=== PATIENT | female | born 1955 | race Caucasian/White ===

== ENCOUNTER 2017-12-22 01:06 | Emergency (ER) | payer MEDICARE, SELFPAY ==
[2017-12-22 01:07] VITALS: BP 158/96; PULSE 84; RESP 21; TEMP 36.8; O2SAT 92; BMI 25.7
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
[2017-12-22] MEDS: Meclizine 12.5 MG Tablet 25 MG PO (01:27)
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
--- NOTE | 2017-12-22 02:57 | ED.DEP ---
ED Disposition - Plan for ED Patient: Disposition: Home or Assisted Living Chief Complaint: Headache Instructions: ED Vertigo Unspecified Prescriptions: Ondansetron [Zofran Odt] 4 mg PO Q8H PRN PRN #10 tab PRN Reason: Nausea Meclizine HCl [Antivert] 25 mg PO 4X/DAY PRN PRN #15 tab PRN Reason: Vertigo Referrals: Casey Francois MD [Primary Care Provider] -
[2017-12-22] MEDS: Ondansetron ODT 4 MG Tablet PO (03:07)
[2017-12-22 03:08] VITALS: BP 118/86; PULSE 75; RESP 16; O2SAT 95
== END 2017-12-22 03:10 | disposition home or self-care (01) ==
PROVIDERS: Emergency Provider Emergency Medicine; Family Provider Family Medicine; PCP Family Medicine
DX: R42 Dizziness and giddiness (principal); J44.9 Chronic obstructive pulmonary disease, unspecified
CPT/HCPCS: 70450; 99284

== ENCOUNTER 2018-10-09 20:06 | Inpatient (IN) | payer MEDICARE, SELFPAY ==
[2018-10-04 09:37] VITALS: BMI 26.6
[2018-10-09] VITALS (13 sets, daily range): BP systolic 93–137; BP diastolic 59–114; PULSE 79–110; RESP 12–26; TEMP 36.3; O2SAT 94–96; BMI 27.6
--- NOTE | 2018-10-09 20:33 | PCM.HP.STD ---
History of Present Illness Date of Admission: 10/09/18 Chief Complaint: Dsypnea, wheezing, fatigue The patient is a 63 y/o F w/ PMHx: Chronic COPD w/ Chronic Hypoxic Respiratory Failure (2L NC q HS), Bronchiectasis, prior Tobacco use who presents to the [facility] ICU on 10/09/18 as direct admission from [place] ED w/ history of onset dyspnea, wheezing, extreme fatigue and malaise with decreased oral intake with nonproductive cough starting this past Wednesday and progressively worsening with subjective fevers, no chills, no nausea, emesis, diarrhea associated. In the outside hospital workup had included notable elevated heart rate, tachypnea with ABG initially obtained on 4 L nasal cannula with PCO2 62 and PO2 44 with evidence of respiratory distress with placement per their facility on CPAP with PCO2 decreased to 44, CBC with WBC 7.2, hemoglobin 15.4, platelet 267 without market shift, lactic acid 1.1, BMP with sodium 138, potassium 4.4, chloride 101, bicarb 30, BUN/Cr 9/0.46, glucose 112, rapid influenza obtained per outside hospital but pending upon transition, chest x-ray with no acute process, EKG with sinus tachycardia. In the outside hospital ED patient was administered IV Solu-Medrol, aerosols and transition to [facility] requested as patient follows with pulmonary medicine Dr. Denys Saavedra and primary care physician Dr. Casey Montana. 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 Allergies sulfamethoxazole [From Bactrim] Allergy (Mild, Verified 10/04/18 08:24) Rash trimethoprim [From Bactrim] Allergy (Mild, Verified 10/04/18 08:24) Rash acetaminophen [From Vicodin] Adverse Reaction (Verified 10/04/18 08:24) Nausea hydrocodone [From Vicodin] Adverse Reaction (Verified 10/04/18 08:24) Nausea Sulfa (Sulfonamide Antibiotics) Adverse Reaction (Verified 10/04/18 08:24) Anaphylaxis Home Medications: Ambulatory Orders Medication Instructions Recorded albuterol sulfate HFA 90 2 puff INHALATION Q4H PRN g 09/24/17 mcg/actuation aerosol inhaler budesonide-formoterol HFA 160 2 inh INHALATION Q12H 09/24/17 mcg-4.5 mcg/actuation aerosol inhaler PEP #1 [id number] 10/04/18 ipratropium-albuterol 0.5 mg-3 3 ml INHALATION Q8H 10/04/18 mg(2.5 mg base)/3 mL nebulization soln Surgical History: Surgical History (Last Reviewed 10/04/18 @ 08:24 by Lin Gallo) epidural block Surgical History: - - Ventral hernia repair. 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 Tobacco Use: Non-smoker Alcohol: None Drugs: None - *Family History Maternal Family History: Family History (Last Updated 10/04/18 @ 09:33 by Lin Gallo) Father Lung cancer Mother Myocardial infarction Hypertension Brother Myocardial infarction Sister Diabetes Hypertension Lung cancer History Items: - - Patient notes maternal family history of heart disease, coronary artery disease, hypertension. Paternal Family History: Family History (Last Updated 10/04/18 @ 09:33 by Lin Gallo) Father Lung cancer Mother Myocardial infarction Hypertension Brother Myocardial infarction Sister Diabetes Hypertension Lung cancer History Items: - - She notes a paternal family history of lung cancer with history of tobacco concurrent usage. Review of Systems Constitutional: Reports: Anorexia, Fever, Malaise, Weakness, Fatigue. Denies: Chills, Weight Change HEENT: Denies: Head Aches, Sinus Congestion, Sinus Drainage Cardiovascular: Denies: Chest Pain, Palpitations Respiratory: Reports: Cough, Shortness of Breath, Shortness of breath at rest, Shortness of breath upon exertion, Wheezing. Denies: Sputum production Gastrointestinal: Denies: Abdominal Pain, Nausea, Vomiting Genitourinary: Denies: Dysuria Musculoskeletal: Reports: Joint Pain. Denies: Joint Tenderness Skin: Denies: Rash, Wounds Neurological: Denies: Numbness, Tingling, Focal weakness Psychiatric: Denies: Anxiety, Depression, Homicidal Ideations, Suicidal Ideations Hematologic/ Lymphatic: Denies: Easy Bruising, Easy Bleeding VTE Information - Inpt Only VTE Present on Admission: No VTE Mechan Device Prophylaxis: SCD's VTE Pharm Prophylaxis ordered?: Yes Subjective: Seated upright in the ICU bed, transitioning from CPAP to BiPAP, still ongoing crease respiratory rate, some conversational dyspnea, accessory muscle usage. Objective: Physical Examination: General: awake, alert, oriented x 3 and cooperative, seated upright in the ICU, transitioning from CPAP to BiPAP, still ongoing crease respiratory rate, some conversational dyspnea, accessory muscle usage, appears more comfortable once transition to BiPAP therapy. Skin: normal color, turgor, no icterus, cyanosis. HEENT: AT/NC, EOMI, PERRLA, dry MM, no carotid bruits or JVD noted. Lungs: Diminished breath sounds throughout, greater bilateral bases, increased respiratory rate, some accessory muscle usage, transitioning from CPAP to BiPAP, audible end expiratory wheezing throughout. Heart: Tachycardic with regular rhythm; no gallop, rub audible. Abdomen: soft, thin habitus, NTTP, ND, normal BS, no HSM. Extremities: no cyanosis, clubbing, or edema. Neurological: patient awake, alert, oriented x 3; cognitive function intact; pupils equally reactive to light and accomodation; cranial nerves II-XII grossly normal, moving all 4 extremities, no focal deficits, strength fairly globally decreased secondary to acute presentation. Psychiatric: affect appears fatigued, ill-appearing, no acute evidence of depressive or anxiety feelings. - Physical Exam Vital Signs Temp Pulse Resp BP Pulse Ox 97.4 F L 110 H 23 H 137/92 H 95 10/09/18 20:11 10/09/18 20:11 10/09/18 20:11 10/09/18 20:11 10/09/18 20:11 Oxygen Delivery Method CPAP Weight: 145 lb 15.136 oz Body Mass Index (BMI) 27.6 Assessment/Plan The patient is a 63 y/o F w/ PMHx: Chronic COPD w/ Chronic Hypoxic Respiratory Failure (2L NC q HS), Bronchiectasis, prior Tobacco use who presents to the [facility] ICU on 10/09/18 as direct admission from [facility] ED w/ history of onset dyspnea, wheezing, extreme fatigue and malaise with decreased oral intake with nonproductive cough starting this past Wednesday and progressively worsening with subjective fevers, no chills, no nausea, emesis, diarrhea associated. (1) Acute Sepsis secondary to Acute Hypoxic and Hypercarbic Respiratory Failure on Chronic secondary to Acute on chronic COPD exacerbation w/ Bronchiectasis suspected secondary to Acute Viral Syndrome: OSH ED evaluation w/ CXR w/ chronic changes, CBC without marked WBC elevation or L shift, evidence respiratory distress w/ hypoxia and hypercapnia, placed on CPAP at OSH. Will admit to the ICU, transition to BIPAP, repeat ABG as needed, obtain respiratory viral panel, continue ATC duonebs, PRN albuterol, IV methylprednisolone, HOB, IS parameters, defer abx, request sputum cx and as noted pending respiratory viral panel, repeat CXR in AM, ICU physician consulted and aware. (2) Bronchiectasis, Chronic: Recent Pulmonary visit prior to onset recent acute illness w/ noted work-up with CT w/ emphysematous changes and noted right middle lobe collapse possibly secondary to mucous plugging with plan repeat CT scan in 3 months with possible bronchoscopy for evaluation of endobronchial mass at this region and evidence of bronchiectasis with initiation of PEP therapy, spirometry FEV1 of 42% of predicted ~1 year prior, requested PFTs, walking oximetry. We will continue acute evaluation and workup as noted #1 in addition to continuation of PEP. (3) Chronic Moderate Protein-Calorie Malnutrition: Evidenced per habitus, evidence muscle and fat loss, nutrition consulted. (4) History of Tobacco use: Encourage continued tobacco cessation. (5) DVT Prophylaxis: SCDs, lovenox. (6) CODE status: Discussed CODE status at length including difference between FULL code, DNR-CCA and DNR-CC status. Following discussions about the differences in these status, requested Full Code status. Brother HCPOA. Living will in place. Advanced Care Planning Face to Face Time: 16 minutes. Code Visit Inpatient E&M: 31198 Init Hosp L3 Procedures: 31013 Advncd Care Plan 30 Min
[2018-10-09] MEDS: Albuterol 2.5 MG/3 ML VIAL.NEB. INHALATION (20:40)
[2018-10-09 20:53] LABS: Magnesium 2.1 mg/dL (1.6-2.6)
[2018-10-09] MEDS: MELATONIN 10 MG TABLET PO (22:00)
[2018-10-09] MEDS: 0.9% Normal Saline 1,000 ML 125 ML IV (22:01)
[2018-10-09] MEDS: Acetaminophen 325 MG Tablet 650 MG PO (22:01)
[2018-10-09] MEDS: guaiFENesin 1,200 MG Tablet 1200 MG PO (22:02)
[2018-10-09] MEDS: 0.9% NaCl Peripheral Flush Adult/Peds IV (22:05)
[2018-10-09] MEDS: Ipratropium/Albuterol Sulfate 3 ML AMPUL.NEB INHALATION (22:45)
[2018-10-10] VITALS (34 sets, daily range): BP systolic 94–141; BP diastolic 63–90; PULSE 73–120; RESP 12–23; TEMP 36.1–36.9; O2SAT 92–98
[2018-10-10] MEDS: Ipratropium/Albuterol Sulfate 3 ML AMPUL.NEB INHALATION ×6 (02:33→22:08)
--- NOTE | 2018-10-10 02:44 | RAD_ITS ---
HISTORY: SOB EXAM: XR Chest 1 View: COMPARISON: None FINDINGS: # of images incl. paperwork: 2 LINES/DEVICES: None. LUNGS: Radiographically clear. No consolidation, edema or effusion. No pneumothorax. Lucent appearance of the mid and upper lung suggestive of COPD. MEDIASTINUM AND CARDIOVASCULAR STRUCTURES: Cardiac silhouette not enlarged. Central airways and mediastinal contour are unremarkable. BONES AND SOFT TISSUES: Unremarkable. RAD/Chest 1 View (Portable) IMPRESSION: No radiographic evidence of acute cardiopulmonary disease. Suspect COPD. at 0301 Reported and signed by: Jeff Newton MD Electronically Signed: Jeff Newton, at 3:00 EST Tel , Service support ,
[2018-10-10 04:41] LABS: Absolute Lymphocyte Count 0.36 X10^3/ul (0.83-4.51); Absolute Neutrophil Count 6.4 X10^3/uL (2.0-7.7); Hematocrit 43.5 % (37-47); Hemoglobin 13.9 g/dl (12.0-15.0); Lymphocyte # 0.36 X10^3/ul (4.0); Lymphocyte % 5.3 % (19-41); Mean Corpuscular Hgb 29.8 pg (27.0-32.0); Mean Corpuscular Volume 93.3 fL (81-99); Mean Platelet Vol. 8.8 fl (6.2-12.0); Monocyte% 1.5 % (0-10); Neutrophil # 6.35 X10^3/uL (2.7-7.7); Neutrophil % 92.9 % (47-70); Platelet Count 193 K/mm3 (150-450); RBC Distribution Width CV 13.3 % (11.6-14.6); RBC Distribution Width SD 45.4 fl (35.1-43.9); Red Blood Count 4.66 M/mm3 (4.2-5.4); White Blood Count 6.8 K/mm3 (4.4-11.0)
[2018-10-10 04:42] LABS: Differential Indicated SCAN CRITERIA MET; POSITIVE COUNT NO; POSITIVE DIFFERENTIAL YES; POSITIVE MORPHOLOGY NO
[2018-10-10 04:44] LABS: Anion Gap 7 (5-15); BUN 10 mg/dL (7-18); BUN/Creat Ratio 23.1 RATIO (10-20); Calcium,Total 8.3 mg/dL (8.5-10.1); Chloride 106 mmol/L (98-107); Creatinine, Serum 0.43 mg/dL (0.55-1.02); EST Glomerular Filtration Rate 156 mL/min (>60); Est Glom Filt Rate - Afr Amer 189 mL/min (>60); Estimated Creatinine Clearance 99.74 ml/min; Glucose 139 mg/dL (74-106); Potassium 4.3 mmol/L (3.5-5.1); Sodium Level 141 mmol/L (136-145)
[2018-10-10] MEDS: 0.9% Normal Saline 1,000 ML 125 ML IV (05:35)
--- NOTE | 2018-10-10 08:43 | PCM.CON.CC ---
Problem List (1) Abnormal CT of the chest Status: Chronic (2) Stage 3 severe COPD by GOLD classification Status: Chronic Comment: FEV1 42% (3) Bronchiectasis Status: Chronic Qualifiers: Bronchiectasis type: with acute exacerbation Qualified Code(s): J47.1 - Bronchiectasis with (acute) exacerbation Comment: Noted on CT chest LLL 07/05/17 Reason for Consult Date of Consultation: 10/10/18 Reason for Consultation: Respiratory failure History of Present Illness: The patient is a 63 year old F, with past medical history listed below, who presented to [facility] on 10/09/2018 from [place] [facility] secondary to dyspnea, wheezing, extreme fatigue and malaise. Patient reportedly had had subjective fevers and was noted to be tachycardic at the outside facility. Patient was noted to have a PO2 of 44 on 4 L nasal cannula. Chest x-ray had showed no acute process, but EKG had sinus tachycardia. Patient was given IV Solu-Medrol, aerosols and then transitioned to our intensive care unit on BiPAP therapy. Overnight, patient has been on BiPAP therapy continuously. Patient was initially seen and taken off of BiPAP therapy. Patient reportedly is tolerating this well. Patient was saturating well on nasal cannula oxygen on my evaluation. Patient reports it hit me like a brick on Wednesday. Patient reported significant wheezing, subjective fevers and nonproductive cough. She was recently seen in my office as a transfer from Dr. Tierney's office. Patient had dated PFT showing an FEV1 of 42% of predicted. CT scan at the outside facility showed left lower lobe bronchiectasis and a possible right middle lobe obstruction. Patient reportedly did have a productive cough on a daily basis and there was some concern for possible mucous plugging at that time. Patient was to have a repeat CT scan in 3 months with possible bronchoscopy to follow. Did discuss with patient about her CODE STATUS. Patient states she would like to be a full code. She understands the risk of not being able to come off the ventilator, but thinks I am not that bad. Review of systems was otherwise negative x10 systems. 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 Allergies sulfamethoxazole [From Bactrim] Allergy (Mild, Verified 10/04/18 08:24) Rash trimethoprim [From Bactrim] Allergy (Mild, Verified 10/04/18 08:24) Rash hydrocodone [From Vicodin] Adverse Reaction (Verified 10/04/18 08:24) Nausea Sulfa (Sulfonamide Antibiotics) Adverse Reaction (Verified 10/04/18 08:24) Anaphylaxis Home Medications: Ambulatory Orders Medication Instructions Recorded albuterol sulfate HFA 90 2 puff INHALATION Q4H PRN g 09/24/17 mcg/actuation aerosol inhaler budesonide-formoterol HFA 160 2 inh INHALATION Q12H 09/24/17 mcg-4.5 mcg/actuation aerosol inhaler PEP #1 [id number] 10/04/18 ipratropium-albuterol 0.5 mg-3 3 ml INHALATION Q8H 10/04/18 mg(2.5 mg base)/3 mL nebulization soln Surgical History: Surgical History (Last Reviewed 10/04/18 @ 08:24 by Lin Gallo) epidural block Surgical History: - - Ventral hernia repair. 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 Tobacco Use: Non-smoker Alcohol: None Drugs: None - *Family History Maternal Family History: Family History (Last Updated 10/04/18 @ 09:33 by Lin Gallo) Father Lung cancer Mother Myocardial infarction Hypertension Brother Myocardial infarction Sister Diabetes Hypertension Lung cancer History Items: - - Patient notes maternal family history of heart disease, coronary artery disease, hypertension. Paternal Family History: Family History (Last Updated 10/04/18 @ 09:33 by Lin Gallo) Father Lung cancer Mother Myocardial infarction Hypertension Brother Myocardial infarction Sister Diabetes Hypertension Lung cancer History Items: - - She notes a paternal family history of lung cancer with history of tobacco concurrent usage. Review of Systems Comment: See HPI, otherwise negative x10 systems. Objective: Chest x-ray was personally reviewed and shows no acute infiltrate. - Physical Exam General: Alert, Oriented x3, Cooperative, - - Mild conversational dyspnea while on BiPAP initially. Appears older than stated age. HEENT: Atraumatic, PERRLA, EOMI, Normocephalic, - - No scleral icterus or injection noted. Oral: Moist Mucosa, No Gingival or Mucosal Lesions/ Ulcerations Neck: Supple, No JVD, No Nodes, Trachea Midline Lungs: No rhonchi, No rales, Diminished, Wheezes - At end exhalation Cardiovascular: Regular rate, Regular Rhythm, Normal S1, Normal S2, No murmurs, No rub noted, No Gallop Abdomen: Bowel Sounds Present, Soft, Non Tender, Non-Distended Extremities: No clubbing, No cyanosis, No edema, Capillary Refill Less than 3 Seconds Skin: No rashes, No breakdown Musculoskeletal: No Tenderness to Palpation of Joints or Extremities, No Muscle Wasting Lymphatic: No Cervical, Supraclavicular, or Inguinal Adenopathy Neurological: Cranial nerves II-XII grossly intact, Neuro grossly intact, Motor Exam 5/5 strength throughout Psych/Mental Status: Alert and oriented to time, place, person, mood and affect Vital Signs Temp Pulse Resp BP Pulse Ox 36.4 C L 84 20 H 103/82 H 95 10/10/18 08:00 10/10/18 08:00 10/10/18 08:00 10/10/18 08:00 10/10/18 08:00 Oxygen Flow Rate (L/min) 4 Oxygen Delivery Method Nasal Cannula Weight: 67.3 kg Body Mass Index (BMI) 27.6 Intake and Output for Last 24 Hours 10/08/18 10/09/18 10/10/18 23:59 23:59 23:59 Intake Total 411 / 411 807 / 807 Output Total 200 / 200 Balance 211 / 211 807 / 807 Laboratory Tests Past 24 Hrs 10/09/18 10/10/18 10/10/18 20:40 04:20 04:20 WBC 6.8 RBC 4.66 Hgb 13.9 Hct 43.5 MCV 93.3 MCH 29.8 MCHC 32.0 RDW 13.3 RDW Differential 45.4 H Plt Count 193 MPV 8.8 Immature Gran % (Auto) 0.300 Neut % (Auto) 92.9 H Lymph % (Auto) 5.3 L [place] % (Auto) 1.5 Eos % (Auto) 0.0 Baso % (Auto) 0.0 Absolute Neuts (auto) 6.4 Absolute Lymphs (auto) 0.36 L Total Counted Not Reportable Sodium 141 Potassium 4.3 Chloride 106 Carbon Dioxide 28.0 Anion Gap 7 BUN 10 Creatinine 0.43 L Estim Creat Clear Calc 99.74 Est GFR (MDRD) Af Amer 189 Est GFR (MDRD) Non-Af 156 BUN/Creatinine Ratio 23.1 H Glucose 139 H Calcium 8.3 L Magnesium 2.1 Clinical Impression(s) from Imaging Studies Chest X-Ray 10/10/18 02:44 IMPRESSION: No radiographic evidence of acute cardiopulmonary disease. Suspect COPD. at 0301 Reported and signed by: Jeff Newton MD Electronically Signed: Jeff Newton, at 3:00 EST Tel , Service support , Assessment/Plan RECOMMENDATIONS: 1. Continue mucolytic, steroids and bronchodilators as ordered 2. Wean oxygen as tolerated 3. Continue BiPAP as needed/nightly 4. Likely okay to leave the intensive care unit IMPRESSIONS: 1. Acute on chronic hypoxic respiratory failure secondary to COPD versus bronchiectasis exacerbation Unclear etiology at this time. Patient does have a viral panel currently pending. Patient has had a CT scan in the past showing possible obstruction of the right middle lobe. No infiltrate is appreciated on chest x-ray. Unclear if patient had an element of mucus plugging leading to current situation. Patient would benefit from initiation of Acapella therapy. We will continue with BiPAP breaks as tolerated. Would continue with BiPAP overnight during the acute phase. Patient will need a walking oximetry prior to discharge. 2. Chronic moderate protein calorie malnutrition/history of tobacco use Complicates care, management, recovery and prognosis. Dietitian has been consulted. Patient is on DVT Lovenox. Code Visit Inpatient E&M: 28357 Init Hosp L3
--- NOTE | 2018-10-10 08:50 | CON.PCM_ITS ---
Problem List (1) Abnormal CT of the chest Status: Chronic (2) Stage 3 severe COPD by GOLD classification Status: Chronic Comment: FEV1 42% (3) Bronchiectasis Status: Chronic Qualifiers: Bronchiectasis type: with acute exacerbation Qualified Code(s): J47.1 - Bronchiectasis with (acute) exacerbation Comment: Noted on CT chest LLL 07/05/17 Reason for Consult Date of Consultation: 10/10/18 Reason for Consultation: Respiratory failure History of Present Illness: The patient is a 63 year old F, with past medical history listed below, who presented to [facility] on 10/09/2018 from [facility] secondary to dyspnea, wheezing, extreme fatigue and malaise. Patient reportedly had had subjective fevers and was noted to be tachycardic at the outside facility. Patient was noted to have a PO2 of 44 on 4 L nasal cannula. Chest x-ray had showed no acute process, but EKG had sinus tachycardia. Patient was given IV Solu-Medrol, aerosols and then transitioned to our intensive care unit on BiPAP therapy. Overnight, patient has been on BiPAP therapy continuously. Patient was initially seen and taken off of BiPAP therapy. Patient reportedly is tolerating this well. Patient was saturating well on nasal cannula oxygen on my evaluation. Patient reports it hit me like a brick on Wednesday. Patient reported significant wheezing, subjective fevers and nonproductive cough. She was recently seen in my office as a transfer from Dr. Tierney's office. Patient had dated PFT showing an FEV1 of 42% of predicted. CT scan at the outside facility showed left lower lobe bronchiectasis and a possible right middle lobe o bstruction. Patient reportedly did have a productive cough on a daily basis and there was some concern for possible mucous plugging at that time. Patient was to have a repeat CT scan in 3 months with possible bronchoscopy to follow. Did discuss with patient about her CODE STATUS. Patient states she would like to be a full code. She understands the risk of not being able to come off the ventilator, but thinks I am not that bad. Review of systems was otherwise negative x10 systems. 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 Allergies sulfamethoxazole [From Bactrim] Allergy (Mild, Verified 10/04/18 08:24) Rash trimethoprim [From Bactrim] Allergy (Mild, Verified 10/04/18 08:24) Rash hydrocodone [From Vicodin] Adverse Reaction (Verified 10/04/18 08:24) Nausea Sulfa (Sulfonamide Antibiotics) Adverse Reaction (Verified 10/04/18 08:24) Anaphylaxis Home Medications: Ambulatory Orders Medication Instructions Recorded albuterol sulfate HFA 90 2 puff INHALATION Q4H PRN g 09/24/17 mcg/actuation aerosol inhaler budesonide-formoterol HFA 160 2 inh INHALATION Q12H 09/24/17 mcg-4.5 mcg/actuation aerosol inhaler PEP #1 [id number] 10/04/18 ipratropium-albuterol 0.5 mg-3 3 ml INHALATION Q8H 10/04/18 mg(2.5 mg base)/3 mL nebulization soln Surgical History: Surgical History (Last Reviewed 10/04/18 @ 08:24 by Lin Gallo) epidural block Surgical History: - - Ventral hernia repair. 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 Tobacco Use: Non-smoker Alcohol: None Drugs: None - *Family History Maternal Family History: Family History (Last Updated 10/04/18 @ 09:33 by Lin Gallo) Father Lung cancer Mother Myocardial infarction Hypertension Brother Myocardial infarction Sister Diabetes Hypertension Lung cancer History Items: - - Patient notes maternal family history of heart disease, coronary artery disease, hypertension. Paternal Family History: Family History (Last Updated 10/04/18 @ 09:33 by Lin Gallo) Father Lung cancer Mother Myocardial infarction Hypertension Brother Myocardial infarction Sister Diabetes Hypertension Lung cancer History Items: - - She notes a paternal family history of lung cancer with history of tobacco concurrent usage. Review of Systems Comment: See HPI, otherwise negative x10 systems. Objective: Chest x-ray was personally reviewed and shows no acute infiltrate. - Physical Exam General: Alert, Oriented x3, Cooperative, - - Mild conversational dyspnea while on BiPAP initially. Appears older than stated age. HEENT: Atraumatic, PERRLA, EOMI, Normocephalic, - - No scleral icterus or injection noted. Oral: Moist Mucosa, No Gingival or Mucosal Lesions/ Ulcerations Neck: Supple, No JVD, No Nodes, Trachea Midline Lungs: No rhonchi, No rales, Diminished, Wheezes - At end exhalation Cardiovascular: Regular rate, Regular Rhythm, Normal S1, Normal S2, No murmurs, No rub noted, No Gallop Abdomen: Bowel Sounds Present, Soft, Non Tender, Non-Distended Extremities: No clubbing, No cyanosis, No edema, Capillary Refill Less than 3 Seconds Skin: No rashes, No breakdown Musculoskeletal: No Tenderness to Palpation of Joints or Extremities, No Muscle Wasting Lymphatic: No Cervical, Supraclavicular, or Inguinal Adenopathy Neurological: Cranial nerves II-XII grossly intact, Neuro grossly intact, Motor Exam 5/5 strength throughout Psych/Mental Status: Alert and oriented to time, place, person, mood and affect Vital Signs Temp Pulse Resp BP Pulse Ox 36.4 C L 84 20 H 103/82 H 95 10/10/18 08:00 10/10/18 08:00 10/10/18 08:00 10/10/18 08:00 10/10/18 08:00 Oxygen Flow Rate (L/min) 4 Oxygen Delivery Method Nasal Cannula Weight: 67.3 kg Body Mass Index (BMI) 27.6 Intake and Output for Last 24 Hours 10/08/18 10/09/18 10/10/18 23:59 23:59 23:59 Intake Total 411 / 411 807 / 807 Output Total 200 / 200 Balance 211 / 211 807 / 807 Laboratory Tests Past 24 Hrs 10/09/18 10/10/18 10/10/18 20:40 04:20 04:20 WBC 6.8 RBC 4.66 Hgb 13.9 Hct 43.5 MCV 93.3 MCH 29.8 MCHC 32.0 RDW 13.3 RDW Differential 45.4 H Plt Count 193 MPV 8.8 Immature Gran % (Auto) 0.300 Neut % (Auto) 92.9 H Lymph % (Auto) 5.3 L [place] % (Auto) 1.5 Eos % (Auto) 0.0 Baso % (Auto) 0.0 Absolute Neuts (auto) 6.4 Absolute Lymphs (auto) 0.36 L Total Counted Not Reportable Sodium 141 Potassium 4.3 Chloride 106 Carbon Dioxide 28.0 Anion Gap 7 BUN 10 Creatinine 0.43 L Estim Creat Clear Calc 99.74 Est GFR (MDRD) Af Amer 189 Est GFR (MDRD) Non-Af 156 BUN/Creatinine Ratio 23.1 H Glucose 139 H Calcium 8.3 L Magnesium 2.1 Clinical Impression(s) from Imaging Studies Chest X-Ray 10/10/18 02:44 IMPRESSION: No radiographic evidence of acute cardiopulmonary disease. Suspect COPD. at 0301 Reported and signed by: Jeff Newton MD Electronically Signed: Jeff Newton, at 3:00 EST Tel , Service support , Assessment/Plan RECOMMENDATIONS: 1. Continue mucolytic, steroids and bronchodilators as ordered 2. Wean oxygen as tolerated 3. Continue BiPAP as needed/nightly 4. Likely okay to leave the intensive care unit IMPRESSIONS: 1. Acute on chronic hypoxic respiratory failure secondary to COPD versus bronchiectasis exacerbation Unclear etiology at this time. Patient does have a viral panel currently pending. Patient has had a CT scan in the past showing possible obstruction of the right middle lobe. No infiltrate is appreciated on chest x-ray. Unclear if patient had an element of mucus plugging leading to current situation. Patient would benefit from initiation of Acapella therapy. We will continue with BiPAP breaks as tolerated. Would continue with BiPAP overnight during the acute phase. Patient will need a walking oximetry prior to discharge. 2. Chronic moderate protein calorie malnutrition/history of tobacco use Complicates care, management, recovery and prognosis. Dietitian has been consulted. Patient is on DVT Lovenox. Code Visit Inpatient E&M: 62724 Init Hosp L3
--- NOTE | 2018-10-10 09:10 | PCM.PN.HOSP ---
Patient Problems: Active and Suspected Problems (Last Updated 10/04/18 @ 09:32 by Lin Gallo) COPD with acute exacerbation (Acute) Acute and chronic respiratory failure with hypoxia (Acute) Subjective: Follow up COPD Breathing better. Taken of BiPAP this AM and is breathing well. Vitals/I&O's: Vital Signs Temp Pulse Resp BP Pulse Ox 36.4 C L 89 23 H 132/90 H 98 10/10/18 08:00 10/10/18 09:00 10/10/18 09:00 10/10/18 09:00 10/10/18 09:00 Oxygen Flow Rate (L/min) 4 Oxygen Delivery Method Nasal Cannula Weight: 67.3 kg Body Mass Index (BMI) 27.6 Intake and Output for Last 24 Hours 10/08/18 10/09/18 10/10/18 23:59 23:59 23:59 Intake Total 411 / 411 807 / 807 Output Total 200 / 200 Balance 211 / 211 807 / 807 General: Alert, No apparent distress HEENT: Atraumatic, Normocephalic Oral: Moist Mucosa, No Gingival or Mucosal Lesions/ Ulcerations Neck: No Nodes, Thyroid Normal Size and Texture Lungs: Diminished, Wheezes Cardiovascular: Regular rate, Regular Rhythm, Normal S1, Normal S2, No murmurs Abdomen: Bowel Sounds Present, Soft, Non Tender, Non-Distended, No Hepato-splenomegaly Extremities: No edema, No Calf Tenderness Skin: No rashes, No breakdown Psych/Mental Status: Normal Affect, Appropriate Laboratory Results 10/09/18 20:40: Magnesium 2.1 10/10/18 04:20: WBC 6.8, RBC 4.66, Hgb 13.9, Hct 43.5, MCV 93.3, MCH 29.8, MCHC 32.0, RDW 13.3, RDW Differential 45.4 H, Plt Count 193, MPV 8.8, Immature Gran % (Auto) 0.300, Neut % (Auto) 92.9 H, Lymph % (Auto) 5.3 L, [place] % (Auto) 1.5, Eos % (Auto) 0.0, Baso % (Auto) 0.0, Absolute Neuts (auto) 6.4, Absolute Lymphs (auto) 0.36 L, Total Counted Not Reportable 10/10/18 04:20: Sodium 141, Potassium 4.3, Chloride 106, Carbon Dioxide 28.0, Anion Gap 7, BUN 10, Creatinine 0.43 L, Estim Creat Clear Calc 99.74, Est GFR (MDRD) Af Amer 189, Est GFR (MDRD) Non-Af 156, BUN/Creatinine Ratio 23.1 H, Glucose 139 H, Calcium 8.3 L Current Medications Acetaminophen (Tylenol) 650 mg PO Q6H PRN PRN PRN Reason: Mild Pain (scale 0-3)/T>100.7 Last Admin: 10/09/18 22:01 Dose: 650 mg Al Hydroxide/Mg Hydroxide (Mylanta Ii) 30 ml PO Q6H PRN PRN PRN Reason: Gastric burning Albuterol Sulfate (Ventolin Aerosols) 2.5 mg INHALATION Q2H PRN PRN PRN Reason: SHORTNESS OF BREATH Last Admin: 10/09/18 20:40 Dose: 2.5 mg Albuterol/Ipratropium (Duoneb) 3 ml INHALATION Q4H.RT [facility] Last Admin: 10/10/18 06:50 Dose: 3 ml Enoxaparin Sodium (Lovenox) 40 mg SC DAILY@1000 MAIRA Guaifenesin (Mucinex) 1,200 mg PO BID [facility] Last Admin: 10/09/18 22:02 Dose: 1,200 mg Sodium Chloride () 250 mls @ 15 mls/hr IV .[id number] PRN PRN Reason: SALINE FLUSH Magnesium Hydroxide (Milk Of Magnesia) 30 ml PO DAILY PRN PRN PRN Reason: Constipation Melatonin (Melatonin) 10 mg PO QHS [facility] Last Admin: 10/09/18 22:00 Dose: 10 mg Methylprednisolone (Solu-Medrol) 40 mg IV Q8 [facility] Last Admin: 10/10/18 06:10 Dose: 40 mg Ondansetron HCl (Zofran) 4 mg IV Q8H PRN PRN PRN Reason: NAUSEA Sodium Chloride () 5 - 15 ml IV UD PRN PRN Reason: SALINE FLUSH Last Admin: 10/09/18 22:05 Dose: 10 ml Medical Necessity - Tobacco Use Smoking Status: Former smoker - Patient quit cigarette tobacco usage October 09 with a [id number] history prior to this. Tobacco Use: Non-smoker Assessment/Plan All Active Problems (Last Updated 10/04/18 @ 09:32 by Lin Gallo) COPD with acute exacerbation (Acute) Acute and chronic respiratory failure with hypoxia (Acute) 1. Acute hypoxic respiratory failure noted pulse Ox of 44% on 4L 2/2 AECOPD or AE bronchiectasis taken off BiPAP and tolerating nasal canula well 2. AECOPD v acute exacerbation of bronchiectasis continue steroids, BDs 3. DVT proph: LMWH Deescalate level of care to PCU. NATTY Saavedra. Code Visit Inpatient E&M: 53291 Subs Hosp L2
--- NOTE | 2018-10-10 09:16 | PN_ITS ---
Patient Problems: Active and Suspected Problems (Last Updated 10/04/18 @ 09:32 by Lin Gallo) COPD with acute exacerbation (Acute) Acute and chronic respiratory failure with hypoxia (Acute) Subjective: Follow up COPD Breathing better. Taken of BiPAP this AM and is breathing well. Vitals/I&O's: Vital Signs Temp Pulse Resp BP Pulse Ox 36.4 C L 89 23 H 132/90 H 98 10/10/18 08:00 10/10/18 09:00 10/10/18 09:00 10/10/18 09:00 10/10/18 09:00 Oxygen Flow Rate (L/min) 4 Oxygen Delivery Method Nasal Cannula Weight: 67.3 kg Body Mass Index (BMI) 27.6 Intake and Output for Last 24 Hours 10/08/18 10/09/18 10/10/18 23:59 23:59 23:59 Intake Total 411 / 411 807 / 807 Output Total 200 / 200 Balance 211 / 211 807 / 807 General: Alert, No apparent distress HEENT: Atraumatic, Normocephalic Oral: Moist Mucosa, No Gingival or Mucosal Lesions/ Ulcerations Neck: No Nodes, Thyroid Normal Size and Texture Lungs: Diminished, Wheezes Cardiovascular: Regular rate, Regular Rhythm, Normal S1, Normal S2, No murmurs Abdomen: Bowel Sounds Present, Soft, Non Tender, Non-Distended, No Hepato- splenomegaly Extremities: No edema, No Calf Tenderness Skin: No rashes, No breakdown Psych/Mental Status: Normal Affect, Appropriate Laboratory Results 10/09/18 20:40: Magnesium 2.1 10/10/18 04:20: WBC 6.8, RBC 4.66, Hgb 13.9, Hct 43.5, MCV 93.3, MCH 29.8, MCHC 32.0, RDW 13.3, RDW Differential 45.4 H, Plt Count 193, MPV 8.8, Immature Gran % (Auto) 0.300, Neut % (Auto) 92.9 H, Lymph % (Auto) 5.3 L, [place] % (Auto) 1.5, Eos % (Auto) 0.0, Baso % (Auto) 0.0, Absolute Neuts (auto) 6.4, Absolute Lymphs (auto) 0.36 L, Total Counted Not Reportable 10/10/18 04:20: Sodium 141, Potassium 4.3, Chloride 106, Carbon Dioxide 28.0, Anion Gap 7, BUN 10, Creatinine 0.43 L, Estim Creat Clear Calc 99.74, Est GFR (MDRD) Af Amer 189, Est GFR (MDRD) Non-Af 156, BUN/Creatinine Ratio 23.1 H, Glucose 139 H, Calcium 8.3 L Current Medications Acetaminophen (Tylenol) 650 mg PO Q6H PRN PRN PRN Reason: Mild Pain (scale 0-3)/T>100.7 Last Admin: 10/09/18 22:01 Dose: 650 mg Al Hydroxide/Mg Hydroxide (Mylanta Ii) 30 ml PO Q6H PRN PRN PRN Reason: Gastric burning Albuterol Sulfate (Ventolin Aerosols) 2.5 mg INHALATION Q2H PRN PRN PRN Reason: SHORTNESS OF BREATH Last Admin: 10/09/18 20:40 Dose: 2.5 mg Albuterol/Ipratropium (Duoneb) 3 ml INHALATION Q4H.RT [facility] Last Admin: 10/10/18 06:50 Dose: 3 ml Enoxaparin Sodium (Lovenox) 40 mg SC DAILY@1000 MAIRA Guaifenesin (Mucinex) 1,200 mg PO BID [facility] Last Admin: 10/09/18 22:02 Dose: 1,200 mg Sodium Chloride () 250 mls @ 15 mls/hr IV .[id number] PRN PRN Reason: SALINE FLUSH Magnesium Hydroxide (Milk Of Magnesia) 30 ml PO DAILY PRN PRN PRN Reason: Constipation Melatonin (Melatonin) 10 mg PO QHS [facility] Last Admin: 10/09/18 22:00 Dose: 10 mg Methylprednisolone (Solu-Medrol) 40 mg IV Q8 [facility] Last Admin: 10/10/18 06:10 Dose: 40 mg Ondansetron HCl (Zofran) 4 mg IV Q8H PRN PRN PRN Reason: NAUSEA Sodium Chloride () 5 - 15 ml IV UD PRN PRN Reason: SALINE FLUSH Last Admin: 10/09/18 22:05 Dose: 10 ml Medical Necessity - Tobacco Use Smoking Status: Former smoker - Patient quit cigarette tobacco usage October 09 with a [id number] history prior to this. Tobacco Use: Non-smoker Assessment/Plan All Active Problems (Last Updated 10/04/18 @ 09:32 by Lin Gallo) COPD with acute exacerbation (Acute) Acute and chronic respiratory failure with hypoxia (Acute) 1. Acute hypoxic respiratory failure noted pulse Ox of 44% on 4L 2/2 AECOPD or AE bronchiectasis taken off BiPAP and tolerating nasal canula well 2. AECOPD v acute exacerbation of bronchiectasis continue steroids, BDs 3. DVT proph: LMWH Deescalate level of care to PCU. NATTY Saavedra. Code Visit Inpatient E&M: 65716 Subs Hosp L2
[2018-10-10] MEDS: guaiFENesin 1,200 MG Tablet 1200 MG PO ×2 (09:30→21:54)
[2018-10-10] MEDS: Enoxaparin 40 MG/0.4 ML Syringe SC (09:30)
--- NOTE | 2018-10-10 11:05 | CASEMGMT ---
RN CM Assessment Presentation: sepsis, acute hypoxic and hypercarbic resp failure, COPD exacerbation. Pt on Bipap intermittently now, plan is to wean to [place]. PCP Dr. Francois Insurance: [facility] Prescription coverage: yes Living arrangements: lives independently in apartment. No DME us. Pt states she is independent. PT/OT evals: do not anticipate pt will need therapy after dc. Transportation: drives DME needs: may need oxygen testing prior to dc. DC PLAN: home on dc.
[2018-10-10] MEDS: MELATONIN 10 MG TABLET PO (21:54)
[2018-10-10] MEDS: 0.9% NaCl Peripheral Flush Adult/Peds IV ×3 (21:55→21:59)
[2018-10-11] VITALS (14 sets, daily range): BP systolic 115–124; BP diastolic 56–86; PULSE 56–86; RESP 14–20; TEMP 36.6–36.8; O2SAT 91–98
[2018-10-11] MEDS: 0.9% NaCl Peripheral Flush Adult/Peds IV ×4 (05:22→22:49)
--- NOTE | 2018-10-11 05:27 | CPS ---
pt didn't want to wear bipap unless absolutely necessary
--- NOTE | 2018-10-11 05:30 | NURSING ---
Pt states that both times she received Solu-Medrol this shift, she got a headache. States REYNOLDS doesn't last long.
[2018-10-11] MEDS: Ipratropium/Albuterol Sulfate 3 ML AMPUL.NEB INHALATION ×4 (06:55→23:05)
[2018-10-11] MEDS: Enoxaparin 40 MG/0.4 ML Syringe SC (08:26)
[2018-10-11] MEDS: guaiFENesin 1,200 MG Tablet 1200 MG PO ×2 (08:26→22:49)
--- NOTE | 2018-10-11 09:42 | PCM.PN.INT ---
Subjective: Patient transferred out of the intensive care unit yesterday. Patient reports subjective improvement in overall condition. Oxygen status has improved. Patient did not require BiPAP rescue overnight. Patient continues to have a cough that is intermittently productive. General: Alert, Oriented x3, Cooperative, No apparent distress, - - Mild conversational dyspnea. Appears older than stated age. HEENT: Atraumatic, PERRLA, EOMI, Normocephalic, - - No scleral icterus or injection noted. Oral: Moist Mucosa, No Gingival or Mucosal Lesions/ Ulcerations Neck: Supple, No JVD, No Nodes, Trachea Midline Lungs: No rhonchi, No rales, Diminished, Wheezes, - - Symmetric expansion. No dullness to percussion. Cardiovascular: Regular rate, Regular Rhythm, Normal S1, Normal S2, No murmurs, No rub noted, No Gallop Abdomen: Bowel Sounds Present, Soft, Non Tender, Non-Distended Extremities: No cyanosis, No edema, Capillary Refill Less than 3 Seconds, Clubbing Skin: No rashes, No breakdown Musculoskeletal: No Tenderness to Palpation of Joints or Extremities Lymphatic: No Cervical, Supraclavicular, or Inguinal Adenopathy Neurological: Cranial nerves II-XII grossly intact, Neuro grossly intact, Motor Exam 5/5 strength throughout Psych/Mental Status: Alert and oriented to time, place, person, mood and affect Vital Signs Temp Pulse Resp BP Pulse Ox 36.7 C 82 19 H 115/56 L 91 10/11/18 04:08 10/11/18 07:00 10/11/18 07:00 10/11/18 04:08 10/11/18 07:43 Oxygen Flow Rate (L/min) 2 Oxygen Delivery Method Nasal Cannula Weight: 65.9 kg Body Mass Index (BMI) 27.6 Intake and Output for Last 24 Hours 10/09/18 10/10/18 10/11/18 23:59 23:59 23:59 Intake Total 411 / 411 2204 / 2204 60 / 60 Output Total 200 / 200 1800 / 1800 Balance 211 / 211 404 / 404 60 / 60 Labs (Last 48 Hours) 10/09/18 10/10/18 10/10/18 20:40 04:20 04:20 WBC 6.8 RBC 4.66 Hgb 13.9 Hct 43.5 MCV 93.3 MCH 29.8 MCHC 32.0 RDW 13.3 RDW Differential 45.4 H Plt Count 193 MPV 8.8 Immature Gran % (Auto) 0.300 Neut % (Auto) 92.9 H Lymph % (Auto) 5.3 L [place] % (Auto) 1.5 Eos % (Auto) 0.0 Baso % (Auto) 0.0 Absolute Neuts (auto) 6.4 Absolute Lymphs (auto) 0.36 L Total Counted Not Reportable Sodium 141 Potassium 4.3 Chloride 106 Carbon Dioxide 28.0 Anion Gap 7 BUN 10 Creatinine 0.43 L Estim Creat Clear Calc 99.74 Est GFR (MDRD) Af Amer 189 Est GFR (MDRD) Non-Af 156 BUN/Creatinine Ratio 23.1 H Glucose 139 H Calcium 8.3 L Magnesium 2.1 Microbiology 10/10/18 09:30 Sputum, Expectorated/Coughed Gram Stain - Final 10/09/18 20:30 Mucosa - Nasopharyngeal Respiratory Panel (PCR) - Final RSV B Medical Necessity - Tobacco Use Smoking Status: Former smoker - Patient quit cigarette tobacco usage October 09 with a [id number] history prior to this. Tobacco Use: Non-smoker Assessment/Plan All Active Problems (Last Updated 10/04/18 @ 09:32 by Lin Gallo) COPD with acute exacerbation (Acute) Acute and chronic respiratory failure with hypoxia (Acute) RECOMMENDATIONS: 1. Continue mucolytic and bronchodilators as ordered 2. Wean oxygen as tolerated 3. Likely okay to discontinue BiPAP rescue 4. Wean steroid therapy IMPRESSIONS: 1. Acute on chronic hypoxic respiratory failure secondary to COPD versus bronchiectasis exacerbation secondary to RSV Patient has come back positive for RSV. Patient appears to be responding to therapy well. We will decrease steroid therapy today. Anticipate transition to prednisone therapy tomorrow. Possible discharge tomorrow. Patient encouraged to ambulate as tolerated. Continue to wean oxygen as tolerated. Patient will need a walking oximetry prior to discharge. 2. Chronic moderate protein calorie malnutrition/history of tobacco use Complicates care, management, recovery and prognosis. Dietitian has been consulted. Patient is on DVT Lovenox. Code Visit Inpatient E&M: 69759 Subs Hosp L2
--- NOTE | 2018-10-11 13:15 | PCM.PN.HOSP ---
Patient Problems: Active and Suspected Problems (Last Updated 10/04/18 @ 09:32 by Lin Gallo) COPD with acute exacerbation (Acute) Acute and chronic respiratory failure with hypoxia (Acute) Subjective: Feels good. Breathing better. Vitals/I&O's: Vital Signs Temp Pulse Resp BP Pulse Ox 36.8 C 86 20 H 116/68 92 10/11/18 09:00 10/11/18 10:57 10/11/18 10:20 10/11/18 09:00 10/11/18 09:00 Oxygen Flow Rate (L/min) 2 Oxygen Delivery Method Nasal Cannula Weight: 65.9 kg Body Mass Index (BMI) 27.6 Intake and Output for Last 24 Hours 10/09/18 10/10/18 10/11/18 23:59 23:59 23:59 Intake Total 411 / 411 2204 / 2204 540 / 540 Output Total 200 / 200 1800 / 1800 Balance 211 / 211 404 / 404 540 / 540 General: Alert, No apparent distress HEENT: Atraumatic, Normocephalic Oral: Moist Mucosa, No Gingival or Mucosal Lesions/ Ulcerations Neck: No Nodes, Thyroid Normal Size and Texture Lungs: No rhonchi, No wheeze, Diminished, Wheezes - upper respiratory. Cardiovascular: Regular rate, Regular Rhythm, Normal S1, Normal S2, No murmurs Abdomen: Bowel Sounds Present, Soft, Non Tender, Non-Distended Extremities: No edema, No Calf Tenderness Skin: No rashes, No breakdown Psych/Mental Status: Normal Affect, Appropriate Microbiology Past 72 Hours 10/10/18 09:30 Sputum, Expectorated/Coughed Gram Stain - Final 10/10/18 09:30 Sputum, Expectorated/Coughed Respiratory Culture - Preliminary Appears to be normal respiratory yesenia. Further studies to follow. 10/09/18 20:30 Mucosa - Nasopharyngeal Respiratory Panel (PCR) - Final RSV B Current Medications Acetaminophen (Tylenol) 650 mg PO Q6H PRN PRN PRN Reason: Mild Pain (scale 0-3)/T>100.7 Last Admin: 10/09/18 22:01 Dose: 650 mg Al Hydroxide/Mg Hydroxide (Mylanta Ii) 30 ml PO Q6H PRN PRN PRN Reason: Gastric burning Albuterol Sulfate (Ventolin Aerosols) 2.5 mg INHALATION Q2H PRN PRN PRN Reason: SHORTNESS OF BREATH Last Admin: 10/09/18 20:40 Dose: 2.5 mg Albuterol/Ipratropium (Duoneb) 3 ml INHALATION Q4H.RT [facility] Last Admin: 10/11/18 10:19 Dose: 3 ml Enoxaparin Sodium (Lovenox) 40 mg SC DAILY@1000 [facility] Last Admin: 10/11/18 08:26 Dose: 40 mg Guaifenesin (Mucinex) 1,200 mg PO BID [facility] Last Admin: 10/11/18 08:26 Dose: 1,200 mg Magnesium Hydroxide (Milk Of Magnesia) 30 ml PO DAILY PRN PRN PRN Reason: Constipation Melatonin (Melatonin) 10 mg PO QHS [facility] Last Admin: 10/10/18 21:54 Dose: 10 mg Methylprednisolone (Solu-Medrol) 40 mg IV Q12 [facility] Ondansetron HCl (Zofran) 4 mg IV Q8H PRN PRN PRN Reason: NAUSEA Sodium Chloride () 5 - 15 ml IV UD PRN PRN Reason: SALINE FLUSH Last Admin: 10/11/18 05:30 Dose: 10 ml Medical Necessity - Tobacco Use Smoking Status: Former smoker - Patient quit cigarette tobacco usage October 09 with a 11-[id number]-rbnn history prior to this. Tobacco Use: Non-smoker Assessment/Plan All Active Problems (Last Updated 10/04/18 @ 09:32 by Lin Gallo) COPD with acute exacerbation (Acute) Acute and chronic respiratory failure with hypoxia (Acute) 1. Acute hypoxic respiratory failure Improved noted pulse Ox of 44% on 4L up admission 2/2 AECOPD or AE bronchiectasis taken off BiPAP and tolerating nasal canula well has oxygen PRN at home. Will check an ambulatory pulse ox prior to discharge to see if she will require it continuously or not. 2. AECOPD v acute exacerbation of bronchiectasis continue steroids, BDs 3. DVT proph: LMWH 4. Disposition: plan for home in next 24-48h if continues to improve. Deescalate level of care to Med Surg DW Dr. Saavedra. Code Visit Inpatient E&M: 25683 Subs Hosp L2
--- NOTE | 2018-10-11 13:18 | PN_ITS ---
Patient Problems: Active and Suspected Problems (Last Updated 10/04/18 @ 09:32 by Lin Gallo) COPD with acute exacerbation (Acute) Acute and chronic respiratory failure with hypoxia (Acute) Subjective: Feels good. Breathing better. Vitals/I&O's: Vital Signs Temp Pulse Resp BP Pulse Ox 36.8 C 86 20 H 116/68 92 10/11/18 09:00 10/11/18 10:57 10/11/18 10:20 10/11/18 09:00 10/11/18 09:00 Oxygen Flow Rate (L/min) 2 Oxygen Delivery Method Nasal Cannula Weight: 65.9 kg Body Mass Index (BMI) 27.6 Intake and Output for Last 24 Hours 10/09/18 10/10/18 10/11/18 23:59 23:59 23:59 Intake Total 411 / 411 2204 / 2204 540 / 540 Output Total 200 / 200 1800 / 1800 Balance 211 / 211 404 / 404 540 / 540 General: Alert, No apparent distress HEENT: Atraumatic, Normocephalic Oral: Moist Mucosa, No Gingival or Mucosal Lesions/ Ulcerations Neck: No Nodes, Thyroid Normal Size and Texture Lungs: No rhonchi, No wheeze, Diminished, Wheezes - upper respiratory. Cardiovascular: Regular rate, Regular Rhythm, Normal S1, Normal S2, No murmurs Abdomen: Bowel Sounds Present, Soft, Non Tender, Non-Distended Extremities: No edema, No Calf Tenderness Skin: No rashes, No breakdown Psych/Mental Status: Normal Affect, Appropriate Microbiology Past 72 Hours 10/10/18 09:30 Sputum, Expectorated/Coughed Gram Stain - Final 10/10/18 09:30 Sputum, Expectorated/Coughed Respiratory Culture - Preliminary Appears to be normal respiratory yesenia. Further studies to follow. 10/09/18 20:30 Mucosa - Nasopharyngeal Respiratory Panel (PCR) - Final RSV B Current Medications Acetaminophen (Tylenol) 650 mg PO Q6H PRN PRN PRN Reason: Mild Pain (scale 0-3)/T>100.7 Last Admin: 10/09/18 22:01 Dose: 650 mg Al Hydroxide/Mg Hydroxide (Mylanta Ii) 30 ml PO Q6H PRN PRN PRN Reason: Gastric burning Albuterol Sulfate (Ventolin Aerosols) 2.5 mg INHALATION Q2H PRN PRN PRN Reason: SHORTNESS OF BREATH Last Admin: 10/09/18 20:40 Dose: 2.5 mg Albuterol/Ipratropium (Duoneb) 3 ml INHALATION Q4H.RT [facility] Last Admin: 10/11/18 10:19 Dose: 3 ml Enoxaparin Sodium (Lovenox) 40 mg SC DAILY@1000 [facility] Last Admin: 10/11/18 08:26 Dose: 40 mg Guaifenesin (Mucinex) 1,200 mg PO BID [facility] Last Admin: 10/11/18 08:26 Dose: 1,200 mg Magnesium Hydroxide (Milk Of Magnesia) 30 ml PO DAILY PRN PRN PRN Reason: Constipation Melatonin (Melatonin) 10 mg PO QHS [facility] Last Admin: 10/10/18 21:54 Dose: 10 mg Methylprednisolone (Solu-Medrol) 40 mg IV Q12 [facility] Ondansetron HCl (Zofran) 4 mg IV Q8H PRN PRN PRN Reason: NAUSEA Sodium Chloride () 5 - 15 ml IV UD PRN PRN Reason: SALINE FLUSH Last Admin: 10/11/18 05:30 Dose: 10 ml Medical Necessity - Tobacco Use Smoking Status: Former smoker - Patient quit cigarette tobacco usage October 09 with a [id number] history prior to this. Tobacco Use: Non-smoker Assessment/Plan All Active Problems (Last Updated 10/04/18 @ 09:32 by Lin Gallo) COPD with acute exacerbation (Acute) Acute and chronic respiratory failure with hypoxia (Acute) 1. Acute hypoxic respiratory failure Improved noted pulse Ox of 44% on 4L up admission 2/2 AECOPD or AE bronchiectasis taken off BiPAP and tolerating nasal canula well has oxygen PRN at home. Will check an ambulatory pulse ox prior to discharge to see if she will require it continuously or not. 2. AECOPD v acute exacerbation of bronchiectasis continue steroids, BDs 3. DVT proph: LMWH 4. Disposition: plan for home in next 24-48h if continues to improve. Deescalate level of care to Med Surg DW Dr. Saavedra. Code Visit Inpatient E&M: 10528 Subs Hosp L2
[2018-10-11] MEDS: MELATONIN 10 MG TABLET PO (22:50)
[2018-10-12 03:20] VITALS: BP 104/76; PULSE 67; RESP 20; TEMP 36.4; O2SAT 94
[2018-10-12 07:09] VITALS: O2SAT 94
[2018-10-12 08:07] VITALS: O2SAT 87; O2SAT 90; O2SAT 94
[2018-10-12 09:25] VITALS: BP 125/75; PULSE 67; RESP 18; TEMP 36.7; O2SAT 97
[2018-10-12] MEDS: 0.9% NaCl Peripheral Flush Adult/Peds IV (09:26)
[2018-10-12] MEDS: guaiFENesin 1,200 MG Tablet 1200 MG PO (09:26)
[2018-10-12] MEDS: Enoxaparin 40 MG/0.4 ML Syringe SC (09:26)
--- NOTE | 2018-10-12 10:12 | PCM.PROGNOTE ---
Patient Problems: Active and Suspected Problems (Last Updated 10/04/18 @ 09:32 by Lin Gallo) COPD with acute exacerbation (Acute) Acute and chronic respiratory failure with hypoxia (Acute) Subjective: Patient did well overnight. Patient has been weaned to room air at rest, but is still requiring supplemental oxygen with ambulation. Patient continues to have coughing, but feels this is subjectively improved. - Physical Exam General: Alert, Oriented x3, Cooperative, No apparent distress, - - Appears older than stated age. Speaking in full sentences. HEENT: Atraumatic, PERRLA, EOMI, Normocephalic, - - No scleral icterus or injection noted. Oral: Moist Mucosa, No Gingival or Mucosal Lesions/ Ulcerations Neck: Supple, No JVD, No Nodes, Trachea Midline Lungs: No rhonchi, No rales, Diminished, Wheezes - Improved from previous, - - Symmetric expansion. Some kyphosis of Cardiovascular: Regular rate, Regular Rhythm, Normal S1, Normal S2, No murmurs, No rub noted, No Gallop Abdomen: Bowel Sounds Present, Soft, Non Tender, Non-Distended Extremities: No cyanosis, No edema, Capillary Refill Less than 3 Seconds, Clubbing Skin: No rashes, No breakdown Musculoskeletal: No Tenderness to Palpation of Joints or Extremities Lymphatic: No Cervical, Supraclavicular, or Inguinal Adenopathy Neurological: Cranial nerves II-XII grossly intact, Neuro grossly intact, Motor Exam 5/5 strength throughout Psych/Mental Status: Alert and oriented to time, place, person, mood and affect Vital Signs Temp Pulse Resp BP Pulse Ox 36.7 C 67 18 125/75 H 97 10/12/18 09:25 10/12/18 09:25 10/12/18 09:25 10/12/18 09:25 10/12/18 09:25 Oxygen Flow Rate (L/min) [ 2 AMBULATION with Oxygen] Oxygen Flow Rate (L/min) 2 Oxygen Delivery Method Room Air Weight: 65.2 kg Body Mass Index (BMI) 27.6 Intake and Output for Last 24 Hours 10/10/18 10/11/18 10/12/18 23:59 23:59 23:59 Intake Total 2204 / 2204 1190 / 1190 100 / 100 Output Total 1800 / 1800 Balance 404 / 404 1190 / 1190 100 / 100 Microbiology Past 72 Hours 10/10/18 09:30 Gram Stain - Final Sputum, Expectorated/Coughed Respiratory Culture - Final Presumptive C albicans 10/09/18 20:30 Respiratory Panel (PCR) - Final Mucosa - Nasopharyngeal RSV B Medical Necessity - Tobacco Use Smoking Status: Former smoker - Patient quit cigarette tobacco usage October 09 with a 21-ixll-vurn history prior to this. Tobacco Use: Non-smoker Assessment/Plan All Active Problems (Last Updated 10/04/18 @ 09:32 by Lin Gallo) COPD with acute exacerbation (Acute) Acute and chronic respiratory failure with hypoxia (Acute) RECOMMENDATIONS: 1. Continue mucolytic and bronchodilators as ordered 2. Patient will need 2 L nasal cannula oxygen with ambulation on discharge 3. Patient should follow-up with nurse practitioner 2 weeks 4. Wean steroid therapy over the next 12-14 days 5. Okay to discharge from a pulmonary perspective IMPRESSIONS: 1. Acute on chronic hypoxic respiratory failure secondary to COPD versus bronchiectasis exacerbation secondary to RSV Patient has come back positive for RSV. Patient appears to be responding to therapy well. Patient will be transition to prednisone therapy. This can be weaned over the next 12-14 days. Patient will require 2 L nasal cannula with ambulation at least in the short-term. Patient can follow-up in our office in 2 weeks to ensure resolution of current symptoms. Patient already has a follow-up with me in November with repeat testing already ordered. Okay to discharge from my perspective 2. Chronic moderate protein calorie malnutrition/history of tobacco use Complicates care, management, recovery and prognosis. Dietitian has been consulted. Patient is on DVT Lovenox. Code Visit Inpatient E&M: 19691 Subs Hosp L2
[2018-10-12] MEDS: Ipratropium/Albuterol Sulfate 3 ML AMPUL.NEB INHALATION (10:29)
[2018-10-12 10:30] VITALS: PULSE 94; RESP 16
--- NOTE | 2018-10-12 11:03 | PCM.DC ---
- Discharge Diagnoses Current Active Problems: Current Active and Chronic Problems (Last Updated 10/04/18 @ 09:32 by Lin Gallo) COPD with acute exacerbation (Acute) Acute and chronic respiratory failure with hypoxia (Acute) You will use the following diet at home:: No restrictions Your food should be the consistency of: Regular Call your doctor if you observe: Fever of 101 or Higher, Shortness of breath Instructions: What is COPD?, Treatment for COPD, Discharge Instructions: COPD Allergies/Adverse Reactions: Allergies sulfamethoxazole [From Bactrim] Allergy (Mild, Verified 10/04/18 08:24) Rash trimethoprim [From Bactrim] Allergy (Mild, Verified 10/04/18 08:24) Rash hydrocodone [From Vicodin] Adverse Reaction (Verified 10/04/18 08:24) Nausea Sulfa (Sulfonamide Antibiotics) Adverse Reaction (Verified 10/04/18 08:24) Anaphylaxis Medications to take at Discharge albuterol sulfate HFA 90 mcg/actuation aerosol inhaler 2 puff INHALATION Q4H PRN g 09/24/17 budesonide-formoterol HFA 160 mcg-4.5 mcg/actuation aerosol inhaler 2 inh INHALATION Q12H 09/24/17 PEP #1 [id number] 10/04/18 ipratropium-albuterol 0.5 mg-3 mg(2.5 mg base)/3 mL nebulization soln 3 ml INHALATION Q8H 10/04/18 Guaifenesin [Mucinex] 1,200 mg PO BID #10 tablet 10/12/18 Prednisone 10 mg PO DAILY #30 tablet 10/12/18 The following prescriptions were given: Prednisone 10 mg PO DAILY #30 tablet Guaifenesin [Mucinex] 1,200 mg PO BID #10 tablet Primary Care Physician: Casey Francois MD [Primary Care Provider] - Within 2 Weeks Test Results: Test results from this visit will be discussed in further detail at your follow-up appointment, if applicable. Please Follow Up With: Denys Saavedra MD When: 2-4 weeks Proposed Discharge Date: 10/12/18
--- NOTE | 2018-10-12 11:08 | DCINST_ITS ---
- Discharge Diagnoses Current Active Problems: Current Active and Chronic Problems (Last Updated 10/04/18 @ 09:32 by Lin Gallo) COPD with acute exacerbation (Acute) Acute and chronic respiratory failure with hypoxia (Acute) You will use the following diet at home:: No restrictions Your food should be the consistency of: Regular Call your doctor if you observe: Fever of 101 or Higher, Shortness of breath Instructions: What is COPD?, Treatment for COPD, Discharge Instructions: COPD Allergies/Adverse Reactions: Allergies sulfamethoxazole [From Bactrim] Allergy (Mild, Verified 10/04/18 08:24) Rash trimethoprim [From Bactrim] Allergy (Mild, Verified 10/04/18 08:24) Rash hydrocodone [From Vicodin] Adverse Reaction (Verified 10/04/18 08:24) Nausea Sulfa (Sulfonamide Antibiotics) Adverse Reaction (Verified 10/04/18 08:24) Anaphylaxis Medications to take at Discharge albuterol sulfate HFA 90 mcg/actuation aerosol inhaler 2 puff INHALATION Q4H PRN g 09/24/17 budesonide-formoterol HFA 160 mcg-4.5 mcg/actuation aerosol inhaler 2 inh INHALATION Q12H 09/24/17 PEP #1 [id number] 10/04/18 ipratropium-albuterol 0.5 mg-3 mg(2.5 mg base)/3 mL nebulization soln 3 ml IN HALATION Q8H 10/04/18 Guaifenesin [Mucinex] 1,200 mg PO BID #10 tablet 10/12/18 Prednisone 10 mg PO DAILY #30 tablet 10/12/18 The following prescriptions were given: Prednisone 10 mg PO DAILY #30 tablet Guaifenesin [Mucinex] 1,200 mg PO BID #10 tablet Primary Care Physician: Casey Francois MD [Primary Care Provider] - Within 2 Weeks Test Results: Test results from this visit will be discussed in further detail at your follow- up appointment, if applicable. Please Follow Up With: Denys Saavedra MD When: 2-4 weeks Proposed Discharge Date: 10/12/18
--- NOTE | 2018-10-12 11:10 | PCM.DC.SUM ---
Discharge Date and Diagnosis - Problem List Patient Problems: Active and Suspected Problems (Last Updated 10/04/18 @ 09:32 by Lin Gallo) COPD with acute exacerbation (Acute) Acute and chronic respiratory failure with hypoxia (Acute) Date of Admission: 10/09/18 Date of Discharge: 10/12/18 - Primary Discharge Diagnosis Active and Suspected Problems (Last Updated 10/04/18 @ 09:32 by Lin Gallo) COPD with acute exacerbation (Acute) Acute and chronic respiratory failure with hypoxia (Acute) - Secondary Discharge Diagnosis Chronic Problems (Last Updated 10/04/18 @ 09:32 by Lin Gallo) Abnormal CT of the chest (Chronic) Stage 3 severe COPD by GOLD classification (Chronic) FEV1 42% Bronchiectasis (Chronic) Noted on CT chest LLL 07/05/17 Hospital Course and Treatment Imaging Results: Clinical Impression(s) from Imaging Studies Chest X-Ray 10/10/18 02:44 IMPRESSION: No radiographic evidence of acute cardiopulmonary disease. Suspect COPD. at 0301 Reported and signed by: Jeff Newton MD Electronically Signed: Jeff Newton, at 3:00 EST Tel , Service support , Denys Saavedra MD: pulmonology/[facility]. Operations: None Procedures: None Summary of Care Provided: The patient is a 63 year old F presents with shortness of breath. Patient was in acute hypoxic respiratory failure as patient had a pulse ox of 44% on 4 L on admission. Patient was tachypneic as well as tachycardic. [place] that those derangements in her vital signs are associated with her respiratory failure. Patient did require BiPAP temporarily and was admitted to the ICU. Patient was started on bronchodilators and IV steroids. Patient is felt to have an acute exacerbation of COPD versus bronchiectasis. Whatever the underlying lung disease, patient also did have a positive titer for RSV which the RSV likely incited the exacerbation of her respiratory failure. Patient will complete a taper of steroids and continue with bronchodilators. Patient does require oxygen at home. Patient does have oxygen at home but was only using it as needed but will require a more continuous for the time being. Patient will follow up with pulmonology as outpatient. Patient will be following up with Dr. Saavedra in the future. Clarification: Patient was diagnosed by the admitting physician with sepsis. I could not delineate the sepsis from the respiratory failure and I feel that her vital signs were abnormal due to her respiratory failure and distress. [] Patient Problems: Active and Suspected Problems (Last Updated 10/04/18 @ 09:32 by Lin Gallo) COPD with acute exacerbation (Acute) Acute and chronic respiratory failure with hypoxia (Acute) - Physical Exam General: Alert, No apparent distress HEENT: Atraumatic, Normocephalic Oral: Moist Mucosa, No Gingival or Mucosal Lesions/ Ulcerations Neck: No Nodes, Thyroid Normal Size and Texture Lungs: Diminished, Wheezes - upper respiratory Cardiovascular: Regular rate, Regular Rhythm, Normal S1, Normal S2, No murmurs Abdomen: Bowel Sounds Present, Soft, Non Tender, Non-Distended, No Hepato-splenomegaly Vital Signs Temp Pulse Resp BP Pulse Ox 36.7 C 94 16 125/75 H 97 10/12/18 09:25 10/12/18 10:30 10/12/18 10:30 10/12/18 09:25 10/12/18 09:25 Oxygen Flow Rate (L/min) [ 2 AMBULATION with Oxygen] Oxygen Flow Rate (L/min) 2 Oxygen Delivery Method Room Air Weight: 65.2 kg Body Mass Index (BMI) 27.6 Intake and Output for Last 24 Hours 10/10/18 10/11/18 10/12/18 23:59 23:59 23:59 Intake Total 2204 / 2204 1190 / 1190 100 / 100 Output Total 1800 / 1800 Balance 404 / 404 1190 / 1190 100 / 100 Microbiology Past 72 Hours 10/10/18 09:30 Gram Stain - Final Sputum, Expectorated/Coughed Respiratory Culture - Final Presumptive C albicans 10/09/18 20:30 Respiratory Panel (PCR) - Final Mucosa - Nasopharyngeal RSV B Discharge Diet: No Restrictions Call your doctor if you observe: Fever of 101 or Higher, Shortness of breath Home Medications: Medications to take at Discharge albuterol sulfate HFA 90 mcg/actuation aerosol inhaler 2 puff INHALATION Q4H PRN g 09/24/17 budesonide-formoterol HFA 160 mcg-4.5 mcg/actuation aerosol inhaler 2 inh INHALATION Q12H 09/24/17 PEP #1 [id number] 10/04/18 ipratropium-albuterol 0.5 mg-3 mg(2.5 mg base)/3 mL nebulization soln 3 ml INHALATION Q8H 10/04/18 Guaifenesin [Mucinex] 1,200 mg PO BID #10 tablet 10/12/18 Prednisone 10 mg PO DAILY #30 tablet 10/12/18 Following Prescrptions Were Given to Patient: Prednisone 10 mg PO DAILY #30 tablet Guaifenesin [Mucinex] 1,200 mg PO BID #10 tablet Primary Care Physician: Casey Francois MD [Primary Care Provider] - Within 2 Weeks Please Follow Up With: Denys Saavedra MD When: 2-4 weeks Patient Instructions: What is COPD?, Discharge Instructions: COPD, Treatment for COPD Disposition: Home Minutes spent on discharge:: 32 Patient Condition:: Good Medical Necessity - Tobacco Use Smoking Status: Former smoker - Patient quit cigarette tobacco usage October 09 with a 37-picb-dvdt history prior to this. Tobacco Use: Non-smoker Meaningful Use Info Meaningful Use Diagnoses (Choose all that apply): None applicable Code Visit Inpatient E&M: 04131 Disch Hosp
--- NOTE | 2018-10-12 11:14 | DS.PCM_ITS ---
Discharge Date and Diagnosis - Problem List Patient Problems: Active and Suspected Problems (Last Updated 10/04/18 @ 09:32 by Lin Gallo) COPD with acute exacerbation (Acute) Acute and chronic respiratory failure with hypoxia (Acute) Date of Admission: 10/09/18 Date of Discharge: 10/12/18 - Primary Discharge Diagnosis Active and Suspected Problems (Last Updated 10/04/18 @ 09:32 by Lin Gallo) COPD with acute exacerbation (Acute) Acute and chronic respiratory failure with hypoxia (Acute) - Secondary Discharge Diagnosis Chronic Problems (Last Updated 10/04/18 @ 09:32 by Lin Gallo) Abnormal CT of the chest (Chronic) Stage 3 severe COPD by GOLD classification (Chronic) FEV1 42% Bronchiectasis (Chronic) Noted on CT chest LLL 07/05/17 Hospital Course and Treatment Imaging Results: Clinical Impression(s) from Imaging Studies Chest X-Ray 10/10/18 02:44 IMPRESSION: No radiographic evidence of acute cardiopulmonary disease. Suspect COPD. at 0301 Reported and signed by: Jeff Newton MD Electronically Signed: Jeff Newton, at 3:00 EST Tel , Service support , Denys Saavedra MD: pulmonology/[facility]. Operations: None Procedures: None Summary of Care Provided: The patient is a 63 year old F presents with shortness of breath. Patient was in acute hypoxic respiratory failure as patient had a pulse ox of 44% on 4 L on admission. Patient was tachypneic as well as tachycardic. Benton that those derangements in her vital signs are associated with her respiratory failure. Patient did require BiPAP temporarily and was admitted to the ICU. Patient was started on bronchodilators and IV steroids. Patient is felt to have an acute exacerbation of COPD versus bronchiectasis. Whatever the underlying lung disease, patient also did have a positive titer for RSV which the RSV likely incited the exacerbation of her respiratory failure. Patient will complete a taper of steroids and continue with bronchodilators. Patient does require oxygen at home. Patient does have oxygen at home but was only using it as needed but will require a more continuous for the time being. Patient will follow up with pulmonology as outpatient. Patient will be following up with Dr. Saavedra in the future. Clarification: Patient was diagnosed by the admitting physician with sepsis. I could not delineate the sepsis from the respiratory failure and I feel that her vital signs were abnormal due to her respiratory failure and distress. [] Patient Problems: Active and Suspected Problems (Last Updated 10/04/18 @ 09:32 by Lin Gallo) COPD with acute exacerbation (Acute) Acute and chronic respiratory failure with hypoxia (Acute) - Physical Exam General: Alert, No apparent distress HEENT: Atraumatic, Normocephalic Oral: Moist Mucosa, No Gingival or Mucosal Lesions/ Ulcerations Neck: No Nodes, Thyroid Normal Size and Texture Lungs: Diminished, Wheezes - upper respiratory Cardiovascular: Regular rate, Regular Rhythm, Normal S1, Normal S2, No murmurs Abdomen: Bowel Sounds Present, Soft, Non Tender, Non-Distended, No Hepato- splenomegaly Vital Signs Temp Pulse Resp BP Pulse Ox 36.7 C 94 16 125/75 H 97 10/12/18 09:25 10/12/18 10:30 10/12/18 10:30 10/12/18 09:25 10/12/18 09:25 Oxygen Flow Rate (L/min) [ 2 AMBULATION with Oxygen] Oxygen Flow Rate (L/min) 2 Oxygen Delivery Method Room Air Weight: 65.2 kg Body Mass Index (BMI) 27.6 Intake and Output for Last 24 Hours 10/10/18 10/11/18 10/12/18 23:59 23:59 23:59 Intake Total 2204 / 2204 1190 / 1190 100 / 100 Output Total 1800 / 1800 Balance 404 / 404 1190 / 1190 100 / 100 Microbiology Past 72 Hours 10/10/18 09:30 Gram Stain - Final Sputum, Expectorated/Coughed Respiratory Culture - Final Presumptive C albicans 10/09/18 20:30 Respiratory Panel (PCR) - Final Mucosa - Nasopharyngeal RSV B Discharge Diet: No Restrictions Call your doctor if you observe: Fever of 101 or Higher, Shortness of breath Home Medications: Medications to take at Discharge albuterol sulfate HFA 90 mcg/actuation aerosol inhaler 2 puff INHALATION Q4H PRN g 09/24/17 budesonide-formoterol HFA 160 mcg-4.5 mcg/actuation aerosol inhaler 2 inh INHALATION Q12H 09/24/17 PEP #1 [id number] 10/04/18 ipratropium-albuterol 0.5 mg-3 mg(2.5 mg base)/3 mL nebulization soln 3 ml INHALATION Q8H 10/04/18 Guaifenesin [Mucinex] 1,200 mg PO BID #10 tablet 10/12/18 Prednisone 10 mg PO DAILY #30 tablet 10/12/18 Following Prescrptions Were Given to Patient: Prednisone 10 mg PO DAILY #30 tablet Guaifenesin [Mucinex] 1,200 mg PO BID #10 tablet Primary Care Physician: Casey Francois MD [Primary Care Provider] - Within 2 Weeks Please Follow Up With: Denys Saavedra MD When: 2-4 weeks Patient Instructions: What is COPD?, Discharge Instructions: COPD, Treatment for COPD Disposition: Home Minutes spent on discharge:: 32 Patient Condition:: Good Medical Necessity - Tobacco Use Smoking Status: Former smoker - Patient quit cigarette tobacco usage October 09 with a 02-olmm-xcus history prior to this. Tobacco Use: Non-smoker Meaningful Use Info Meaningful Use Diagnoses (Choose all that apply): None applicable Code Visit Inpatient E&M: 77405 Disch Hosp
--- NOTE | 2018-10-12 11:33 | CASEMGMT ---
Addendum entered by Libra Appiah 10/12/18 11:41: This RN CM received call from [facility] and they state that pt's order is for 2 liters home oxygen continuous so the new order is not needed at this time. [facility] aware that pt has own tank to get home and states that pt has system set up at home to refill her own tanks. Carmen SANCHEZ CM Original Note: This RN CM to room to speak with pt regarding qualification for home oxygen. Pt states that she already has home oxygen 2 liters prn thru [facility] at this time and son-in-law did bring in a tank to get pt home but pt states only has one other tank at home at this time. This RN CM advised pt that a new order for 2 liters continuous home oxygen would be sent to [facility] at this time and that she will need to wear oxygen continuous until told differently, pt voices understanding. Pt states that she also has a pulse ox at home as well. Pt/son-in-law voice no further questions/concerns/needs at this time. Order, face sheet, and oxygen qualification faxed to [facility]. Pt awaiting discharge. Carmen SANCHEZ CM
--- NOTE | 2018-10-12 11:45 | NURSING ---
pt told this RN that she does not want Mucinex prescription filled because she has a bunch at home. [facility] notified of this.
--- OUTSIDE RECORDS SUMMARY | 2018-12-12 12:20 | XMS RPT_ITS | Clinical Summary ---
:1955 Author Organization [facility] Address [address] [place] [address] Phone Care Team Providers Name Role Phone Lin Cardenas Unavailable Unavailable Conditions or Problems No information available. Medications No information available. Medications Administered No information available. Allergies, Adverse Reactions, Alerts No information available. Results No information available. Plan of Care Type Date Detail Appointment 09:00 AM Denys Saavedra, [address], [address], [place], [address] Procedures No information available. Vital Signs No information available.
--- OUTSIDE RECORDS SUMMARY | 2018-12-12 12:20 | XMS RPT_ITS ---
:1955 Author Organization OHIP Support Name Relationship Address Phone LUCILA, EMORY Unavailable [address] [facility] + [place] [address] D Unavailable Unavailable Unavailable CARPENTAR, EMORY Unavailable [address] [facility] + [place] [address] D Unavailable Unavailable Unavailable CARPENTAR, EMORY Unavailable [address] [facility] + [place] [address] D Unavailable Unavailable Unavailable CARPENTAR, EMORY Unavailable [address] [facility] + [place] [address] D Unavailable Unavailable Unavailable CARPENTAR, EMORY Unavailable [address] [facility] + [place] [address] D Unavailable Unavailable Unavailable CARPENTAR, EMORY Unavailable [address] [facility] + [place] [address] D Unavailable Unavailable Unavailable CARPENTAR, EMORY Unavailable [address] [facility] + [place] [address] D Unavailable Unavailable Unavailable CARPENTAR, EMORY Unavailable [address] [facility] + [place] [address] D Unavailable Unavailable Unavailable Guevara Waggoner Unavailable Unavailable + Carmela Velazquez Unavailable Unavailable + CARPENTAR, EMORY Unavailable [address] + [place] [address] D Unavailable Unavailable Unavailable Guevara Waggoner Unavailable Unavailable + Carmela Velazquez Unavailable Unavailable + Guevara Waggoner Unavailable Unavailable + Carmela Velazquez Unavailable Unavailable + Guevara Waggoner Unavailable Unavailable + Carmela Velazquez Unavailable Unavailable + CARPENTAR, EMORY Unavailable [address] [facility] + [place] [address] D Unavailable Unavailable Unavailable Care Team Providers Name Role Phone Steven Tierney Attending Unavailable PROVIDER, UNKNOWN Referring Unavailable Francois, Casey Primary Care Unavailable Steven Tierney Attending Unavailable Kelby, Ara Referring Unavailable Kelby, Ara Primary Care Unavailable Albaro Bass Attending Unavailable PROVIDER, UNKNOWN Referring Unavailable Francois, Casey Primary Care Unavailable PROVIDER, UNKNOWN Attending Unavailable Kelby, Ara Referring Unavailable Kelby, Ara Primary Care Unavailable Denys Saavedra Attending Unavailable Francois, Casey Referring Unavailable Sementi, Ara Admitting Unavailable Sementi, Ara Referring Unavailable Francois, Casey Primary Care Unavailable Boy Navarro D.O. Consulting Unavailable Joharryeri, Newton Attending Unavailable Sementi, Ara Admitting Unavailable Nilsa Davis Attending Unavailable Sementi, Ara Referring Unavailable Francois, Casey Primary Care Unavailable Boy Navarro D.O. Consulting Unavailable Sementi, Ara Consulting Unavailable Sementi, Ara Admitting Unavailable Princesseri, Newton Attending Unavailable Sementi, Ara Referring Unavailable Francois, Casey Primary Care Unavailable Cecilio Lange.Gilda. Consulting Unavailable Jopperi, Newton Consulting Unavailable Sementi, Ara Admitting Unavailable Denys Saavedra Attending Unavailable Sementi, Ara Referring Unavailable Francois, Casey Primary Care Unavailable Sarah LangeO. Consulting Unavailable Jopperi, Newton Consulting Unavailable Sementi, Ara Admitting Unavailable Jopperi, Newton Attending Unavailable Sementi, Ara Referring Unavailable Francois, Casey Primary Care Unavailable Cecilio Lange.O. Consulting Unavailable Jopperi, Newton Consulting Unavailable Francois, Casey Primary Care Unavailable Boston Wolfe Attending Unavailable Sementi, Ara Admitting Unavailable Denys Saavedra Attending Unavailable Sementi, Ara Referring Unavailable Francois, Casey Primary Care Unavailable Boy Navarro D.O. Consulting Unavailable Jopperi, Newton Consulting Unavailable Sementi, Ara Admitting Unavailable Jopperi, Newton Attending Unavailable Sementi, Ara Referring Unavailable Francois, Casey Primary Care Unavailable Boy Navarro D.O. Consulting Unavailable Jopperi, Newton Consulting Unavailable Sementi, Ara Admitting Unavailable Denys Saavedra Attending Unavailable Sementi, Ara Referring Unavailable Francois, Casey Primary Care Unavailable Boy Navarro D.O. Consulting Unavailable Newton Doherty Consulting Unavailable PROBLEMS PROBLEMS DATE TYPE CONDITION / CODE ATTENDING STATUS SOURCE 10/04/2018 Unknown J47.9 - Denys Saavedra Active [facility] Bronchiectasis, Community uncomplicated / Hospital J47.9(ICD-10) Repository 10/04/2018 Unknown J44.9 - Chronic QuentinDenys white Active [place] obstructive Community pulmonary disease, Hospital unspecified / Repository J44.9(ICD-10) 10/04/2018 Unknown R93.89 - Abnormal Denys Saavedra Active [facility] findings on [facility] diagnostic imaging Hospital of other specified Repository body structures / R93.89(ICD-10) 07/05/2018 Admitting Other nonspecific [place] Diagnosis abnormal finding of System lung field / Repository R91.8(ICD-10) 02/15/2018 Admitting Bronchitis, not Albaro Bass [facility] Diagnosis specified as acute System or chronic / Repository J40(ICD-10) 12/28/2017 Admitting Centrilobular [facility] Diagnosis emphysema / System J43.2(ICD-10) Repository PROCEDURES PROCEDURES No Procedure Records FoundRESULTS RESULTS DISCHARGE SUMMARY Observed: 10/12/2018 Status: F Source: [place] 11:15 AM [facility] REPOSITORY [facility] Medical Records Department [address] [facility] [place] [address] Discharge Summary 10/12/18 1110 MR#: [id number] Acct: [id number] Name: OXANA CHIANG Rep #: [id number] : 1955 63 From: Newton Doherty DO PCP: Casey Francois MD Status: ADM IN Y Location: [place] [address] Discharge Date and Diagnosis - Problem List Patient Problems: Active and Suspected Problems (Last Updated 10/04/18 @ 09:32 by Lin Gallo) COPD with acute exacerbation (Acute) Acute and chronic respiratory failure with hypoxia (Acute) Date of Admission: 10/09/18 Date of Discharge: 10/12/18 - Primary Discharge Diagnosis Active and Suspected Problems (Last Updated 10/04/18 @ 09:32 by Lin Gallo) COPD with acute exacerbation (Acute) Acute and chronic respiratory failure with hypoxia (Acute) - Secondary Discharge Diagnosis Chronic Problems (Last Updated 10/04/18 @ 09:32 by Lin Gallo) Abnormal CT of the chest (Chronic) Stage 3 severe COPD by GOLD classification (Chronic) FEV1 42% Bronchiectasis (Chronic) Noted on CT chest LLL 07/05/17 Hospital Course and Treatment Imaging Results: Clinical Impression(s) from Imaging Studies Chest X-Ray 10/10/18 02:44 IMPRESSION: No radiographic evidence of acute cardiopulmonary disease. Suspect COPD. at 0301 Reported and signed by: Jeff Newton MD Electronically Signed: Jeff Newton, at 3:00 EST Tel , Service support , Denys Saavedra MD: pulmonology/[facility]. Operations: None Procedures: None Summary of Care Provided: The patient is a 63 year old F presents with shortness of breath. Patient was in acute hypoxic respiratory failure as patient had a pulse ox of 44% on 4 L on admission. Patient was tachypneic as well as tachycardic. [place] that those derangements in her vital signs are associated with her respiratory failure. Patient did require BiPAP temporarily and was admitted to the ICU. Patient was started on bronchodilators and IV steroids. Patient is felt to have an acute exacerbation of COPD versus bronchiectasis. Whatever the underlying lung disease, patient also did have a positive titer for RSV which the RSV likely incited the exacerbation of her respiratory failure. Patient will complete a taper of steroids and continue with bronchodilators. Patient does require oxygen at home. Patient does have oxygen at home but was only using it as needed but will require a more continuous for the time being. Patient will follow up with pulmonology as outpatient. Patient will be following up with Dr. Saavedra in the future. Clarification: Patient was diagnosed by the admitting physician with sepsis. I could not delineate the sepsis from the respiratory failure and I feel that her vital signs were abnormal due to her respiratory failure and distress. [] Patient Problems: Active and Suspected Problems (Last Updated 10/04/18 @ 09:32 by Lin Gallo) COPD with acute exacerbation (Acute) Acute and chronic respiratory failure with hypoxia (Acute) - Physical Exam General: Alert, No apparent distress HEENT: Atraumatic, Normocephalic Oral: Moist Mucosa, No Gingival or Mucosal Lesions/ Ulcerations Neck: No Nodes, Thyroid Normal Size and Texture Lungs: Diminished, Wheezes - upper respiratory Cardiovascular: Regular rate, Regular Rhythm, Normal S1, Normal S2, No murmurs Abdomen: Bowel Sounds Present, Soft, Non Tender, Non-Distended, No Hepato-splenomegaly Vital Signs Temp Pulse Resp BP Pulse Ox 36.7 C 94 16 125/75 H 97 10/12/18 09:25 10/12/18 10:30 10/12/18 10:30 10/12/18 09:25 10/12/18 09:25 Oxygen Flow Rate (L/min) [ 2 AMBULATION with Oxygen] Oxygen Flow Rate (L/min) 2 Oxygen Delivery Method Room Air Weight: 65.2 kg Body Mass Index (BMI) 27.6 Intake and Output for Last 24 Hours Intake Total 2204 / 2204 1190 / 1190 100 / 100 Output Total 1800 / 1800 Balance 404 / 404 1190 / 1190 100 / 100 Microbiology Past 72 Hours 10/10/18 09:30 Gram Stain - Final Discharge Diet: No Restrictions Call your doctor if you observe: Fever of 101 or Higher, Shortness of breath Home Medications: Medications to take at Discharge albuterol sulfate HFA 90 mcg/actuation aerosol inhaler 2 puff INHALATION Q4H PRN g 09/24/17 budesonide-formoterol HFA 160 mcg-4.5 mcg/actuation aerosol inhaler 2 inh INHALATION Q12H 09/24/17 PEP #1 [id number] 10/04/18 ipratropium-albuterol 0.5 mg-3 mg(2.5 mg base)/3 mL nebulization soln 3 ml INHALATION Q8H 10/04/18 Guaifenesin [Mucinex] 1,200 mg PO BID #10 tablet 10/12/18 Prednisone 10 mg PO DAILY #30 tablet 10/12/18 Following Prescrptions Were Given to Patient: Prednisone 10 mg PO DAILY #30 tablet Guaifenesin [Mucinex] 1,200 mg PO BID #10 tablet Primary Care Physician: Casey Francois MD [Primary Care Provider] - Within 2 Weeks Please Follow Up With: Denys Saavedra MD When: 2-4 weeks Patient Instructions: What is COPD?, Discharge Instructions: COPD, Treatment for COPD Disposition: Home Minutes spent on discharge:: 32 Patient Condition:: Good Medical Necessity - Tobacco Use Smoking Status: Former smoker - Patient quit cigarette tobacco usage October 09 with a 93-klnb-zeme history prior to this. Tobacco Use: Non-smoker Meaningful Use Info Meaningful Use Diagnoses (Choose all that apply): None applicable Code Visit Inpatient E AND M: [id number] Disch Hosp 10/12/18 1115 <Electronically signed by Newton Doherty DO> Date Newton Doherty DO Cosigner Signature (if applicable): Date CC: Newton Doherty DO; Casey Francois MD Signed DISCHARGE INSTRUCTION Observed: 10/12/2018 Status: F Source: [place] 11:08 AM [facility] REPOSITORY [facility] Medical Records Department [address] [place] [address] Instructions for Home/Discharge Instructions 10/12/18 1103 MR#: [id number] Acct: [id number] Name: OXANA CHIANG Rep #: [id number] : 1955 63 From: Newton Doherty DO PCP: Casey Francois MD Status: ADM IN - Discharge Diagnoses Current Active Problems: Current Active and Chronic Problems (Last Updated 10/04/18 @ 09:32 by Lin Gallo) COPD with acute exacerbation (Acute) Acute and chronic respiratory failure with hypoxia (Acute) You will use the following diet at home:: No restrictions Your food should be the consistency of: Regular Call your doctor if you observe: Fever of 101 or Higher, Shortness of breath Instructions: What is COPD?, Treatment for COPD, Discharge Instructions: COPD Allergies/Adverse Reactions: Allergies sulfamethoxazole [From Bactrim] Allergy (Mild, Verified 10/04/18 08:24) Rash trimethoprim [From Bactrim] Allergy (Mild, Verified 10/04/18 08:24) Rash hydrocodone [From Vicodin] Adverse Reaction (Verified 10/04/18 08:24) Nausea Sulfa (Sulfonamide Antibiotics) Adverse Reaction (Verified 10/04/18 08:24) Anaphylaxis Medications to take at Discharge albuterol sulfate HFA 90 mcg/actuation aerosol inhaler 2 puff INHALATION Q4H PRN g 09/24/17 budesonide-formoterol HFA 160 mcg-4.5 mcg/actuation aerosol inhaler 2 inh INHALATION Q12H 09/24/17 PEP #1 [id number] 10/04/18 ipratropium-albuterol 0.5 mg-3 mg(2.5 mg base)/3 mL nebulization soln 3 ml INHALATION Q8H 10/04/18 Guaifenesin [Mucinex] 1,200 mg PO BID #10 tablet 10/12/18 Prednisone 10 mg PO DAILY #30 tablet 10/12/18 The following prescriptions were given: Prednisone 10 mg PO DAILY #30 tablet Guaifenesin [Mucinex] 1,200 mg PO BID #10 tablet Primary Care Physician: Casey Francois MD [Primary Care Provider] - Within 2 Weeks Test Results: Test results from this visit will be discussed in further detail at your follow-up appointment, if applicable. Please Follow Up With: Denys Saavedra MD When: 2-4 weeks Proposed Discharge Date: 10/12/18 10/12/18 1108 <Electronically signed by Newton Doherty DO> Date Newton Doherty DO CC: Boy Navarro D.O.; Casey Francois MD Signed CONSULTATION Observed: 10/11/2018 Status: F Source: [place] 5:57 AM [facility] REPOSITORY [facility] Medical Records Department [address] [place] [address] Consultation 10/10/18 0843 MR#: [id number] Acct: [id number] Name: OXANA CHIANG Rep #: [id number] : 1955 63 From: Denys Saavedra MD PCP: Casey Francois MD Status: ADM IN Y Location: [place] [address]-1 Problem List (1) Abnormal CT of the chest Status: Chronic (2) Stage 3 severe COPD by GOLD classification Status: Chronic Comment: FEV1 42% (3) Bronchiectasis Status: Chronic Qualifiers: Bronchiectasis type: with acute exacerbation Qualified Code(s): J47.1 - Bronchiectasis with (acute) exacerbation Comment: Noted on CT chest LLL 07/05/17 Reason for Consult Date of Consultation: 10/10/18 Reason for Consultation: Respiratory failure History of Present Illness: The patient is a 63 year old F, with past medical history listed below, who presented to [facility] on 10/09/2018 from [place] ED secondary to dyspnea, wheezing, extreme fatigue and malaise. Patient reportedly had had subjective fevers and was noted to be tachycardic at the outside facility. Patient was noted to have a PO2 of 44 on 4 L nasal cannula. Chest x-ray had showed no acute process, but EKG had sinus tachycardia. Patient was given IV Solu-Medrol, aerosols and then transitioned to our intensive care unit on BiPAP therapy. Overnight, patient has been on BiPAP therapy continuously. Patient was initially seen and taken off of BiPAP therapy. Patient reportedly is tolerating this well. Patient was saturating well on nasal cannula oxygen on my evaluation. Patient reports it hit me like a brick on Wednesday. Patient reported significant wheezing, subjective fevers and nonproductive cough. She was recently seen in my office as a transfer from Dr. Tierney's office. Patient had dated PFT showing an FEV1 of 42% of predicted. CT scan at the outside facility showed left lower lobe bronchiectasis and a possible right middle lobe obstruction. Patient reportedly did have a productive cough on a daily basis and there was some concern for possible mucous plugging at that time. Patient was to have a repeat CT scan in 3 months with possible bronchoscopy to follow. Did discuss with patient about her CODE STATUS. Patient states she would like to be a full code. She understands the risk of not being able to come off the ventilator, but thinks I am not that bad. Review of systems was otherwise negative x10 systems. 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 Allergies sulfamethoxazole [From Bactrim] Allergy (Mild, Verified 10/04/18 08:24) Rash trimethoprim [From Bactrim] Allergy (Mild, Verified 10/04/18 08:24) Rash hydrocodone [From Vicodin] Adverse Reaction (Verified 10/04/18 08:24) Nausea Sulfa (Sulfonamide Antibiotics) Adverse Reaction (Verified 10/04/18 08:24) Anaphylaxis Home Medications: Ambulatory Orders Medication Instructions Recorded albuterol sulfate HFA 90 2 puff INHALATION Q4H PRN g 09/24/17 mcg/actuation aerosol inhaler budesonide-formoterol HFA 160 2 inh INHALATION Q12H 09/24/17 Surgical History: Surgical History (Last Reviewed 10/04/18 @ 08:24 by Lin Gallo) epidural block Surgical History: - - Ventral hernia repair. 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 Tobacco Use: Non-smoker Alcohol: None Drugs: None - *Family History Maternal Family History: Family History (Last Updated 10/04/18 @ 09:33 by Lin Gallo) Father Lung cancer Mother Myocardial infarction Hypertension Brother Myocardial infarction Sister Diabetes Hypertension Lung cancer History Items: - - Patient notes maternal family history of heart disease, coronary artery disease, hypertension. Paternal Family History: Family History (Last Updated 10/04/18 @ 09:33 by Lin Gallo) Father Lung cancer Mother Myocardial infarction Hypertension Brother Myocardial infarction Sister Diabetes Hypertension Lung cancer History Items: - - She notes a paternal family history of lung cancer with history of tobacco concurrent usage. Review of Systems Comment: See HPI, otherwise negative x10 systems. Objective: Chest x-ray was personally reviewed and shows no acute infiltrate. - Physical Exam General: Alert, Oriented x3, Cooperative, - - Mild conversational dyspnea while on BiPAP initially. Appears older than stated age. HEENT: Atraumatic, PERRLA, EOMI, Normocephalic, - - No scleral icterus or injection noted. Oral: Moist Mucosa, No Gingival or Mucosal Lesions/ Ulcerations Neck: Supple, No JVD, No Nodes, Trachea Midline Lungs: No rhonchi, No rales, Diminished, Wheezes - At end exhalation Cardiovascular: Regular rate, Regular Rhythm, Normal S1, Normal S2, No murmurs, No rub noted, No Gallop Abdomen: Bowel Sounds Present, Soft, Non Tender, Non-Distended Extremities: No clubbing, No cyanosis, No edema, Capillary Refill Less than 3 Seconds Skin: No rashes, No breakdown Musculoskeletal: No Tenderness to Palpation of Joints or Extremities, No Muscle Wasting Lymphatic: No Cervical, Supraclavicular, or Inguinal Adenopathy Neurological: Cranial nerves II-XII grossly intact, Neuro grossly intact, Motor Exam 5/5 strength throughout Psych/Mental Status: Alert and oriented to time, place, person, mood and affect Vital Signs Temp Pulse Resp BP Pulse Ox 36.4 C L 84 20 H 103/82 H 95 10/10/18 08:00 10/10/18 08:00 10/10/18 08:00 10/10/18 08:00 10/10/18 08:00 Oxygen Flow Rate (L/min) 4 Oxygen Delivery Method Nasal Cannula Weight: 67.3 kg Body Mass Index (BMI) 27.6 Intake and Output for Last 24 Hours Intake Total 411 / 411 807 / 807 Output Total 200 / 200 Balance 211 / 211 807 / 807 Laboratory Tests Past 24 Hrs WBC 6.8 RBC 4.66 Hgb 13.9 Hct 43.5 MCV 93.3 MCH 29.8 MCHC 32.0 RDW 13.3 RDW Differential 45.4 H Plt Count 193 Clinical Impression(s) from Imaging Studies Chest X-Ray 10/10/18 02:44 IMPRESSION: No radiographic evidence of acute cardiopulmonary disease. Suspect COPD. at 0301 Reported and signed by: Jeff Newton MD Electronically Signed: Jeff Newton, at 3:00 EST Tel , Service support , Assessment/Plan RECOMMENDATIONS: 1. Continue mucolytic, steroids and bronchodilators as ordered 2. Wean oxygen as tolerated 3. Continue BiPAP as needed/nightly 4. Likely okay to leave the intensive care unit IMPRESSIONS: 1. Acute on chronic hypoxic respiratory failure secondary to COPD versus bronchiectasis exacerbation Unclear etiology at this time. Patient does have a viral panel currently pending. Patient has had a CT scan in the past showing possible obstruction of the right middle lobe. No infiltrate is appreciated on chest x-ray. Unclear if patient had an element of mucus plugging leading to current situation. Patient would benefit from initiation of Acapella therapy. We will continue with BiPAP breaks as tolerated. Would continue with BiPAP overnight during the acute phase. Patient will need a walking oximetry prior to discharge. 2. Chronic moderate protein calorie malnutrition/history of tobacco use Complicates care, management, recovery and prognosis. Dietitian has been consulted. Patient is on DVT Lovenox. Code Visit Inpatient E AND M: [id number] Init Hosp L3 10/11/18 0557 <Electronically signed by Denys Saavedra MD> Date Denys Saavedra MD Cosigner Signature (if applicable): Date CC: Ara Landaverde; Boy Navarro D.O.; Casey Francois MD Signed Observed: 10/10/2018 Status: F Source: [place] CULTURE, [place] 9:30 AM [facility] REPOSITORY Gram Stain Acceptable Specimen? Yes (<25 Epithelial cells per/lpf) Gram Stain 1+ White Blood Cells Rare Epithelial cells 1+ Gram positive cocci in chains Resp. Culture Mixed normal respiratory yesenia. No Haemophilus, Streptococcus pneumoniae, beta-hemolytic Streptococcus or Staphylococcus aureus isolated. ORGANISM 1: Presumptive C albicans Amount Growth 1+ Performed By: #### M100.0800 #### [facility] [place], [address] CBC W/DIFF, AUTOMATED Collected: 10/10/2018 Status: F Source: [place] 4:20 AM [facility] REPOSITORY TYPE CODE TESTS RESULT OUT OF RANGE REFERENCE UNITS LAB L100.1000 4.4-11.0 K/mm3 Normal WBC 6.8 LAB L100.1200 4.2-5.4 M/mm3 Normal RBC 4.66 LAB L100.1300 12.0-15.0 g/dl Normal HGB 13.9 LAB L100.1400 37-47 % Normal HCT 43.5 LAB L100.1500 81-99 fL Normal MCV 93.3 LAB L100.1600 27.0-32.0 pg Normal MCH 29.8 LAB L100.1700 32-36 g/gl Normal MCHC 32.0 LAB L100.1810 11.6-14.6 % Normal RDW CV 13.3 LAB L100.1820 35.1-43.9 fl High RDW SD 45.4 LAB L100.1900 150-450 K/mm3 Normal PLT 193 LAB L100.2000 6.2-12.0 fl Normal MPV 8.8 LAB L100.2100 47-70 % High NEUT% 92.9 LAB L100.2200 19-41 % Low LY% 5.3 LAB L100.2300 0-10 % Normal MONO% 1.5 LAB L100.2400 0-5 % Normal EO% 0.0 LAB L100.2500 0-1 % Normal BASO% 0.0 LAB L100.2550 0.0-0.9 % Normal IM GRAN % 0.300 Result Comment: IG% - Immature Granulocytes (promyelocytes, myelocytes and metamyelocytes) > 1% indicates that a LEFT SHIFT is Present. LAB L100.2620 2.0-7.7 X10 3/uL Normal Absolute Neut 6.4 LAB L100.2720 0.83-4.51 X10 3/ul Low Absolute Lymph 0.36 Performed By: #### L100.0100 #### [facility] [address] [place], [address] BASIC METABOLIC Collected: 10/10/2018 Status: F Source: [place] PROFILE (BMP) 4:20 AM [facility] REPOSITORY TYPE CODE TESTS RESULT OUT OF RANGE REFERENCE UNITS LAB L501.0100 74-106 mg/dL High GLU 139 Result Comment: Fasting Glucose result greater than or equal to 126 mg/dL suggests DIABETES MELLITUS per A.D.A. criteria. Please note revised GLUCOSE reference range effective 2017. LAB L501.1000 7-18 mg/dL Normal BUN 10 LAB L501.1100 0.55-1.02 mg/dL Low CREAT,SERUM 0.43 Result Comment: The validity of the calculated GFR AND GFRAA in patients over 70 years has not been determined. Clinical correlation is essential. LAB L501.1110 >60 mL/min Normal EST GFR 156 Result Comment: Non- GFR Calc LAB L501.1115 >60 mL/min Normal EST GFR - AA 189 Result Comment: GFR Calc LAB L501.1255 ml/min Normal Estimated CRCL 99.74 LAB L501.1300 10-20 RATIO High BUN/CRE 23.1 LAB L501.2200 8.5-10 mg/dL Low .1 CA 8.3 LAB L501.5300 136-14 mmol/L Normal 5 NA 141 LAB L501.5600 3.5-5. mmol/L Normal 1 K 4.3 LAB L501.5900 98-107 mmol/L Normal CL 106 LAB L501.6100 21.0-3 mmol/L Normal 2.0 CO2 28.0 LAB L501.6200 5-15 Normal GAP 7 Performed By: #### L500.2500 #### [facility] [address] [place], [address] CHEST 1 VIEW Observed: 10/10/2018 Status: F Source: [place] (PORTABLE) 2:45 AM [facility] REPOSITORY [facility] [facility] [address] [place] [address] Chest 1 View (Portable) MR#: [id number] Acct: [id number] Name: OXANA CHIANG Rep #: [id number] : 1955 F 63 From: Jeff Newton MD PCP: Casey Francois MD Status: ADM IN Study: Chest 1 View (Portable) Date of Exam: 10/10/18 Exam# [id number] Ordering Dr: Nilsa Davis HISTORY: SOB EXAM: XR Chest 1 View: COMPARISON: None FINDINGS: # of images incl. paperwork: 2 LINES/DEVICES: None. LUNGS: Radiographically clear. No consolidation, edema or effusion. No pneumothorax. Lucent appearance of the mid and upper lung suggestive of COPD. MEDIASTINUM AND CARDIOVASCULAR STRUCTURES: Cardiac silhouette not enlarged. Central airways and mediastinal contour are unremarkable. BONES AND SOFT TISSUES: Unremarkable. RAD/Chest 1 View (Portable) IMPRESSION: No radiographic evidence of acute cardiopulmonary disease. Suspect COPD. at 0301 Reported and signed by: Jeff Newton MD Electronically Signed: Jeff Newton, at 3:00 EST Tel , Service support , CC: Nilsa Davis; Casey Francois MD Acid Correction Hand: Signed HISTORY AND PHYSICAL Observed: 10/09/2018 Status: F Source: [facility] [place] EXAM 9:33 PM [facility] REPOSITORY [facility] Medical Records Department [address] [place] [address] History and Physical 10/09/182032 MR#: [id number] Acct: [id number] Name: АНДРЕЙOXANA B Rep #: [id number] : 1955 63 From: Nilsa Davis PCP: Casey Francois MD Status: ADM IN Y Location: ICU ICU04-1 History of Present Illness Date of Admission: 10/09/18 Chief Complaint: Dsypnea, wheezing, fatigue The patient is a 63 y/o F w/ PMHx: Chronic COPD w/ Chronic Hypoxic Respiratory Failure (2L NC q HS), Bronchiectasis, prior Tobacco use who presents to the [facility] ICU on 10/09/18 as direct admission from [facility] w/ history of onset dyspnea, wheezing, extreme fatigue and malaise with decreased oral intake with nonproductive cough starting this past Wednesday and progressively worsening with subjective fevers, no chills, no nausea, emesis, diarrhea associated. In the outside hospital workup had included notable elevated heart rate, tachypnea with ABG initially obtained on 4 L nasal cannula with PCO2 62 and PO2 44 with evidence of respiratory distress with placement per their facility on CPAP with PCO2 decreased to 44, CBC with WBC 7.2, hemoglobin 15.4, platelet 267 without market shift, lactic acid 1.1, BMP with sodium 138, potassium 4.4, chloride 101, bicarb 30, BUN/Cr 9/0.46, glucose 112, rapid influenza obtained per outside hospital but pending upon transition, chest x- ray with no acute process, EKG with sinus tachycardia. In the outside hospital ED patient was administered IV Solu-Medrol, aerosols and transition to [facility] requested as patient follows with pulmonary medicine Dr. Denys Saavedra and primary care physician Dr. Casey Montana. 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 Allergies sulfamethoxazole [From Bactrim] Allergy (Mild, Verified 10/04/18 08:24) Rash trimethoprim [From Bactrim] Allergy (Mild, Verified 10/04/18 08:24) Rash acetaminophen [From Vicodin] Adverse Reaction (Verified 10/04/18 08:24) Nausea hydrocodone [From Vicodin] Adverse Reaction (Verified 10/04/18 08:24) Nausea Sulfa (Sulfonamide Antibiotics) Adverse Reaction (Verified 10/04/18 08:24) Anaphylaxis Home Medications: Ambulatory Orders Medication Instructions Recorded albuterol sulfate HFA 90 2 puff INHALATION Q4H PRN g 09/24/17 mcg/actuation aerosol inhaler budesonide-formoterol HFA 160 2 inh INHALATION Q12H 09/24/17 Surgical History: Surgical History (Last Reviewed 10/04/18 @ 08:24 by Lin Gallo) epidural block Surgical History: - - Ventral hernia repair. 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 Tobacco Use: Non-smoker Alcohol: None Drugs: None - *Family History Maternal Family History: Family History (Last Updated 10/04/18 @ 09:33 by Lin Gallo) Father Lung cancer Mother Myocardial infarction Hypertension Brother Myocardial infarction Sister Diabetes Hypertension Lung cancer History Items: - - Patient notes maternal family history of heart disease, coronary artery disease, hypertension. Paternal Family History: Family History (Last Updated 10/04/18 @ 09:33 by Lin Gallo) Father Lung cancer Mother Myocardial infarction Hypertension Brother Myocardial infarction Sister Diabetes Hypertension Lung cancer History Items: - - She notes a paternal family history of lung cancer with history of tobacco concurrent usage. Review of Systems Constitutional: Reports: Anorexia, Fever, Malaise, Weakness, Fatigue. Denies: Chills, Weight Change HEENT: Denies: Head Aches, Sinus Congestion, Sinus Drainage Cardiovascular: Denies: Chest Pain, Palpitations Respiratory: Reports: Cough, Shortness of Breath, Shortness of breath at rest, Shortness of breath upon exertion, Wheezing. Denies: Sputum production Gastrointestinal: Denies: Abdominal Pain, Nausea, Vomiting Genitourinary: Denies: Dysuria Musculoskeletal: Reports: Joint Pain. Denies: Joint Tenderness Skin: Denies: Rash, Wounds Neurological: Denies: Numbness, Tingling, Focal weakness Psychiatric: Denies: Anxiety, Depression, Homicidal Ideations, Suicidal Ideations Hematologic/ Lymphatic: Denies: Easy Bruising, Easy Bleeding VTE Information - Inpt Only VTE Present on Admission: No VTE Mechan Device Prophylaxis: SCD's VTE Pharm Prophylaxis ordered?: Yes Subjective: Seated upright in the ICU bed, transitioning from CPAP to BiPAP, still ongoing crease respiratory rate, some conversational dyspnea, accessory muscle usage. Objective: Physical Examination: General: awake, alert, oriented x 3 and cooperative, seated upright in the ICU, transitioning from CPAP to BiPAP, still ongoing crease respiratory rate, some conversational dyspnea, accessory muscle usage, appears more comfortable once transition to BiPAP therapy. Skin: normal color, turgor, no icterus, cyanosis. HEENT: AT/NC, EOMI, PERRLA, dry MM, no carotid bruits or JVD noted. Lungs: Diminished breath sounds throughout, greater bilateral bases, increased respiratory rate, some accessory muscle usage, transitioning from CPAP to BiPAP, audible end expiratory wheezing throughout. Heart: Tachycardic with regular rhythm; no gallop, rub audible. Abdomen: soft, thin habitus, NTTP, ND, normal BS, no HSM. Extremities: no cyanosis, clubbing, or edema. Neurological: patient awake, alert, oriented x 3; cognitive function intact; pupils equally reactive to light and accomodation; cranial nerves II-XII grossly normal, moving all 4 extremities, no focal deficits, strength fairly globally decreased secondary to acute presentation. Psychiatric: affect appears fatigued, ill-appearing, no acute evidence of depressive or anxiety feelings. - Physical Exam Vital Signs Temp Pulse Resp BP Pulse Ox 97.4 F L 110 H 23 H 137/92 H 95 10/09/18 20:11 10/09/18 20:11 10/09/18 20:11 10/09/18 20:11 10/09/18 20:11 Oxygen Delivery Method CPAP Weight: 145 lb 15.136 oz Body Mass Index (BMI) 27.6 Assessment/Plan The patient is a 63 y/o F w/ PMHx: Chronic COPD w/ Chronic Hypoxic Respiratory Failure (2L NC q HS), Bronchiectasis, prior Tobacco use who presents to the [facility] ICU on 10/09/18 as direct admission from [facility] ED w/ history of onset dyspnea, wheezing, extreme fatigue and malaise with decreased oral intake with nonproductive cough starting this past Wednesday and progressively worsening with subjective fevers, no chills, no nausea, emesis, diarrhea associated. (1) Acute Sepsis secondary to Acute Hypoxic and Hypercarbic Respiratory Failure on Chronic secondary to Acute on chronic COPD exacerbation w/ Bronchiectasis suspected secondary to Acute Viral Syndrome: OSH ED evaluation w/ CXR w/ chronic changes, CBC without marked WBC elevation or L shift, evidence respiratory distress w/ hypoxia and hypercapnia, placed on CPAP at OSH. Will admit to the ICU, transition to BIPAP, repeat ABG as needed, obtain respiratory viral panel, continue ATC duonebs, PRN albuterol, IV methylprednisolone, HOB, IS parameters, defer abx, request sputum cx and as noted pending respiratory viral panel, repeat CXR in AM, ICU physician consulted and aware. (2) Bronchiectasis, Chronic: Recent Pulmonary visit prior to onset recent acute illness w/ noted work-up with CT w/ emphysematous changes and noted right middle lobe collapse possibly secondary to mucous plugging with plan repeat CT scan in 3 months with possible bronchoscopy for evaluation of endobronchial mass at this region and evidence of bronchiectasis with initiation of PEP therapy, spirometry FEV1 of 42% of predicted 1 year prior, requested PFTs, walking oximetry. We will continue acute evaluation and workup as noted #1 in addition to continuation of PEP. (3) Chronic Moderate Protein-Calorie Malnutrition: Evidenced per habitus, evidence muscle and fat loss, nutrition consulted. (4) History of Tobacco use: Encourage continued tobacco cessation. (5) DVT Prophylaxis: SCDs, lovenox. (6) CODE status: Discussed CODE status at length including difference between FULL code, DNR-CCA and DNR-CC status. Following discussions about the differences in these status, requested Full Code status. Brother WILBER. Living will in place. Advanced Care Planning Face to Face Time: 16 minutes. Code Visit Inpatient E AND M: 72888 Init Hosp L3 Procedures: 69978 Advncd Care Plan 30 Min 10/09/18 8206 <Electronically signed by Nilsa Davis > Date Nilsa Davis Cosigner Signature: Date (if applicable) CC: Nilsa Davis; Casey Francois MD Signed MAGNESIUM Collected: 10/09/2018 Status: F Source: [place] 8:40 PM [facility] REPOSITORY TYPE CODE TESTS RESULT OUT OF RANGE REFERENCE UNITS LAB L501.5200 1.6-2.6 mg/dL Normal MG 2.1 Performed By: #### L501.5200 #### [facility] [address] [place], [address] Observed: 10/09/2018 Status: F Source: [facility] RESPIRATORY PANEL 8:30 PM [facility] MOLECULAR REPOSITORY RP PANEL RESULTS CALLED TO Shazia HANCOCK 10/10/18 1243 Ivelisse Bajwa. REPORT READ BACK BY ALEX. Copy of report sent to Infection Control Printer [id number] 10/10/18 1244 MOE. Normal Reference Range = Not Detected ADENOVIRUS Not Detected HUMAN METAPHNEUMO Not Detected INFLUENZA A Not Detected INFLUENZA A (SUBTYPE H1) Not Detected INFLUENZA A (SUBTYPE H3) Not Detected INFLUENZA B Not Detected PARAINFLUENZA 1 Not Detected PARAINFLUENZA 2 Not Detected PARAINFLUENZA 3 Not Detected PARAINFLUENZA 4 Not Detected RHINOVIRUS Not Detected RSV A Not Detected RSV B Positive for RSV B by NAAT technology NAAT METHOD Testing was performed using nucleic acid amplification ORGANISM 1: RSV B Performed By: #### M100.638 #### [facility] [place], [place], [address] ARTERIAL BLOOD GAS Collected: 10/09/2018 Status: F Source: [facility] RESPIRATORY 5:15 PM SYSTEM REPOSITORY Order Comment: Specimen not on ice.Small clot noted in specimen. TYPE CODE TESTS RESULT OUT OF RANGE REFERENCE UNITS LAB PHBS 7.350-7.450 NA pH Normal 7.429 LAB PCO2B 35.0-45.0 mm[Hg] pCO2 Normal 42.2 LAB PO2B 80.0-100.0 mm[Hg] High pO2 220.3 LAB HCO3B 21.0-25.0 mmol/L High HCO3 28.0 LAB BEB -3.0-3.0 mmol/L High Base Excess 3.1 LAB SO2B 95.0-100.0 % O2 Normal Saturation 99.8 LAB TCO2B 23.0-27.0 mmol/L High TCO2 29.3 Result Comment: Performed by CLIA ID: [id number] [place], [place] Performed By: #### ABGE #### [facility] [address] [place] [address] ARTERIAL BLOOD GAS Collected: 10/09/2018 Status: F Source: [facility] [employer] RESPIRATORY 4:10 PM SYSTEM REPOSITORY Order Comment: Specimen not on ice/Qns for repeat.Called/Faxed. TYPE CODE TESTS RESULT OUT OF RANGE REFERENCE UNITS LAB PHBS 7.350-7.450 NA Low pH 7.344 LAB PCO2B 35.0-45.0 mm[Hg] High pCO2 61.7 LAB PO2B 80.0-100.0 mm[Hg] Low Alert pO2 44.2 Result Comment: Called to Samina Navarro 1610 ;vrb HK LAB HCO3B 21.0-25.0 mmol/L HCO3 High 33.6 LAB BEB -3.0-3.0 mmol/L Base High Excess 5.4 LAB SO2B 95.0-100.0 % O2 Low Saturation 75.6 LAB TCO2B 23.0-27.0 mmol/L TCO2 High 35.5 Result Comment: Performed by ANITRA ID: [id number] [place], [place] Performed By: #### ABGE #### [facility] [address] [place] [address] CR CHEST PA/LAT Observed: 10/09/2018 Status: F Source: [facility] [employer] 3:49 PM SYSTEM REPOSITORY Patient Name: OXANA CHIANG Diagnostic Radiology Exam Date/Time 10/09/2018 15:48:28 EST Exam CR Chest PA/LAT Ordering Physician CHARLIE VIGIL Accession Number [id number] CPT4 Codes 87732 () Reason For Exam dyspnea Report CHEST: CLINICAL INDICATION: Dyspnea TECHNIQUE: PA and Lateral COMPARISON: Chest CT dated 07/05/2018 FINDINGS: Subsegmental atelectasis of the right middle lobe. No focal consolidation or pulmonary edema. No pleural effusions or pneumothorax. The cardiac and mediastinal silhouettes are normal. Degenerative change of the thoracic spine is noted. IMPRESSION: Subsegmental atelectasis of the right middle lobe. No focal consolidation or pulmonary edema. Report Dictated on Final Dictating Physician: MD TAMAYO KEVIN Signed Date and Time: 10/09/2018 3:51 pm Signed by: MD TAMAYO KEVIN Transcribed Date and Time: 10/09/2018 3:52 RAPID FLU A AND B, Collected: 10/09/2018 Status: F Source: [facility] [employer] RNA 3:34 PM SYSTEM REPOSITORY TYPE CODE TESTS RESULT OUT OF RANGE REFERENCE UNITS LAB RPA Not Detected NA Rapid Normal Influenza A Not Detected LAB RPB Not Detected NA Rapid Normal Influenza B Not Detected Performed By: #### RPFAB #### [facility] [address] [place] [address] HEMOGRAM W/ AUTODIFF Collected: 10/09/2018 Status: F Source: [facility] [employer] 3:26 PM SYSTEM REPOSITORY TYPE CODE TESTS RESULT OUT OF REFERENCE UNITS RANGE LAB IWBC 3.6-10.7 10*3/uL WBC Normal 7.2 LAB RBC 3.80-5.20 10*6/uL RBC High 5.26 LAB HGB 11.7-16.0 g/dL Hemoglobin Normal 15.4 LAB HCT 35.0-47.0 % Hematocrit High 47.6 LAB MCV 79.0-98.0 fL MCV Normal 90.5 LAB MCH 26.0-34.0 pg MCH Normal 29.3 LAB MCHC 32.0-36.0 % MCHC Normal 32.4 LAB RDW 11.5-14.5 % RDW Normal 14.3 LAB PLT 140-440 10*3/uL Platelet Normal 267 LAB MPV 7.4-10.4 fL Low MPV 7.2 LAB GRAN% 40.0-80.0 % Granulocytes Normal 68.3 LAB LYMP% 20.0-40.0 % Low Lymphocytes 15.6 LAB MONO% 2.0-10.0 % Monocytes Normal 8.3 LAB EOS% 1.0-6.0 % Eosinophils Normal 5.2 LAB BAS% 0.0-2.0 % Basophils High 2.6 LAB ANC 1.8-7.0 10*3/uL Abs Normal Neutrophile Cnt 4.9 LAB ALC 1.0-4.3 10*3/uL Abs Lymph Cnt Normal 1.1 LAB AMC 0.0-0.8 10*3/uL Abs Monocyte Normal Cnt 0.6 LAB AEC 0.0-0.5 10*3/uL Abs Eosin Cnt Normal 0.4 LAB ABC 0.0-0.2 10*3/uL Abs Baso Cnt Normal 0.2 Performed By: #### HEMDF, LACT3, BMP3, TROPN #### [facility] [employer] [facility] [address] [place] [address] LACTIC ACID Collected: 10/09/2018 Status: F Source: [employer] 3:26 PM SYSTEM REPOSITORY TYPE CODE TESTS RESULT OUT OF RANGE REFERENCE UNITS LAB LACT3 0.7-2.0 mmol/L Normal Lactic Acid 1.1 Performed By: #### HEMDF, LACT3, BMP3, TROPN #### [facility] [employer] [facility] [address] [place] [address] BASIC METABOLIC PANEL Collected: 10/09/2018 Status: F Source: [employer] 3:26 PM SYSTEM REPOSITORY TYPE CODE TESTS RESULT OUT OF RANGE REFERENCE UNITS LAB NA3 135-145 mmol/L Sodium Normal 138 LAB K3 3.5-5.1 mmol/L Normal Potassium 4.4 LAB CL3 98-107 mmol/L Chloride Normal 101 LAB CO23 22-30 mmol/L Carbon Normal Dioxide 30 LAB ANIN3 NA Anion Gap 7 LAB GLUC3 70-100 mg/dL High Glucose 112 LAB BUN3 7-20 mg/dL Urea Normal Nitrogen 9 LAB CRET3 0.52-1.25 mg/dL Low Creatinine 0.46 LAB GF3BR >60 mL/min eGFR > 60.0 LAB GF3WR >60 mL/min eGFR OTHER > 60.0 Result Comment: Source- MDRD equation with creatinine calibration to IDMS(NKDEP) eGFR not recommended for drug dose adjustment LAB CA3 8.4-10.4 mg/dL Normal Calcium 9.5 Performed By: #### HEMDF, LACT3, BMP3, TROPN #### [facility] [employer] [facility] [address] [place] [address] TROPONIN I Collected: 10/09/2018 Status: F Source: [employer] 3:26 PM SYSTEM REPOSITORY TYPE CODE TESTS RESULT OUT OF RANGE REFERENCE UNITS LAB TROP4 0.000-0.034 ng/mL Normal Troponin I < 0.012 Result Comment: 0.046 - 0.400 = Indeterminate > 0.400 = Consider Myocardial Injury Performed By: #### HEMDF, LACT3, BMP3, TROPN #### [facility] [address] [place] [address] PULMONARY VISIT REPORT Observed: 10/04/2018 Status: F Source: [facility] 3:41 PM [facility] REPOSITORY [facility] [address] [place] [address] OFFICE VISIT Date of Service: 10/04/18 MR#: [id number] Acct: [id number] Name: OXANA CHIANG Rep #: [id number] : 1955 Provider: Denys Saavedra MD Age/Sex: 63/F Location: [facility] Status: Signed Assessment AND Plan Problems 1. Stage 3 severe COPD by GOLD classification J44.9 2. Bronchiectasis without complication J47.[address] of the chest R93.[address] scan does show emphysematous changes and previous spirometry had shown an FEV1 of 42% of predicted approximately 1 year ago. Patient is no longer smoking, and waking with desaturations it is concerning for possible exertional hypoxemia. Will obtain a complete pulmonary function test for quantification and clarification of lung function. We will also obtain a walking oximetry for evaluation of exertional hypoxemia. Patient does have some collapse of the right middle lobe that may be secondary to mucous plugging. After review of the risks, benefits and alternatives, we will repeat CT scan in 3 months. Patient understands that a bronchoscopy may be necessary for evaluation of the endobronchial mass. Patient does have bronchiectasis on CT scan, so we will initiate Pepcid therapy to see if this will help with mucus plugging. Obtain CT scan of the chest in 3 months. Obtain complete pulmonary function test walking oximetry now. Orders Orders: Medications New: ipratropium-albuterol 0.5 mg-3 mg(2.5 mg bas3 mL Inhalation Q8H e)/3 mL HPI Lung Nodule: Chief Complaint: Shortness of breath on exertion Details: Patient is a 63-year-old female, currently under the care of Dr. Francois, who presents for evaluation secondary to shortness of breath on exertion. Patient was previously taken care of by Dr. Tierney in [place], but states that she is trying to centralize her health care in [place]. Patient states that she has had pulmonary function test previously, but is unaware of the results. Patient is currently using Symbicort twice daily and Combivent as needed. Patient does report occasional jitteriness associated with the use of Combivent, but otherwise tolerates these medications well. Patient has been placed on 2 L nasal cannula with sleep. Patient states that she can wake up in the morning finding her oxygen saturations at approximately 85%. Patient states she can have some chest tightness and congestion and a cough productive of yellow sputum. Patient has noted increasing fatigue. Patient states she has been diagnosed with COPD in the past. Patient did have a CT scan in June in [place] but was able to be personally reviewed with this provided. This did show bronchiectatic changes in the right lower lobe and left lower lobe. Patient also had some collapse in the right middle lobe. Patient denies any recent weight loss, chest pain, hemoptysis or focal neurologic deficit. Patient has noted significant dyspnea on exertion, especially with carrying laundry or walking up steps. Patient believes Combivent does help but occasionally, but she has resulted in having multiple people carry things for her. 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 Documentation reviewed 7 pages of documentation were reviewed prior to this office visit. Patient did have a CT scan completed on 07/05/18 reporting multiple subcentimeter nodules that were unchanged compared to 2014 and atelectasis of the right middle lobe without endobronchial mass. PCP had noted in August a saturation of 84% despite supplemental oxygen in the past. Patient has been using it with sleep and had complained of headache. Patient had been treated with Augmentin and prednisone in the past with good response. Patient does take Symbicort on a daily basis and has seen Dr. Tierney in the past per pulmonary. Report of full PFT completed 12/29/2017 showed severe obstructive ventilatory defect with no response to bronchodilators (FEV1 42% predicted), but testing was complicated by persistent coughing. HPI Comments Details: Intake Vital Signs10/04/18 Height 5 ft 2 in 10/04/18 Weight: 66.224 kg Intake Visit Reasons: Lung Nodule Manager Integration Required: No Accompanied by: Self Is patient in pain?: No Allergies sulfamethoxazole [From Bactrim] Allergy (Mild, Verified 10/04/18 08:24) Rash trimethoprim [From Bactrim] Allergy (Mild, Verified 10/04/18 08:24) Rash acetaminophen [From Vicodin] Adverse Reaction (Verified 10/04/18 08:24) Nausea hydrocodone [From Vicodin] Adverse Reaction (Verified 10/04/18 08:24) Nausea Sulfa (Sulfonamide Antibiotics) Adverse Reaction (Verified 10/04/18 08:24) Anaphylaxis Medications albuterol sulfate HFA 90 mcg/actuation aerosol inhaler 2 puff INHALATION Q4H PRN g 09/24/17 [History Confirmed 10/04/18] budesonide-formoterol HFA 160 mcg-4.5 mcg/actuation aerosol inhaler 2 inh INHALATION Q12H 09/24/17 [History Confirmed 10/04/18] PEP #1 [id number] 10/04/18 [Rx Confirmed 10/04/18] ipratropium-albuterol 0.5 mg-3 mg(2.5 mg base)/3 mL nebulization soln 3 ml INHALATION Q8H 10/04/18 [History Confirmed 10/04/18] PFSH Medical History Hypoxia (Acute) Abnormal chest CT (Chronic) COPD (chronic obstructive pulmonary disease) (Chronic) Centrilobular emphysema (Chronic) Dyspnea (Chronic) Insomnia (Chronic) Periodic limb movement disorder (Chronic) Pulmonary nodule (Chronic) Tobacco abuse, in remission (Chronic) Surgical History epidural block (Resolved) Family History Father Lung cancer Mother Myocardial infarction Hypertension Brother Myocardial infarction Sister Diabetes Hypertension Lung cancer Social History household members: none housing: apartment current occupational status: retired pets and animals: No Smoking Status: Former smoker quit date: 09/20/16 pack-years: 96 second hand exposure: Yes alcohol intake: never substance use type: does not use Review of Systems Const CONSTITUTIONAL: Positive fatigue; negative anorexia, body ache, chills, daytime sleepiness, fever(s), night sweats, oral thrush, stops breathing during sleep, weight loss, sleeping in chair, weight loss, weight gain, frequent colds, seasonal allergies, other, headache(s) or orthopnea EETM Ear Nose Throat Mouth: Positive hearing normal; negative hard of hearing, hoarseness, dry mouth in morning, change in vision, itchy eyes, eye pain, swallowing Difficulty, ear pain, nose bleed, headache(s), mouth pain, nasal congestion, nasal discharge, post nasal drip, sinus pain, sinus pressure, sore throat or other Cardio Cardiovascular: Negative chest pain, chest pain at rest, chest pain with activity, irregular heart rhythm, edema, shortness of breath when lying down, palpitations, murmur or other Resp Respiratory: Positive as per HPI, shortness of breath, chest congestion, cough cough: Positive productive color: Positive yellow and chest tightness; negative pain with cough, wheezing, pain on inspiration, inhalers, increase use of rescue inhalers, snoring, apnea or other Gastro Gastrointestional: Negative bloody stools, change in appetite, difficulty swallowing, reflux, hematemesis, melena stool, loose stool, constipation or other Genitourinary: Negative blood in urine, nocturia, pain with urination or other Musc Musculoskeletal: Negative body pain, back pain, neck pain or other Skin/Breast Skin/Breast: Negative dry skin, itching, rash, unusual bruising, breast lump or other Neuro Neurological: Negative restless legs, confusion, weakness or other Psych Psychocological: Negative abnormal sleep pattern, anxiety, thoughts of hurting self/others, hopelessness or other Lymph Lymphatic: Negative easy bleeding, easy bruising, swollen lymph nodes or other Exam Const Constitutional: Positive conversant, cooperative, in no acute respiratory distress, healthy appearing, well developed, well nourished, good hygiene and appears older than stated age; negative wearing supplemental oxygen or smells of smoke Head Head: Positive normocephalic and atraumatic; negative cyanosis of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
--- OUTSIDE RECORDS SUMMARY | 2018-12-12 12:20 | XMS RPT_ITS | Clinical Summary ---
:1955 Author Organization [facility] Address [address] [place] [address] Phone Care Team Providers Name Role Phone Yensho EXTRUDING MACHINE OPERATOR, Ana Lilia A Unavailable Unavailable Conditions or Problems No information available. Medications Medication Instructions Start Stop Generic Name NDC Provider Date Date ALBUTEROL INH one vial ALBUTEROL [id number] Ana Lilia A SULFATE (2.5 three times 1 SULFATE Yensho EXTRUDING MACHINE OPERATOR MG/3ML) 0.083% daily NEBU DALIRESP 500 One tablet by ROFLUMILAST [id number] Ana Lilia A MCG TABS mouth daily 1 Yensho EXTRUDING MACHINE OPERATOR REQUIP 1 MG Take one tablet ROPINIROLE HCL [id number] Ana Lilia A TABS 1 to 3 hours 1 Yensho EXTRUDING MACHINE OPERATOR before bedtime orally, once daily. SPIRIVA INH one puff TIOTROPIUM [id number] Ana Lilia A RESPIMAT 2.5 twice daily. 1 BROMIDE Yensho EXTRUDING MACHINE OPERATOR MCG/ACT AERS MONOHYDRATE SYMBICORT INH 2 puffs BUDESONIDE-FORM [id number] Ana Lilia A 160-4.5 twice daily. 1 OTEROL FUMARATE Yensho EXTRUDING MACHINE OPERATOR MCG/ACT AERO VENTOLIN HFA INH 1 to 2 puffs ALBUTEROL [id number] Ana Lilia A 108 (90 Base) every 4 hours as 1 SULFATE Yensho EXTRUDING MACHINE OPERATOR MCG/ACT AERS needed Medications Administered No information available. Allergies, Adverse Reactions, Alerts Allergy Name Reaction Description Start Date Severity Status Provider BACTRIM Rash Moderate Active Ana Lilia A Yensho EXTRUDING MACHINE OPERATOR Results Date Name Value Unit Range Flag Description Clinical Lists Update: Preload- new patient SMOK STATUS Former smoker Tobacco use [facility] Plan of Care Type Date Detail Appointment 09:00 AM Denys Saavedra, [address], [address], [place], [address] Procedures No information available. Vital Signs No information available.
== END 2018-10-12 12:43 | disposition home or self-care (01) | DRG 189 ==
LOC: ICU 10-10 12:56 → PCU 10-10 16:55
PROVIDERS: Family Medicine; Admitting Provider Internal Medicine; Family Provider Family Medicine; PCP Family Medicine; Referring Provider Internal Medicine
DX: J96.21 Acute and chronic respiratory failure with hypoxia (principal); J44.1 Chronic obstructive pulmonary disease with (acute) exacerbation; E44.0 Moderate protein-calorie malnutrition; Z68.27 Body mass index [BMI] 27.0-27.9, adult; Z87.891 Personal history of nicotine dependence; Z99.81 Dependence on supplemental oxygen; B97.4 Respiratory syncytial virus as the cause of diseases classified elsewhere
CPT/HCPCS: 71045; 80048; 83735; 85025; 87070; 87205; 87633; 94002; 94003; 94640; 94667; 94668; 97161; 97165; 97530; 97802; J7030; A4216

== ENCOUNTER → 2018-11-15 12:08 | Outpatient (CLI) | payer MEDICARE, SELFPAY ==
[2018-10-04 09:37] VITALS: BMI 26.6
[2018-10-09 20:20] VITALS: BMI 27.6
[2018-11-15 12:59] VITALS: PULSE 104; PULSE 107; PULSE 111; PULSE 115; PULSE 116; O2SAT 93; O2SAT 94; O2SAT 97
--- NOTE | 2018-11-16 13:21 | PCM.PSN.6M ---
PSN 6 Minute Walk Test - 6 Minute Walk Test 6 Minute Walk Test: 6 Minute Walk Test PSN:6-Minute Walk Test Start: 11/15/18 12:56 Freq: Status: Active Protocol: RESP.6MINW Document 11/15/18 12:59 HG (Rec: 11/15/18 13:02 HG [id number]) 6 Minute Walk Test Date Performed 11/15/18 Time Performed 12:30 Height 5 ft 2 in Weight: 140 lb Weight in Pounds 140.[address]: Denys Saavedra Assistive device used: None Pre-test Oxygen Delivery Method Room Air Pulse Ox (%) 94 Pulse Rate (60-100 beats/min) 104 H Dyspnea [place] Scale (0-10) 2 Exertion [place] Scale (6-20) 11 1st minute Oxygen Delivery Method Room Air Pulse Ox (%) 94 Pulse Rate (60-100 beats/min) 111 H 2nd minute Oxygen Delivery Method Room Air Pulse Ox (%) 93 Pulse Rate (60-100 beats/min) 116 H 3rd minute Oxygen Delivery Method Room Air Pulse Ox (%) 94 Pulse Rate (60-100 beats/min) 116 H 4th minute Oxygen Delivery Method Room Air Pulse Ox (%) 93 Pulse Rate (60-100 beats/min) 115 H Reported Symptoms Increased Work of Breathing 5th minute Oxygen Delivery Method Room Air Pulse Ox (%) 93 Pulse Rate (60-100 beats/min) 116 H Reported Symptoms Increased Work of Breathing 6th minute Oxygen Delivery Method Room Air Pulse Ox (%) 94 Pulse Rate (60-100 beats/min) 115 H Reported Symptoms Increased Work of Breathing Post-test Oxygen Delivery Method Room Air Pulse Ox (%) 97 Pulse Rate (60-100 beats/min) 107 H Dyspnea [place] Scale (0-10) 7 Exertion [place] Scale (6-20) 18 Reported Symptoms Increased Work of Breathing Full Laps Walked 16 Partial Lap, Number of Tiles Walked 24 Total Distance Walked (ft) 968 - Interpretation Interpretation: The patient ambulated 968 feet over the course of 6 minutes beginning on room air without assistive devices or breaks. Pretesting oxygen saturation was noted to be 94% on room air. With ambulation, the madisyn oxygen saturation was 93%. There was no significant exertional oxygen desaturation. - Recommendations Recommendations: There is no indication for the use of supplemental oxygen at this time.
== END ==
PROVIDERS: Family Provider Family Medicine; PCP Family Medicine; Referring Provider Internal Medicine Critical Care Medicine; Visit Provider Internal Medicine Critical Care Medicine
DX: J47.9 Bronchiectasis, uncomplicated (principal)
CPT/HCPCS: 94618

== ENCOUNTER → 2018-12-26 | Outpatient (CLI) | payer MEDICARE, SELFPAY ==
[2018-11-18 13:36] VITALS: BMI 26.9
--- NOTE | 2018-12-26 14:39 | CT_ITS ---
STUDY: CT CHEST WITH CONTRAST REASON FOR EXAM: Female, 63 years old. Right middle lobe collapse 1 1/2 years ago. RADIATION DOSAGE (If Supplied By Facility): CTDIvol = ( 13.89 ) mGy, DLP = ( 484.20 ) mGycm TECHNIQUE: Transaxial imaging was performed following intravenous administration of 100CC IV Isovue 300. Individualized dose optimization techniques were used for this CT. COMPARISON: None. FINDINGS: TRACHEA, THYROID, ESOPHAGUS: No tracheomalacia,stricture or wall thickening. Thyroid and esophagus are normal CARDIOVASCULAR SYSTEM: The thoracic aorta is normal with no focal aneurysm or dissection. There are no abnormal calcifications/metallic densities at the aortic root. The pulmonary trunk and the left and right pulmonary arteries and their lobar and segmental branches all fail to show any abnormal and persistent filling defects to indicate the presence of pulmonary embolism. The heart is normal in size with no demonstration of any right ventricular strain. No developmental vascular anomalies are seen. VERO AND LYMPH NODES: No hilar masses and no mediastinal, hilar, axillary or supraclavicular adenopathy LUNGS, LOW-ATTENUATION: Extensive centrilobular emphysematous changes in both lungs especially in the upper lobes. LUNGS, HIGH ATTENUATION: No nodules/masses, ground glass opacities/consolidations or increased interstitial markings. No evidence of any right middle lobe collapse LUNGS, MOSAIC/CRAZY PAVING: Not evident PLEURA AND CHEST WALL: No plural effusions, pneumothoraces,rib fractures or any osteolytic/osteoblastic changes . The soft tissue chest wall including the breasts are normal UPPER ABDOMEN: 1.8 cm left adrenal nodule. The visualized upper abdominal structures are otherwise unremarkable.. CT/Chest WITH Contrast IMPRESSION: Emphysematous changes in both lungs especially the upper lobes. No acute findings in the lungs. Specifically there is no evidence of the right middle lobe collapse. The thoracic aorta is normal. There is no evidence of pulmonary embolism Electronically Signed: Anthony Lema MD at 1:04 EDT Tel , Service support ,
[2018-12-26 15:11] LABS: CREATININE FINGERSTICK 0.9 mg/dL (0.55-1.02); EGFR FINGERSTICK > 60.0000 mL/min (>60)
== END | disposition home or self-care (01) ==
LOC: CT 14:37
PROVIDERS: Family Provider Family Medicine; PCP Family Medicine; Referring Provider Internal Medicine Critical Care Medicine; Visit Provider Internal Medicine Critical Care Medicine
DX: R93.89 Abnormal findings on diagnostic imaging of other specified body structures (principal)
CPT/HCPCS: 71260

== ENCOUNTER → 2019-01-10 12:26 | Outpatient (CLI) | payer MEDICARE, SELFPAY ==
[2018-11-18 13:36] VITALS: BMI 26.9
[2019-01-10 12:35] VITALS: PULSE 102; PULSE 112; PULSE 114; PULSE 117; PULSE 119; PULSE 120; PULSE 90; O2SAT 86; O2SAT 87; O2SAT 90; O2SAT 91; O2SAT 92
--- NOTE | 2019-01-10 13:05 | CPS ---
Pt's six minute walk initiated on room air, no assistive devices were used. After one minute pt SPO2 was 86% and she was placed on 2L oxygen and recovered to 91%. Walk was resumed and at minute three pt SPO2 was 87% in which she was turned up to 3L oxygen. Pt remained on 3L continuous flow of oxygen for remainder of test. Zayra JOSE notified and this RT to fax results to the office.
--- NOTE | 2019-01-12 08:27 | WT_ITS ---
PSN 6 Minute Walk Test - 6 Minute Walk Test 6 Minute Walk Test: 6 Minute Walk Test PSN:6-Minute Walk Test Start: 01/10/19 13:01 Freq: Status: Active Protocol: [id number].6MINW Document 01/10/19 12:35 [facility] (Rec: 01/10/19 13:08 [facility] [id number]) 6 Minute Walk Test Date Performed 01/10/19 Time Performed 12:35 Height 5 ft 1 in Weight: 297 lb 9.985 oz Weight in Pounds 297.[address]: Denys Saavedra Assistive device used: None Pre-test Oxygen Delivery Method Room Air Pulse Ox (%) 92 Pulse Rate (60-100 beats/min) 90 Dyspnea Carolina Scale (0-10) 0 Exertion Carolina Scale (6-20) 6 1st minute Oxygen Delivery Method Room Air Pulse Ox (%) 86 Pulse Rate (60-100 beats/min) 102 H Number of Rests Taken 1 Reported Symptoms Increased Work of Breathing 2nd minute Oxygen Flow Rate (L/min) (L/min) 2 Oxygen Delivery Method Nasal Cannula Pulse Ox (%) 91 Pulse Rate (60-100 beats/min) 114 H Number of Rests Taken 0 3rd minute Oxygen Flow Rate (L/min) (L/min) 2 Oxygen Delivery Method Nasal Cannula Pulse Ox (%) 87 Pulse Rate (60-100 beats/min) 120 H Number of Rests Taken 2 Reported Symptoms Increased Work of Breathing 4th minute Oxygen Flow Rate (L/min) (L/min) 3 Oxygen Delivery Method Nasal Cannula Pulse Ox (%) 92 Pulse Rate (60-100 beats/min) 112 H Number of Rests Taken 1 5th minute Oxygen Flow Rate (L/min) (L/min) 3 Oxygen Delivery Method Nasal Cannula Pulse Ox (%) 91 Pulse Rate (60-100 beats/min) 119 H Reported Symptoms Increased Work of Breathing 6th minute Oxygen Flow Rate (L/min) (L/min) 3 Oxygen Delivery Method Nasal Cannula Pulse Ox (%) 90 Pulse Rate (60-100 beats/min) 117 H Number of Rests Taken 1 Reported Symptoms Increased Work of Breathing Post-test Oxygen Flow Rate (L/min) (L/min) 3 Oxygen Delivery Method Nasal Cannula Pulse Ox (%) 92 Pulse Rate (60-100 beats/min) 102 H Dyspnea [place] Scale (0-10) 3 Exertion Carolina Scale (6-20) 16 Full Laps Walked 8 Partial Lap, Number of Tiles Walked 35 Total Distance Walked (ft) 507 01/10/19 13:05 Cardiopulmonary Services by Jennifer Parks Pt's six minute walk initiated on room air, no assistive devices were used. After one minute pt SPO2 was 86% and she was placed on 2L oxygen and recovered to 91%. Walk was resumed and at minute three pt SPO2 was 87% in which she was turned up to 3L oxygen. Pt remained on 3L continuous flow of oxygen for remainder of test. Zayra JOSE notified and this RT to fax results to the office. Initialized on 01/10/19 13:05 - END OF NOTE - Interpretation Interpretation: The patient ambulated 507 feet over the course of 6 minutes beginning on room air without assistive devices or breaks. Pretesting oxygen saturation was noted to be 92% on room air. With ambulation, the patient desaturated several times to a madisyn oxygen saturation of 86%, requiring 3 L/min with exertion to maintain appropriate saturations. The patient did develop tachycardia with exertion. - Recommendations Recommendations: 3 L/min of continuous flow supplemental oxygen should be utilized with exertion.
== END ==
PROVIDERS: Family Provider Family Medicine; PCP Family Medicine; Referring Provider Internal Medicine Critical Care Medicine; Visit Provider Internal Medicine Critical Care Medicine
DX: J44.9 Chronic obstructive pulmonary disease, unspecified (principal)
CPT/HCPCS: 94618

== ENCOUNTER → 2019-01-31 13:01 | Outpatient (CLI) | payer MEDICARE, SELFPAY ==
[2018-10-04 09:37] VITALS: BMI 26.6
[2019-01-16 12:26] VITALS: BMI 27.3
--- NOTE | 2019-01-31 16:41 | PFTCOMP ---
COMPLETE PULMONARY FUNCTION TEST INTERPRETATION Brief HPI: Patient is a 63 year old female, currently under the care of myself, who presents to [facility] for complete pulmonary function tests secondary to diagnosis of COPD. Respiratory therapist reports good effort and reproducible results. Interpretation: Forced expiration spirometry shows a severe large airways obstructive ventilatory defect with an FEV1 of 48% predicted. There is no significant bronchodilator response by strict ATS criteria. Spirograms are of good quality and plateau slowly, indicating slowly emptying areas of the lungs. The respiratory flow volume loop shows decreased expiratory flow rates at all lung volumes consistent with airway obstruction. Lung volumes by body plethysmography show a normal total lung capacity at 5.1 L, 114% predicted. All other lung volumes are within normal limits. Diffusion capacity by carbon monoxide is decreased at 39% predicted. The airway resistance is elevated. No previous pulmonary function tests were available for review. Impression: Irreversible severe large airways obstructive ventilatory defect with symmetric reduction diffusing capacity consistent with a diagnosis of advanced COPD.
== END ==
PROVIDERS: Family Provider Family Medicine; PCP Family Medicine; Referring Provider Internal Medicine Critical Care Medicine; Visit Provider Internal Medicine Critical Care Medicine
DX: J47.9 Bronchiectasis, uncomplicated (principal)
CPT/HCPCS: 94060; 94726; 94729

== ENCOUNTER 2019-05-04 13:02 | Inpatient (IN) | payer MEDICARE, SELFPAY ==
[2019-04-26 11:15] VITALS: BMI 27.6
[2019-05-04] VITALS (7 sets, daily range): BP systolic 106–124; BP diastolic 59–88; PULSE 60–108; RESP 18–22; TEMP 36.7–36.9; O2SAT 93–96; BMI 28.8
--- NOTE | 2019-05-04 13:21 | HP.PCM_ITS ---
Problem List (1) COPD with acute exacerbation Status: Acute (2) Acute and chronic respiratory failure with hypoxia Status: Acute (3) Former tobacco use Status: Chronic (4) Stage 3 severe COPD by GOLD classification Status: Chronic Comment: FEV1 48% (5) Bronchiectasis Status: Chronic Qualifiers: Bronchiectasis type: with acute exacerbation Qualified Code(s): J47.1 - Bronchiectasis with (acute) exacerbation Comment: Noted on CT chest LLL 07/05/17 History of Present Illness Date of Admission: 05/04/19 Chief Complaint: Dyspnea, cough, wheezing The patient is a 64 y/o F w/ PMHx: Chronic hypoxic respiratory failure with chronic COPD on 1 to 2 L continuous oxygen therapy, history of former tobacco use, history of pulmonary nodule, periodic limb movement disorder, insomnia who presents as direct transfer from [place] ED following history of progressively worsening dyspnea, wheezing requiring CPAP in the ED with initial improvement and patient preference for discharge however worsened thus then amenable to transition to [facility] where she is familiar with her pulmonary physician with recent history of in office pulmonary evaluation on 04/26/18 with history of 1 week productive cough of yellow sputum with discomfort with deep inspiratory effort as well as chest tightness, chest congestion and dyspnea, worse with any exertion he with treatment of doxycycline and prednisone taper with reevaluation with noted some improvement however increased oxygenation needs up to 3 L nasal cannula and continued productive sputum with encourage continued treatment at that time and plan follow-up on May 04. Outside ED evaluation included T 96.5, BP 159/104, heart rate initially 119, respiratory rate 28, given effort initially placed on BiPAP therapy 40% with 8 L with improvement and initial transition to 94% on 3 L nasal cannula prior to worsening again, BMP with sodium 140, potassium 4.7, chloride 101, CO2 34, glucose 110, BUN 8, creatinine 0.39, CBC with WBC 8.3, hemoglobin 14.7, platelet 213 without market left shift evident, troponin less than 0.012, chest x-ray with no acute cardia pulmonary findings with chronic COPD changes. Upon arrival to the out side the ED patient oxygen saturation per EMS was 85% on 4 L nasal cannula and at that time DuoNeb and albuterol treatments were given in route as well as Solu-Medrol 125 mg IV x1. Past Medical History Past Medical History (Chronic Problems): Chronic Problems (Last Reviewed 04/26/19 @ 11:16 by Ml Spann NP-Meagan) Former tobacco use (Chronic) Abnormal CT of the chest (Chronic) Stage 3 severe COPD by GOLD classification (Chronic) FEV1 48% Bronchiectasis (Chronic) Noted on CT chest LLL 07/05/17 Medical History: Medical History (Last Reviewed 04/26/19 @ 11:16 by JOSE Bhakta) Hypoxia R09.[address] R93.8 COPD (chronic obstructive pulmonary disease) J44.9 Centrilobular emphysema J43.2 Dyspnea R06.00 Insomnia G47.00 Periodic limb movement disorder G47.61 Pulmonary nodule R91.1 Tobacco abuse, 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 Allergies sulfamethoxazole [From Bactrim] Allergy (Mild, Verified 04/26/19 11:04) Rash trimethoprim [From Bactrim] Allergy (Mild, Verified 04/26/19 11:04) Rash hydrocodone [From Vicodin] Adverse Reaction (Verified 04/26/19 11:04) Nausea Sulfa (Sulfonamide Antibiotics) Adverse Reaction (Verified 04/26/19 11:04) Anaphylaxis Home Medications: Ambulatory Orders Medication Instructions Recorded PEP #1 [id number] 10/04/18 Guaifenesin [Mucinex] 1,200 mg PO BID #10 tab 10/12/18 montelukast 10 mg tablet 10 mg PO QPM #30 tab 11/18/18 budesonide-formoterol HFA 160 2 puff INHALATION BID #1 ea 01/16/19 mcg-4.5 mcg/actuation aerosol inhaler tiotropium bromide 2.5 2 puff INHALATION QDAY #1 ea 01/16/19 mcg/actuation mist for inhalation albuterol sulfate HFA 90 2 puff INHALATION Q4H PRN #18 g 02/02/19 mcg/actuation aerosol inhaler ipratropium-albuterol 0.5 mg-3 3 ml INHALATION Q8H PRN #180 ml 02/02/19 mg(2.5 mg base)/3 mL nebulization soln prednisone 10 mg tablet 10 mg PO QDAY #30 tab 04/21/19 Surgical History: Surgical History (Last Reviewed 04/26/19 @ 11:16 by JOSE Bhakta) epidural block Surgical History: - - Ventral hernia repair. 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 Tobacco Use: Non-smoker Alcohol: None Drugs: None - *Family History Maternal Family History: Family History (Last Reviewed 04/26/19 @ 11:16 by JOSE Bhakta) Father Lung cancer Mother Myocardial infarction Hypertension Brother Myocardial infarction Sister Diabetes Hypertension Lung cancer History Items: - - Patient notes maternal family history of heart disease, coronary artery disease, hypertension. Paternal Family History: Family History (Last Reviewed 04/26/19 @ 11:16 by JOSE Bhakta) Father Lung cancer Mother Myocardial infarction Hypertension Brother Myocardial infarction Sister Diabetes Hypertension Lung cancer History Items: - - She notes a paternal family history of lung cancer with history of tobacco concurrent usage. Review of Systems Constitutional: Reports: Malaise, Weakness, Fatigue. Denies: Anorexia, Chills, Fever HEENT: Denies: Head Aches, Sinus Congestion, Sinus Drainage Cardiovascular: Denies: Chest Pain, Palpitations Respiratory: Reports: Cough, Shortness of Breath, Shortness of breath at rest, Shortness of breath upon exertion, Sputum production, Wheezing Gastrointestinal: Denies: Abdominal Pain, Nausea, Vomiting Genitourinary: Denies: Dysuria Musculoskeletal: Reports: Joint Pain. Denies: Joint Tenderness Skin: Denies: Rash, Wounds Neurological: Denies: Numbness, Tingling, Focal weakness Psychiatric: Denies: Anxiety, Depression, Homicidal Ideations, Suicidal Ideations Hematologic/ Lymphatic: Reports: Easy Bruising. Denies: Easy Bleeding VTE Information - Inpt Only VTE Present on Admission: No VTE Mechan Device Prophylaxis: SCD's VTE Pharm Prophylaxis ordered?: Yes Subjective: Seated upright in the bed, notes some improvement since initial presentation, on supplementation now, still very tight she notes. Objective: Physical Examination: General: awake, alert, oriented x 3 and cooperative, seated upright in the bed, currently improved, NAD. Skin: normal color, turgor, no icterus, cyanosis. HEENT: AT/NC, EOMI, PERRLA, MMM, no carotid bruits or JVD noted. Lungs: Diminished breath sounds throughout, greater bilateral bases, improved effort, end expiratory wheezing throughout, tight. Heart: Regular rate and regular rhythm; no gallop, rub audible. Abdomen: soft, thin habitus, NTTP, ND, normal BS, no HSM. Extremities: no cyanosis, clubbing, or edema. Neurological: patient awake, alert, oriented x 3; cognitive function intact; pupils equally reactive to light and accomodation; cranial nerves II-XII grossly normal, moving all 4 extremities, no focal deficits, strength moderately to severely globally decreased secondary to acute presentation. Psychiatric: affect appears fatigued, no acute evidence of depressive or anxiety feelings. - Physical Exam Weight: 152 lb 8.958 oz Body Mass Index (BMI) 28.8 Assessment/Plan All Active Problems (Last Reviewed 04/26/19 @ 11:16 by Ml Spann NP-C) COPD with acute exacerbation (Acute) Acute and chronic respiratory failure with hypoxia (Acute) The patient is a 64 y/o F w/ PMHx: Chronic hypoxic respiratory failure with chronic COPD on 1 to 2 L continuous oxygen therapy, history of former tobacco use, history of pulmonary nodule, periodic limb movement disorder, insomnia who presents to [facility] 0[facility] 05/04/19 w/ ongoing dyspnea, fatigue, wheezing with outside ED CPAP placement with some improvement however still requiring supplementation with recent history of 1 week ongoing productive cough with increased oxygenation needs as well as pleuritic discomfort despite recent steroid and abx regimen. (1) Acute on Chronic Hypoxic Respiratory Failure secondary to Acute on chronic COPD exacerbation w/ Bronchiectasis: OSH ED evaluation w/ CXR w/ chronic changes, CBC without marked WBC elevation or L shift, evidence respiratory distress w/ hypoxia, placed on CPAP at OSH. Will admit to the [facility] given clinical improvement, continue ATC duonebs, PRN albuterol, IV methylprednisolone, HOB, IS parameters, defer abx, request sputum cx, Pulmonary physician consulted and aware. (2) Chronic Moderate Protein-Calorie Malnutrition: Evidenced per habitus, evidence muscle and fat loss, nutrition consulted. (3) History of Tobacco use: Encourage continued tobacco cessation. (4) History of bronchiectasis: Last CT chest in system noted December 27, 2018 with noted emphysematous changes in bilateral lungs especially upper lobes with no acute findings in the lung and no evidence of the prior noted right middle lobe collapse. Continues to follow with Dr. Saavedra, pulmonary physician outpatient. (5) DVT Prophylaxis: SCDs, lovenox. Code Visit Inpatient E&M: 32844 Init Hosp L3
--- NOTE | 2019-05-04 14:37 | NURSING ---
unable to pull solumedrol from accudose and med has not arrived from Rx yet,
--- NOTE | 2019-05-04 14:40 | NURSING ---
robitussin not stocked in accudose-note sent to Rx dr dick made aware of pt request for aleve for headache
[2019-05-04] MEDS: Ipratropium/Albuterol Sulfate 3 ML AMPUL.NEB INHALATION ×2 (14:52→18:51)
[2019-05-04] MEDS: 0.9% Normal Saline 1,000 ML 125 ML IV ×2 (15:22→22:13)
[2019-05-04] MEDS: guaiFENesin 10 ML UDC (200MG/10ML) 20 ML PO ×2 (15:25→21:52)
[2019-05-04] MEDS: 0.9% NaCl Peripheral Flush Adult/Peds IV ×2 (15:26→21:52)
[2019-05-04] MEDS: Famotidine 20 MG Tablet PO (22:01)
[2019-05-04] MEDS: MELATONIN 3 MG TABLET PO (23:38)
[2019-05-05] VITALS (13 sets, daily range): BP systolic 121–131; BP diastolic 71–82; PULSE 89–111; RESP 18–22; TEMP 36.6; O2SAT 94–96
[2019-05-05] MEDS: Ipratropium/Albuterol Sulfate 3 ML AMPUL.NEB INHALATION ×4 (02:05→14:25)
[2019-05-05] MEDS: guaiFENesin 10 ML UDC (200MG/10ML) 20 ML PO (02:41)
[2019-05-05] MEDS: Enoxaparin 40 MG/0.4 ML Syringe SC (05:38)
[2019-05-05] MEDS: 0.9% NaCl Peripheral Flush Adult/Peds IV ×3 (05:41→13:53)
[2019-05-05] MEDS: 0.9% Normal Saline 1,000 ML 125 ML IV ×2 (05:48→13:42)
[2019-05-05 06:33] LABS: Absolute Lymphocyte Count 0.45 X10^3/uL (0.83-4.51); Basophil# 0.01 X10^3/uL; Basophil% 0.1 % (0-1); Hematocrit 41.7 % (37-47); Hemoglobin 13.2 g/dL (12.0-15.0); Lymphocyte # 0.45 X10^3/ul (4.0); Lymphocyte % 2.6 % (19-41); Mean Corp Hgb Conc 31.7 g/dL (32-36); Mean Corpuscular Hgb 29.7 pg (27.0-32.0); Mean Corpuscular Volume 93.7 fL (81-99); Mean Platelet Vol. 9.2 fl (6.2-12.0); Monocyte# 0.95 X10^3/uL; Monocyte% 5.4 % (0-10); NRBC Flagged by Analyzer 0 % (0-5); Neutrophil # 16.04 X10^3/uL (2.7-7.7); Neutrophil % 90.9 % (47-70); POSITIVE DIFFERENTIAL YES; Platelet Count 170 K/mm3 (150-450); RBC Distribution Width CV 14.4 % (11.6-14.6); Red Blood Count 4.45 M/mm3 (4.2-5.4); White Blood Count 17.6 K/mm3 (4.4-11.0)
[2019-05-05 06:48] LABS: Differential Indicated SCAN CRITERIA MET
--- NOTE | 2019-05-05 06:48 | CON.PCM_ITS ---
Reason for Consult Date of Consultation: 05/05/19 Reason for Consultation: COPD exacerbation History of Present Illness: The patient is a 64-year-old female, with a history as outlined below, who presented as a direct transfer from an outside hospital emergency department on May 04 with complaints of progressively worsening shortness of breath, cough and wheezing. The patient has been treated multiple times over the last 6 months for COPD exacerbations. The patient is currently followed by Dr. Denys Saavedra in the pulmonary medicine clinic. She was last seen by our nurse practitioner on April 26, 2019. At that time, the patient was noted to be on treatment for an exacerbation with doxycycline and prednisone. At her baseline, the patient is on a triple therapy inhaler regimen with Symbicort, Duonebs and as needed albuterol. The patient has a baseline 3 L/min supplemental oxygen requirement with exertion. The patient has an extensive smoking history of approximately 96 pack years, having quit completely in 2016. Pulmonary function studies completed in January 2019 revealed evidence of an irreversible severe large airways obstructive ventilatory defect with symmetric reduction in diffusing capacity. On presentation to the hospital, the patient was noted to be afebrile and hemodynamically stable. Laboratory evaluation revealed an elevated white blood cell count to 17,000. Chemistry profile was unremarkable. She is currently on treatment with scheduled bronchodilators and IV steroids. Past Medical History Past Medical History (Chronic Problems): Chronic Problems (Last Reviewed 04/26/19 @ 11:16 by Ml Spann NP-C) Former tobacco use (Chronic) Abnormal CT of the chest (Chronic) Stage 3 severe COPD by GOLD classification (Chronic) FEV1 48% Bronchiectasis (Chronic) Noted on CT chest LLL 07/05/17 Medical History: Medical History (Last Reviewed 04/26/19 @ 11:16 by Ml Spann NP-C) Hypoxia R09.[address] R93.8 COPD (chronic obstructive pulmonary disease) J44.9 Centrilobular emphysema J43.2 Dyspnea R06.00 Insomnia G47.00 Periodic limb movement disorder G47.61 Pulmonary nodule R91.1 Tobacco abuse, 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 Allergies sulfamethoxazole [From Bactrim] Allergy (Mild, Verified 04/26/19 11:04) Rash trimethoprim [From Bactrim] Allergy (Mild, Verified 04/26/19 11:04) Rash hydrocodone [From Vicodin] Adverse Reaction (Verified 04/26/19 11:04) Nausea Sulfa (Sulfonamide Antibiotics) Adverse Reaction (Verified 04/26/19 11:04) Anaphylaxis Home Medications: Ambulatory Orders Medication Instructions Recorded PEP #1 [id number] 10/04/18 Guaifenesin [Mucinex] 1,200 mg PO BID #10 tab 10/12/18 montelukast 10 mg tablet 10 mg PO QPM #30 tab 11/18/18 budesonide-formoterol HFA 160 2 puff INHALATION BID #1 ea 01/16/19 mcg-4.5 mcg/actuation aerosol inhaler tiotropium bromide 2.5 2 puff INHALATION QDAY #1 ea 01/16/19 mcg/actuation mist for inhalation albuterol sulfate HFA 90 2 puff INHALATION Q4H PRN #18 g 02/02/19 mcg/actuation aerosol inhaler ipratropium-albuterol 0.5 mg-3 3 ml INHALATION Q8H PRN #180 ml 02/02/19 mg(2.5 mg base)/3 mL nebulization soln Prednisone [Deltasone] 40 mg PO DAILY #17 tab 05/05/19 Surgical History: Surgical History (Last Reviewed 04/26/19 @ 11:16 by JOSE Bhakta) epidural block Surgical History: - - Ventral hernia repair. Psychiatric History: No pertinent psych hx [employer] History: No pertinent [employer] history Lives: Alone Smoking Status: Former smoker - Patient quit cigarette tobacco usage in June 2018 with a 50-year tobacco use history prior to this. Tobacco Use: Non-smoker Alcohol: None Drugs: None - *Family History Maternal Family History: Family History (Last Reviewed 04/26/19 @ 11:16 by JOSE Bhakta) Father Lung cancer Mother Myocardial infarction Hypertension Brother Myocardial infarction Sister Diabetes Hypertension Lung cancer History Items: - - Patient notes maternal family history of heart disease, coronary artery disease, hypertension. Paternal Family History: Family History (Last Reviewed 04/26/19 @ 11:16 by JOSE Bhakta) Father Lung cancer Mother Myocardial infarction Hypertension Brother Myocardial infarction Sister Diabetes Hypertension Lung cancer History Items: - - She notes a paternal family history of lung cancer with history of tobacco concurrent usage. Review of Systems Constitutional: Denies: Chills, Fever Eyes: Denies: Blurred vision, Double vision HEENT: Denies: Head Aches, Sinus Congestion, Sinus Drainage Cardiovascular: Denies: Chest Pain, Palpitations Respiratory: Reports: Cough, Shortness of Breath, Wheezing Gastrointestinal: Denies: Abdominal Pain, Nausea, Vomiting Genitourinary: Denies: Dysuria Musculoskeletal: Denies: Joint Pain, Joint Tenderness Skin: Denies: Rash, Wounds Neurological: Denies: Numbness, Tingling, Focal weakness Psychiatric: Denies: Anxiety, Depression, Homicidal Ideations, Suicidal Ideations Hematologic/ Lymphatic: Denies: Easy Bruising, Easy Bleeding Objective: The patient's most recent lab work, culture data and imaging studies have all been personally reviewed. - Physical Exam General: Alert, Cooperative, No apparent distress HEENT: Atraumatic, PERRLA, Normocephalic Oral: No Gingival or Mucosal Lesions/ Ulcerations Neck: Supple, No Nodes, Trachea Midline Lungs: Diminished, - - Bilateral expiratory wheezes. Increased AP diameter with prolonged expiratory phase. Cardiovascular: Regular rate, Regular Rhythm, Normal S1, Normal S2, No murmurs Abdomen: Bowel Sounds Present, Soft, Non Tender Extremities: No clubbing, No cyanosis, No edema Skin: No breakdown Musculoskeletal: No Tenderness to Palpation of Joints or Extremities Lymphatic: No Cervical, Supraclavicular, or Inguinal Adenopathy Neurological: Cranial nerves II-XII grossly intact, Neuro grossly intact Psych/Mental Status: Normal Affect, Appropriate Vital Signs Temp Pulse Resp BP Pulse Ox 98.3 F 105 H 18 114/59 L 96 05/04/19 22:02 05/05/19 02:05 05/05/19 02:05 05/04/19 22:02 05/05/19 03:00 Oxygen Flow Rate (L/min) 4 Oxygen Delivery Method Nasal Cannula Weight: 152 lb 8.958 oz Body Mass Index (BMI) 28.8 Intake and Output for Last 24 Hours 05/03/19 05/04/19 05/05/19 23:59 23:59 23:59 Intake Total 3284 / 3284 1763 / 1763 Output Total 1450 / 1450 800 / 800 Balance 1834 / 1834 963 / 963 Laboratory Tests Past 24 Hrs 05/05/19 05/05/19 06:16 06:16 WBC Pending RBC Pending Hgb Pending Hct Pending MCV Pending MCH Pending MCHC Pending RDW Std Deviation Pending RDW Coeff of Vasyl Pending Plt Count Pending Neut % (Auto) Pending Absolute Neuts (auto) Pending Sodium Pending Potassium Pending Chloride Pending Carbon Dioxide Pending Anion Gap Pending BUN Pending Creatinine Pending Est GFR (MDRD) Af Amer Pending Est GFR (MDRD) Non-Af Pending BUN/Creatinine Ratio Pending Glucose Pending Calcium Pending Assessment/Plan All Active Problems (Last Reviewed 04/26/19 @ 11:16 by Ml Spann, DAMON-C) COPD with acute exacerbation (Acute) Acute and chronic respiratory failure with hypoxia (Acute) RECOMMENDATIONS: 1. Continue bronchodilators and IV steroids for now. 2. If the patient produces sputum, please send for culture. 3. Obtain respiratory viral panel. 4. Obtain repeat plain film chest x-ray. 5. Encourage incentive spirometer use and mobilize patient as tolerated. 6. Consider initiation of home noninvasive ventilator, given frequency of exacerbations. IMPRESSIONS: 1. Advanced stage COPD with exacerbation/chronic hypoxemic respiratory failure Unclear etiology for the patient's exacerbation, as she does report compliance with use of her baseline inhalers. I would recommend obtaining a repeat plain film chest x-ray to evaluate for the interval development of a pulmonary infectious process. The patient was advised that if her cough does become productive, a sample will be sent for culture. I would also recommend checking a respiratory viral panel. Continue scheduled bronchodilators and IV steroids for now. She is currently maintaining appropriate oxygen saturations on her baseline supplemental requirement. The patient does endorse symptoms concerning for bronchospastic airway disease and may also have an allergen mediated component to her symptoms. However, it would be difficult to perform additional outpatient testing in light of the fact that she has been on steroids so frequently. Given the frequency with which she experiences exacerbations, coupled with the fact that she is on a triple therapy inhaler regimen, she may benefit from the initiation of a home noninvasive ventilator. The patient was last noted to have an FEV1 of 48% of predicted in January 2019. She has a chronic supplemental oxygen requirement and frequent exacerbations. The patient requires volume ventilation and all other alternative therapies have been considered and ruled out due to the severity of the disease state and life-threatening condition including CO2 retention. Due to increased probability of acute exacerbation, the patient requires ventilation to be used during the day as needed, in addition to nightly usage with facemask. We will discuss the possibility of obtaining a home noninvasive ventilator for the patient with case management/social work. 2. History of tobacco dependency, now in remission/bronchiectasis Complicates care, management, recovery and prognosis. Recommend physical therapy evaluation. The patient may require some home health support as well. This note was generated with [employer] dictation software. It may contain incorrect words, spelling, and punctuation that were not noted in checking the note before signing. Code Visit Inpatient E&M: 45497 Init Hosp L3
[2019-05-05 06:50] LABS: Anion Gap 5 (5-15); BUN 8 mg/dL (7-18); BUN/Creat Ratio 14.6 RATIO (10-20); Calcium,Total 8.2 mg/dL (8.5-10.1); Chloride 111 mmol/L (98-107); Creatinine, Serum 0.55 mg/dL (0.55-1.02); EST Glomerular Filtration Rate 118 mL/min (>60); Est Glom Filt Rate - Afr Amer 143 mL/min (>60); Estimated Creatinine Clearance 76.95 ml/min; Glucose 144 mg/dL (74-106); Potassium 4.2 mmol/L (3.5-5.1); Sodium Level 141 mmol/L (136-145)
--- NOTE | 2019-05-05 06:53 | RAD_ITS ---
STUDY: X-RAY CHEST REASON FOR EXAM: Female, 64 years old. Shortness of breath. COPD. TECHNIQUE: Single AP portable view of the chest. COMPARISON: Comparison is made with prior examination dated October 10, 2018. FINDINGS: EKG electrodes are seen. Minimal increased linear markings at the lung bases suggestive of mild bibasilar scarring. There is no demonstrated pleural abnormality. Normal size heart. Normal mediastinum and chery. Normal visualized pulmonary arteries. Normal visualized aortic arch and descending thoracic aorta. There are diffuse degenerative changes of the visualized thoracic spine. Normal visualized ribs, clavicles, and shoulders. There is no demonstrated abnormality of the visualized soft tissue structures of the upper abdomen. RAD/Chest 1 View (Portable) IMPRESSION: Mild increased interstitial markings at the lung bases suggests a mild degree of bibasilar linear scarring. Electronically Signed: Jamie Colvin, at 8:35 EDT , Service support ,
--- NOTE | 2019-05-05 09:41 | PN_ITS ---
Subjective: Doing well, states that she is still little bit short of breath. Vitals/I&O's: Vital Signs Temp Pulse Resp BP Pulse Ox 97.8 F 99 20 H 131/82 H 94 05/05/19 07:45 05/05/19 07:45 05/05/19 07:45 05/05/19 07:45 05/05/19 07:45 Oxygen Flow Rate (L/min) 3 Oxygen Delivery Method Nasal Cannula Weight: 152 lb 8.958 oz Body Mass Index (BMI) 28.8 Intake and Output for Last 24 Hours 05/03/19 05/04/19 05/05/19 23:59 23:59 23:59 Intake Total 3284 / 3284 1763 / 1763 Output Total 1450 / 1450 800 / 800 Balance 1834 / 1834 963 / 963 General: Alert, Oriented x3, Cooperative, No apparent distress HEENT: Atraumatic, PERRLA, EOMI, Normocephalic Oral: Moist Mucosa Neck: Supple, No JVD Lungs: Normal air movement, No rhonchi, No rales, Diminished, Wheezes Cardiovascular: Regular rate, Regular Rhythm, Normal S1, Normal S2, No murmurs Abdomen: Soft, Non Tender, Non-Distended, No Hepato-splenomegaly Extremities: No edema, Capillary Refill Less than 3 Seconds Skin: No rashes, No breakdown Neurological: Neuro grossly intact, Sensory exam intact to light touch and pain Psych/Mental Status: Normal Affect, Appropriate Laboratory Results 05/05/19 06:16: WBC 17.6 H, RBC 4.45, Hgb 13.2, Hct 41.7, MCV 93.7, MCH 29.7, MCHC 31.7 L, RDW Std Deviation 50.0 H, RDW Coeff of Vasyl 14.4, Plt Count 170, MPV 9.2, Immature Gran % (Auto) 1.000 H, Neut % (Auto) 90.9 H, Lymph % (Auto) 2.6 L, [place] % (Auto) 5.4, Eos % (Auto) 0.0, Baso % (Auto) 0.1, Absolute Neuts (auto) 16.0 H, Absolute Lymphs (auto) 0.45 L, Nucleated RBC % 0 05/05/19 06:16: Sodium 141, Potassium 4.2, Chloride 111 H, Carbon Dioxide 25.0, Anion Gap 5, BUN 8, Creatinine 0.55, Estim Creat Clear Calc 76.95, Est GFR (MDRD) Af Amer 143, Est GFR (MDRD) Non-Af 118, BUN/Creatinine Ratio 14.6, Glucose 144 H, Calcium 8.2 L Current Medications Albuterol Sulfate (Ventolin Aerosols) 2.5 mg INHALATION Q2H PRN PRN PRN Reason: SHORTNESS OF BREATH Albuterol/Ipratropium (Duoneb) 3 ml INHALATION Q4HWA.RT [facility] Last Admin: 05/05/19 07:09 Dose: 3 ml Documented by: Dextrose (D50w Syringe) 0 gm IV X1 PRN; Protocol PRN Reason: Hypoglycemia Enoxaparin Sodium (Lovenox) 40 mg SC DAILY@0600 [facility] Last Admin: 05/05/19 05:38 Dose: 40 mg Documented by: Famotidine (Pepcid) 20 mg PO BID [facility] Last Admin: 05/04/19 22:01 Dose: 20 mg Documented by: Glucagon () 1 mg IM .X1 PRN PRN Reason: Hypoglycemia Guaifenesin (Robitussin) 20 ml PO Q4H PRN PRN PRN Reason: COUGH Last Admin: 05/05/19 02:41 Dose: 20 ml Documented by: Sodium Chloride () 1,000 mls @ 125 mls/hr IV .Q8H [facility] Last Admin: 05/05/19 05:48 Dose: 125 mls/hr Documented by: Melatonin (Melatonin) 3 mg PO QHS PRN PRN PRN Reason: INSOMNIA Last Admin: 05/04/19 23:38 Dose: 3 mg Documented by: Methylprednisolone (Solu-Medrol) 40 mg IV Q8 [facility] Last Admin: 05/05/19 05:36 Dose: 40 mg Documented by: Sodium Chloride () 10 - 40 ml IV UD PRN PRN Reason: SALINE FLUSH Last Admin: 05/05/19 05:47 Dose: 10 ml Documented by: Throat Lozenges (Cepacol Sore Throat Lozenge) 1 lozenge MUCOUS MEM Q2H PRN PRN PRN Reason: Sore throat or cough Medical Necessity - Tobacco Use Smoking Status: Former smoker - Patient quit cigarette tobacco usage in June 2018 with a 50-year tobacco use history prior to this. Tobacco Use: Non-smoker Assessment/Plan All Active Problems (Last Reviewed 04/26/19 @ 11:16 by JOSE Bhakta) COPD with acute exacerbation (Acute) Acute and chronic respiratory failure with hypoxia (Acute) 1. Acute on chronic hypoxic respiratory failure secondary to acute on chronic COPD exacerbation with bronchiectasis/history of tobacco abuse -She was recently just treated for COPD exacerbation and got off of steroids a few days ago, and then the next day she started feeling short of breath and the day after she need to come to the ER -Discussion with has neurology, she is on maximum therapy, however they recommend potentially initiating Trelegy at home -If this does not cause any improvement then she will likely need to be on chronic p.o. steroids and will need to be started on a bisphosphonate as well given the risk of bone demineralization -Need to follow-up with pulmonology and her PCP as an outpatient. -She is currently on her home O2 level of 3 L -We will discuss with case management the approval for trilogy and could possibly discharge home later today but more like than likely tomorrow -Tinea with Randa Joy -Advised tobacco cessation DVT: Lovenox Code Visit Inpatient E&M: 88289 Subs Hosp L2
[2019-05-05] MEDS: Famotidine 20 MG Tablet PO (10:43)
--- NOTE | 2019-05-05 11:00 | CASEMGMT ---
DANIEL DOBBS Face to Face with patient for initial transition planning/care coordination assessment. DANIEL DOBBS introduced self and role at [facility]. Patient lying in bed, alert and oriented. Patient willing to participate in assessment and is able to answer all questions appropriately. Care providers, pharmacy, and demographics verified. Patient wishes to discharge home, denies need for home health at this time. Patient inquired about aide or program to assist with household duties. DANIEL DOBBS updated patient that FROY could provide information regarding Waiver Program qualifications. Patient states she has no further needs or concerns at this time. FROY Chavez updated regarding additional information regarding [employer] and waiver program. CM to follow for discharge planning needs that may arise. 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 Transportation: self/family DME/HHC: Patient states she has shower chair, grab bars, oxygen 3lpm with portability, and nebulizer through [employer]. Patient denies previous HHC or SNF Disposition Plan: Patient to discharge home with family support and follow-up plans in place. Libra RAY, RN, CM
--- NOTE | 2019-05-05 12:57 | CASEMGMT ---
Social Work Note RN DILIA May updated this worker that pt would like information regarding Direction Home. SW met with pt, introduced self and role at [facility]. Pt is alert and orientated x4. SW provided pt with Direction Home information. Pt thanked this worker. Libra Chavez SUPPORT SERVICE TECH, CUSTOMER ORDER CLERK
--- NOTE | 2019-05-05 13:40 | DCINST_ITS ---
- Discharge Diagnoses Current Active Problems: Current Active and Chronic Problems Former tobacco use (Chronic) You will use the following diet at home:: Regular Your food should be the consistency of: Regular Your liquids should be the consistency of: Regular/Thin Discharge Activity: Return to Normal Activity, No Restrictions Call your doctor if you observe: Fever of 101 or Higher, Shortness of breath, Dizziness, Fainting spells, Swelling in the ankles, Chest pain, Increased palpitations (irregular heartbeat) Allergies/Adverse Reactions: Allergies sulfamethoxazole [From Bactrim] Allergy (Mild, Verified 04/26/19 11:04) Rash trimethoprim [From Bactrim] Allergy (Mild, Verified 04/26/19 11:04) Rash hydrocodone [From Vicodin] Adverse Reaction (Verified 04/26/19 11:04) Nausea Sulfa (Sulfonamide Antibiotics) Adverse Reaction (Verified 04/26/19 11:04) Anaphylaxis Medications to take at Discharge PEP #1 [id number] 10/04/18 Guaifenesin [Mucinex] 1,200 mg PO BID #10 tab 10/12/18 montelukast 10 mg tablet 10 mg PO QPM #30 tab 11/18/18 budesonide-formoterol HFA 160 mcg-4.5 mcg/actuation aerosol inhaler 2 puff INHALATION BID #1 ea 01/16/19 tiotropium bromide 2.5 mcg/actuation mist for inhalation 2 puff INHALATION QDAY #1 ea 01/16/19 albuterol sulfate HFA 90 mcg/actuation aerosol inhaler 2 puff INHALATION Q4H PRN #18 g 02/02/19 ipratropium-albuterol 0.5 mg-3 mg(2.5 mg base)/3 mL nebulization soln 3 ml INHALATION Q8H PRN #180 ml 02/02/19 Prednisone [Deltasone] 40 mg PO DAILY #17 tab 05/05/19 The following prescriptions were given: Prednisone [Deltasone] 40 mg PO DAILY #17 tab Transmission Status: Pending to [facility] Primary Care Physician: Casey Francois MD [Primary Care Provider] - Please follow up with your Primary Care Physician in: 3-5 days Test Results: Test results from this visit will be discussed in further detail at your follow- up appointment, if applicable. Please Follow Up With: Denys Saavedra MD When: 1-2 weeks
--- NOTE | 2019-05-05 13:41 | DS.PCM_ITS ---
Discharge Date and Diagnosis Date of Admission: 05/04/19 Date of Discharge: 05/05/19 - Secondary Discharge Diagnosis Chronic Problems (Last Reviewed 04/26/19 @ 11:16 by Ml Spann NP-C) Former tobacco use (Chronic) Abnormal CT of the chest (Chronic) Stage 3 severe COPD by GOLD classification (Chronic) FEV1 48% Bronchiectasis (Chronic) Noted on CT chest LLL 07/05/17 Hospital Course and Treatment Imaging Results: CXR: IMPRESSION: Mild increased interstitial markings at the lung bases suggests a mild degree of bibasilar linear scarring. Consults: Pulmonology Operations: None Procedures: None Summary of Care Provided: Per HPI: The patient is a 64 y/o F w/ PMHx: Chronic hypoxic respiratory failure with chronic COPD on 1 to 2 L continuous oxygen therapy, history of former tobacco use, history of pulmonary nodule, periodic limb movement disorder, insomnia who presents as direct transfer from [place] ED following history of progressively worsening dyspnea, wheezing requiring CPAP in the ED with initial improvement and patient preference for discharge however worsened thus then amenable to transition to [facility] where she is familiar with her pulmonary physician with recent history of in office pulmonary evaluation on 04/26/18 with history of 1 week productive cough of yellow sputum with discomfort with deep inspiratory effort as well as chest tightness, chest congestion and dyspnea, worse with any exertion he with treatment of doxycycline and prednisone taper with reevaluation with noted some improvement however increased oxygenation needs up to 3 L nasal cannula and continued productive sputum with encourage continued treatment at that time and plan follow-up on May 04. Outside ED evaluation included T 96.5, BP 159/104, heart rate initially 119, respiratory rate 28, given effort initially placed on BiPAP therapy 40% with 8 L with improvement and initial transition to 94% on 3 L nasal cannula prior to worsening again, BMP with sodium 140, potassium 4.7, chloride 101, CO2 34, glucose 110, BUN 8, creatinine 0.39, CBC with WBC 8.3, hemoglobin 14.7, platelet 213 without market left shift evident, troponin less than 0.012, chest x-ray with no acute cardia pulmonary findings with chronic COPD changes. Upon arrival to the out side the ED patient oxygen saturation per EMS was 85% on 4 L nasal cannula and at that time DuoNeb and albuterol treatments were given in route as well as Solu-Medrol 125 mg IV x1. Hospital Course: 1. Acute on chronic hypoxic respiratory failure secondary to acute on chronic COPD exacerbation with bronchiectasis/history of tobacco abuse, quit 2018- 64-year-old female who was on 3 L nasal cannula at home and recently had an episode of a COPD exacerbation and was treated as an outpatient with doxycycline and prednisone, which explains her leukocytosis in the absence of fever. She presented 2 days after stopping her steroid course with increased work of breathing, shortness of breath. She is on maximal therapy for her COPD and pulmonology was consulted and felt that this point she needs to be on a noninvasive ventilator at home. This was discussed with the patient and she agrees to that, however she is demanding to go home today because she does want to be here anymore. She is feeling a little bit better with her steroids and therefore she was discharged on a steroid taper with follow-up as an outpatient. In the meantime we will obtain an ABG to assist with obtaining the noninvasive ventilator as an outpatient. Discussed with her that it would be best if she stayed another day for continued IV antibiotics she understands the risks of going home early. - Physical Exam Vital Signs Temp Pulse Resp BP Pulse Ox 97.8 F 104 H 18 131/82 H 94 05/05/19 07:45 05/05/19 11:09 05/05/19 11:09 05/05/19 07:45 05/05/19 07:45 Oxygen Flow Rate (L/min) 3 Oxygen Delivery Method Nasal Cannula Weight: 152 lb 8.958 oz Body Mass Index (BMI) 28.8 Intake and Output for Last 24 Hours 05/03/19 05/04/19 05/05/19 23:59 23:59 23:59 Intake Total 3284 / 3284 1763 / 1763 Output Total 1450 / 1450 800 / 800 Balance 1834 / 1834 963 / 963 Microbiology Past 72 Hours 05/05/19 07:12 Respiratory Panel (PCR) - Final Mucosa - Nasopharyngeal Laboratory Tests Past 24 Hrs 05/05/19 05/05/19 06:16 06:16 WBC 17.6 H RBC 4.45 Hgb 13.2 Hct 41.7 MCV 93.7 MCH 29.7 MCHC 31.7 L RDW Std Deviation 50.0 H RDW Coeff of Vasyl 14.4 Plt Count 170 MPV 9.2 Immature Gran % (Auto) 1.000 H Neut % (Auto) 90.9 H Lymph % (Auto) 2.6 L [place] % (Auto) 5.4 Eos % (Auto) 0.0 Baso % (Auto) 0.1 Absolute Neuts (auto) 16.0 H Absolute Lymphs (auto) 0.45 L Nucleated RBC % 0 Sodium 141 Potassium 4.2 Chloride 111 H Carbon Dioxide 25.0 Anion Gap 5 BUN 8 Creatinine 0.55 Estim Creat Clear Calc 76.95 Est GFR (MDRD) Af Amer 143 Est GFR (MDRD) Non-Af 118 BUN/Creatinine Ratio 14.6 Glucose 144 H Calcium 8.2 L Discharge Activity: Return to Normal Activity, No Restrictions Call your doctor if you observe: Fever of 101 or Higher, Shortness of breath, Dizziness, Fainting spells, Swelling in the ankles, Chest pain, Increased palpitations (irregular heartbeat) Home Medications: Medications to take at Discharge PEP #1 [id number] 10/04/18 Guaifenesin [Mucinex] 1,200 mg PO BID #10 tab 10/12/18 montelukast 10 mg tablet 10 mg PO QPM #30 tab 11/18/18 budesonide-formoterol HFA 160 mcg-4.5 mcg/actuation aerosol inhaler 2 puff INHALATION BID #1 ea 01/16/19 tiotropium bromide 2.5 mcg/actuation mist for inhalation 2 puff INHALATION QDAY #1 ea 01/16/19 albuterol sulfate HFA 90 mcg/actuation aerosol inhaler 2 puff INHALATION Q4H PRN #18 g 02/02/19 ipratropium-albuterol 0.5 mg-3 mg(2.5 mg base)/3 mL nebulization soln 3 ml INHALATION Q8H PRN #180 ml 02/02/19 Prednisone [Deltasone] 40 mg PO DAILY #17 tab 05/05/19 Following Prescrptions Were Given to Patient: Prednisone [Deltasone] 40 mg PO DAILY #17 tab Transmission Status: Pending to [facility] Primary Care Physician: Casey Francois MD [Primary Care Provider] - Please follow up with your Primary Care Physician in: 3-5 days Please Follow Up With: Denys Saavedra MD When: 1-2 weeks Disposition: Home Minutes spent on discharge:: 35 Patient Condition:: Stable Medical Necessity - Tobacco Use Smoking Status: Former smoker - Patient quit cigarette tobacco usage in June 2018 with a 50-year tobacco use history prior to this. Tobacco Use: Non-smoker Meaningful Use Info Meaningful Use Diagnoses (Choose all that apply): None applicable Code Visit Inpatient E&M: 85914 Disch Hosp
--- NOTE | 2019-05-05 13:45 | CASEMGMT ---
DANIEL DOBBS received update from hospitalist regarding Triology unit at discharge. DANIEL DOBBS followed up with data review specialist and clarified that patient can follow up in office to continue setup for Triololgy unit. DANIEL DOBBS called Laly at [facility] and faxed initial information ask Laly to follow-up with Dr. Saavedra's office regarding Triology unit. DANIEL DOBBS updated hospital and patient.
[2019-05-05 14:05] LABS: Allen Test POS; Base Excess -1 mmol/L (-2 to +2); Bicarbonate 24.5 mmol/L (22-26); Blood Gas Specimen Type ART; O2 Delivery Device Nasal Can; PO2 77 mmHG (75-100); SITE R Radial; SO2 95 % (95-99); Time Given 1358; Total Carbon Dioxide 26 mmol/L; pH 7.35 (7.35-7.45)
== END 2019-05-05 16:52 | disposition home or self-care (01) | DRG 191 ==
PROVIDERS: Admitting Provider Family Medicine; Family Provider Family Medicine; PCP Family Medicine; Referring Provider Family Medicine; Visit Provider Family Medicine
DX: J44.1 Chronic obstructive pulmonary disease with (acute) exacerbation (principal); J47.1 Bronchiectasis with (acute) exacerbation; E44.0 Moderate protein-calorie malnutrition; Z87.891 Personal history of nicotine dependence; Z99.81 Dependence on supplemental oxygen
CPT/HCPCS: 36415; 36600; 71045; 80048; 82803; 85025; 87633; 94640; 94667; 97802; J7030; A4216

== ENCOUNTER → 2019-10-30 13:36 | Outpatient (CLI) | payer MEDICARE, SELFPAY ==
[2019-10-30 12:46] VITALS: BMI 28.8
[2019-11-01 11:21] LABS: D-Dimer Quantitative (DVT/PE) 3.41 FEU/ug/m (0.27-0.49)
== END ==
PROVIDERS: PCP Family Medicine; Referring Provider Nurse Practitioner Acute Care; Visit Provider Nurse Practitioner Acute Care
DX: M79.89 Other specified soft tissue disorders (principal)
CPT/HCPCS: 36415; 85379

== ENCOUNTER → 2019-11-06 12:32 | Outpatient (CLI) | payer MEDICARE, SELFPAY ==
[2019-10-30 12:46] VITALS: BMI 28.8
--- NOTE | 2019-11-06 12:33 | VDLE_ITS ---
Reason For Study: RLE swelling RIGHT LEFT GSV is normal. CFV is compressible, spontaneous, phasic, RT Proximal CFV is compressible, spontaneous, competent, and demonstrates normal phasic, competent and demonstrates normal augmentation. augmentation. RT MID/Distal CFV, SFV, POP V, T/P trunk, PTV, PERV, Gastrocnemius V, Soleus V are dialted and noncompressible C/W acute DVT. RT SSV is compressible. Procedure Exam performed in department. The exam was diagnostic. A preliminary report was called and/or faxed to Lin at [phone]. Instructed to send patient to Ml Spann's office for instructions. Interpretation Summary Acute deep vein thrombosis is noted in the right mid- and distal common femoral vein. Acute deep vein thrombosis is noted in the right femoral vein. Acute deep vein thrombosis is noted in the right popliteal vein. Acute deep vein thrombosis is noted in the right tibio-peroneal trunk. Acute deep vein thrombosis is noted in the right posterior tibial vein. Acute deep vein thrombosis is noted in the right peroneal vein. Acute deep vein thrombosis is noted in the right gastrocnemius vein. Acute deep vein thrombosis is noted in the right soleus vein. The right great saphenous vein appears patent and compressible segmentally. The right small saphenous vein is patent and compressible. Ordering Physician: Ml Spann Referring Physician: Casey Francois Performed By: Anaid Mckeon, XOCHITL, RVT
--- NOTE | 2019-11-06 13:17 | CT_ITS ---
STUDY: LOW DOSE CT LUNG CANCER SCREENING REASON FOR EXAM: Female, 64 years old. TOBACCO ABUSE -- 2PPD X50 YEARS -- QUIT X3 MONTHS AGO RADIATION DOSAGE (If Supplied By Facility): CTDIvol = ( 2.01 ) mGy, DLP = ( 57.91 ) mGycm TECHNIQUE: No contrast was administered. Low dose technique was utilized (average mAS-38 and kVp 120). 1.25 mm axial source images with a slice interval of 1.25-mm were reconstructed in lung windows. 2.5 mm axial source images with a slice interval of 2.5-mm were reconstructed in lung windows. 5.0 mm axial source images with a slice interval of 5.0-mm were reconstructed in soft tissue windows. Nodule measured using lung windows on PACS and/or independent workstation with automated measurement of minimum and maximum diameter. Nodule measurement reported as average diameter rounded to the nearest whole number. Growth is defined as an increase ins size of greater than 1.5 mm. COMPARISON: Comparison is made with prior examination dated December 26, 2018. NODULES: There are now with evidence of a 1.9 cm x 1.9 cm wedge-shaped density with evidence of a bronchiectasis in the medial inferior aspect of the right upper lobe as it abuts the right minor fissure. This most likely represents bronchiectasis with a focal area of scarring although this was not seen on prior examination. There is a 4.3 mm noncalcified nodule in the superior segment of the right lower lobe as seen on axial image #138 and coronal image #197. There is unchanged. This also evidence of a 5 mm noncalcified nodule in the lateral aspect of the right lower lobe as seen on axial image #143. This is unchanged. Emphysema: Emphysematous changes with this cystic formation in the upper lobes. Hyperinflation. Stable mild scarring at the lung bases. Aorta: Atherosclerotic calcification at the level of the aortic arch. Coronary arteries: Coronary artery calcification. Mediastinal nodes: Small benign-appearing mediastinal lymph nodes. Other chest and abdominal findings: CT/Low Dose CT Lung Screening IMPRESSION: Lung-RADS category 4A - Screening at 3 months wiht LDCT or evaluation with PET/CT may be used. IMPORTANT NOTES FOR USE: ACR Lung-RADS Version 1.0 Assessment Categories Release Date: January 15, 2014 Category: Coded 0-4 bases on nodule(s) with highest degree of suspicion. Negative screen is defined as categories 1 and 2; a positive screen is defined as categories 3 and 4. Category 3 and 4A nodules that are unchanged on interval CT should be coded as category 2, and individuals returned to screening in 12 months. Category 4X: Category 3 or 4 nodules with additional imaging findings that increase the suspicion of lung cancer, such as spiculation, GGN that doubles in size in 1 year, enlarged lymph notes, etc. Category Modifiers: S (significant finding unrelated to lung cancer) and C (prior history of treated lung cancer) may be added to the 0-4 Lung-RADS Electronically Signed: Jamie Colvin, at 15:23 EST , Service support ,
== END ==
PROVIDERS: PCP Family Medicine; Referring Provider Nurse Practitioner Acute Care; Visit Provider Nurse Practitioner Acute Care
DX: M79.89 Other specified soft tissue disorders (principal); Z87.891 Personal history of nicotine dependence
CPT/HCPCS: 93971; G0297

== ENCOUNTER → 2020-07-25 11:08 | Outpatient (CLI) | payer MEDICARE, SELFPAY ==
[2020-07-01 12:38] VITALS: BMI 28.0
--- NOTE | 2020-07-25 11:12 | RAD_ITS ---
HISTORY: DYSPNEA/SOB HX OF COPD ADDITIONAL HISTORY: None provided. COMPARISON: 05/05/2019 EXAMINATION/TECHNIQUE: XR Chest 2 Views Number of images including paperwork: 2 FINDINGS: LUNGS AND PLEURA: Hyperinflation. No consolidation, mass or pleural effusion. Scarring in the right middle lobe. CARDIAC SILHOUETTE: Unremarkable. MEDIASTINUM AND VERO: Aortic tortuosity. UPPER ABDOMEN: Unremarkable. SKELETON AND SOFT TISSUES: No acute findings. Degenerative changes. OTHER DEVICES AND HARDWARE: None. RAD/Chest PA and Lateral IMPRESSION: No acute cardiopulmonary abnormality. Hyperinflation compatible with COPD. at 0718 Reported and signed by: Riat Davila MD Electronically Signed: Rita Davila MD at 7:18 EST Tel , Service support ,
== END ==
PROVIDERS: PCP Family Medicine; Referring Provider Family Medicine; Visit Provider Family Medicine
DX: J44.1 Chronic obstructive pulmonary disease with (acute) exacerbation (principal)
CPT/HCPCS: 71046

== ENCOUNTER → 2020-09-30 14:42 | Outpatient (CLI) | payer MEDICARE, SELFPAY ==
[2020-07-01 12:38] VITALS: BMI 28.0
--- NOTE | 2020-09-30 14:45 | RAD_ITS ---
STUDY: X-RAY CHEST REASON FOR EXAM: Female, 65 years old. INCREASED SOB, BACK PAIN -- COPD TECHNIQUE: Frontal and lateral views of the chest. COMPARISON: 07/25/2020. FINDINGS: There are no confluent pulmonary infiltrates. There is flattening of the diaphragm and increased retrosternal airspace on lateral view, suggesting COPD. There is no demonstrated pleural abnormality. Normal size heart. Normal mediastinum and chery. There is atherosclerotic calcification of the aortic arch with tortuosity. There are multilevel degenerative changes in the thoracic spine. There is a wedge-shaped compression fracture deformity of the T11 vertebral body, which 35% loss of anterior vertebral body height. This deformity was not present on the July 2020 exam. There is no obvious cortical defect or fracture line and this finding is of indeterminate chronicity.. There is no demonstrated abnormality of the visualized soft tissue structures of the upper abdomen. RAD/Chest PA and Lateral IMPRESSION: COPD. No evidence for acute cardiopulmonary pathology. Compression fracture deformity of the T11 vertebral body was not present in July 2020, but is otherwise of indeterminate age. Acute fracture cannot be excluded. If symptoms warrant, would consider CT scan for further evaluation Electronically Signed: Caesar Diallo MD at 3:36 EST , Service support ,
== END ==
PROVIDERS: PCP Family Medicine; Referring Provider Family Medicine; Visit Provider Family Medicine
DX: J44.1 Chronic obstructive pulmonary disease with (acute) exacerbation (principal)
CPT/HCPCS: 71046

== ENCOUNTER → 2020-11-08 06:56 | Outpatient (CLI) | payer MEDICARE, SELFPAY ==
[2020-07-01 12:38] VITALS: BMI 28.0
--- NOTE | 2020-11-08 07:34 | MRI_ITS ---
STUDY: MRI THORACIC SPINE WITHOUT CONTRAST REASON FOR EXAM: Female, 65 years old. Severe upper back pain s/p fall. Difficulty laying on back, SOB TECHNIQUE: Standardized fat and water weighted pulse sequences were obtained in the sagittal and axial planes. COMPARISON: None. FINDINGS: Normal kyphosis of the thoracic spine. There is no substantial scoliosis. Acute mild compression fractures of the T8 and T10 vertebral bodies without retropulsion into the spinal canal. Chronic moderate wedge compression fracture of T11 with 5 mm retropulsion of the superior endplate and the spinal canal producing mild spinal stenosis. T1-2, T2-3, T3-4, T4-5, T5-6, T6-7, T7-8, T8-9, T9-10, T10-11, T11-12: At T10/T11 there is a mild broad disc protrusion with retropulsion of the superior endplate of T11 producing mild spinal stenosis but no cord compression. Normal visualized thoracic cord. Normal conus medullaris that terminates at the L1.. The soft tissue structures are unremarkable. MRI/Spine Thoracic (Routine) IMPRESSION: Acute mild compression fractures of T8 and T10 without retropulsion into the spinal canal. Chronic moderate wedge compression fracture of T11 with 5 mm retropulsion of the superior endplate and the spinal canal producing mild spinal stenosis Electronically Signed: Kobi Beckham MD at 11:24 EST Tel , Service support ,
== END ==
PROVIDERS: PCP Family Medicine; Referring Provider Anesthesiology Pain Medicine; Visit Provider Anesthesiology Pain Medicine
DX: M54.14 Radiculopathy, thoracic region (principal); M54.9 Dorsalgia, unspecified; M54.15 Radiculopathy, thoracolumbar region
CPT/HCPCS: 72146

== ENCOUNTER 2020-11-11 23:10 | Emergency (ER) | payer MEDICARE, SELFPAY ==
[2020-07-01 12:38] VITALS: BMI 28.0
[2020-11-11 23:11] VITALS: BP 143/90; PULSE 125; RESP 20; TEMP 36.1; O2SAT 98; BMI 29.2
[2020-11-11 23:18] VITALS: BP 164/105; PULSE 124; RESP 28; O2SAT 98
--- NOTE | 2020-11-11 23:24 | EKG12_ITS ---
Test Reason : GEN ILL Blood Pressure : / mmHG Vent. Rate : 114 BPM Atrial Rate : 114 BPM P-R Int : 136 ms QRS Dur : 062 ms QT Int : 286 ms P-R-T Axes : 073 083 074 degrees QTc Int : 394 ms Sinus tachycardia Possible Left atrial enlargement Septal infarct , age undetermined Abnormal ECG Confirmed by PRECIOUS HUFF, DIANE ([id number]), editor producer GARCIA BETANCUR ([id number]) on 11/13/2020 12:47:09 PM Referred By: DC Confirmed By:DIANE LANG MD
--- NOTE | 2020-11-11 23:24 | RAD_ITS ---
STUDY: X-RAY CHEST REASON FOR EXAM: Female, 65 years old. c/u upper back pain (had MRI on 11/08 showing compression fxs) -- chronic cough and sob -- hx of copd and is a smoker TECHNIQUE: Single AP portable view of the chest. COMPARISON: 09/30/2020. FINDINGS: The lungs are underexpanded with minimal left basilar atelectasis, otherwise clear. There is no demonstrated pleural abnormality. Normal size heart. Normal mediastinum and chery. Normal visualized pulmonary arteries. Normal visualized aortic arch and descending thoracic aorta. Normal visualized thoracic spine. Normal visualized ribs, clavicles, and shoulders. There is no demonstrated abnormality of the visualized soft tissue structures of the upper abdomen. RAD/Chest 1 View (Portable) IMPRESSION: Minimal left basilar atelectasis otherwise no acute cardiopulmonary process. Electronically Signed: Carine White MD at 0:06 EST , Service support ,
[2020-11-11 23:33] VITALS: TEMP 37.3
[2020-11-11] MEDS: Ondansetron 4 MG/2 ML Vial IV (23:36)
[2020-11-11] MEDS: Morphine 4 MG/ML Syringe IV (23:36)
[2020-11-11] MEDS: MethylPREDNISolone 125 MG/2 ML Vial IV (23:36)
[2020-11-11] MEDS: Ipratropium/Albuterol Sulfate 3 ML AMPUL.NEB INHALATION (23:37)
[2020-11-11 23:44] VITALS: PULSE 115; RESP 22
[2020-11-12 00:05] LABS: Absolute Neutrophil Count 7.3 X10^3/uL (2.0-7.7); Basophil# 0.02 X10^3/uL; Basophil% 0.2 % (0-1); Hematocrit 45.1 % (37-47); Hemoglobin 14.2 g/dL (12.0-15.0); Lymphocyte % 4.8 % (19-41); Mean Corp Hgb Conc 31.5 g/dL (32-36); Mean Corpuscular Hgb 28.6 pg (27.0-32.0); Mean Corpuscular Volume 90.9 fL (81-99); Mean Platelet Vol. 8.6 fl (6.2-12.0); Monocyte# 0.49 X10^3/uL; Monocyte% 5.9 % (0-10); NRBC Flagged by Analyzer 0 % (0-5); Neutrophil # 7.29 X10^3/uL (2.7-7.7); Neutrophil % 87.5 % (47-70); POSITIVE DIFFERENTIAL YES; Platelet Count 304 K/mm3 (150-450); RBC Distribution Width CV 13.5 % (11.6-14.6); RBC Distribution Width SD 45.9 fl (35.1-43.9); Red Blood Count 4.96 M/mm3 (4.2-5.4); White Blood Count 8.3 K/mm3 (4.4-11.0)
[2020-11-12 00:07] LABS: Differential Indicated SCAN CRITERIA MET
--- NOTE | 2020-11-12 00:14 | CT_ITS ---
STUDY: CT ABDOMEN AND PELVIS WITH CONTRAST REASON FOR EXAM: Female, 65 years old. RUQ pain with swollen abdomen per patient, cough, 24 hour o2, copd, emphysema, recent diagnosis on mri of compression fx''s. RADIATION DOSAGE (If Supplied By Facility): CTDIvol = ( 13.77 ) mGy, DLP = ( 838.36 ) mGycm TECHNIQUE: Transaxial images were obtained from the dome of the diaphragm to the symphysis pubis without oral contrast. IV 100mL Isovue-300 was administered. Sagittal and coronal images were reconstructed. Individualized dose optimization techniques were used for this CT. COMPARISON: None. FINDINGS: Mild posterior dependent atelectasis, remainder of the lung bases are clear. The visualized portions of the heart are within normal limits. Normal liver. Normal gallbladder and extrahepatic biliary system. Normal spleen. Normal pancreas. Left adrenal mass measuring 1.3 x 1.3 cm. Small nodule within the right adrenal body measuring 0.8 x 0.7 cm. Normal right kidney. Normal left kidney. Normal visualized stomach. Normal small intestine. There are multiple colonic diverticula consistent with diverticulosis. This is more significant along the sigmoid. Moderate to abundant fecal debris within the colon which may indicate mild constipation. The appendix is visualized and appears normal. There is diffuse atherosclerotic calcification of the abdominal aorta, without a demonstrated aneurysm. Normal inferior vena cava. Normal retroperitoneum. Normal urinary bladder. There is atrophy of the uterus. Normal abdominal wall. Normal osseous structures. CT/Abdomen/Pelvis W IV Cont ONLY IMPRESSION: Possible mild constipation. Diverticulosis with no signs of diverticulitis. No acute appendicitis or bowel obstruction. Adrenal nodules, incompletely characterized by current exam and stable since previous CT chest exam 12/26/2018. Given stability, findings favor benign process. If indicated, this may be further assessed with CT upper abdomen, three-phase protocol. Electronically Signed: Carine White MD at 1:12 EST , Service support ,
[2020-11-12 00:18] LABS: ALB/GLOB Ratio 0.9 RATIO (0.9-2.4); AST(SGOT) 12 U/L (15-37); Alanine Aminotransfer ALT/SGPT 33 U/L (13-56); Albumin, Serum 3.6 g/dL (3.2-5.0); Alkaline Phosphatase 211 U/L (45-117); Anion Gap 9 (5-15); BUN 9 mg/dL (7-18); BUN/Creat Ratio 13.5 RATIO (10-20); Calcium,Total 9.3 mg/dL (8.5-10.1); Chloride 101 mmol/L (98-107); Creatinine, Serum 0.67 mg/dL (0.55-1.02); EST Glomerular Filtration Rate 94 mL/min (>60); Est Glom Filt Rate - Afr Amer 114 mL/min (>60); Estimated Creatinine Clearance 41.76 ml/min; Globulin 3.8 g/dL (2.2-4.2); Glucose 120 mg/dL (74-106); Lipase 62 U/L (73-393); Potassium 4.2 mmol/L (3.5-5.1); Protein, Total 7.4 g/dL (6.4-8.2); Sodium Level 138 mmol/L (136-145)
[2020-11-12 00:23] VITALS: BP 129/87; PULSE 110; RESP 19; O2SAT 97
--- NOTE | 2020-11-12 01:25 | ED.DCSUM_ITS ---
- ER Visit Summary Date of Service: 11/12/20 Chief Complaint: Multiple complaints History of Present Illness: The patient is a 65 F patient complains of mid back pain. She had an outpatient MRI that showed 2 acute mild compression fractures without involvement of the spinal canal. She is on Ultram. She reports continued pain. She also has a history of COPD and recently increased her oxygen from 2 L to 3 for shortness of breath. She denies any change in her cough, sputum, or fevers. She was prescribed prednisone by her PCP earlier today. She also complains of right upper quadrant pain which she describes as a swelling for several days. No other GI symptoms. No symptoms. No surgical history to that area. Physical Examination: Hypertensive but otherwise vitals unremarkable. She is tachycardic at 115 and she is 98% on nasal cannula. No acute distress. Expiratory wheeze in all villalobos. Heart tachycardic. Abdomen soft and nontender. Skin appears normal. Test Results: EKG shows sinus rhythm rate of 114. Chest x-ray shows left basilar atelectasis, reviewed by me and the radiologist. CBC, CMP, lipase unremarkable except for alkaline phosphatase of 211. Troponin normal. CT abdomen showed constipation, diverticulosis, adrenal nodules that are stable. Emergency Department Course and Treatment: Patient was treated with pain medicine, nausea medicine, aerosols, Solu-Medrol. On reevaluation, heart rate 105, blood pressure 135/83. 92% on nasal cannula. Patient is improved. Work- up is unremarkable. She has back pain from known compression fractures. No neurologic abnormalities or other findings to require further evaluation or intervention at this time. She has shortness of breath which is likely from her COPD. She will continue on prednisone and breathing treatments. Her abdominal pain shows no specific cause. This may be from constipation from her pain medicine. Nothing else to explain her pain. Patient will be discharged to follow-up with her PCP as an outpatient. Treatment Plan: As above Disposition: Discharge Impression: COPD, constipation, diverticulosis, adrenal nodules stable, thoracic compression fractures mild This note was generated with Transmitation software. It may contain incorrect words, spelling, and punctuation that were not noted in review of the chart prior to signing ED Disposition - Plan for ED Patient: Referrals: Casey Francois MD [Primary Care Provider] -
--- NOTE | 2020-11-12 01:29 | ED.DEP ---
ED Disposition - Plan for ED Patient: Instructions: Care for COPD Referrals: Casey Francois MD [Primary Care Provider] -
[2020-11-12 01:31] VITALS: BP 125/106; PULSE 103; RESP 17; O2SAT 93
== END 2020-11-12 01:40 | disposition home or self-care (01) ==
LOC: ED 11-12 00:48
PROVIDERS: Emergency Provider Emergency Medicine; PCP Family Medicine
DX: J44.9 Chronic obstructive pulmonary disease, unspecified (principal); K59.00 Constipation, unspecified; K57.90 Diverticulosis of intestine, part unspecified, without perforation or abscess without bleeding; M48.50XA Collapsed vertebra, not elsewhere classified, site unspecified, initial encounter for fracture
CPT/HCPCS: 71045; 74177; 80053; 83690; 84484; 85025; 93005; 94640; 96374; 96375; 99285; Q9967; J2405

== ENCOUNTER 2020-12-11 05:56 | Day surgery (SDC) | payer MEDICARE, SELFPAY ==
[2020-12-11] VITALS (7 sets, daily range): BP systolic 106–167; BP diastolic 61–98; PULSE 64–95; RESP 16–18; TEMP 36.2–36.8; O2SAT 95–100; BMI 28.0
--- NOTE | 2020-12-11 | BON_PTH ---
PATIENT: OXANA CHIANG LOC: [facility] [place] U#:[id number] AGE/SX: 65/F ROOM: RE12/11/[address]: Dr. Mildred Mccollum MD : [id number] BED: DIS: 12/11/2020 SPEC #: [id number] RECD: 12/12/20 06:59 STATUS: HILDA REQ #: [id number] ZORAN: 12/11/20 00:[address]: Mildred Mccollum DEPT: SURGICAL PATHOLOGY RECD BY: Jong Garcia ENTERED: 12/12/20 07:32 SP TYPE: Bone OTHR DR: Dr. Casey Francois MD Tissues: Vertebra, NOS Procedures: Decalcification bone/plaque Surgery Specimen Level V HEADER OPERATION: Kyphoplasty T11 PRE-OP DIAGNOSIS: Kyphoplasty T11 TISSUE SUBMITTED: T11 bone biopsy MICROSCOPIC DIAGNOSIS T11 bone biopsy: Fragments of bone and bone marrow elements with minimal reactive/reparative change. AM:walker 12/13/2020 MICROSCOPIC DESCRIPTION Slides are reviewed. GROSS DESCRIPTION Received in fixative is one container labeled with the patient's name and designated T11 bone biopsy. The specimen consists of multiple fragments of bone that in aggregate measure 1 x 0.2 x 0.1 cm. The specimen is totally submitted in one cassette after decalcification. / SJ:walker 12/12/20 TC:5 CPT: 87916, 23154
[2020-12-11] MEDS: Lactated Ringers 1,000 ML 100 ML IV (06:57)
[2020-12-11] MEDS: Bupivacaine Mpf 0.5% 30 ML VIAL (08:26)
--- NOTE | 2020-12-11 08:30 | RAD_ITS ---
CLINICAL HISTORY: Female, 65 years old. Low back pain. PROCEDURE: KYPHOPLASTY - T11 vertebra. FLUOROSCOPY TIME (if supplied): (109 seconds) minutes/seconds. 6 intraoperative images were obtained. RAD/Thoracic Spine 2 Views IMPRESSION: Intraoperative imaging provided for kyphoplasty of the T11 vertebrae. Electronically Signed: Jamie Colvin MD at 9:49 EDT , Service support ,
[2020-12-11] MEDS: Cefazolin 2 GM in 0.9% Normal Saline 100 ML IV (08:34)
== END 2020-12-11 12:35 | disposition home or self-care (01) ==
LOC: SDC 05:57 → AC 05:57
PROVIDERS: PCP Family Medicine; Referring Provider Anesthesiology Pain Medicine; Visit Provider Anesthesiology Pain Medicine
PROC: (CPT 22513; principal; 2020-12-11 07:45)
DX: S22.089A Unspecified fracture of T11-T12 vertebra, initial encounter for closed fracture (principal); M54.5 Low back pain; J44.9 Chronic obstructive pulmonary disease, unspecified; Z86.718 Personal history of other venous thrombosis and embolism; X58.XXXA Exposure to other specified factors, initial encounter; Y93.9 Activity, unspecified; Y92.89 Other specified places as the place of occurrence of the external cause; Y99.9 Unspecified external cause status; Z87.891 Personal history of nicotine dependence; Z99.81 Dependence on supplemental oxygen; Z79.51 Long term (current) use of inhaled steroids
CPT/HCPCS: 01936; 22513; 72070; 76000; 87426; 88305; 88307; 88311; C9803; J7120; J2405

== ENCOUNTER → 2021-01-13 14:49 | Outpatient (CLI) | payer MEDICARE, SELFPAY ==
[2020-12-11 06:51] VITALS: BMI 28.0
--- NOTE | 2021-01-13 15:30 | RAD_ITS ---
INDICATION: RLQ ABD PAIN, lower back pain after having back surgery on the . EXAMINATION/TECHNIQUE: X-RAY - XR Spine Lumbar 2 or 3 Views COMPARISON: None. FINDINGS: VERTEBRAE: Preserved vertebral body height. No fracture. 3 mm retrolisthesis L4 on L5. Preservation of the normal lumbar lordosis. Mild multilevel facet arthropathy. Status post vertebral augmentation at T11. DISCS: Moderate to severe multilevel disc space narrowing, endplate sclerosis and osteophytosis. INCLUDED ABDOMEN: Included bowel gas pattern is non-obstructive. RAD/Lumbar Spine 2 or 3 Views IMPRESSION: Grade 1 retrolisthesis L4 on L5. Moderate to severe multilevel degenerative changes of the lumbar spine as described above. Electronically Signed: Mello Barnes MD at 22:29 EDT Tel , Service support ,
== END ==
PROVIDERS: PCP Family Medicine; Referring Provider Anesthesiology Pain Medicine; Visit Provider Anesthesiology Pain Medicine
DX: M54.5 Low back pain (principal); R10.31 Right lower quadrant pain
CPT/HCPCS: 72100

== ENCOUNTER 2021-02-07 17:48 | Emergency (ER) | payer MEDICARE, SELFPAY ==
[2020-12-11 06:51] VITALS: BMI 28.0
[2021-02-07 17:50] VITALS: BP 165/93; PULSE 115; RESP 24; TEMP 36.9; O2SAT 98; BMI 30.2
--- NOTE | 2021-02-07 18:53 | RAD_ITS ---
STUDY: X-RAY CHEST REASON FOR EXAM: Female, 65 years old. chest pain TECHNIQUE: AP portable COMPARISON: 11/11/2020 FINDINGS: Lungs are mildly hyperinflated but clear.. There is no demonstrated pleural abnormality. Normal size heart. Normal mediastinum and chery. Normal visualized pulmonary arteries. Normal visualized aortic arch and descending thoracic aorta. Dorsal spine demonstrates degenerative change. Chronic compression fracture status post kyphoplasty.. Normal visualized ribs, clavicles, and shoulders. There is no demonstrated abnormality of the visualized soft tissue structures of the upper abdomen. RAD/Chest 1 View (Portable) IMPRESSION: No acute cardiopulmonary pathology Electronically Signed: Ralph Sanchez MD at 19:10 EDT , Service support ,
--- NOTE | 2021-02-07 18:54 | EDS_ITS ---
HPI History of Present Illness Chief Complaint: Shortness of Breath Narrative Narrative: 65-year-old female with history of COPD, pleurisy, bronchiectasis, blood clots presenting with right posterior rib pain. Patient states that she was diagnosed with pneumonia recently by her PCP and started on Levaquin and prednisone. She has finished her prednisone but still has a few more days to go on her Levaquin. She states that she is having right posterior rib pain which makes her feel short of breath. She has difficulty with movement secondary to pain which causes her to hold her breath. She states she has not had a fever, productive cough, chills, change in taste or smell, myalgias. She states she is had her COVID-19 vaccinations already. She is wearing her baseline oxygen at 3 to 4 L. [facility] Medical History Abnormal chest CT Centrilobular emphysema COPD (chronic obstructive pulmonary disease) Dyspnea Hypoxia Insomnia Periodic limb movement disorder Pulmonary nodule Tobacco abuse, in remission Home Medications guaifenesin 1,200 mg PO BID #10 tab 10/12/18 [Rx Last Taken 05/03/19] albuterol sulfate 90 mcg/actuation aerosol inhaler 2 puff INHALATION Q4H PRN #18 g 07/01/20 [Rx Last Taken Unknown] ipratropium 0.5 mg-albuterol 3 mg (2.5 mg base)/3 mL nebulization soln 3 ml INHALATION Q4H PRN #180 ml 07/01/20 [Rx Last Taken Unknown] apixaban 5 mg PO DAILY 11/12/20 [History Last Taken 12/04/20] prednisone 40 mg PO QDAY 11/12/20 [History Last Taken Unknown] tiotropium bromide 2.5 mcg/actuation mist for inhalation 2 puff INHALATION QDAY #1 ea 11/14/20 [Rx Last Taken Unknown] levofloxacin 500 mg PO DAILY 12/11/20 [History Last Taken Unknown] cyclobenzaprine 10 mg PO TID PRN #10 tablet 02/07/21 [Rx Last Taken Unknown] Allergy/AdvReac Type Severity Reaction Status Date / Time sulfamethoxazole Allergy Mild Rash Verified 02/07/21 17:54 [From Bactrim] trimethoprim [From Bactrim] Allergy Mild Rash Verified 02/07/21 17:54 Sulfa (Sulfonamide AdvReac Anaphylaxis Verified 02/07/21 17:54 Antibiotics) Family History Father Lung cancer Mother Myocardial infarction Hypertension Brother Myocardial infarction Sister Diabetes Hypertension Lung cancer Surgical History epidural block Social History household members: none housing: apartment current occupational status: retired pets and animals: No Smoking Status: Light Smoker (<10/day) Tobacco: How many years used: 48 second hand exposure: Yes alcohol intake: never substance use type: does not use ROS ROS ED Constitutional Constitutional ED: Denies chills, fever(s) or sweats Eyes Eyes: Denies blurry vision or change in vision ENT ENT ED: Denies ear pain, rhinorrhea or sore throat Cardiovascular Cardiovascular: Denies chest pain, palpitations or racing heartbeat Respiratory/Chest Respiratory/Chest: Denies cough, dyspnea or sputum Gastrointestinal Gastrointestinal: Denies abdominal pain, constipation, diarrhea or vomiting Genitourinary Genitourinary ED: Denies dysuria, hematuria or urinary frequency Musculoskeletal Musculoskeletal: Denies arthralgias, myalgias or neck pain Integumentary Denies abscess, Abrasions or rash Neurologic Neurologic: Denies headache(s), paresthesias or weakness Psychiatric Psychiatric: Denies anxiety, depression, suicidal ideation or suicidal thoughts Endocrine Endocrinology: Denies polydipsia or polyuria EXAM Physical Exam Const Vital Signs: 02/07/21 17:50 02/07/21 17:56 02/07/21 18:55 Temperature 98.4 F Temperature Source Oral Pulse Rate 115 H Respiratory Rate 24 H Respiratory Effort Short of Breath Labored Respiratory Pattern Tachypnea Blood Pressure 165/93 H Blood Pressure Mean 117 Pulse Ox 98 96 Oxygen Delivery Method Nasal Cannula Nasal Cannula Oxygen Flow Rate (L/min) 4 3 02/07/21 20:14 Temperature Temperature Source Pulse Rate 100 Respiratory Rate 22 H Respiratory Effort Respiratory Pattern Blood Pressure 132/90 H Blood Pressure Mean 104 Pulse Ox 96 Oxygen Delivery Method Nasal Cannula Oxygen Flow Rate (L/min) 3 General Appearance ED: Negative for pallor HEENT Reports normocephalic, head/scalp atraumatic and moist mucous membranes atraumatic Eyes PERRL and EOMs intact bilaterally Neck no lymphadenopathy and supple Chest Wall inspection of chest normal and palpation of chest normal Resp normal respiratory effort and clear to auscultation bilaterally Effort and Inspection: pain with movement Auscultation: Negative for rales, rhonchi or wheezes Cardio regular rhythm Rate: tachycardic GI normal to inspection, nondistended, normoactive bowel sounds and non-distended Auscultation: normoactive bowel sounds Palpation: soft Narrative: Deferred Back/Spine no CVA tenderness Back/Spine Narrative: Tenderness to palpation right upper back and lower ribs. There is no deformity or crepitance. There is no ecchymosis. Pain is elicited with rotation of the trunk. General Back: Negative for CVA tenderness Cervical Spine: Negative for cervical spine tenderness Extremity normal to inspection General Extremety ED: Yes edema and tenderness General Extremity: edema Neuro oriented x3 and CN's II-XII intact bilaterally Sensorium / Orientation: alert Motor Exam: strength 5/5 throughout Psych mental status grossly normal Attitude: No agitated Skin no rashes or lesions noted and no wounds General Skin Exam: Negative for jaundice or pallor MDM MDM MDM Narrative Medical decision making narrative: 65-year-old female sent in with right upper back pain/lower rib pain. She states she has had some cough. Patient also states she has pain with motion. Patient EKG performed on arrival which shows a sinus tachycardia at 103 bpm as interpreted by myself. Chest x-ray shows no acute cardiopulmonary process as interpreted by myself and radiology does agree. Lab work shows a slight leukocytosis of 14.7 however patient has been on a burst of steroids. Hemoglobin hematocrit stable. Renal function electrolytes are normal. Troponin is negative. Given the duration of this pain and that it is right lower rib/upper back and increased pain with twisting of the trunk I do not believe this is cardiac related. I do not believe she is secondary EKG or troponin. This is most likely musculoskeletal in nature. Impression: 1. Muscle strain Lab Data Labs: Laboratory Results - last 24 hr 02/07/21 02/07/21 18:30 18:30 WBC 14.7 H RBC 4.54 Hgb 13.5 Hct 41.7 MCV 91.9 MCH 29.7 MCHC 32.4 RDW Std Deviation 47.4 H RDW Coeff of Vasyl 14.0 Plt Count 273 MPV 8.8 Immature Gran % (Auto) 3.700 H Neut % (Auto) 81.5 H Lymph % (Auto) 6.1 L [place] % (Auto) 8.1 Eos % (Auto) 0.1 Baso % (Auto) 0.5 Absolute Neuts (auto) 12.0 H Absolute Lymphs (auto) 0.89 Nucleated RBC % 0 Sodium 139 Potassium 3.8 Chloride 106 Carbon Dioxide 29.0 Anion Gap 4 L BUN 9 Creatinine 0.56 Estim Creat Clear Calc 41.76 Est GFR (MDRD) Af Amer 140 Est GFR (MDRD) Non-Af 116 BUN/Creatinine Ratio 16.2 Glucose 87 Calcium 9.1 Troponin I < 0.015 Radiography Diagnostic Testing: Radiology Impression Chest X-Ray 02/07/21 18:53 IMPRESSION: No acute cardiopulmonary pathology Electronically Signed: Ralph Sanchez MD at 19:10 EDT , Service support , Discharge Plan Triage Chief Complaint: Shortness of Breath Other Complaint: Back ED Provider: Dionisio Thomason Dx/Rx/DC Orders Instructions: ED Back Sprain/Strain Prescriptions: New cyclobenzaprine 10 mg tablet 10 mg PO TID PRN (Reason: Muscle Spasm) Qty: 10 RF: 0 No Action albuterol sulfate [Ventolin HFA] 90 mcg/actuation HFA aerosol inhaler 2 puff INHALATION Q4H PRN (Reason: Sob &/Or Wheezing) Qty: 18 RF: 6 ipratropium-albuterol 0.5 mg-3 mg(2.5 mg base)/3 mL solution for nebulization 3 ml INHALATION Q4H PRN (Reason: Shortness of breath) Qty: 180 RF: 11 guaifenesin 1,200 MG tablet 1,200 mg PO BID Qty: 10 RF: 0 prednisone 10 MG tablet 40 mg PO QDAY RF: 0 apixaban 5 MG tablet 5 mg PO DAILY RF: 0 levofloxacin 500 MG tablet 500 mg PO DAILY RF: 0 Spiriva Respimat 2.5 mcg/actuation mist 2 puff INHALATION QDAY Qty: 1 RF: 6 Primary Care Provider: Casey Francois Referrals: Casey Francois MD [Primary Care Provider] - Disposition Disposition: Home, self care
--- NOTE | 2021-02-07 18:54 | EKG12_ITS ---
Test Reason : DYSRHYTHMIA Blood Pressure : / mmHG Vent. Rate : 103 BPM Atrial Rate : 103 BPM P-R Int : 132 ms QRS Dur : 068 ms QT Int : 318 ms P-R-T Axes : 069 063 050 degrees QTc Int : 416 ms Sinus tachycardia Possible Left atrial enlargement Borderline ECG Confirmed by JEROME HUFF, ALEKS ([id number]), map editor GARCIA BETANCUR ([id number]) on 02/11/2021 10:16:52 A M Referred By: NATALIE Confirmed By:DEMARIO CANO MD
[2021-02-07 18:55] VITALS: O2SAT 96
[2021-02-07] MEDS: Aspirin 81 MG TAB.CHEW 324 MG PO (19:10)
[2021-02-07 19:11] LABS: Absolute Lymphocyte Count 0.89 X10^3/uL (0.83-4.51); Basophil# 0.07 X10^3/uL; Basophil% 0.5 % (0-1); Eosinophil# 0.01 X10^3/uL; Eosinophils% 0.1 % (0-5); Hematocrit 41.7 % (37-47); Hemoglobin 13.5 g/dL (12.0-15.0); Lymphocyte # 0.89 X10^3/ul (0.83-4.51); Lymphocyte % 6.1 % (19-41); Mean Corp Hgb Conc 32.4 g/dL (32-36); Mean Corpuscular Hgb 29.7 pg (27.0-32.0); Mean Corpuscular Volume 91.9 fL (81-99); Mean Platelet Vol. 8.8 fl (6.2-12.0); Monocyte# 1.19 X10^3/uL; Monocyte% 8.1 % (0-10); NRBC Flagged by Analyzer 0 % (0-5); Neutrophil # 11.95 X10^3/uL (2.7-7.7); Neutrophil % 81.5 % (47-70); Platelet Count 273 K/mm3 (150-450); RBC Distribution Width SD 47.4 fl (35.1-43.9); Red Blood Count 4.54 M/mm3 (4.2-5.4); White Blood Count 14.7 K/mm3 (4.4-11.0)
[2021-02-07 19:26] LABS: Anion Gap 4 (5-15); BUN 9 mg/dL (7-18); BUN/Creat Ratio 16.2 RATIO (10-20); Calcium,Total 9.1 mg/dL (8.5-10.1); Chloride 106 mmol/L (98-107); Creatinine, Serum 0.56 mg/dL (0.55-1.02); EST Glomerular Filtration Rate 116 mL/min (>60); Est Glom Filt Rate - Afr Amer 140 mL/min (>60); Estimated Creatinine Clearance 41.76 ml/min; Glucose 87 mg/dL (74-106); Potassium 3.8 mmol/L (3.5-5.1); Sodium Level 139 mmol/L (136-145)
[2021-02-07 20:14] VITALS: BP 132/90; PULSE 100; RESP 22; O2SAT 96
[2021-02-07] MEDS: cycloBENZAPRine HCl 10 MG Tablet PO (20:53)
[2021-02-07 20:54] VITALS: BP 143/90; PULSE 106; RESP 19; O2SAT 96
== END 2021-02-07 21:05 | disposition home or self-care (01) ==
PROVIDERS: Emergency Provider Student in an Organized Health Care Education/Training Program; PCP Family Medicine
DX: R06.02 Shortness of breath (principal); F17.210 Nicotine dependence, cigarettes, uncomplicated; J44.9 Chronic obstructive pulmonary disease, unspecified; G47.00 Insomnia, unspecified; Z79.01 Long term (current) use of anticoagulants; Z79.52 Long term (current) use of systemic steroids
CPT/HCPCS: 71045; 80048; 84484; 85025; 93005; 99285; A4216

== ENCOUNTER → 2021-04-08 14:28 | Outpatient (CLI) | payer MEDICARE, SELFPAY ==
--- NOTE | 2021-04-08 14:44 | CT_ITS ---
STUDY: CT ABDOMEN AND PELVIS WITH CONTRAST REASON FOR EXAM: Female, 66 years old. Bloating and left lower abdominal pain. RADIATION DOSAGE (If Supplied By Facility): CTDIvol = ( 19.34 ) mGy, DLP = ( 962.22 ) mGycm TECHNIQUE: Transaxial images were obtained from the dome of the diaphragm to the symphysis pubis with oral contrast. Oral and amp; IV Gastrografin and amp; 75mL Isovue-300 was administered. Sagittal and coronal images were reconstructed. Individualized dose optimization techniques were used for this CT. COMPARISON: Comparison is made with prior examination dated 11/12/2020. FINDINGS: Mild degree of emphysematous changes at the lung bases. Coronary artery calcification. The visualized portions of the heart are within normal limits. Normal liver. Normal gallbladder and extrahepatic biliary system. Normal spleen. Normal pancreas. There is a small, circumscribed, smooth, low attenuation left adrenal mass, consistent with an adrenal adenoma. This measures 1.4 cm. This is unchanged. Stable 8 mm nodule in the crux of the right adrenal gland. Normal right kidney. Normal left kidney. Normal visualized stomach. Normal small intestine. There are multiple colonic diverticula consistent with diverticulosis. Moderate amount of fecal material is seen in the colon. The appendix is visualized and appears normal. There is diffuse atherosclerotic calcification of the abdominal aorta, without a demonstrated aneurysm. Normal inferior vena cava. Normal retroperitoneum. Distended urinary bladder. Normal abdominal wall. There are diffuse degenerative changes of the visualized lumbar spine. Loss of the normal lumbar lordosis. Loss of height of the T11 vertebral and vertebral plasty. Loss of height of the superior endplate of the T10 vertebrae. CT/Abdomen/Pelvis WITH Contrast IMPRESSION: Stable bilateral adrenal nodules slightly more prominent on the left side. Stable mild emphysematous changes at the lung bases. Sigmoid diverticulosis. Prior vertebroplasty in loss of height of the T11 vertebrae. Electronically Signed: Jamie Colvin MD at 20:46 EDT , Service support ,
[2021-04-08 15:00] LABS: Amphetamine Urine VISTA NEGATIVE (<1000 ng/mL); Barbiturate Urine VISTA NEGATIVE (< 200 ng/mL); Benzodiazepine Urine VISTA NEGATIVE (< 200 ng/mL); Cocaine Urine VISTA NEGATIVE (< 300 ng/mL); Ecstacy Urine VISTA NEGATIVE (< 500 ng/mL); Methadone Urine VISTA NEGATIVE (< 300 ng/mL); PCP Urine VISTA NEGATIVE (< 25 ng/mL); THC Urine VISTA NEGATIVE (< 50 ng/mL); Vista UDS pH Range 6
[2021-04-08 17:31] LABS: CREATININE FINGERSTICK < 0.6 mg/dL (0.55-1.02); EGFR FINGERSTICK > 60.0000 mL/min (>60)
== END ==
PROVIDERS: Anesthesiology Pain Medicine; PCP Family Medicine; Referring Provider Family Medicine; Visit Provider Family Medicine
DX: R10.9 Unspecified abdominal pain (principal); F11.20 Opioid dependence, uncomplicated
CPT/HCPCS: 74177; 80307; Q9967; A4216

== ENCOUNTER → 2021-05-09 11:50 | Outpatient (CLI) | payer MEDICARE, SELFPAY ==
--- NOTE | 2021-05-09 11:52 | RAD_ITS ---
STUDY: X-RAY - THORACIC SPINE REASON FOR EXAM: Female, 66 years old. BACK PAIN TECHNIQUE: 3 view(s) of the thoracic spine were obtained. COMPARISON: MRI 11/08/2020 FINDINGS: Normal kyphosis of the thoracic spine. There is no substantial scoliosis. Multiple [id number] compression fractures in the midthoracic spine with vertebroplasty at T11. These are unchanged when compared with the prior study. Normal disc space heights. The soft tissue structures are unremarkable. RAD/Thoracic Spine 2 Views IMPRESSION: No change in multiple chronic compression fractures of the lower thoracic spine with vertebroplasty at T11. Electronically Signed: Kobi Beckham MD at 7:45 EDT Tel , Service support ,
== END ==
PROVIDERS: PCP Family Medicine; Referring Provider Family Medicine; Visit Provider Family Medicine
DX: M54.9 Dorsalgia, unspecified (principal)
CPT/HCPCS: 72070

== ENCOUNTER 2021-10-14 17:40 | Outpatient (CLI) | payer MEDICARE, SELFPAY ==
--- NOTE | 2021-10-14 17:50 | RAD_ITS ---
EXAM: XR THORACIC SPINE, 3 VIEWS CLINICAL INDICATION: PAIN TECHNIQUE: Frontal, lateral and swimmer''s views of the thoracic spine. This report was created using [employer] report generation technology. COMPARISON: MRI 2. FINDINGS: VERTEBRAE: There is deformity of T10, T8 T7 T6 and T4. T4, T6, and T7 appear new since the prior MRI. Repeat MRI can better evaluate. Vertebroplasty change at T11. There is endplate spondylosis of the vertebral body. Preserved vertebral body height. No fracture. Preservation of the normal thoracic kyphosis. No significant facet arthropathy. DISC SPACES: Loss of intervertebral disc height. RAD/Thoracic Spine 3 Views IMPRESSION: There is deformity of T10, T8 T7 T6 and T4. T4, T6, and T7 appear new since the prior MRI. Repeat MRI can better evaluate. Electronically Signed: Carlos Galvan MD at 18:33 EST Reading Location ID and State: [facility] / [place] , Service support ,
== END 2021-10-14 23:59 | disposition short-term general hospital (02) ==
LOC: RAD 17:42
PROVIDERS: PCP Family Medicine; Visit Provider Anesthesiology Pain Medicine
DX: M54.14 Radiculopathy, thoracic region (principal)
CPT/HCPCS: 72072

== ENCOUNTER 2021-10-29 14:01 | Outpatient (CLI) | payer MEDICARE, SELFPAY ==
[2021-10-29 14:44] LABS: Anion Gap 5 (5-15); BUN 11 mg/dL (7-18); BUN/Creat Ratio 18.2 RATIO (10-20); Chloride 106 mmol/L (98-107); EST Glomerular Filtration Rate 105 mL/min (>60); Est Glom Filt Rate - Afr Amer 127 mL/min (>60); Glucose 149 mg/dL (74-106); Potassium 4.1 mmol/L (3.5-5.1); Sodium Level 137 mmol/L (136-145)
== END 2021-10-29 23:59 | disposition home or self-care (01) ==
LOC: PAVLAB 14:03
PROVIDERS: PCP Family Medicine; Referring Provider Nurse Practitioner Acute Care; Visit Provider Nurse Practitioner Acute Care
DX: R06.00 Dyspnea, unspecified (principal); J44.1 Chronic obstructive pulmonary disease with (acute) exacerbation
CPT/HCPCS: 36415; 80048; 83880; 87070; 87205

== ENCOUNTER → 2021-10-30 | Outpatient (CLI) | payer MEDICARE, SELFPAY ==
[2021-10-30 12:00] LABS: Allen Test Positive; Base Excess 0 mmol/L (-2 to +2); Bicarbonate 24.2 mmol/L (22-26); Blood Gas Specimen Type ART; O2 Delivery Device Cannula; PO2 62 mmHG (75-100); SITE R Radial; SO2 92 % (95-99); Total Carbon Dioxide 25 mmol/L; pCO2 36.7 mmHg (35-45); pH 7.43 (7.35-7.45)
== END | disposition home or self-care (01) ==
LOC: PSN 11:32
PROVIDERS: PCP Family Medicine; Referring Provider Nurse Practitioner Acute Care; Visit Provider Nurse Practitioner Acute Care
DX: J44.9 Chronic obstructive pulmonary disease, unspecified (principal)
CPT/HCPCS: 36600; 82803

== ENCOUNTER 2022-04-06 17:23 | Outpatient (CLI) | payer MEDICARE, SELFPAY ==
[2022-04-06 18:47] LABS: Amphetamine Urine VISTA NEGATIVE (<1000 ng/mL); Barbiturate Urine VISTA NEGATIVE (< 200 ng/mL); Benzodiazepine Urine VISTA NEGATIVE (< 200 ng/mL); Cocaine Urine VISTA NEGATIVE (< 300 ng/mL); Ecstacy Urine VISTA NEGATIVE (< 500 ng/mL); Methadone Urine VISTA NEGATIVE (< 300 ng/mL); PCP Urine VISTA NEGATIVE (< 25 ng/mL); THC Urine VISTA NEGATIVE (< 50 ng/mL); Vista UDS pH Range 6
== END 2022-04-06 23:59 | disposition home or self-care (01) ==
PROVIDERS: PCP Registered Nurse; Visit Provider Anesthesiology Pain Medicine
DX: F11.20 Opioid dependence, uncomplicated (principal)
CPT/HCPCS: 80307

== ENCOUNTER 2022-04-27 13:47 | Inpatient (IN) | payer MEDICARE, SELFPAY ==
[2022-04-27] VITALS (10 sets, daily range): BP systolic 142–180; BP diastolic 83–117; PULSE 79–114; RESP 20–26; TEMP 36.6–37; O2SAT 96–99; BMI 33.7; BMI 33.4
--- NOTE | 2022-04-27 14:09 | EKG12_ITS ---
Test Reason : SOB Blood Pressure : / mmHG Vent. Rate : 109 BPM Atrial Rate : 109 BPM P-R Int : 132 ms QRS Dur : 068 ms QT Int : 302 ms P-R-T Axes : 070 063 059 degrees QTc Int : 406 ms Sinus tachycardia Otherwise normal ECG Confirmed by PRECIOUS HUFF, DIANE ([id number]), editor newspaper LIZET CROOKS ([id number]) on 04/28/2022 9:29:09 AM Referred By: Confirmed By:DIANE LANG MD
--- NOTE | 2022-04-27 14:11 | ED.VIS.DYS ---
HPI History of Present Illness Chief Complaint: Shortness of Breath Informant: patient Narrative Narrative: Patient presents with shortness of breath. Patient has COPD and is on 3 to 4 L of oxygen a day. She denies heart disease or CHF. She is also had peripheral clots and is on Eliquis and is taking it. She started with increasing dyspnea and use of her nebulizer on . She went to [facility] emergency department on Wednesday. She was diagnosed with pneumonia treated with amoxicillin, erythromycin and 40 mg of steroids a day. She has been taking these. She has some white and occasional yellow tinge sputum. But she has no fevers or chills. She states she is not really worse but she is certainly not getting better. She does note that her oxygen level is dropping significantly if she walks. Normally will stay in the 90s but is dropping very quickly into the mid to lower 80s now. She also has soreness on the lower rib cage CVA area on both sides. It is worse when she coughs or moves or twists. There is no fall or trauma. She has had this before with COPD exacerbations and has been seen here before with it. She is concerned about urine infection but has no urinary symptoms other than mild frequency. Her last admission to the hospital for COPD was July 2021. [facility] Medical History Abnormal chest CT Centrilobular emphysema COPD (chronic obstructive pulmonary disease) Dyspnea Hypoxia Insomnia Periodic limb movement disorder Pulmonary nodule Tobacco abuse, in remission Home Medications apixaban 5 mg tablet 5 mg PO BID 11/12/20 [History Last Taken 12/04/20] cyclobenzaprine 10 mg tablet 10 mg PO TID PRN Muscle Spasm #10 TABLETS 02/07/21 [Rx Last Taken Unknown] albuterol sulfate 90 mcg/actuation aerosol inhaler (Ventolin HFA) 2 puff inhalation Q4H PRN Sob &/Or Wheezing #18 grams 09/16/21 [Rx Last Taken Unknown] budesonide-formoterol HFA 160 mcg-4.5 mcg/actuation aerosol inhaler (Symbicort) 2 puff inhalation BID #1 ea 09/16/21 [Rx Last Taken Unknown] fluticasone propionate 50 mcg/actuation nasal spray,suspension 2 spray intranasal DAILY #16 grams 09/16/21 [Rx Last Taken Unknown] ipratropium 0.5 mg-albuterol 3 mg (2.5 mg base)/3 mL nebulization soln 3 ml inhalation Q4H PRN Shortness of breath #180 mL 09/16/21 [Rx Last Taken Unknown] guaifenesin 1,200 mg tablet, extended release 12 hr 1,200 mg PO DAILY 04/27/22 [History Last Taken Unknown] Allergy/AdvReac Type Severity Reaction Status Date / Time sulfamethoxazole Allergy Mild Rash Verified 04/27/22 13:48 [From Bactrim] trimethoprim [From Bactrim] Allergy Mild Rash Verified 04/27/22 13:48 Sulfa (Sulfonamide AdvReac Anaphylaxis Verified 04/27/22 13:48 Antibiotics) Family History Father Lung cancer Mother Myocardial infarction Hypertension Brother Myocardial infarction Sister Diabetes Hypertension Lung cancer Surgical History epidural block Social History household members: none housing: apartment current occupational status: retired pets and animals: No Smoking Status: Current every day smoker tobacco type: cigarettes Tobacco: How many years used: 48 second hand exposure: Yes alcohol intake: never substance use type: does not use ROS ROS ED Constitutional Constitutional ED: Denies chills or fever(s) Eyes Eyes: Denies change in vision ENT ENT ED: Denies rhinorrhea or sore throat Cardiovascular Cardiovascular: Denies chest pain or palpitations Respiratory/Chest Respiratory/Chest: Reports cough, dyspnea, dyspnea on exertion and sputum Gastrointestinal Gastrointestinal: Denies abdominal pain, nausea or vomiting Genitourinary Genitourinary ED: Reports urinary frequency; Denies dysuria or hematuria Musculoskeletal Musculoskeletal: Denies arthralgias or myalgias Integumentary Denies rash Neurologic Neurologic: Denies headache(s) Psychiatric Psychiatric: Denies anxiety Endocrine Endocrinology: Denies polydipsia or polyuria Hematologic/Lymphatic Hematologic/Lymphatic: Reports easy bleeding and easy bruising Allergic/Immunologic Allergic/Immunologic ED: Denies tongue swelling EXAM Physical Exam Const Vital Signs: 04/27/22 13:49 04/27/22 13:53 04/27/22 13:53 Temperature 98 F Temperature Source Temporal Pulse Rate 112 H 114 H Respiratory Rate 24 H Respiratory Effort Short of Breath Labored Respiratory Depth Respiratory Pattern Tachypnea Blood Pressure 180/107 H 142/117 H Blood Pressure Mean 131 125 Pulse Ox 96 Oxygen Delivery Method Nasal Cannula Oxygen Flow Rate (L/min) 4 04/27/22 15:17 04/27/22 14:22 04/27/22 14:22 Temperature Temperature Source Pulse Rate 112 H 112 H Respiratory Rate 26 H 22 H 24 H Respiratory Effort Short of Breath Respiratory Depth Shallow Respiratory Pattern Tachypnea Tachypnea Blood Pressure 166/110 H Blood Pressure Mean 128 Pulse Ox 97 Oxygen Delivery Method Nasal Cannula Nasal Cannula Oxygen Flow Rate (L/min) 4 4 Positive well nourished and well developed Constitutional Narrative: Patient can carry on conversation with slightly shortened speech. She is awake and appropriate. She is not at all sleepy or lethargic. General Appearance ED: well developed HEENT Reports moist mucous membranes Eyes EOMs intact bilaterally Neck supple and no JVD Resp Auscultation: wheezes Cardio regular rhythm Rate: tachycardic GI non-tender and non-distended Back/Spine no CVA tenderness Back/Spine Narrative: Patient has some mild soreness paraspinal both sides at the lower rib cage and upper lumbar area. But this is not an isolated CVA tenderness. It is also present with motion. It seems more musculoskeletal on exam. Extremity Extremity Narrative: She does have some mild peripheral edema at her ankles and feet. She has some slight bruises. No sign of cellulitis. General Extremety ED: Yes edema General Extremity: edema Neuro oriented x3 Sensorium / Orientation: alert; Negative for orientation impaired, confused, lethargic or stuporous Psych mental status grossly normal Skin no wounds MDM MDM MDM Narrative Medical decision making narrative: Patient's white count was not significantly elevated. Hemoglobin was okay. Electrolytes were overall okay. Troponin and BNP were normal lactate was just slightly elevated likely due to intermittent hypoxia. Urinalysis was clean. Chest x-ray did have some mild increased markings on the left. Patient desats very easily. She gets very dyspneic just moving in bed. This patient is not stable enough to go home. She saturates on her oxygen sitting in bed but motion drops are easily into the 80s. She is already gotten good outpatient therapy and is not improving. I think with this hypoxia and failure of outpatient therapy hospitalization is appropriate and I discussed the case with hospitalist. Lab Data Attestation: I reviewed the patient's lab results. Labs: Laboratory Results - last 24 hr 04/27/22 04/27/22 04/27/22 14:35 14:35 14:35 WBC 10.4 RBC 4.26 Hgb 12.4 Hct 39.2 MCV 92.0 MCH 29.1 MCHC 31.6 L RDW Std Deviation 51.4 H RDW Coeff of Vasyl 15.4 H Plt Count 276 MPV 8.6 Immature Gran % (Auto) 1.900 H Neut % (Auto) 90.4 H Lymph % (Auto) 3.1 L [place] % (Auto) 4.2 Eos % (Auto) 0.1 Baso % (Auto) 0.3 Absolute Neuts (auto) 9.4 H Absolute Lymphs (auto) 0.32 L Nucleated RBC % 0.2 Platelet Estimate ADEQUATE RBC Morphology NORM C+C Sodium 140 Potassium 4.0 Chloride 103 Carbon Dioxide 33.0 H Anion Gap 4 L BUN 8 Creatinine 0.52 L Estim Creat Clear Calc 40.63 Est GFR (MDRD) Af Amer 150 Est GFR (MDRD) Non-Af 124 BUN/Creatinine Ratio 15.3 Glucose 145 H Lactic Acid Calcium 8.9 Troponin I High Sens 4 B-Natriuretic Peptide 57.0 Urine Color Urine Clarity Urine pH Ur Specific [place] Urine Protein Urine Glucose (UA) Urine Ketones Urine Occult Blood Urine Nitrite Urine Bilirubin Urine Urobilinogen Ur Leukocyte Esterase Urine RBC Urine WBC Ur Squamous Epith Cells Urine Bacteria Urine Mucus 04/27/22 04/27/22 14:35 15:10 WBC RBC Hgb Hct MCV MCH MCHC RDW Std Deviation RDW Coeff of Vasyl Plt Count MPV Immature Gran % (Auto) Neut % (Auto) Lymph % (Auto) [place] % (Auto) Eos % (Auto) Baso % (Auto) Absolute Neuts (auto) Absolute Lymphs (auto) Nucleated RBC % Platelet Estimate RBC Morphology Sodium Potassium Chloride Carbon Dioxide Anion Gap BUN Creatinine Estim Creat Clear Calc Est GFR (MDRD) Af Amer Est GFR (MDRD) Non-Af BUN/Creatinine Ratio Glucose Lactic Acid 2.0 Calcium Troponin I High Sens B-Natriuretic Peptide Urine Color Straw Urine Clarity Clear Urine pH 7.0 Ur Specific [place] 1.010 Urine Protein Negative Urine Glucose (UA) Normal Urine Ketones Negative Urine Occult Blood Negative Urine Nitrite Negative Urine Bilirubin Negative Urine Urobilinogen Normal Ur Leukocyte Esterase Negative Urine RBC 0-5 SEEN Urine WBC 0 SEEN Ur Squamous Epith Cells 0 SEEN Urine Bacteria 0 SEEN Urine Mucus 0 SEEN Radiography Diagnostic Testing: Clinical Impression(s) from Imaging Studies Chest X-Ray 04/27/22 14:13 IMPRESSION: Mild increased markings at the left lung base as well as faint nodular opacities in the left upper lobe. Radiographic follow-up is recommended. Electronically Signed: Jamie Colvin MD at 14:29 EDT , EKG Initial EKG: Comments: EKG done for dyspnea read by me shows sinus rhythm with tachycardic rate at 109. No ventricular ectopy. No significant ST elevation or depression. DE interval, QRS duration and QTc are normal. Discharge Plan Triage Chief Complaint: Shortness of Breath ED Provider: Guero Sandoval Dx/Rx/DC Orders Clinical Impression: COPD with acute exacerbation, Failure of outpatient treatment Prescriptions: No Action albuterol sulfate [Ventolin HFA] 90 mcg/actuation HFA aerosol inhaler 2 puff INHALATION Q4H PRN (Reason: Sob &/Or Wheezing) Qty: 18 6RF Rx Instructions: then switched to aerosol ipratropium-albuterol 0.5 mg-3 mg(2.5 mg base)/3 mL solution for nebulization 3 ml INHALATION Q4H PRN (Reason: Shortness of breath) Qty: 180 11RF budesonide-formoterol [Symbicort] 160-4.5 mcg/actuation HFA aerosol inhaler 2 puff inhalation BID Qty: 1 11RF Rx Instructions: administer with spacer, rinse mouth after each use fluticasone propionate 50 mcg/actuation spray,suspension 2 spray intranasal DAILY Qty: 16 3RF apixaban 5 MG tablet 5 mg PO BID cyclobenzaprine 10 mg tablet 10 mg PO TID PRN (Reason: Muscle Spasm) Qty: 10 0RF guaifenesin 1,200 MG tablet extended release 12hr 1,200 mg PO DAILY Primary Care Provider: Casey Francois Referrals: Ashley Rea 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
--- NOTE | 2022-04-27 14:13 | RAD_ITS ---
STUDY: X-RAY CHEST REASON FOR EXAM: Female, 67 years old. SOB TECHNIQUE: Single AP portable view of the chest. COMPARISON: Comparison is made with prior examination dated 02/07/2021. FINDINGS: EKG electrodes are seen. Mild increased markings at the left lung base suggestive of linear atelectasis. Questionable nodular infiltrates in the left upper lobe. Follow-up recommended. There is no demonstrated pleural abnormality. Normal size heart. Normal mediastinum and chery. Normal visualized pulmonary arteries. There is atherosclerotic calcification of the aortic arch with tortuosity. Prior vertebroplasty of a lower thoracic vertebra. Normal visualized ribs, clavicles, and shoulders. There is no demonstrated abnormality of the visualized soft tissue structures of the upper abdomen. RAD/Chest 1 View (Portable) IMPRESSION: Mild increased markings at the left lung base as well as faint nodular opacities in the left upper lobe. Radiographic follow-up is recommended. Electronically Signed: Jamie Colvin MD at 14:29 EDT ,
[2022-04-27] MEDS: Albuterol 2.5 MG/3 ML VIAL.NEB. INHALATION (14:22)
[2022-04-27] MEDS: Ipratropium/Albuterol Sulfate 3 ML AMPUL.NEB INHALATION ×3 (14:22→22:42)
[2022-04-27 14:46] LABS: Absolute Lymphocyte Count 0.32 X10^3/uL (0.83-4.51); Absolute Neutrophil Count 9.4 X10^3/uL (2.0-7.7); Basophil# 0.03 X10^3/uL; Basophil% 0.3 % (0-1); Eosinophil# 0.01 X10^3/uL; Eosinophils% 0.1 % (0-5); Hematocrit 39.2 % (37-47); Hemoglobin 12.4 g/dL (12.0-15.0); Lymphocyte # 0.32 X10^3/ul (0.83-4.51); Lymphocyte % 3.1 % (19-41); Mean Corp Hgb Conc 31.6 g/dL (32-36); Mean Corpuscular Hgb 29.1 pg (27.0-32.0); Mean Platelet Vol. 8.6 fl (6.2-12.0); Monocyte# 0.43 X10^3/uL; Monocyte% 4.2 % (0-10); NRBC Flagged by Analyzer 0.2 % (0-5); Neutrophil # 9.36 X10^3/uL (2.7-7.7); Neutrophil % 90.4 % (47-70); POSITIVE DIFFERENTIAL YES; Platelet Count 276 K/mm3 (150-450); RBC Distribution Width CV 15.4 % (11.6-14.6); RBC Distribution Width SD 51.4 fl (35.1-43.9); Red Blood Count 4.26 M/mm3 (4.2-5.4); White Blood Count 10.4 K/mm3 (4.4-11.0)
[2022-04-27 14:47] LABS: Differential Indicated SCAN CRITERIA MET
[2022-04-27 15:03] LABS: Anion Gap 4 (5-15); BUN 8 mg/dL (7-18); BUN/Creat Ratio 15.3 RATIO (10-20); Calcium,Total 8.9 mg/dL (8.5-10.1); Chloride 103 mmol/L (98-107); Creatinine, Serum 0.52 mg/dL (0.55-1.02); EST Glomerular Filtration Rate 124 mL/min (>60); Est Glom Filt Rate - Afr Amer 150 mL/min (>60); Estimated Creatinine Clearance 40.63 ml/min; Glucose 145 mg/dL (74-106); Sodium Level 140 mmol/L (136-145); Troponin-I HS 4 pg/mL (3.0-54.0)
[2022-04-27 15:08] LABS: Platelet Estimate ADEQUATE (ADEQ)
[2022-04-27 15:09] LABS: Red Cell Morphology NORM C+C NORMAL (NORM C&C)
[2022-04-27 15:15] LABS: Bacteria 0 SEEN /hpf (None Seen); Mucous, Urine 0 SEEN /hpf (<or=2+); Squamous Epithelial Cells - UA 0 SEEN /hpf (5-10); White Blood Cells 0 SEEN /hpf (0-5)
[2022-04-27 15:17] LABS: Color, Urine Straw (Yellow); Glucose, Dipstick Normal (Normal); Ketone-Dipstick Negative (Negative); Leukocyte Esterase-Dipstick Negative /ul (Negative); Nitrite-Dipstick Negative (Negative); Occult Blood-Urine Negative /ul (Negative); Protein-Dipstick Negative (Negative); Urine Bilirubin Dipstick Negative (Negative); Urine Clarity Clear (Clear); Urine Urobilinogen Normal (Normal)
[2022-04-27 15:29] LABS: Red Blood Cells-Urine 0-5 SEEN /hpf (0-5)
--- NOTE | 2022-04-27 16:21 | HP.PCM.HOS_ITS ---
HPI - General General Date of Admission: 04/27/22 Date of Service: 04/27/22 Chief Complaint: Dyspnea HPI Narrative The patient is a 67 y/o F w/ PMHx: Chronic COPD w/ Chronic Hypoxic Respiratory failure (3-4L NC), Hx VTE on Eliquis, Former Tobacco use who presents to the [facility] ED on 04/27/22 with noting increased usage of her nebulizer starting on prior to presentation with outside facility ED [place] evaluation the following day with pneumonia diagnosis at that time with initiation of amoxicillin as well as erythromycin and steroids for suspected concurrent COPD exacerbation with ongoing mildly white tinge and occasional yellow sputum but no fevers or chills however she is not been improving and notes that her oxygenation especially when ambulatory has been dropping into the mid to lower 90s although it does recover but she takes a significant mount of time with ongoing bilateral pleuritic chest discomfort prompting repeat ED evaluation. Work-up in the ED included T 98, heart rate 112, BP 180/107 initially with repeat 166/110, respiratory rate 24-26 noted to be 97% on 4 L nasal cannula, CBC with a BC 10.4, hemoglobin 12.4, platelet 276 with left shift and lymphopenia, BMP with BUN/creatinine 8/0.52, glucose 145, lactic acid 2.0, troponin 4, BNP 57, urinalysis unremarkable with no obvious evidence of dehydration, rapid COVID antigen negative, chest x-ray with mild increased markings at the left lung base as well as faint nodular opacities in left upper lobe, EKG with sinus tachycardia with no acute evidence of ischemia. In the ED patient ministered albuterol, DuoNeb therapy as well as Solu-Medrol. [facility] Medical History (Updated 04/27/22 @ 20:[address] Nilsa Davis MD) Abnormal chest CT Centrilobular emphysema COPD (chronic obstructive pulmonary disease) Dyspnea Hypoxia Insomnia Periodic limb movement disorder Pulmonary nodule Tobacco abuse, in remission Home Medications apixaban 5 mg tablet 5 mg PO BID blood thinner 11/12/20 [History Last Taken 04/26/22] albuterol sulfate 90 mcg/actuation aerosol inhaler (Ventolin HFA) 2 puff inhalation Q4H PRN Sob &/Or Wheezing #18 grams 09/16/21 [Rx Last Taken 04/27/22] ipratropium 0.5 mg-albuterol 3 mg (2.5 mg base)/3 mL nebulization soln 3 ml inhalation Q4H PRN Shortness of breath #180 mL 09/16/21 [Rx Last Taken 04/27/22] amoxicillin 875 mg-potassium clavulanate 125 mg tablet 1 tab PO BID pneumonia 04/27/22 [History Last Taken 04/27/22] budesonide-formoterol HFA 160 mcg-4.5 mcg/actuation aerosol inhaler (Symbicort) 2 puff inhalation BID SOB 04/27/22 [History Last Taken 04/27/22] fluticasone propionate 50 mcg/actuation nasal spray,suspension 2 spray intranasal DAILY allergies 04/27/22 [History Last Taken Unknown] guaifenesin 1,200 mg tablet, extended release 12 hr 1,200 mg PO DAILY SOB 04/27/22 [History Last Taken 04/26/22] Allergy/AdvReac Type Severity Reaction Status Date / Time sulfamethoxazole Allergy Mild Rash Verified 04/27/22 13:48 [From Bactrim] trimethoprim [From Bactrim] Allergy Mild Rash Verified 04/27/22 13:48 Sulfa (Sulfonamide AdvReac Anaphylaxis Verified 04/27/22 13:48 Antibiotics) Family History Father Lung cancer Mother Myocardial infarction Hypertension Brother Myocardial infarction Sister Diabetes Hypertension Lung cancer Surgical History (Updated 04/27/22 @ 19:[address] Nilsa Davis MD) History of hernia repair History of kyphoplasty Social History (Updated 04/27/22 @ 19:[address] Nilsa Davis MD) household members: none housing: apartment current occupational status: retired pets and animals: No Smoking Status: Former smoker quit date: 09/20/16 pack-years: 96 Tobacco: How many years used: 48 second hand exposure: Yes alcohol intake: never substance use type: does not use ROS ROS Narrative Admission Review of Systems: CONSTITUTIONAL: No weight loss, fever, chills, + weakness or fatigue. HEENT: Eyes: No visual loss, blurred vision, double vision or yellow sclerae. Ears, Nose, Throat: No hearing loss, sneezing, congestion, runny nose or sore throat. SKIN: No rash or itching, lesions, wounds. CARDIOVASCULAR: + Pleuritic chest discomfort. No palpitations, edema, orthopnea, syncopal events. RESPIRATORY: + shortness of breath, cough with occasional sputum, wheezing, No hemoptysis. GASTROINTESTINAL: + anorexia, No nausea, vomiting or diarrhea, abdominal pain, melena, BRBPR. GENITOURINARY: No dysuria, frequency, urgency or retention. NEUROLOGICAL: No headache, dizziness, syncope, paralysis, ataxia, numbness or tingling in the extremities, focal weakness, change in bowel or bladder control, seizure. MUSCULOSKELETAL: + muscle, back pain, joint pain or stiffness. HEMATOLOGIC: No anemia, bleeding or bruising. LYMPHATICS: No enlarged nodes. No history of splenectomy. PSYCHIATRIC: No history of depression or anxiety. ENDOCRINOLOGIC: No reports of sweating, cold or heat intolerance. No polyuria or polydipsia. ALLERGIES: + history of rhinitis. Vital Signs Vital Signs Vital Signs: 04/27/22 13:49 04/27/22 13:53 04/27/22 13:53 Temperature 98 F Temperature Source Temporal Pulse Rate 112 H 114 H Respiratory Rate 24 H Respiratory Effort Short of Breath Labored Respiratory Depth Respiratory Pattern Tachypnea Blood Pressure 180/107 H 142/117 H Blood Pressure Mean 131 125 Pulse Ox 96 Oxygen Delivery Method Nasal Cannula Oxygen Flow Rate (L/min) 4 04/27/22 15:17 04/27/22 14:22 04/27/22 14:22 Temperature Temperature Source Pulse Rate 112 H 112 H Respiratory Rate 26 H 22 H 24 H Respiratory Effort Short of Breath Respiratory Depth Shallow Respiratory Pattern Tachypnea Tachypnea Blood Pressure 166/110 H Blood Pressure Mean 128 Pulse Ox 97 Oxygen Delivery Method Nasal Cannula Nasal Cannula Oxygen Flow Rate (L/min) 4 4 Weight Weight: 178 lb 9.191 oz Body Mass Index (BMI) 33.7 Physical Exam Narrative Physical Examination: General: Awake, alert, oriented x 3 and cooperative, seated up in ED bed, fatigued, notes some improvement with aerosols and increased oxygen, no acute distress Skin: Normal color, normal turgor, no icterus, no cyanosis except occasional staged ecchymoses including to the lower extremities with ecchymotic region over the left dorsal foot and some bruising to the shins. HEENT: AT/NC, EOMI, PERRLA, dry MM, no carotid bruits or JVD noted. Lungs: Diminished, significantly more so left-sided, greater bases, occasional end expiratory wheeze, no rales, no respiratory distress but mildly increased respiratory rate. Heart: Tachycardic with regular rhythm; no gallop, rub audible. Abdomen: Soft, obese, NTTP, ND, distant normal BS, no HSM. Extremities: No cyanosis, clubbing, or edema, see skin. Neurological: Patient awake, alert, oriented as noted, cognitive function intact; pupils equally reactive to light and accommodation, cranial nerves II- XII grossly normal, moving all 4 extremities, no focal deficits, strength moderately global decrease secondary to acute presentation. Psychiatric: Affect appears fatigued otherwise normal, no acute evidence of dep ressive or anxiety feelings. Results Lab / Micro Data Result Diagrams: 04/27/22 14:35 04/27/22 14:35 Labs: Laboratory Results - last 24 hr 04/27/22 14:35: WBC 10.4, RBC 4.26, Hgb 12.4, Hct 39.2, MCV 92.0, MCH 29.1, MCHC 31.6 L, RDW Std Deviation 51.4 H, RDW Coeff of Vasyl 15.4 H, Plt Count 276, MPV 8.6, Immature Gran % (Auto) 1.900 H, Neut % (Auto) 90.4 H, Lymph % (Auto) 3.1 L, [place] % (Auto) 4.2, Eos % (Auto) 0.1, Baso % (Auto) 0.3, Absolute Neuts (auto) 9.4 H, Absolute Lymphs (auto) 0.32 L, Nucleated RBC % 0.2, Platelet Estimate ADEQUATE, RBC Morphology NORM C+C 04/27/22 14:35: Sodium 140, Potassium 4.0, Chloride 103, Carbon Dioxide 33.0 H, Anion Gap 4 L, BUN 8, Creatinine 0.52 L, Estim Creat Clear Calc 40.63, Est GFR (MDRD) Af Amer 150, Est GFR (MDRD) Non-Af 124, BUN/Creatinine Ratio 15.3, Glucose 145 H, Calcium 8.9, Troponin I High Sens 4 04/27/22 14:35: B-Natriuretic Peptide 57.0 04/27/22 14:35: Lactic Acid 2.0 04/27/22 15:10: Urine Color Straw, Urine Clarity Clear, Urine pH 7.0, Ur Specific [place] 1.010, Urine Protein Negative, Urine Glucose (UA) Normal, Urine Ketones Negative, Urine Occult Blood Negative, Urine Nitrite Negative, Urine Bilirubin Negative, Urine Urobilinogen Normal, Ur Leukocyte Esterase Negative, Urine RBC 0-5 SEEN, Urine WBC 0 SEEN, Ur Squamous Epith Cells 0 SEEN, Urine Bacteria 0 SEEN, Urine Mucus 0 SEEN Micro: Microbiology 04/27/22 14:20 Nasal Secretion SARS-CoV-2 & FLU Antigen (Rapid) - Final Radiology Impression Chest X-Ray 04/27/22 14:13 IMPRESSION: Mild increased markings at the left lung base as well as faint nodular opacities in the left upper lobe. Radiographic follow-up is recommended. Electronically Signed: Jamie Colvin MD at 14:29 EDT Reading Location ID and State: [facility] / [place] , Service support , Assessment & Plan Assessment/Plan (1) Failure of outpatient treatment: (2) COPD with acute exacerbation: (3) Pneumonia: PLAN: Plan The patient is a 67 y/o F w/ PMHx: Chronic COPD w/ Chronic Hypoxic Respiratory failure (3-4L NC), Hx VTE on Eliquis, Former Tobacco use who presents to the [facility] ED on 04/27/22 with noting increased usage of her nebulizer starting on prior to presentation with outside facility ED [place] evaluation the following day with pneumonia diagnosis at that time with initiation of amoxicillin as well as erythromycin and steroids for suspected concurrent COPD exacerbation with ongoing mildly white tinge and occasional yellow sputum but no fevers or chills however she is not been improving and notes that her oxygenatio n especially when ambulatory has been dropping into the mid to lower 90s although it does recover but she takes a significant mount of time with ongoing bilateral pleuritic chest discomfort prompting repeat ED evaluation. #1. L sided Community Acquired Pneumonia w/ concurrent Acute on Chronic COPD exacerbation with Chronic Hypoxic Respiratory Failure, failed outpatient treatment with lactic acidosis, potentially hypoxia mediated as well as concurrent infection: Will admit to [facility], maintain on oxygen with wean as tolerated to home oxygen supplementation, continue ATC duonebs, PRN albuterol, maintained on IV Rocephin and Azithromycin, HOB, IS parameters w/ pending sputum cultures, full respiratory viral panel, COVID PCR to be thorough given timeline and urine antigens, initial LA 2-->repeat increased, will continue to hydrate and trend per facility protocol. #2. Hyperglycemia: Admission glucose 145, likely stress response, will obtain hemoglobin A1c to be cautious #3. Hx VTE: On Eliquis, taking as rx, will continue and given this history low suspicion PE associated. Patient reports recently increased ecchymoses especially lower extremity including the dorsal left foot as well as the shins currently as noted on anticoagulant therapy. Will obtain coags to be cautious but again with acute infection certainly could be a component, continue to closely monitor. #4. Former tobacco use: Encourage continued tobacco cessation. #5. Obesity: Weight loss and lifestyle changes encouraged. #6. DVT prophylaxis: SCDs, will continue patient on Eliquis regimen. #7. CODE status: Patient WILBER is her brother Guevara and living will is currently in place. Discussed CODE status at length including difference between FULL code, DNR-CCA and DNR-CC status. Following discussions about the differences in these status, requested Full Code status. Advanced Care Planning Face to Face Time: 16 minutes. Charges/Coding Visit Charges Inpatient E&M: 58149 Init Hosp L3 Procedures Hospitalists Procedures: 62231 Advncd Care Plan 30 Min
--- NOTE | 2022-04-27 16:34 | NURSING ---
MED SURG WHITE COPD, FAILURE OUTPATIENT THERAPY
[2022-04-27 18:25] LABS: Procalcitonin 0.07 ng/mL (0.00-0.09)
[2022-04-27] MEDS: 0.9% Normal Saline 1,000 ML 100 ML IV (18:30)
[2022-04-27] MEDS: APIXABAN 5 MG TABLET PO (18:30)
[2022-04-27 18:31] LABS: Partial Thromboplast Time 24.9 Seconds (24.1-36.2)
[2022-04-27 18:40] LABS: Reflex Lactate? Y
[2022-04-27 19:33] LABS: Lactic Acid 3.1 mmol/L (0.4-1.9)
[2022-04-27] MEDS: 0.9% Normal Saline 1,000 ML 999 ML IV (20:25)
[2022-04-27] MEDS: Ceftriaxone 1 GM/50 ML BAG IV (20:30)
[2022-04-27] MEDS: 0.9% Saline Lock 10 ML Syringe IV (21:51)
[2022-04-28] VITALS (23 sets, daily range): BP systolic 142–188; BP diastolic 80–113; PULSE 84–134; RESP 10–32; TEMP 36.4–37.1; O2SAT 91–100
[2022-04-28 01:46] LABS: Lactic Acid 1.7 mmol/L (0.4-1.9)
[2022-04-28] MEDS: Albuterol 2.5 MG/3 ML VIAL.NEB. INHALATION (04:40)
[2022-04-28 06:27] LABS: Absolute Lymphocyte Count 0.38 X10^3/uL (0.83-4.51); Absolute Neutrophil Count 9.1 X10^3/uL (2.0-7.7); Basophil# 0.02 X10^3/uL; Basophil% 0.2 % (0-1); Hematocrit 39.2 % (37-47); Hemoglobin 12.1 g/dL (12.0-15.0); Lymphocyte # 0.38 X10^3/ul (0.83-4.51); Lymphocyte % 3.7 % (19-41); Mean Corp Hgb Conc 30.9 g/dL (32-36); Mean Platelet Vol. 8.6 fl (6.2-12.0); Monocyte# 0.56 X10^3/uL; Monocyte% 5.5 % (0-10); NRBC Flagged by Analyzer 0.2 % (0-5); Neutrophil # 9.05 X10^3/uL (2.7-7.7); Neutrophil % 88.2 % (47-70); POSITIVE DIFFERENTIAL YES; Platelet Count 286 K/mm3 (150-450); RBC Distribution Width CV 15.4 % (11.6-14.6); RBC Distribution Width SD 53.3 fl (35.1-43.9); Red Blood Count 4.17 M/mm3 (4.2-5.4); White Blood Count 10.3 K/mm3 (4.4-11.0)
[2022-04-28 06:33] LABS: Differential Indicated SCAN CRITERIA MET
[2022-04-28 06:54] LABS: ALB/GLOB Ratio 0.9 RATIO (0.9-2.4); AST(SGOT) 16 U/L (15-37); Alanine Aminotransfer ALT/SGPT 38 U/L (13-56); Albumin, Serum 3.1 g/dL (3.2-5.0); Alkaline Phosphatase 147 U/L (45-117); Anion Gap 5 (5-15); BUN 8 mg/dL (7-18); BUN/Creat Ratio 18.5 RATIO (10-20); Calcium,Total 8.7 mg/dL (8.5-10.1); Chloride 104 mmol/L (98-107); Creatinine, Serum 0.43 mg/dL (0.55-1.02); EST Glomerular Filtration Rate 154 mL/min (>60); Est Glom Filt Rate - Afr Amer 187 mL/min (>60); Estimated Creatinine Clearance 40.63 ml/min; Globulin 3.3 g/dL (2.2-4.2); Glucose 139 mg/dL (74-106); Potassium 3.9 mmol/L (3.5-5.1); Protein, Total 6.4 g/dL (6.4-8.2); Sodium Level 142 mmol/L (136-145)
[2022-04-28 07:02] LABS: Anisocytosis 1+
[2022-04-28] MEDS: Ipratropium/Albuterol Sulfate 3 ML AMPUL.NEB INHALATION ×5 (07:08→22:07)
[2022-04-28 07:35] LABS: Hemoglobin A1c 6.2 % (3.8-5.6)
[2022-04-28] MEDS: Fluticasone 0.05% 1 SPRAY NASAL.SRY 2 SPRAY NASAL (09:41)
[2022-04-28] MEDS: guaiFENesin 1,200 MG Tablet 1200 MG PO (09:41)
[2022-04-28] MEDS: APIXABAN 5 MG TABLET PO ×2 (09:41→20:57)
[2022-04-28] MEDS: Ceftriaxone 1 GM/50 ML BAG IV (09:42)
--- NOTE | 2022-04-28 10:45 | CASEMGMT ---
RN CM Face to Face with patient for initial transition planning/care coordination assessment. RN CM introduced self and role at [facility]. Patient lying in bed, alert and oriented. Patient willing to participate in assessment and is able to answer all questions appropriately. Care providers, pharmacy, and demographics verified. Patient wishes to discharge home, denies need for home health at this time. Patient states she has no further needs or concerns at this time. CM to follow for discharge planning needs that may arise. PCP: Priscila Specialists: Quentin, co teacher; Chun, pain Preferred Pharmacy: [facility]; [facility] retail at discharge. Insurance: [facility] Prescription Benefit: yes Living Will/HPOA: none LNOK: son in law Living Arrangements: Patient lives in a 3rd floor apartment with elevator to enter. Patient states she is independent for self care at home. Patient states she has neighbor that checks on her several times daily and help with security controls assessor. Transportation: friend or [facility] DME/HHC: Patient states she has shower chair, grab bars, walker, wheelchair, nebulizer, pulse ox, triology unit, and home oxygen through [employer] at 4lpm with portable concentrator. Patient denies previous HHC or SNF. Disposition Plan: Patient to discharge home with family support and follow-up plans in place. Libra RAY, RN, CM
[2022-04-28 11:55] LABS: Bedside Glucose 182 mg/dL (74-106)
[2022-04-28] MEDS: Acetaminophen 325 MG Tablet 650 MG PO ×2 (13:34→20:56)
--- NOTE | 2022-04-28 14:59 | PN.HOSP_ITS ---
Subjective Subjective Patient states she is feeling better. She estimates this to proximately be 50% better. She is chronically O2 dependent on 4 L at home and wears a trilogy at at bedtime. She states she is been compliant with her home regimen and continues not to smoke. She follows with Dr. Saavedra as an outpatient. Objective Data Objective Data Vital Signs: Vital Signs Temp Pulse Resp BP Pulse Ox O2 Del Method O2 Flow Rate 98.0 F 99 25 H 159/109 H 94 Nasal Cannula 4 04/28/22 11:00 04/28/22 11:20 04/28/22 14:20 04/28/22 11:00 04/28/22 11:00 04/28/22 11:00 04/28/22 11:00 FiO2 36 04/28/22 03:29 Oxygen Flow Rate (L/min) 4 Oxygen Delivery Method Nasal Cannula Weight: 80.3 kg Body Mass Index (BMI) 33.4 Intake & Output: Intake and Output for Last 24 Hours 04/26/22 04/27/22 04/28/22 23:59 23:59 23:59 Intake Total 1305 / 1855 1305 / 1305 Output Total 800 / 800 600 / 600 Balance 505 / 1055 705 / 705 Lab / Micro Data Result Diagrams: 04/28/22 05:41 04/28/22 05:41 Labs: Laboratory Results - last 24 hr 04/27/22 14:35: Platelet Estimate ADEQUATE, RBC Morphology NORM C+C 04/27/22 14:35: Sodium 140, Potassium 4.0, Chloride 103, Carbon Dioxide 33.0 H, Anion Gap 4 L, BUN 8, Creatinine 0.52 L, Estim Creat Clear Calc 40.63, Est GFR (MDRD) Af Amer 150, Est GFR (MDRD) Non-Af 124, BUN/Creatinine Ratio 15.3, Glucose 145 H, Calcium 8.9, Troponin I High Sens 4 04/27/22 14:35: B-Natriuretic Peptide 57.0 04/27/22 14:35: Lactic Acid 2.0 04/27/22 14:37: PT 13.0, INR 1.0, APTT 24.9 04/27/22 15:10: Urine Color Straw, Urine Clarity Clear, Urine pH 7.0, Ur Specific [place] 1.010, Urine Protein Negative, Urine Glucose (UA) Normal, Urine Ketones Negative, Urine Occult Blood Negative, Urine Nitrite Negative, Urine Bilirubin Negative, Urine Urobilinogen Normal, Ur Leukocyte Esterase Negative, Urine RBC 0-5 SEEN, Urine WBC 0 SEEN, Ur Squamous Epith Cells 0 SEEN, Urine Bact eria 0 SEEN, Urine Mucus 0 SEEN 04/27/22 17:35: Procalcitonin 0.07 04/27/22 18:45: Lactic Acid 3.1 H* 04/28/22 01:12: Lactic Acid 1.7 04/28/22 05:41: WBC 10.3, RBC 4.17 L, Hgb 12.1, Hct 39.2, MCV 94.0, MCH 29.0, MCHC 30.9 L, RDW Std Deviation 53.3 H, RDW Coeff of Vasyl 15.4 H, Plt Count 286, MPV 8.6, Immature Gran % (Auto) 2.400 H, Neut % (Auto) 88.2 H, Lymph % (Auto) 3.7 L, Callahan % (Auto) 5.5, Eos % (Auto) 0.0, Baso % (Auto) 0.2, Absolute Neuts (auto) 9.1 H, Absolute Lymphs (auto) 0.38 L, Nucleated RBC % 0.2, Anisocytosis 1+ 04/28/22 05:41: Sodium 142, Potassium 3.9, Chloride 104, Carbon Dioxide 33.0 H, Anion Gap 5, BUN 8, Creatinine 0.43 L, Estim Creat Clear Calc 40.63, Est GFR (MDRD) Af Amer 187, Est GFR (MDRD) Non-Af 154, BUN/Creatinine Ratio 18.5, Glucose 139 H, Calcium 8.7, Total Bilirubin 0.30, AST 16, ALT 38, Alkaline Phosphatase 147 H, Total Protein 6.4, Albumin 3.1 L, Globulin 3.3, Albumin/Globulin Ratio 0.9 04/28/22 05:41: Hemoglobin A1c 6.2 H 04/28/22 11:37: POC Glucose 182 H Micro: Microbiology 04/27/22 19:30 Mucosa - Nose Respiratory Panel (PCR) - Final 04/27/22 14:20 Nasal Secretion SARS-CoV-2 & FLU Antigen (Rapid) - Final Physical Exam Const alert, oriented x3 and well nourished Constitutional Narrative: Obese older white female who appears older than stated age, sitting up in bed, nursing at bedside, patient is dyspneic with conversation intermittently especially with longer sentences but appears nontoxic, no current signs of respiratory extremis HEENT head/scalp atraumatic and moist oral mucous membranes HEENT Narrative: Edentulous, Mallampati 2, no thrush Resp no retractions and no use of accessory muscles Resp Narrative: Marked scattered end expiratory wheezing, tachypnea, conversational dyspnea, few scattered crackles Auscultation: crackles and wheezes; Negative for rhonchi Cardio regular rate, regular rhythm, S1 normal heart sound, S2 normal heart sound, no murmurs, no rub, no gallops, no clicks and no JVD GI normal to inspection, nondistended, normoactive bowel sounds, soft to palpation, non-tender and non-distended; Negative for hepatosplenomegaly Extremity no clubbing, cyanosis or edema Neuro oriented x3, moves all extremities and no focal motor deficits Sensorium / Orientation: awake, alert, oriented to person, oriented to place and oriented to time Speech: speech normal Psych affect normal Psych Narrative: Very pleasant and appropriately interactive Assessment & Plan Assessment/Plan (1) COPD with acute exacerbation: (2) Stage 3 severe COPD by GOLD classification: (3) Bronchiectasis: QUALIFIERS: Bronchiectasis type: with acute exacerbation Qualified Code(s): J47.1 - Bronchiectasis with (acute) exacerbation (4) Dyspnea: (5) Failure of outpatient treatment: PLAN: Plan Acute exacerbation of COPD with hypoxia -Patient is now back to her baseline oxygen however still markedly wheezy on exam and having dyspnea with conversation -I suspect her oxygen saturations would drop with exertion and we will test tomorrow -Continue baseline O2 of 4 L nasal cannula -Continue nocturnal AVAPS--> patient has trilogy at home -Scheduled duo nebs/as needed albuterol -Aggressive pulmonary toilet with incentive spirometry -Continue azithromycin for anti-inflammatory effects but discontinue ceftriaxone as I doubt she has a clinical pneumonia -Procalcitonin 0.07/no white count/no fevers -No significant sputum production -Respiratory panel is negative -COVID and flu are negative -Sputum culture ordered but patient has unable to produce -Continue Solu-Medrol and will likely need slow taper of prednisone upon dis charge -Add Lasix 20 mg IV push twice daily to maximize lung function -I suspect the patient has baseline pulmonary hypertension given longstanding severe lung disease -Patient follows with Dr. Saavedra at baseline and will need to be seen shortly after discharge as she canceled her last appointment in December DM-2-new diagnosis -Patient was noted to have hyperglycemia on admission and A1c was obtained -Hemoglobin A1c 6.2 -Dietitian consult for discussion about diabetes management -We will convert to a diabetic diet -No need for medications upon discharge Lactic acidosis -Resolved -Suspect related to hypoxia and increased work of breathing on admission History of DVT -Continue apixaban COPD Gold stage 3 with centrilobular emphysema -Restart inhalers upon discharge -Recommend close follow-up -Most recent FEV1 was 48% History of bronchiectasis -Will add Pep therapy with Acapella and continue incentive spirometry with above treatment for COPD exacerbation Obesity -Recommend weight loss -BMI is 33.4 -Complicates treatment, prognosis, outcomes History of tobacco abuse -Encourage continued cessation DVT prophylaxis -Continue home Eliquis CODE STATUS -Full code is verified admission in the emergency department. Charges/Coding Visit Charges Inpatient E&M: 71768 Subs Hosp L2
--- NOTE | 2022-04-28 15:15 | NURSING ---
Charted on wrong Pt.
--- NOTE | 2022-04-28 16:19 | CASEMGMT ---
DANIEL DOBBS Face to Face with patient for initial transition planning/care coordination assessment. RN DILIA introduced self and role at [facility]. Patient lying in bed, alert and oriented. Patient willing to participate in assessment and is able to answer all questions appropriately. Care providers, pharmacy, and demographics verified. Patient wishes to discharge home, will monitor for HHC at discharge. Patient states she has no further needs or concerns at this time. CM to follow for discharge planning needs that may arise. PCP: Remigio Fajardo Specialists: CHARLI Wood Preferred Pharmacy: [facility] Insurance: [facility] Prescription Benefit: yes Living Will/HPOA: yes, significant other Bowen Lin LNOK: significant other Living Arrangements: Patient lives with significant other in a RV with 2 bed and 2 baths and 4 steps to enter. Patient states he is independent at home for self care Transportation: significant other DME/HHC: Patient states she has a suction machine, chest vest, nebulizer, oxygen 3-5 lpm PRN through [employer] with portability, walker and grab bars at home. Patient had been to [facility] previous. Patient states she has done IV infusion at home with [facility] Disposition Plan: Patient to discharge home with family support and follow-up plans in place. Will monitor for HHC and increased home oxygen at discharge. Libra RAY, RN, CM
[2022-04-28] MEDS: Insulin Lispro 100 UNIT/ML INSULN.PEN SC (18:36)
[2022-04-28] MEDS: Furosemide 20 MG/2 ML VIAL IV (18:36)
[2022-04-28 18:51] LABS: Bedside Glucose 252 mg/dL (74-106)
[2022-04-28] MEDS: cycloBENZAPRine HCl 10 MG Tablet PO (20:56)
[2022-04-28] MEDS: MELATONIN 3 MG TABLET PO (20:56)
[2022-04-28] MEDS: hydrALAZINE 20 MG/ML Vial 10 MG IV (21:16)
[2022-04-28 21:30] LABS: Bedside Glucose 112 mg/dL (74-106)
[2022-04-28] MEDS: ALPRAZolam 0.25 MG Tablet PO (22:19)
[2022-04-28] MEDS: Lidocaine 5% Patch 1 PATCH TOPICAL (22:20)
[2022-04-28] MEDS: proCHLORPERazine 10 MG/2 ML Vial 5 MG IV (22:20)
--- NOTE | 2022-04-28 22:56 | NURSING ---
pt restless, had xanax for anxiety with bipap, not effective, tachycardia, tachypnea, had breathing treatment, notified charge master coordinator and asked her to notify dr to come see pt. lung sounds ant rales, pt cannot lean forward to listen to posterior at this time. staying with pt for comfort at this time
--- NOTE | 2022-04-28 23:11 | NURSING ---
dr palma here to see pt, going to give iv ativan to see help pt get calmer to help her breathing.
[2022-04-28] MEDS: LORazepam 2 MG/ML Syringe 0.5 MG IV (23:13)
[2022-04-29] VITALS (38 sets, daily range): BP systolic 106–173; BP diastolic 74–119; PULSE 82–127; RESP 12–30; TEMP 36.3–37.1; O2SAT 87–100
--- NOTE | 2022-04-29 00:01 | NURSING ---
nursing supv here, pt calmer but still with tachypnea, tachycardia, vsa q 15-1hr, charge account identification clerk texted dr palma due to is a full code and vs not improving. pt to be transferred to ICU. pt notified.
--- NOTE | 2022-04-29 00:07 | PN.HOSP_ITS ---
Hospitalist Note Patient was seen and examined. Patient is tachypneic, respiratory rate 22- 34/min, labored breathing, fatigue on AVAPS. Patient very anxious and given 0.25 mg Xanax before still shows very tachycardic, heart rate in 120s to 130s, BP 188/113 therefore given 0.5 mg IV Ativan. Patient is sleepy but is still tachypneic and working hard for breath ing. Patient is transferred to ICU condition to monitor closely. On exam Lungs air entry very diminished in both lungs. Bilateral rhonchi. No labored breathing. Heart: S1-S2 sinus tachycardia. No murmur. Patient has been transferred to ICU. Change AVAPS to BiPAP discussed with the respiratory therapist. Titrate the BiPAP setting as per tachypnea and her toleration. Monitor respiratory stat us closely.
--- NOTE | 2022-04-29 00:30 | NURSING ---
gave report to icu nurse andrews
--- NOTE | 2022-04-29 00:49 | NURSING ---
attempted to call malaika toledo pt son in law to give update on pt condition had to leave msg to call hospital back
--- NOTE | 2022-04-29 00:58 | NURSING ---
updated maverick toledo pt salesperson florist supplies about pt condition and transfer to ICU
[2022-04-29 04:55] LABS: Anion Gap 3 (5-15); BUN 19 mg/dL (7-18); BUN/Creat Ratio 40.3 RATIO (10-20); Chloride 97 mmol/L (98-107); Creatinine, Serum 0.47 mg/dL (0.55-1.02); EST Glomerular Filtration Rate 140 mL/min (>60); Est Glom Filt Rate - Afr Amer 169 mL/min (>60); Estimated Creatinine Clearance 40.63 ml/min; Glucose 135 mg/dL (74-106); Potassium 3.5 mmol/L (3.5-5.1); Sodium Level 137 mmol/L (136-145)
--- NOTE | 2022-04-29 07:02 | ECHOCS_ITS ---
Reason For Study: Dyspnea/SOB Procedure This was a 2D Doppler, Color Flow transthoracic echocardiogram. The study was technically difficult. Echo done with patient sitting upright due to severe SOB. Patient also on BIPAP. Contrast injection was performed. Exam performed portable in ICU/CCU. Left Ventricle Based upon the 2D echocardiographic and contrast enhanced images obtained there appears to be grossly normal size, wall motion, and hyperdynamic LV systolic function. The estimated ejection fraction is 75 %. Diastolic function is indeterminate. Right Ventricle Based upon the 2D echocardiographic images obtained there appears to be grossly normal right ventricular size and systolic function. Atria Normal left atrium. Normal right atrium. No doppler evidence for ASD. Mitral Valve There is no mitral annular calcification. Normal mitral valve. Tricuspid Valve The tricuspid valve is not well visualized. Aortic Valve The aortic valve is not well visualized. Pulmonic Valve The pulmonic valve is not well visualized. Great Vessels The aortic root is not well visualized. Pericardium/Pleural No pericardial effusion. Epicardial fat. Medication Diluted definity 2.5ml given slow IV push to enhance endocardial definition. MMode/2D Measurements & Calculations LA dimension: 3.2 cm LAV(MOD-sp2): 14.1 ml Doppler Measurements & Calculations MV E max quincy: 62.3 cm/sec Lat Peak E' Quincy: 6.0 cm/sec MV V2 max: 149.0 cm/sec MV A max quincy: 122.5 cm/sec E/E' lat: 10.5 MV max P.9 mmHg MV E/A: 0.51 MV V2 mean: 72.5 cm/sec MV mean P.7 mmHg MV V2 VTI: 17.6 cm MV P1/2t max quincy: 84.7 cm/sec Ao V2 max: 134.4 cm/sec LV V1 max: 120.3 cm/sec MV P1/2t: 41.7 msec Ao max P.2 mmHg LV V1 max P.8 mmHg MV dec slope: 594.8 cm/sec2 MVA(P1/2t): 5.3 cm2 ECHO/Echo Complete W/ Contrast Interpretation Summary The study was technically difficult. Contrast injection was performed. Based upon the 2D echocardiographic and contrast enhanced images obtained there appears to be grossly normal size, wall motion, and hyperdynamic LV systolic function. The estimated ejection fraction is 75 %. Epicardial fat. Diastolic function is indeterminate. Ordering Physician: Maine Alvarado Referring Physician: Casey Francois Performed By: Emil Cantrell RCS
[2022-04-29] MEDS: Ipratropium/Albuterol Sulfate 3 ML AMPUL.NEB INHALATION ×4 (07:14→19:33)
[2022-04-29] MEDS: hydrALAZINE 20 MG/ML Vial 10 MG IV (08:17)
[2022-04-29] MEDS: 0.9% Saline Lock 10 ML Syringe IV ×3 (08:18→20:50)
--- NOTE | 2022-04-29 09:05 | RAD_ITS ---
STUDY: X-RAY CHEST REASON FOR EXAM: Female, 67 years old. Sob TECHNIQUE: Single AP portable view of the chest. COMPARISON: Comparison is made with prior study dated 04/27/2022. FINDINGS: EKG electrodes are seen. Stable blunting of the left costophrenic angle. Improved aeration of the left lung base. Persistent vague nodular infiltrates in the left upper lobe. Normal size heart. Normal mediastinum and chery. Normal visualized pulmonary arteries. Normal visualized aortic arch and descending thoracic aorta. There are diffuse degenerative changes of the visualized thoracic spine. Prior vertebroplasty of the lower dorsal vertebrae. Normal visualized ribs, clavicles, and shoulders. There is no demonstrated abnormality of the visualized soft tissue structures of the upper abdomen. RAD/Chest 1 View (Portable) IMPRESSION: Improved aeration at the left lung base. Persistent vague nodular infiltrates in the left upper lobe. Electronically Signed: Jamie Colvin MD at 10:11 EDT ,
[2022-04-29] MEDS: Fluticasone 0.05% 1 SPRAY NASAL.SRY 2 SPRAY NASAL (10:25)
[2022-04-29] MEDS: guaiFENesin 1,200 MG Tablet 1200 MG PO (10:25)
[2022-04-29] MEDS: Furosemide 20 MG Tablet PO (10:25)
[2022-04-29] MEDS: APIXABAN 5 MG TABLET PO ×2 (10:25→20:47)
[2022-04-29] MEDS: cycloBENZAPRine HCl 10 MG Tablet PO ×2 (10:33→20:47)
[2022-04-29 11:00] LABS: Bedside Glucose 146 mg/dL (74-106)
[2022-04-29] MEDS: Insulin Lispro 100 UNIT/ML INSULN.PEN SC ×2 (11:09→16:47)
[2022-04-29 11:30] LABS: Bedside Glucose 175 mg/dL (74-106)
--- NOTE | 2022-04-29 11:44 | PCM.PN.HOSP ---
Subjective Subjective Patient denies any current issues and is currently back on her 4 L nasal cannula however overnight she developed what sounds to be like a panic attack with worsening tachypnea and shortness of breath. She was placed on BiPAP and given some benzodiazepine which seemed to resolve this. As stated she is back to her baseline this morning at 4 L which is his baseline home oxygen supplementation and is asking to go home. Discussed with her the fact that she got transferred to the ICU overnight with regards to her respiratory status we would hold off on discharge today and reevaluate her tomorrow for possible discharge. Objective Data Objective Data Vital Signs: Vital Signs Temp Pulse Resp BP Pulse Ox O2 Del Method O2 Flow Rate 97.4 F L 127 H 28 H 141/87 H 99 Bi-pap 4 04/29/22 08:00 04/29/22 09:09 04/29/22 09:09 04/29/22 09:00 04/29/22 09:09 04/29/22 09:02 04/29/22 09:00 FiO2 30 04/29/22 09:09 Oxygen Flow Rate (L/min) 4 Oxygen Delivery Method Bi-pap Weight: 77.1 kg Body Mass Index (BMI) 33.4 Intake & Output: Intake and Output for Last 24 Hours 04/27/22 04/28/22 04/29/22 23:59 23:59 23:59 Intake Total 1305 / 1855 1305 / 1305 0 / 0 Output Total 800 / 800 2900 / 2900 Balance 505 / 1055 -1595 / -1595 0 / 0 Lab / Micro Data Result Diagrams: 04/28/22 05:41 04/29/22 04:25 Labs: Laboratory Results - last 24 hr 04/28/22 11:37: POC Glucose 182 H 04/28/22 18:30: POC Glucose 252 H 04/28/22 21:05: POC Glucose 112 H 04/29/22 04:25: Sodium 137, Potassium 3.5, Chloride 97 L, Carbon Dioxide 37.0 H, Anion Gap 3 L, BUN 19 H, Creatinine 0.47 L, Estim Creat Clear Calc 40.63, Est GFR (MDRD) Af Amer 169, Est GFR (MDRD) Non-Af 140, BUN/Creatinine Ratio 40.3 H, Glucose 135 H, Calcium 9.0 04/29/22 08:11: POC Glucose 146 H 04/29/22 11:07: POC Glucose 175 H Micro: Microbiology 04/28/22 17:37 Urine Catheter - Catheter Legionella Antigen - Final 04/28/22 17:37 Urine Catheter - Catheter Streptococcus pneumoniae Antigen (M - Final 04/27/22 19:30 Mucosa - Nose Respiratory Panel (PCR) - Final 04/27/22 14:20 Nasal Secretion SARS-CoV-2 & FLU Antigen (Rapid) - Final Radiography Diagnostic Testing: Radiology Impression Chest X-Ray 04/29/22 09:05 IMPRESSION: Improved aeration at the left lung base. Persistent vague nodular infiltrates in the left upper lobe. Electronically Signed: Jamie Colvin MD at 10:11 EDT , Physical Exam Const alert, oriented x3 and well nourished Constitutional Narrative: Obese older white female who appears older than stated age, sitting up in bed, nursing at bedside, patient just with a conversation with longer sentences but appears to be more comfortable HEENT head/scalp atraumatic and moist oral mucous membranes HEENT Narrative: No thrush noted Resp no retractions and no use of accessory muscles Resp Narrative: Continued but improved scattered end expiratory wheezing, mild tachypnea, intermittent conversational dyspnea Auscultation: wheezes; Negative for crackles or rhonchi Cardio regular rhythm, S1 normal heart sound, S2 normal heart sound, no murmurs, no rub, no gallops, no clicks and no JVD Cardio Narrative: Mild tachycardia GI normal to inspection, nondistended, normoactive bowel sounds, soft to palpation, non-tender and non-distended; Negative for hepatosplenomegaly Extremity no clubbing, cyanosis or edema Neuro oriented x3, moves all extremities and no focal motor deficits Sensorium / Orientation: awake, alert, oriented to person, oriented to place and oriented to time Speech: speech normal Psych affect normal Psych Narrative: Very pleasant and appropriately interactive Assessment & Plan Assessment/Plan (1) COPD with acute exacerbation: (2) Stage 3 severe COPD by GOLD classification: (3) Bronchiectasis: QUALIFIERS: Bronchiectasis type: with acute exacerbation Qualified Code(s): J47.1 - Bronchiectasis with (acute) exacerbation (4) Dyspnea: (5) Failure of outpatient treatment: PLAN: Plan Acute exacerbation of COPD with hypoxia -Transferred to the ICU overnight secondary to worsening tachypnea but oxygen saturations appear to have maintained stability -Now back on her baseline 4 L nasal cannula and asking to go home -We will need ambulatory pulse ox prior to discharge -Continue baseline O2 of 4 L nasal cannula -Will add as needed Roxanol -Continue nocturnal AVAPS--> patient has trilogy at home -Scheduled duo nebs/as needed albuterol -Aggressive pulmonary toilet with incentive spirometry -Continue azithromycin for anti-inflammatory effects -Procalcitonin 0.07/no white count/no fevers -No significant sputum production -Respiratory panel is negative -COVID and flu are negative -Sputum culture ordered but patient is still unable to produce -Continue Solu-Medrol and will likely need slow taper of prednisone upon discharge -Continue Lasix but will convert to oral as renal function has bumped slightly -Will try to reestablish patient with palliative care at discharge -Patient reports her insurance only covers this for so long and she was involved with palliative care what she believes to be about 1 year ago -Patient follows with Dr. Saavedra at baseline and will need to be seen shortly after discharge as she canceled her last appointment in December DM-2-new diagnosis -Patient was noted to have hyperglycemia on admission and A1c was obtained -Hemoglobin A1c 6.2 -Dietitian following -Continue diabetic diet -No need for medications upon discharge Lactic acidosis -Resolved -Suspect related to hypoxia and increased work of breathing on admission History of DVT -Continue apixaban COPD Gold stage 3 with centrilobular emphysema -Restart inhalers upon discharge -Recommend close follow-up -Most recent FEV1 was 48%--> may need repeat PFTs once clinically stable History of bronchiectasis -Continue add Pep therapy with Acapella and continue incentive spirometry with above treatment for COPD exacerbation Obesity -Recommend weight loss -BMI is 33.4 -Complicates treatment, prognosis, outcomes History of tobacco abuse -Encourage continued cessation DVT prophylaxis -Continue home Eliquis CODE STATUS -Full code is verified admission in the emergency department. Charges/Coding Visit Charges Inpatient E&M: 65746 Subs Hosp L2
[2022-04-29] MEDS: morphine (oral solution) 10MG/0.5ML Syringe 2.5 MG SL ×2 (12:11→20:47)
[2022-04-29] MEDS: MELATONIN 3 MG TABLET PO (20:47)
[2022-04-30] VITALS (15 sets, daily range): BP systolic 142–173; BP diastolic 60–105; PULSE 83–117; RESP 12–24; TEMP 36.4–36.8; O2SAT 89–99
[2022-04-30 01:10] LABS: Bedside Glucose 160 mg/dL (74-106)
--- NOTE | 2022-04-30 03:32 | NURSING ---
04/29/22 Patient refused 2200 blood sugar check. No coverage ordered. Patient given bedtime snack and will be checked in AM.
[2022-04-30] MEDS: Albuterol 2.5 MG/3 ML VIAL.NEB. INHALATION (05:20)
[2022-04-30] MEDS: morphine (oral solution) 10MG/0.5ML Syringe 2.5 MG SL ×3 (05:56→20:13)
[2022-04-30 06:35] LABS: Bedside Glucose 105 mg/dL (74-106)
[2022-04-30] MEDS: Ipratropium/Albuterol Sulfate 3 ML AMPUL.NEB INHALATION ×4 (07:19→19:17)
[2022-04-30 07:20] LABS: Absolute Lymphocyte Count 0.74 X10^3/uL (0.83-4.51); Absolute Neutrophil Count 9.9 X10^3/uL (2.0-7.7); Basophil# 0.03 X10^3/uL; Basophil% 0.3 % (0-1); Hemoglobin 13.3 g/dL (12.0-15.0); Lymphocyte # 0.74 X10^3/ul (0.83-4.51); Lymphocyte % 6.3 % (19-41); Mean Corp Hgb Conc 29.6 g/dL (32-36); Mean Corpuscular Hgb 28.7 pg (27.0-32.0); Mean Corpuscular Volume 97.2 fL (81-99); Mean Platelet Vol. 8.6 fl (6.2-12.0); Monocyte# 0.82 X10^3/uL; NRBC Flagged by Analyzer 0.2 % (0-5); Neutrophil # 9.91 X10^3/uL (2.7-7.7); Neutrophil % 84.9 % (47-70); Platelet Count 289 K/mm3 (150-450); RBC Distribution Width CV 15.3 % (11.6-14.6); RBC Distribution Width SD 54.6 fl (35.1-43.9); Red Blood Count 4.63 M/mm3 (4.2-5.4); White Blood Count 11.7 K/mm3 (4.4-11.0)
[2022-04-30 07:57] LABS: Anion Gap 6 (5-15); BUN 29 mg/dL (7-18); BUN/Creat Ratio 58.9 RATIO (10-20); Calcium,Total 8.9 mg/dL (8.5-10.1); Chloride 98 mmol/L (98-107); Creatinine, Serum 0.49 mg/dL (0.55-1.02); EST Glomerular Filtration Rate 133 mL/min (>60); Est Glom Filt Rate - Afr Amer 161 mL/min (>60); Estimated Creatinine Clearance 40.63 ml/min; Glucose 110 mg/dL (74-106); Sodium Level 137 mmol/L (136-145)
[2022-04-30] MEDS: 0.9% Saline Lock 10 ML Syringe IV ×3 (10:17→21:57)
[2022-04-30] MEDS: Furosemide 20 MG Tablet PO (10:17)
[2022-04-30] MEDS: Fluticasone 0.05% 1 SPRAY NASAL.SRY 2 SPRAY NASAL (10:18)
[2022-04-30] MEDS: APIXABAN 5 MG TABLET PO ×2 (10:18→21:57)
[2022-04-30] MEDS: guaiFENesin 1,200 MG Tablet 1200 MG PO (10:18)
[2022-04-30] MEDS: cycloBENZAPRine HCl 10 MG Tablet PO (11:22)
[2022-04-30] MEDS: Insulin Lispro 100 UNIT/ML INSULN.PEN SC ×2 (11:27→17:35)
--- NOTE | 2022-04-30 11:58 | CHAPLAIN ---
Type of Pastoral Visit _x__ Initial Visit ___ Follow-up Visit ___ On-call Visit ___ General Patient Visit ___ Spiritual Assessment ___ Family Conference ___ Bereavement ___ Rapid Response ___ Code Blue ___ Other (describe below) Pastoral Care Referral From _x__ Patient ___ Family ___ Nurse ___ Physician ___ Fuel Injection Servicer ___ Intrusion Analyst ___ Other (describe below) Sacrament/Intervention _x__ Active listening ___ Anointing ___ Bahai ___ Bereavement ___ Communion ___ Sylvia exploration ___ ___ Life review ___ Prayer ___ Reconciliation ___ Sacrament of Sick ___ Supportive presence ___ Wedding ___ Other (describe below) Pastoral Comments patient has two family members in room with her and states that I have lots of support; pt says that this is not her first experience and that she understands the process in hospitals; pt says that she is doing fine at this time and has no other concerns
[2022-04-30 12:25] LABS: Bedside Glucose 228 mg/dL (74-106)
--- NOTE | 2022-04-30 14:07 | CASEMGMT ---
DANIEL CM updated by hospitalist that patient is interested in palliative care. Order received for palliative consult and referral sent to [facility].
--- NOTE | 2022-04-30 15:22 | PN.HOSP_ITS ---
Subjective Subjective Patient states she is overall feeling 75% better. We were going to try to get her home however she ended up tripoding with exertion during her ambulatory pulse ox. Her sats did not drop below 88% however her recovery time was extensive and she appeared to have some respiratory distress. We will continue to keep her here on IV prednisone with current therapy and reevaluate her tomorrow per my discussion with her earlier today. Patient states the Roxanol is dramatically helpful and she is accepting to palliative care referral upon discharge. Objective Data Objective Data Vital Signs: Vital Signs Temp Pulse Resp BP Pulse Ox O2 Del Method O2 Flow Rate 97.6 F L 117 H 18 142/88 H 97 Nasal Cannula 4 04/30/22 09:30 04/30/22 11:28 04/30/22 11:28 04/30/22 09:30 04/30/22 14:01 04/30/22 14:05 04/30/22 14:05 FiO2 30 04/30/22 04:00 Oxygen Flow Rate (L/min) [ 4 AMBULATING with Oxygen #1] Oxygen Flow Rate (L/min) [At 4 REST with Oxygen] Oxygen Flow Rate (L/min) 4 Oxygen Delivery Method Nasal Cannula Weight: 77.3 kg Body Mass Index (BMI) 33.4 Intake & Output: Intake and Output for Last 24 Hours 04/28/22 04/29/22 04/30/22 23:59 23:59 23:59 Intake Total 1305 / 1305 355 / 355 935 / 935 Output Total 2900 / 2900 1750 / 1750 1300 / 1300 Balance -1595 / -1595 -1395 / -1395 -365 / -365 Lab / Micro Data Result Diagrams: 04/30/22 06:47 04/30/22 06:47 Labs: Laboratory Results - last 24 hr 04/29/22 16:46: POC Glucose 160 H 04/30/22 06:07: POC Glucose 105 04/30/22 06:47: WBC 11.7 H, RBC 4.63, Hgb 13.3, Hct 45.0, MCV 97.2, MCH 28.7, MCHC 29.6 L, RDW Std Deviation 54.6 H, RDW Coeff of Vasyl 15.3 H, Plt Count 289, MPV 8.6, Immature Gran % (Auto) 1.500 H, Neut % (Auto) 84.9 H, Lymph % (Auto) 6.3 L, [place] % (Auto) 7.0, Eos % (Auto) 0.0, Baso % (Auto) 0.3, Absolute Neuts (auto) 9.9 H, Absolute Lymphs (auto) 0.74 L, Nucleated RBC % 0.2 04/30/22 06:47: Sodium 137, Potassium 4.0, Chloride 98, Carbon Dioxide 33.0 H, Anion Gap 6, BUN 29 H, Creatinine 0.49 L, Estim Creat Clear Calc 40.63, Est GFR (MDRD) Af Amer 161, Est GFR (MDRD) Non-Af 133, BUN/Creatinine Ratio 58.9 H, Glucose 110 H, Calcium 8.9 04/30/22 11:25: POC Glucose 228 H Micro: Microbiology 04/28/22 17:37 Urine Catheter - Catheter Legionella Antigen - Final 04/28/22 17:37 Urine Catheter - Catheter Streptococcus pneumoniae Antigen (M - Final 04/27/22 19:30 Mucosa - Nose Respiratory Panel (PCR) - Final 04/27/22 14:20 Nasal Secretion SARS-CoV-2 & FLU Antigen (Rapid) - Final Physical Exam Const alert, oriented x3 and well nourished Constitutional Narrative: Obese older white female who appears older than stated age, sitting up in bed, patient still with conversational dyspnea with longer sentences however appears to be overall improved since yesterday HEENT head/scalp atraumatic and moist oral mucous membranes Resp no retractions and no use of accessory muscles Resp Narrative: Continual improvement with wheezing however still present intermittently bilaterally and diffusely, patient decompensates quickly with regards to her respiratory rate and work of breathing with exertion however oxygen saturations are maintaining above 88% on her baseline home O2 of 4 L Auscultation: wheezes; Negative for crackles or rhonchi Cardio regular rate, regular rhythm, S1 normal heart sound, S2 normal heart sound, no murmurs, no rub, no gallops, no clicks and no JVD GI normal to inspection, nondistended, normoactive bowel sounds, soft to palpation, non-tender and non-distended; Negative for hepatosplenomegaly Extremity no clubbing, cyanosis or edema Neuro oriented x3, moves all extremities and no focal motor deficits Sensorium / Orientation: awake, alert, oriented to person, oriented to place and oriented to time Speech: speech normal Psych affect normal Psych Narrative: Very pleasant and appropriately interactive Assessment & Plan Assessment/Plan (1) COPD with acute exacerbation: (2) Stage 3 severe COPD by GOLD classification: (3) Bronchiectasis: QUALIFIERS: Bronchiectasis type: with acute exacerbation Qualified Code(s): J47.1 - Bronchiectasis with (acute) exacerbation (4) Dyspnea: (5) Failure of outpatient treatment: PLAN: Plan Acute exacerbation of COPD with hypoxia -Transferred to the ICU overnight secondary to worsening tachypnea but oxygen saturations appear to have maintained stability -Now back on her baseline 4 L nasal cannula and asking to go home -We will need ambulatory pulse ox prior to discharge -Continue baseline O2 of 4 L nasal cannula -Echo was performed and shows an EF of 75% unfortunately pulmonary artery pressures were not reported -Continue as needed Roxanol -Continue nocturnal AVAPS--> patient has trilogy at home -Scheduled duo nebs/as needed albuterol -Aggressive pulmonary toilet with incentive spirometry -Continue azithromycin for anti-inflammatory effects -Procalcitonin 0.07/no white count/no fevers -No significant sputum production -Respiratory panel is negative -COVID and flu are negative -Sputum culture ordered but patient is still unable to produce -Continue Solu-Medrol and will likely need slow taper of prednisone upon discharge -Continue Lasix but will convert to oral as renal function has bumped slightly -Patient willing to reestablish with palliative care at discharge -Patient follows with Dr. Saavedra at baseline and will need to be seen shortly after discharge as she canceled her last appointment in December -Hopeful for discharge tomorrow DM-2-new diagnosis -Patient was noted to have hyperglycemia on admission and A1c was obtained -Hemoglobin A1c 6.2 -Dietitian following -Continue diabetic diet -No need for medications upon discharge Lactic acidosis -Resolved -Suspect related to hypoxia and increased work of breathing on admission History of DVT -Continue apixaban COPD Gold stage 3 with centrilobular emphysema -Restart inhalers upon discharge -Recommend close follow-up -Most recent FEV1 was 48%--> may need repeat PFTs once clinically stable History of bronchiectasis -Continue add Pep therapy with Acapella and continue incentive spirometry with above treatment for COPD exacerbation Obesity -Recommend weight loss -BMI is 33.4 -Complicates treatment, prognosis, outcomes History of tobacco abuse -Encourage continued cessation DVT prophylaxis -Continue home Eliquis CODE STATUS -Full code is verified admission in the emergency department. Charges/Coding Visit Charges Inpatient E&M: 78447 Subs Hosp L2
[2022-04-30 18:06] LABS: Bedside Glucose 206 mg/dL (74-106)
[2022-04-30 22:40] LABS: Bedside Glucose 162 mg/dL (74-106)
[2022-05-01] VITALS (10 sets, daily range): BP systolic 139–160; BP diastolic 88–102; PULSE 80–120; RESP 12–24; TEMP 36.4; O2SAT 84–99
[2022-05-01] MEDS: morphine (oral solution) 10MG/0.5ML Syringe 2.5 MG SL ×2 (05:05→10:54)
[2022-05-01] MEDS: 0.9% Saline Lock 10 ML Syringe IV (05:10)
[2022-05-01] MEDS: Insulin Lispro 100 UNIT/ML INSULN.PEN SC (07:05)
[2022-05-01] MEDS: Ipratropium/Albuterol Sulfate 3 ML AMPUL.NEB INHALATION ×2 (07:30→11:36)
[2022-05-01] MEDS: APIXABAN 5 MG TABLET PO (10:28)
[2022-05-01] MEDS: guaiFENesin 1,200 MG Tablet 1200 MG PO (10:28)
[2022-05-01] MEDS: Fluticasone 0.05% 1 SPRAY NASAL.SRY 2 SPRAY NASAL (10:28)
[2022-05-01] MEDS: Furosemide 20 MG Tablet PO (10:29)
--- NOTE | 2022-05-01 10:31 | PCM.DC.SUM ---
Providers Date of Admission: 04/27/22 Date of Discharge: 05/01/22 Primary Care Physician: Dr. Casey Francois MD Reason For Visit: RECENT PNA, COPD EXAC Diagnosis Discharge Diagnosis (1) COPD with acute exacerbation: Status: Acute Code(s): J44.1 - Chronic obstructive pulmonary disease with (acute) exacerbation (2) Stage 3 severe COPD by GOLD classification: Status: Chronic Code(s): J44.9 - Chronic obstructive pulmonary disease, unspecified (3) Bronchiectasis: Status: Chronic Code(s): J47.9 - Bronchiectasis, uncomplicated Qualifiers: Bronchiectasis type: with acute exacerbation Qualified Code(s): J47.1 - Bronchiectasis with (acute) exacerbation (4) Dyspnea: Status: Chronic Code(s): R06.00 - Dyspnea, unspecified (5) Failure of outpatient treatment: Status: Acute Code(s): Z78.9 - Other specified health status Plan Acute exacerbation of COPD with hypoxia -Transferred to the ICU overnight secondary to worsening tachypnea but oxygen saturations appear to have maintained stability -Now back on her baseline 4 L nasal cannula and asking to go home -We will need ambulatory pulse ox prior to discharge -Continue baseline O2 of 4 L nasal cannula -Echo was performed and shows an EF of 75% unfortunately pulmonary artery pressures were not reported -Continue as needed Roxanol -Continue nocturnal AVAPS--> patient has trilogy at home -Scheduled duo nebs/as needed albuterol -Aggressive pulmonary toilet with incentive spirometry -Continue azithromycin for anti-inflammatory effects -Procalcitonin 0.07/no white count/no fevers -No significant sputum production -Respiratory panel is negative -COVID and flu are negative -Sputum culture ordered but patient is still unable to produce -Continue Solu-Medrol and will likely need slow taper of prednisone upon discharge -Continue Lasix but will convert to oral as renal function has bumped slightly -Patient willing to reestablish with palliative care at discharge -Patient follows with Dr. Saavedra at baseline and will need to be seen shortly after discharge as she canceled her last appointment in December -Hopeful for discharge tomorrow DM-2-new diagnosis -Patient was noted to have hyperglycemia on admission and A1c was obtained -Hemoglobin A1c 6.2 -Dietitian following -Continue diabetic diet -No need for medications upon discharge Lactic acidosis -Resolved -Suspect related to hypoxia and increased work of breathing on admission History of DVT -Continue apixaban COPD Gold stage 3 with centrilobular emphysema -Restart inhalers upon discharge -Recommend close follow-up -Most recent FEV1 was 48%--> may need repeat PFTs once clinically stable History of bronchiectasis -Continue add Pep therapy with Acapella and continue incentive spirometry with above treatment for COPD exacerbation Obesity -Recommend weight loss -BMI is 33.4 -Complicates treatment, prognosis, outcomes History of tobacco abuse -Encourage continued cessation DVT prophylaxis -Continue home Eliquis CODE STATUS -Full code is verified admission in the emergency department. Medications at Discharge Home Medications apixaban 5 mg tablet 5 mg PO BID blood thinner 11/12/20 albuterol sulfate 90 mcg/actuation aerosol inhaler (Ventolin HFA) 2 puff inhalation Q4H PRN Sob &/Or Wheezing #18 grams 09/16/21 ipratropium 0.5 mg-albuterol 3 mg (2.5 mg base)/3 mL nebulization soln 3 ml inhalation Q4H PRN Shortness of breath #180 mL 09/16/21 budesonide-formoterol HFA 160 mcg-4.5 mcg/actuation aerosol inhaler (Symbicort) 2 puff inhalation BID SOB 04/27/22 fluticasone propionate 50 mcg/actuation nasal spray,suspension 2 spray intranasal DAILY allergies 04/27/22 guaifenesin 1,200 mg tablet, extended release 12 hr 1,200 mg PO DAILY SOB 04/27/22 furosemide 20 mg tablet 20 mg PO DAILY #30 tabs 05/01/22 morphine concentrate 10 mg/0.5 mL oral syringe (FOR ORAL USE ONLY) 2.5 mg (0.125 mL) sublingual Q6H PRN shortness of breath 2 weeks #50 ea 05/01/22 prednisone 10 mg tablet 10 mg PO DAILY #99 tabs 05/01/22 Hospital Course Operations None Procedures 2-D Echocardiogram and EKG Summary of Care Provided Minutes Spent on Discharge: 39 Hospital Course: Mrs. Moreira is a 67-year-old white female presented the emergency department at [facility] on 04/27/2022 with dyspnea. Per documentation she had reported at the emergency department in [place] on the prior to presentation here for evaluation of shortness of breath. She was diagnosed with pneumonia at that time and was started on antibiotics as well as a steroid taper. Since discharge there she has gotten worse and reported on admission that she had ongoing mildly white tinge and occasionally yellow-tinged sputum but denied fevers or chills. She wears chronic oxygen at 4 L at home and sometimes has to increase this with exertion as well as wears a trilogy noninvasive ventilator at night. She has been compliant with this. Work-up in the ED included T 98, heart rate 112, BP 180/107 initially with repeat 166/110, respiratory rate 24-26 noted to be 97% on 4 L nasal cannula, CBC with a BC 10.4, hemoglobin 12.4, platelet 276 with left shift and lymphopenia, BMP with BUN/creatinine 8/0.52, glucose 145, lactic acid 2.0, troponin 4, BNP 57, urinalysis unremarkable with no obvious evidence of dehydration, rapid COVID antigen negative, chest x-ray with mild increased markings at the left lung base as well as faint nodular opacities in left upper lobe, EKG with sinus tachycardia with no acute evidence of ischemia.? In the emergency department she was given nebulizers as well as Solu-Medrol and request for admission was made. The patient was admitted to the medical floor and maintained on her nocturnal noninvasive ventilator as well as supplemental oxygen. Supplemental oxygen wavered between 3 and 6 L during her hospital course. She did require some intermittent rescue BiPAP during periods of increased shortness of breath however oxygen desaturation did not occur when she required BiPAP. She was maintained on IV steroids, aggressive pulmonary toilet, and IV antibiotics initially with ceftriaxone azithromycin. COVID testing was negative. Viral respiratory panel was negative. Strep pneumo and Legionella antigens were negative. Suspicion was overall low for a pneumonia clinically as she had no white count no fevers and her procalcitonin was low. We did discontinue her ceftriaxone and maintain her on azithromycin for anti-inflammatory purposes as she has severe COPD at baseline. She had an episode where she decompensated through the night from what sounds like predominantly anxiety and was transferred to the ICU. She stabilized and was able to go back to her baseline oxygen supplementation the next day however had marked exertional dyspnea worse than her baseline. We maintained her on her steroids and azithromycin and added some Lasix and she was able to return to baseline by 05/01/2022 at which time we discharged her home. We did send her home with 20 mg of Lasix IV p.o. daily. An echocardiogram was obtained during her hospitalization when she worsened clinically. This showed an EF of 75% and epicardial fat pad and indeterminate diastolic function. Unfortunately were unable to estimate her right ventricular systolic pressure although I do suspect this is probably high at baseline. She was discharged home to complete a slow tapering course of oral steroids. Throughout her stay we did place her on oral Roxanol which she did well with and we did discharge her with 2-week supply of this and palliative care will follow her as an outpatient. They were doing an intake eval on the day of discharge. She is to follow-up with her primary ophthalmic assistant within the next 4 weeks and we are attempting to make an appointment for her at the time of discharge. We also recommend she follow-up with her primary care physician within the next 2 weeks. Discharge diagnoses: Acute exacerbation of COPD Hypoxia Chronic hypoxic and hypercapnic respiratory failure DM-2-new diagnosis Lactic acidosis-resolved History of DVT COPD Gold stage III with centrilobular emphysema Bronchiectasis Obesity History of tobacco abuse Physical Exam Narrative Patient reports he is feeling much better and ready to go home. Son is at the bedside and indicates that she sounds much better as well. Const alert, oriented x3, no apparent distress and well nourished Constitutional Narrative: Obese older white female who appears older than stated age, sitting up in bed, patient recovering from ambulation., Family at bedside as well as palliative care, patient indicates she is feeling much better General Appearance: cooperative, comfortable, well kempt and well developed Orientation / Consciousness: awake Exam Limitations: no limitations Nutritional Appearance: obese HEENT normocephalic, head/scalp atraumatic, hearing grossly normal bilaterally and moist oral mucous membranes HEENT Narrative: Mallampati 2, no thrush, dentures in place Eyes PERRL, EOMs intact bilaterally and conjunctivae normal Eyes Narrative: No scleral icterus Neck no lymphadenopathy, supple and no JVD Neck Narrative: Trachea midline, no thyroid enlargement Resp no retractions and no use of accessory muscles Resp Narrative: Few scattered end expiratory wheezes however dramatically improved from admission, diffusely diminished but no other adventitious sounds Auscultation: wheezes; Negative for crackles or rhonchi Cardio regular rhythm, S1 normal heart sound, S2 normal heart sound, no murmurs, no rub, no gallops, no clicks and no JVD Cardio Narrative: Mild tachycardia GI normal to inspection, nondistended, normoactive bowel sounds, soft to palpation, non-tender and non-distended; Negative for hepatosplenomegaly Extremity no clubbing, cyanosis or edema Skin no wounds, skin turgor normal and no jaundice Skin Narrative: Scattered ecchymosis related to prednisone use, no marked lesions or wounds noted Neuro oriented x3, CN's II-XII intact bilaterally, moves all extremities and no focal motor deficits Neuro Narrative: Generalized weakness Sensorium / Orientation: awake, alert, oriented to person, oriented to place and oriented to time Speech: speech normal Psych affect normal Psych Narrative: Very pleasant and appropriately interactive Weight / BMI Weight Weight: 77.1 kg Body Mass Index (BMI) 33.4 ABG / Lab / Microbiology Data Result Diagrams: 04/30/22 06:47 04/30/22 06:47 Laboratory: Laboratory Results - last 24 hr 04/30/22 11:25: POC Glucose 228 H 04/30/22 17:33: POC Glucose 206 H 04/30/22 22:13: POC Glucose 162 H Microbiology: Microbiology 04/28/22 17:37 Urine Catheter - Catheter Legionella Antigen - Final 04/28/22 17:37 Urine Catheter - Catheter Streptococcus pneumoniae Antigen (M - Final 04/27/22 19:30 Mucosa - Nose Respiratory Panel (PCR) - Final 04/27/22 14:20 Nasal Secretion SARS-CoV-2 & FLU Antigen (Rapid) - Final D/C Instructions Discharge Diet: Low fat / Low cholesterol Discharge Activity: Return to Normal Activity Meaningful Use Info Meaningful Use Diagnoses (Choose all that apply): None applicable Discharge Plan Admission Admit Date/Time: 04/27/22 16:25 Primary Reason for Your Visit: Shortness of Breath Attending Provider: Maine Alvarado Primary Care Provider: Casey Francois Consulting Providers: Nilsa Davis Discharge Orders/Prescriptions Prescriptions: New furosemide 20 mg Tablet 20 mg PO DAILY Qty: 30 0RF morphine concentrate 10 mg/0.5 mL Syringe 2.5 mg sublingual Q6H PRN (Reason: shortness of breath) 14 Days Qty: 50 0RF prednisone 10 mg tablet 10 mg PO DAILY Qty: 99 0RF Rx Instructions: 6 tablets x 4 days, 5 tablets x 5 days, 4 tablets x 5 days, 3 tablets x 5 days, 2 tablets x 5 days, 1 tablet x 5 days Continued albuterol sulfate [Ventolin HFA] 90 mcg/actuation HFA aerosol inhaler 2 puff INHALATION Q4H PRN (Reason: Sob &/Or Wheezing) Qty: 18 6RF Rx Instructions: then switched to aerosol ipratropium-albuterol 0.5 mg-3 mg(2.5 mg base)/3 mL solution for nebulization 3 ml INHALATION Q4H PRN (Reason: Shortness of breath) Qty: 180 11RF apixaban 5 MG tablet 5 mg PO BID guaifenesin 1,200 MG tablet extended release 12hr 1,200 mg PO DAILY fluticasone propionate 50 mcg/actuation spray,suspension 2 spray intranasal DAILY budesonide-formoterol [Symbicort] 160-4.5 mcg/actuation HFA aerosol inhaler 2 puff inhalation BID Rx Instructions: administer with spacer, rinse mouth after each use Discontinued amoxicillin-pot clavulanate 875-125 mg tablet 1 tab PO BID Referrals / Follow Up: Denys Saavedra MD [Med Staff - Active Staff] - Within 1 Month Casey Francois MD [Primary Care Provider] - Within 2 Weeks Ashley Rea NP, CREDIT ADMINISTRATION SPECIALIST-C [Non-Staff] - Disposition Disposition (needs filled in before D/C Order can be placed): Home, Self Care Charges/Coding Visit Charges Inpatient E&M: 71769 Disch Hosp
[2022-05-01 11:50] LABS: Bedside Glucose 153 mg/dL (74-106)
--- NOTE | 2022-05-01 13:30 | CASEMGMT ---
DANIEL DOBBS updated by nursing that patient will need 6lpm with ambulation. Updated script received from hospitalist for new oxygen requirements. DANIEL DOBBS back to discuss discharge planning with patient. Patient states her portable concentrator goes up to 6lpm. Patient denies HHC at this time and will follow-up with palliative care. Patient had no further questions or concerns at this time.
[2022-05-01 21:40] LABS: Bedside Glucose 184 mg/dL (74-106)
== END 2022-05-01 14:11 | disposition home or self-care (01) | DRG 191 ==
LOC: ED 16:34 → MS3 16:46 → ICU 04-29 07:11 → PCU 04-29 21:40
PROVIDERS: Admitting Provider Family Medicine; Emergency Provider Emergency Medicine; PCP Family Medicine; Visit Provider Internal Medicine
DX: J44.1 Chronic obstructive pulmonary disease with (acute) exacerbation (principal); J47.1 Bronchiectasis with (acute) exacerbation; E87.2 Acidosis; J96.11 Chronic respiratory failure with hypoxia; J43.2 Centrilobular emphysema; E11.65 Type 2 diabetes mellitus with hyperglycemia; Z99.81 Dependence on supplemental oxygen; Z87.891 Personal history of nicotine dependence; Z66 Do not resuscitate; Z79.51 Long term (current) use of inhaled steroids; Z51.5 Encounter for palliative care; Z79.01 Long term (current) use of anticoagulants; Z86.718 Personal history of other venous thrombosis and embolism; E66.9 Obesity, unspecified; Z68.33 Body mass index [BMI] 33.0-33.9, adult; Z78.9 Other specified health status
CPT/HCPCS: 36415; 71045; 80048; 80053; 81001; 82962; 83036; 83605; 83880; 84145; 84484; 85025; 85610; 85730; 87428; 87449; 87633; 93005; 93306; 94002; 94003; 94640; 94660; 94667; 94668; 94762; 97802; 99251; 99285; J7030; P9612; Q9957; A4216; C8929; G0463; J1940

== ENCOUNTER → 2022-06-01 | Outpatient (CLI) | payer MEDICARE, SELFPAY ==
[2022-06-01 15:46] LABS: Erythrocyte Sedimentation Rate 13 mm/hr (0-30)
[2022-06-01 16:11] LABS: LDH 301 U/L (84-246); Thyroid Stim Hormone (TSH) 0.49 uIU/mL (0.358-3.74)
[2022-06-03 13:07] LABS: Anti-Centromere B Ab <0.2 AI (0.0-0.9); Anti-Chromatin <0.2 AI (0.0-0.9); Anti-Jo <0.2 AI (0.0-0.9); Anti-Scleroderma-70 AB <0.2 AI (0.0-0.9); RNP Ab <0.2 AI (0.0-0.9); SJOGREN'S Anti-SS-A test < 0.2 AI (0.0-0.9); SJOGREN'S Anti-SS-B test < 0.2 AI (0.0-0.9); Smith Ab <0.2 AI (0.0-0.9)
[2022-06-03 15:08] LABS: Endomysial Antibody IgA Negative (Negative)
[2022-06-03 15:09] LABS: Anti-dsDNA Ab <1 IU/mL (0-9)
[2022-06-04 09:54] LABS: Immunoglobulin A 118 mg/dL (87-352); t-Transglutaminase IgA <2 U/mL (0-3)
[2022-06-07 21:07] LABS: Albumin 3.2 g/dL (2.9-4.4); Alpha-1-Globulins 0.3 g/dL (0.0-0.4); Alpha-2-Globulins 0.8 g/dL (0.4-1.0); Cytoplasmic Ab (C-ANCA) <1:20 titer (Neg:<1:20); Gamma Globulin 0.5 g/dL (0.4-1.8); Immunoglobulin A 121 mg/dL (87-352); Immunoglobulin G 440 mg/dL (586-1602); Immunoglobulin M 50 mg/dL (26-217); PROEL- TOTAL PROTEIN 5.8 g/dL (6.0-8.5)
[2022-06-08 10:45] LABS: Immunoglobulin E 73 IU/mL (6-495); Perinuclear Ab (P-ANCA) <1:20 titer (Neg:<1:20)
== END | disposition home or self-care (01) ==
LOC: LAB 15:00
PROVIDERS: PCP Family Medicine; Referring Provider Internal Medicine Gastroenterology; Visit Provider Internal Medicine Gastroenterology
DX: E03.9 Hypothyroidism, unspecified (principal); J96.21 Acute and chronic respiratory failure with hypoxia; Z87.891 Personal history of nicotine dependence
CPT/HCPCS: 36415; 82784; 82785; 83516; 83615; 84165; 84443; 85652; 86140; 86225; 86235; 86255; 86256; 86334

== ENCOUNTER → 2022-06-16 | Outpatient (CLI) | payer MEDICARE, SELFPAY ==
--- NOTE | 2022-06-16 16:50 | MRI_ITS ---
STUDY: MR CHOLANGIOPANCREATOGRAPHY (MRCP) REASON FOR EXAM: Female, 67 years old. PAIN CBD STONES PANCREATITIS pancreatitis TECHNIQUE: Standard MRCP technique was utilized. 3-D postprocessing images were obtained. COMPARISON: CT 04/08/2021 FINDINGS: Degenerative findings in the lumbar spine. There are calcifications of the abdominal aorta. This is consistent for atherosclerotic disease. There is NO abdominal aortic aneurysm. Vascular workup can be obtained based on clinical correlation. 15 mm left adrenal nodule. 6.5mm right adrenal nodule. Gall Bladder: Normal gallbladder and extrahepatic biliary system. Cystic duct: Normal with no demonstrated fixed filling defect. Intrahepatic ducts: Normal visualized intrahepatic ducts with no demonstrated fixed filling defect, dilation or stricture. Common hepatic duct: Normal with no demonstrated fixed filling defect, dilation or stricture. Common bile duct: Normal with no demonstrated fixed filling defect, dilation or stricture. Pancreatic duct: Normal with no demonstrated fixed filling defect, dilation or stricture. MRI/MRCP Abdomen without Contrast IMPRESSION: Normal MR Cholangiopancreatography (MRCP). 15 mm left adrenal nodule. 6.5mm right adrenal nodule. ACR White Paper guidelines (Franny et al. JACR 2017; 14(8):9416-3127) suggest no follow-up is necessary. Electronically Signed: Carlos Galvan MD at 19:45 EDT ,
== END | disposition home or self-care (01) ==
PROVIDERS: PCP Family Medicine; Visit Provider Internal Medicine Gastroenterology
DX: K85.90 Acute pancreatitis without necrosis or infection, unspecified (principal); J96.21 Acute and chronic respiratory failure with hypoxia; Z87.891 Personal history of nicotine dependence
CPT/HCPCS: 74181

== ENCOUNTER → 2022-07-08 | Outpatient (CLI) | payer MEDICARE, SELFPAY ==
--- NOTE | 2022-07-08 12:33 | NM_ITS ---
CLINICAL: 67-year-old female with history of postprandial bloating and clinical symptoms of gastroparesis. SEMI-SOLID PHASE 99m Tc SULFUR COLLOID GASTRIC EMPTYING STUDY COMPARISON: None available FINDINGS: The patient was administered 1.0 mCi of 99m Tc sulfur colloid mixed with oatmeal and consumed per os. Image acquisitions in the anterior-posterior projections were obtained for 60 minutes. There is prompt visualization of the stomach. There is no gastroesophageal reflux identified. The T ? emptying was calculated to be 37.83 minutes, (Normal: 12-56 minutes). NM/Gastric Emptying Study IMPRESSION: 1. NORMAL 99m Tc sulfur colloid semi-solid phase (oatmeal) gastric emptying imaging examination. A. There is normal and preserved semi-solid phase gastric emptying compared to normal controls. (Josselin et al, J Nucl Med Tech 38: 186, 2010). Electronically Signed: Kobi Castano, at 21:12 EDT ,
== END | disposition home or self-care (01) ==
PROVIDERS: PCP Family Medicine; Referring Provider Internal Medicine Gastroenterology; Visit Provider Internal Medicine Gastroenterology
DX: K31.84 Gastroparesis (principal); J96.21 Acute and chronic respiratory failure with hypoxia; Z87.891 Personal history of nicotine dependence
CPT/HCPCS: 78264; A9541

== ENCOUNTER 2022-07-29 22:13 | Inpatient (IN) | payer MEDICARE, SELFPAY ==
[2022-07-29 22:13] VITALS: PULSE 110; RESP 46; TEMP 35.8; O2SAT 88; BMI 35.2
[2022-07-29 22:17] VITALS: BP 130/80; PULSE 101; RESP 26; O2SAT 88
[2022-07-29 22:30] VITALS: O2SAT 88
--- NOTE | 2022-07-29 22:36 | EKG12_ITS ---
Test Reason : sob Blood Pressure : / mmHG Vent. Rate : 093 BPM Atrial Rate : 093 BPM P-R Int : 136 ms QRS Dur : 074 ms QT Int : 330 ms P-R-T Axes : 057 071 078 degrees QTc Int : 410 ms Normal sinus rhythm Normal ECG Confirmed by JEROME HUFF, ALEKS ([id number]), acquisitions editor GARCIA BETANCUR ([id number]) on 08/04/2022 9:33:28 A M Referred By: Confirmed By:DEMARIO CANO MD
--- NOTE | 2022-07-29 22:39 | EDS_ITS ---
HPI History of Present Illness Chief Complaint: Shortness of Breath Narrative Narrative: 67-year-old female with history of COPD presenting with dyspnea. She states has been more short of breath for the last couple of days. She has home breathing treatments. She has trilogy at home. She states she uses this at night. She is on 4 to 5 L chronically. Patient states that she also has lower extremity edema. This is a new problem for her. She does report that she is on 10 mg of prednisone daily. She is also on Eliquis and has not missed any doses. She is not had any black or bloody stools. She reports no chest pain. She does have lower back pain. She states she has chronic compression fractures. She is given morphine for this but states she does not like this. She likes ibuprofen better. Patient also has a left olecranon bursitis which is being treated by Dr. Francois as an outpatient. She states she was on doxycycline for this and after she ran out it came back. [facility] Medical History Abnormal CT of the chest Bronchiectasis Centrilobular emphysema COPD (chronic obstructive pulmonary disease) Dyspnea History of DVT (deep vein thrombosis) Hypoxia Insomnia Periodic limb movement disorder Pulmonary nodule Spondylosis of lumbar spine Stage 3 severe COPD by GOLD classification Tobacco abuse, in remission Home Medications apixaban 5 mg tablet 5 mg PO BID blood thinner 11/12/20 [History Last Taken 04/26/22] albuterol sulfate 90 mcg/actuation aerosol inhaler (Ventolin HFA) 2 puff inhalation Q4H PRN Sob &/Or Wheezing #18 grams 09/16/21 [Rx Last Taken 04/27/22] ipratropium 0.5 mg-albuterol 3 mg (2.5 mg base)/3 mL nebulization soln 3 ml inhalation Q4H PRN Shortness of breath #180 mL 09/16/21 [Rx Last Taken 04/27/22] budesonide-formoterol HFA 160 mcg-4.5 mcg/actuation aerosol inhaler (Symbicort) 2 puff inhalation BID SOB 04/27/22 [History Last Taken 04/27/22] fluticasone propionate 50 mcg/actuation nasal spray,suspension 2 spray intranasal DAILY allergies 04/27/22 [History Last Taken Unknown] guaifenesin 1,200 mg tablet, extended release 12 hr 1,200 mg PO DAILY SOB 04/27/22 [History Last Taken 04/26/22] furosemide 20 mg tablet 20 mg PO DAILY #30 tabs 05/01/22 [Rx Last Taken Unknown] morphine concentrate 10 mg/0.5 mL oral syringe (FOR ORAL USE ONLY) 2.5 mg (0.125 mL) sublingual Q6H PRN shortness of breath 2 weeks #50 ea 05/01/22 [Rx Last Taken Unknown] prednisone 10 mg tablet 10 mg PO DAILY #99 tabs 05/01/22 [Rx Last Taken Unknown] doxycycline hyclate 100 mg tablet ea PO 06/01/22 [History Last Taken Unknown] omeprazole 40 mg capsule,delayed release ea PO 06/01/22 [History Last Taken Unknown] Allergy/AdvReac Type Severity Reaction Status Date / Time sulfamethoxazole Allergy Mild Rash Verified 07/29/22 22:19 [From Bactrim] trimethoprim [From Bactrim] Allergy Mild Rash Verified 07/29/22 22:19 Sulfa (Sulfonamide AdvReac Anaphylaxis Verified 07/29/22 22:19 Antibiotics) Family History Father Lung cancer Mother Myocardial infarction Hypertension Brother Myocardial infarction Sister Diabetes Hypertension Lung cancer Surgical History History of hernia repair History of kyphoplasty Social History household members: none housing: apartment current occupational status: retired pets and animals: No Smoking Status: Current some day smoker tobacco type: cigarettes Tobacco: How many years used: 48 second hand exposure: Yes alcohol intake: never substance use type: does not use ROS ROS ED Constitutional Constitutional ED: Denies chills or fever(s) Eyes Eyes: Denies diplopia ENT ENT ED: Denies rhinorrhea or sore throat Cardiovascular Cardiovascular: Denies chest pain Respiratory/Chest Respiratory/Chest: Reports cough, dyspnea and dyspnea on exertion Gastrointestinal Gastrointestinal: Denies abdominal pain, nausea or vomiting Genitourinary Genitourinary ED: Denies dysuria or hematuria Musculoskeletal Musculoskeletal: Reports back pain and other Details: Left elbow swelling ; Denies arthralgias Integumentary Denies abscess Neurologic Neurologic: Denies headache(s) Psychiatric Psychiatric: Denies anxiety or depression Endocrine Endocrinology: Denies cold intolerance or heat intolerance EXAM Physical Exam Const Vital Signs: 07/29/22 22:13 07/29/22 22:17 07/29/22 22:30 Temperature 96.4 F L Temperature Source Temporal Pulse Rate 110 H 101 H Respiratory Rate 46 H 26 H Respiratory Effort Short of Breath Accessory Muscle Use Respiratory Depth Deep Respiratory Pattern Tachypnea Blood Pressure 130/80 H Blood Pressure Mean 96 Pulse Ox 88 88 Oxygen Delivery Method Nasal Cannula Nasal Cannula Nasal Cannula Oxygen Flow Rate (L/min) 5 5 5 07/29/22 23:16 07/29/22 23:19 07/29/22 23:44 Temperature 98.2 F 98.2 F Temperature Source Temporal Temporal Pulse Rate 100 97 98 Respiratory Rate 20 H 20 H 18 Respiratory Effort Respiratory Depth Respiratory Pattern Blood Pressure 136/86 H 139/86 H 157/89 H Blood Pressure Mean 102 103 111 Pulse Ox 97 96 97 Oxygen Delivery Method Nasal Cannula Nasal Cannula Nasal Cannula Oxygen Flow Rate (L/min) 4 4 4 Positive obese Constitutional Narrative: Tachypneic, tachycardic. Patient speaking in short sentences. Nutritional Appearance: obese HEENT Reports dry mucous membranes atraumatic Mouth ED: Yes dry mucous membranes Mouth: dry mucous membranes Eyes PERRL General Eye ED: Negative for pale conjunctiva or scleral icterus Neck no lymphadenopathy Resp Auscultation: wheezes throughout Cardio regular rhythm Rate: tachycardic GI non-tender Extremity General Extremety ED: Yes edema; Negative for tenderness General Extremity: edema Neuro oriented x3 and CN's II-XII intact bilaterally Sensorium / Orientation: alert Psych mental status grossly normal Skin no wounds MDM MDM MDM Narrative Medical decision making narrative: Patient presenting with shortness of breath and lower extremity edema. She does report that she has compression fractures and has been sleeping in a chair. She was given Toradol for her back pain. She was wheezing on examination and she is ordered breathing treatments and Solu-Medrol 125 mg. She refused breathing treatments. Her oxygen sats were about 88% on her baseline oxygen. They changed the tubing and her oxygen sats did improve. Because of her abnormal vital signs on arrival sepsis work-up was started. CBC still shows no leukocyt osis. White blood cell count of 7.7. Hemoglobin 11.9, platelets normal 186. Coagulation studies normal. Renal function is normal as well. Slight hypokalemia with potassium of 3.3. Lactic acid within normal limits. High- sensitivity troponin is 6. EKG sinus rhythm with a ventricular rate of 93 bpm without sign of ischemic change. Chest x-ray on my interpretation shows no acute cardiopulmonary process. Radiology interpreted this and agrees. Attempted to ambulate the patient he dropped into the mid 80s with ambulation. She reports that she is normally about 94 to 95% on room air. Given this I talked to the hospitalist for admission. Impression: 1. COPD exacerbation Lab Data Labs: Laboratory Results - last 24 hr 07/29/22 07/29/22 07/29/22 22:54 22:54 22:54 WBC 7.7 RBC 4.14 L Hgb 11.9 L Hct 37.7 MCV 91.1 MCH 28.7 MCHC 31.6 L RDW Std Deviation 49.7 H RDW Coeff of Vasyl 14.8 H Plt Count 186 MPV 9.5 Immature Gran % (Auto) 1.600 H Neut % (Auto) 69.7 Lymph % (Auto) 15.4 L [place] % (Auto) 11.1 H Eos % (Auto) 1.8 Baso % (Auto) 0.4 Absolute Neuts (auto) 5.4 Absolute Lymphs (auto) 1.19 Nucleated RBC % 0 PT 12.9 INR 1.0 Sodium 139 Potassium 3.3 L Chloride 100 Carbon Dioxide 35.0 H Anion Gap 4 L BUN 7 Creatinine 0.40 L Estim Creat Clear Calc 40.63 Est GFR (MDRD) Af Amer 206 Est GFR (MDRD) Non-Af 171 BUN/Creatinine Ratio 17.7 Glucose 119 H Lactic Acid Calcium 8.9 Magnesium Troponin I High Sens 6 B-Natriuretic Peptide 07/29/22 07/29/22 07/29/22 22:54 22:54 22:54 WBC RBC Hgb Hct MCV MCH MCHC RDW Std Deviation RDW Coeff of Vasyl Plt Count MPV Immature Gran % (Auto) Neut % (Auto) Lymph % (Auto) [place] % (Auto) Eos % (Auto) Baso % (Auto) Absolute Neuts (auto) Absolute Lymphs (auto) Nucleated RBC % PT INR Sodium Potassium Chloride Carbon Dioxide Anion Gap BUN Creatinine Estim Creat Clear Calc Est GFR (MDRD) Af Amer Est GFR (MDRD) Non-Af BUN/Creatinine Ratio Glucose Lactic Acid 1.3 Calcium Magnesium 2.2 Troponin I High Sens B-Natriuretic Peptide 27.0 Discharge Plan Triage Chief Complaint: Shortness of Breath ED Provider: Dionisio Thomason Dx/Rx/DC Orders Primary Care Provider: Casey Francois
[2022-07-29] MEDS: Ketorolac 15 MG/ML Vial IV (22:50)
[2022-07-29 23:16] VITALS: BP 136/86; PULSE 100; RESP 20; TEMP 36.8; O2SAT 97
[2022-07-29 23:19] VITALS: BP 139/86; PULSE 97; RESP 20; O2SAT 96
[2022-07-29 23:20] LABS: Prothrombin Time (Protime)PT. 12.9 SECONDS (11.7-14.9)
[2022-07-29 23:33] LABS: Lactic Acid 1.3 mmol/L (0.4-1.9)
[2022-07-29 23:34] LABS: Anion Gap 4 (5-15); BUN 7 mg/dL (7-18); BUN/Creat Ratio 17.7 RATIO (10-20); Calcium,Total 8.9 mg/dL (8.5-10.1); Chloride 100 mmol/L (98-107); EST Glomerular Filtration Rate 171 mL/min (>60); Est Glom Filt Rate - Afr Amer 206 mL/min (>60); Estimated Creatinine Clearance 40.63 ml/min; Glucose 119 mg/dL (74-106); Potassium 3.3 mmol/L (3.5-5.1); Sodium Level 139 mmol/L (136-145); Troponin-I HS 6 pg/mL (3.0-54.0)
[2022-07-29 23:35] LABS: Absolute Lymphocyte Count 1.19 X10^3/uL (0.83-4.51); Absolute Neutrophil Count 5.4 X10^3/uL (2.0-7.7); Basophil# 0.03 X10^3/uL; Basophil% 0.4 % (0-1); Eosinophil# 0.14 X10^3/uL; Eosinophils% 1.8 % (0-5); Hematocrit 37.7 % (37-47); Hemoglobin 11.9 g/dL (12.0-15.0); Lymphocyte # 1.19 X10^3/ul (0.83-4.51); Lymphocyte % 15.4 % (19-41); Mean Corp Hgb Conc 31.6 g/dL (32-36); Mean Corpuscular Hgb 28.7 pg (27.0-32.0); Mean Corpuscular Volume 91.1 fL (81-99); Mean Platelet Vol. 9.5 fl (6.2-12.0); Monocyte# 0.86 X10^3/uL; Monocyte% 11.1 % (0-10); NRBC Flagged by Analyzer 0 % (0-5); Neutrophil # 5.38 X10^3/uL (2.7-7.7); Neutrophil % 69.7 % (47-70); Platelet Count 186 K/mm3 (150-450); RBC Distribution Width CV 14.8 % (11.6-14.6); RBC Distribution Width SD 49.7 fl (35.1-43.9); Red Blood Count 4.14 M/mm3 (4.2-5.4); White Blood Count 7.7 K/mm3 (4.4-11.0)
--- NOTE | 2022-07-29 23:42 | HP.PCM.HOS_ITS ---
HPI - General General Date of Admission: 07/29/22 Date of Service: 07/29/22 Chief Complaint: Dyspnea, wheezing, hypoxia. HPI Narrative The patient is a 67 y/o F w/ PMHx: Obesity, Chronic COPD w/ Chronic Hypoxic Respiratory failure (3-4L NC), Hx VTE on Eliquis, Former Tobacco use who presents to the [facility] ED on 07/29/22 with history of progressively worsening dyspnea over the last 2 to 3 days chronically on oxygen therapy with unfortunately recent back discomfort with chronic compression fractures prompting her over the last couple days to sleep upright in a chair with onset of mild lower extremity ankle edema although not markedly pitting with no specific recent cough or URI type symptoms but worsened dyspnea and wheezing above her baseline eventually prompting ED evaluation as no marked improvement with her home aerosol regimen. She also notes recent left olecranon bursitis treated by Dr. [place] outpatient with a course of doxycycline with continued mild discomfort but no marked warmth or erythema but still significant swelling. Work-up in the ED included T98.2, heart rate 110, BP 130/80, respiratory rate initially 46 noted to be 88% on 5 L nasal cannula eventually improving to 96% on 4 L however with ambulatory trial patient did drop to 87% on 4 L improving with rest, CBC with WC 7.7, hemoglobin 0.9, platelet 186 with increased immature granulocytes, unremarkable coags, BMP with potassium 3.3, carbon dioxide 35, BUN/creatinine 7/0.40, glucose 119, lactic acid 1.3, troponin 6, BNP 27, blood culture x2 pending per ED, chest x-ray with chronic changes with no acute cardiopulmonary findings. In the ED patient administered albuterol, DuoNeb therapy, Toradol 50 mg IV x1 as well as Solu-Medrol 125 mg IV x1. In the ED patient following transition to new nasal cannula reported significant improvement and initially deferred any aerosols with request for discharge to home however ambulatory oxygenation assessment was performed as discussed with patient and she dropped to 86 to 87% on her chronic 4 L therefore patient then amenable to remaining for continued evaluation and treatment. [facility] Medical History Abnormal CT of the chest Bronchiectasis Centrilobular emphysema COPD (chronic obstructive pulmonary disease) Dyspnea History of DVT (deep vein thrombosis) Hypoxia Insomnia Periodic limb movement disorder Pulmonary nodule Spondylosis of lumbar spine Stage 3 severe COPD by GOLD classification Tobacco abuse, in remission Home Medications apixaban 5 mg tablet 5 mg PO BID blood thinner 11/12/20 [History Last Taken 04/26/22] albuterol sulfate 90 mcg/actuation aerosol inhaler (Ventolin HFA) 2 puff inhalation Q4H PRN Sob &/Or Wheezing #18 grams 09/16/21 [Rx Last Taken 04/27/22] ipratropium 0.5 mg-albuterol 3 mg (2.5 mg base)/3 mL nebulization soln 3 ml inhalation Q4H PRN Shortness of breath #180 mL 09/16/21 [Rx Last Taken 04/27/22] budesonide-formoterol HFA 160 mcg-4.5 mcg/actuation aerosol inhaler (Symbicort) 2 puff inhalation BID SOB 04/27/22 [History Last Taken 04/27/22] prednisone 10 mg tablet 10 mg PO DAILY #99 tabs 05/01/22 [Rx Last Taken Unknown] morphine concentrate 10 mg/0.5 mL oral syringe (FOR ORAL USE ONLY) 2.5 mg sublingual Q4H PRN PRN shortness of breath 07/30/22 [History Last Taken Unknown] Allergy/AdvReac Type Severity Reaction Status Date / Time sulfamethoxazole Allergy Mild Rash Verified 07/29/22 22:19 [From Bactrim] trimethoprim [From Bactrim] Allergy Mild Rash Verified 07/29/22 22:19 Sulfa (Sulfonamide AdvReac Anaphylaxis Verified 07/29/22 22:19 Antibiotics) Family History Father Lung cancer Mother Myocardial infarction Hypertension Brother Myocardial infarction Sister Diabetes Hypertension Lung cancer Surgical History History of hernia repair History of kyphoplasty Social History household members: none housing: apartment current occupational status: retired pets and animals: No Smoking Status: Current some day smoker tobacco type: cigarettes Tobacco: How many years used: 48 second hand exposure: Yes alcohol intake: never substance use type: does not use ROS ROS Narrative Admission Review of Systems: CONSTITUTIONAL: No weight loss, fever, chills, + weakness or fatigue. HEENT: Eyes: No visual loss, blurred vision, double vision or yellow sclerae. Ears, Nose, Throat: No hearing loss, sneezing, congestion, runny nose or sore throat. SKIN: No rash or itching, lesions, wounds. CARDIOVASCULAR: + BL ankle edema. No chest pain, palpitations, orthopnea, syncopal events. RESPIRATORY: + shortness of breath, occasional cough without any productive sputum, wheezing, No hemoptysis. GASTROINTESTINAL: No anorexia, nausea, vomiting or diarrhea, abdominal pain, melena, BRBPR. GENITOURINARY: No dysuria, frequency, urgency or retention. NEUROLOGICAL: No headache, dizziness, syncope, paralysis, ataxia, numbness or tingling in the extremities, focal weakness, change in bowel or bladder control, seizure. MUSCULOSKELETAL: + muscle, back pain, joint pain or stiffness. HEMATOLOGIC: No anemia, bleeding or bruising. LYMPHATICS: No enlarged nodes. No history of splenectomy. PSYCHIATRIC: No history of depression or anxiety. ENDOCRINOLOGIC: No reports of sweating, cold or heat intolerance. No polyuria or polydipsia. ALLERGIES: + history of rhinitis. Vital Signs Vital Signs Vital Signs: 07/29/22 22:13 07/29/22 22:17 07/29/22 22:30 Temperature 96.4 F L Temperature Source Temporal Pulse Rate 110 H 101 H Respiratory Rate 46 H 26 H Respiratory Effort Short of Breath Accessory Muscle Use Respiratory Depth Deep Respiratory Pattern Tachypnea Blood Pressure 130/80 H Blood Pressure Mean 96 Pulse Ox 88 88 Oxygen Delivery Method Nasal Cannula Nasal Cannula Nasal Cannula Oxygen Flow Rate (L/min) 5 5 5 07/29/22 23:16 07/29/22 23:19 Temperature 98.2 F Temperature Source Temporal Pulse Rate 100 97 Respiratory Rate 20 H 20 H Respiratory Effort Respiratory Depth Respiratory Pattern Blood Pressure 136/86 H 139/86 H Blood Pressure Mean 102 103 Pulse Ox 97 96 Oxygen Delivery Method Nasal Cannula Nasal Cannula Oxygen Flow Rate (L/min) 4 4 Weight Weight: 186 lb 6.4 oz Body Mass Index (BMI) 35.2 Physical Exam Narrative Physical Examination: General: Awake, alert, oriented x 3 and cooperative, seated up in ED bed, fatigued, oxygenation is improved however with oxygenation ambulatory trial patient did drop to 87% even on her chronic home 4 L nasal cannula. Skin: Normal color, normal turgor, no icterus, no cyanosis except occasional staged ecchymoses, stasis changes to lower extremity. HEENT: AT/NC, EOMI, PERRLA, mildly dry MM, no carotid bruits or JVD noted. Lungs: Diminished, greater bases, mildly increased respiratory rate but no distress, significant expiratory wheezing throughout, tight Heart: Mildly tachycardic with regular regular rhythm; no gallop, rub audible. Abdomen: Soft, obese, NTTP, ND, distant normal BS, no HSM. Extremities: No cyanosis, clubbing, or edema, see skin. Neurological: Patient awake, alert, oriented as noted, cognitive function intact; pupils equally reactive to light and accommodation, cranial nerves II- XII grossly normal, moving all 4 extremities, no focal deficits, strength moderately global decrease secondary to acute presentation. Psychiatric: Affect appears fatigued otherwise normal, no acute evidence of depressive or anxiety feelings. Results Lab / Micro Data Result Diagrams: 07/29/22 22:54 07/29/22 22:54 Labs: Laboratory Results - last 24 hr 07/29/22 22:54: WBC 7.7, RBC 4.14 L, Hgb 11.9 L, Hct 37.7, MCV 91.1, MCH 28.7, MCHC 31.6 L, RDW Std Deviation 49.7 H, RDW Coeff of Vasyl 14.8 H, Plt Count 186, MPV 9.5, Immature Gran % (Auto) 1.600 H, Neut % (Auto) 69.7, Lymph % (Auto) 15.4 L, [place] % (Auto) 11.1 H, Eos % (Auto) 1.8, Baso % (Auto) 0.4, Absolute Neuts (auto) 5.4, Absolute Lymphs (auto) 1.19, Nucleated RBC % 0 07/29/22 22:54: PT 12.9, INR 1.0 07/29/22 22:54: Sodium 139, Potassium 3.3 L, Chloride 100, Carbon Dioxide 35.0 H , Anion Gap 4 L, BUN 7, Creatinine 0.40 L, Estim Creat Clear Calc 40.63, Est GFR (MDRD) Af Amer 206, Est GFR (MDRD) Non-Af 171, BUN/Creatinine Ratio 17.7, Glucose 119 H, Calcium 8.9, Troponin I High Sens 6 07/29/22 22:54: Lactic Acid 1.3 Assessment & Plan Assessment/Plan (1) COPD exacerbation: PLAN: Plan The patient is a 67 y/o F w/ PMHx: Obesity, Chronic COPD w/ Chronic Hypoxic Respiratory failure (3-4L NC), Hx VTE on Eliquis, Former Tobacco use who presents to the [facility] ED on 07/29/22 with history of progressively worsening dyspnea over the last 2 to 3 days chronically on oxygen therapy with unfortunately recent back discomfort with chronic compression fractures prom pting her over the last couple days to sleep upright in a chair with onset of mild lower extremity ankle edema although not markedly pitting with no specific recent cough or URI type symptoms but worsened dyspnea and wheezing above her baseline eventually prompting ED evaluation as no marked improvement with her home aerosol regimen. #1. Acute on chronic COPD exacerbation w/ acute hypoxia on chronic hypoxic respiratory failure (baseline 3 to 4 L): Will admit to [facility], maintain on oxygen with wean as tolerated to home oxygen supplementation, continue ATC duonebs, PRN albuterol, IV methylprednisolone, HOB, IS parameters, defer antibiotic therapies at this time is afebrile without marked shift and chest x-ray with no acute cardiopulmonary findings, full respiratory viral panel, COVID and sputum culture if onset productive sputum, procalcitonin also requested. Will continue patient chronic low dose morphine for dyspnea from palliative. #2. Recent compression fractures with ongoing back discomfort: Patient ministered low-dose Toradol in the ED with notable improvement, will continue wh ile closely monitoring renal function x5 doses total maximum, encourage offloading, position changes. #3. Hypokalemia: Admission K+ 3.3, magnesium level requested, supplementation given, repeat level in AM. #4. Left elbow effusion recently treated for bursitis: We will request orthopedic surgery evaluation to be cautious, still discomfort to the region although not significantly warm or red at this time but very ballotable, recently completed doxycycline course. #5.? Hx VTE: We will continue patient home chronic Eliquis regimen. #6.? Former tobacco use: Encourage continued tobacco cessation. #7.? Obesity: Weight loss and lifestyle changes encouraged. #8.? DVT prophylaxis: SCDs, will continue patient on Eliquis regimen. #9.? CODE status: Patient HCPOA is her brother Guevara and living will is currently in place. Full Code status. Charges/Coding Visit Charges OBSV E&M: 05387 Initial observation care L3
[2022-07-29 23:44] VITALS: BP 157/89; PULSE 98; RESP 18; TEMP 36.8; O2SAT 95; O2SAT 97
--- NOTE | 2022-07-29 23:49 | RAD_ITS ---
STUDY: X-RAY CHEST REASON FOR EXAM: Female, 67 years old. Dyspnea TECHNIQUE: Single AP portable view of the chest. COMPARISON: None. FINDINGS: The lungs are underexpanded. There is no demonstrated pleural abnormality. Normal size heart. Normal mediastinum and chery. Normal visualized pulmonary arteries. Normal visualized aortic arch and descending thoracic aorta. Normal visualized thoracic spine. There is degenerative osteoarthritis of the bilateral shoulders. There is no demonstrated abnormality of the visualized soft tissue structures of the upper abdomen. RAD/Chest 1 View (Portable) IMPRESSION: Degenerative changes, as described above. No demonstrated acute cardiopulmonary process. Electronically Signed: Ag Hinton MD at 0:03 EST ,
[2022-07-29] MEDS: Ipratropium/Albuterol Sulfate 3 ML AMPUL.NEB INHALATION (23:56)
[2022-07-30] VITALS (10 sets, daily range): BP systolic 137–154; BP diastolic 78–91; PULSE 85–106; RESP 18–24; TEMP 36.1–36.7; O2SAT 95–98; BMI 34.0
[2022-07-30 00:06] LABS: Magnesium 2.2 mg/dL (1.6-2.6)
[2022-07-30] MEDS: Ketorolac 15 MG/ML Vial IV ×3 (01:29→16:13)
[2022-07-30] MEDS: Potassium Chloride Oral Tablet 20 MEQ 40 MEQ PO (01:29)
[2022-07-30 04:32] LABS: Absolute Lymphocyte Count 0.26 X10^3/uL (0.83-4.51); Absolute Neutrophil Count 5.9 X10^3/uL (2.0-7.7); Basophil# 0.02 X10^3/uL; Basophil% 0.3 % (0-1); Eosinophil# 0.01 X10^3/uL; Eosinophils% 0.2 % (0-5); Hematocrit 36.6 % (37-47); Hemoglobin 11.7 g/dL (12.0-15.0); Lymphocyte # 0.26 X10^3/ul (0.83-4.51); Lymphocyte % 4.1 % (19-41); Mean Corpuscular Volume 90.6 fL (81-99); Mean Platelet Vol. 9.3 fl (6.2-12.0); Monocyte# 0.12 X10^3/uL; Monocyte% 1.9 % (0-10); NRBC Flagged by Analyzer 0 % (0-5); Neutrophil # 5.88 X10^3/uL (2.7-7.7); Neutrophil % 91.6 % (47-70); POSITIVE DIFFERENTIAL YES; Platelet Count 176 K/mm3 (150-450); RBC Distribution Width CV 14.6 % (11.6-14.6); RBC Distribution Width SD 48.3 fl (35.1-43.9); Red Blood Count 4.04 M/mm3 (4.2-5.4); White Blood Count 6.4 K/mm3 (4.4-11.0)
[2022-07-30 04:37] LABS: Differential Indicated SCAN CRITERIA MET
[2022-07-30 04:59] LABS: ALB/GLOB Ratio 0.8 RATIO (0.9-2.4); AST(SGOT) 30 U/L (15-37); Alanine Aminotransfer ALT/SGPT 60 U/L (13-56); Albumin, Serum 2.6 g/dL (3.2-5.0); Alkaline Phosphatase 259 U/L (45-117); Anion Gap 6 (5-15); BUN 6 mg/dL (7-18); BUN/Creat Ratio 14.7 RATIO (10-20); Calcium,Total 8.8 mg/dL (8.5-10.1); Chloride 99 mmol/L (98-107); Creatinine, Serum 0.41 mg/dL (0.55-1.02); EST Glomerular Filtration Rate 165 mL/min (>60); Est Glom Filt Rate - Afr Amer 199 mL/min (>60); Estimated Creatinine Clearance 40.63 ml/min; Globulin 3.1 g/dL (2.2-4.2); Glucose 160 mg/dL (74-106); Potassium 4.1 mmol/L (3.5-5.1); Protein, Total 5.7 g/dL (6.4-8.2); Sodium Level 138 mmol/L (136-145)
[2022-07-30] MEDS: 0.9% Saline Lock 10 ML Syringe IV ×5 (05:00→22:12)
[2022-07-30 05:02] LABS: Procalcitonin 0.16 ng/mL (0.00-0.09)
[2022-07-30 05:07] LABS: Differential Comment SCANNED
[2022-07-30] MEDS: Ipratropium/Albuterol Sulfate 3 ML AMPUL.NEB INHALATION ×4 (06:39→19:04)
[2022-07-30] MEDS: Fluticasone 0.05% 1 SPRAY NASAL.SRY 2 SPRAY NASAL (08:15)
[2022-07-30] MEDS: APIXABAN 5 MG TABLET PO ×2 (08:16→22:11)
[2022-07-30] MEDS: Furosemide 20 MG Tablet PO (08:16)
[2022-07-30] MEDS: guaiFENesin 1,200 MG Tablet 1200 MG PO (08:17)
[2022-07-30] MEDS: Pantoprazole Sodium 40 MG Tablet PO (08:17)
[2022-07-30 09:31] LABS: Hemoglobin A1c 6.1 % (3.8-5.6)
--- NOTE | 2022-07-30 10:46 | PCM.PN.HOSP ---
Subjective Subjective Doing well, no issues overnight. Breathing at around baseline with her 4 L nasal cannula Objective Data Objective Data Vital Signs: Vital Signs Temp Pulse Resp BP Pulse Ox O2 Del Method O2 Flow Rate 97.7 F L 88 18 154/83 H 96 Nasal Cannula 4 07/30/22 08:02 07/30/22 08:02 07/30/22 08:02 07/30/22 08:02 07/30/22 08:02 07/30/22 08:05 07/30/22 08:05 Oxygen Flow Rate (L/min) 4 Oxygen Delivery Method Nasal Cannula Weight: 182 lb 1.629 oz Body Mass Index (BMI) 34.0 Intake & Output: Intake and Output for Last 24 Hours 07/29/22 07/30/22 07/31/22 03:59 03:59 03:59 Intake Total 240 / 240 Balance 240 / 240 Lab / Micro Data Result Diagrams: 07/30/22 04:17 07/30/22 04:17 Labs: Laboratory Results - last 24 hr 07/29/22 22:54: WBC 7.7, RBC 4.14 L, Hgb 11.9 L, Hct 37.7, MCV 91.1, MCH 28.7, MCHC 31.6 L, RDW Std Deviation 49.7 H, RDW Coeff of Vasyl 14.8 H, Plt Count 186, MPV 9.5, Immature Gran % (Auto) 1.600 H, Neut % (Auto) 69.7, Lymph % (Auto) 15.4 L, [place] % (Auto) 11.1 H, Eos % (Auto) 1.8, Baso % (Auto) 0.4, Absolute Neuts (auto) 5.4, Absolute Lymphs (auto) 1.19, Nucleated RBC % 0 07/29/22 22:54: PT 12.9, INR 1.0 07/29/22 22:54: Sodium 139, Potassium 3.3 L, Chloride 100, Carbon Dioxide 35.0 H, Anion Gap 4 L, BUN 7, Creatinine 0.40 L, Estim Creat Clear Calc 40.63, Est GFR (MDRD) Af Amer 206, Est GFR (MDRD) Non-Af 171, BUN/Creatinine Ratio 17.7, Glucose 119 H, Calcium 8.9, Troponin I High Sens 6 07/29/22 22:54: Lactic Acid 1.3 07/29/22 22:54: B-Natriuretic Peptide 27.0 07/29/22 22:54: Magnesium 2.2 07/30/22 01:03: COVID-19 (LILLIANA) Not Detected 07/30/22 04:17: Procalcitonin 0.16 H 07/30/22 04:17: WBC 6.4, RBC 4.04 L, Hgb 11.7 L, Hct 36.6 L, MCV 90.6, MCH 29.0, MCHC 32.0, RDW Std Deviation 48.3 H, RDW Coeff of Vasyl 14.6, Plt Count 176, MPV 9.3, Immature Gran % (Auto) 1.900 H, Neut % (Auto) 91.6 H, Lymph % (Auto) 4.1 L, [place] % (Auto) 1.9, Eos % (Auto) 0.2, Baso % (Auto) 0.3, Absolute Neuts (auto) 5.9, Absolute Lymphs (auto) 0.26 L, Nucleated RBC % 0, Differential Comment SCANNED 07/30/22 04:17: Sodium 138, Potassium 4.1, Chloride 99, Carbon Dioxide 33.0 H, Anion Gap 6, BUN 6 L, Creatinine 0.41 L, Estim Creat Clear Calc 40.63, Est GFR (MDRD) Af Amer 199, Est GFR (MDRD) Non-Af 165, BUN/Creatinine Ratio 14.7, Glucose 160 H, Calcium 8.8, Total Bilirubin 0.40, AST 30, ALT 60 H, Alkaline Phosphatase 259 H, Total Protein 5.7 L, Albumin 2.6 L, Globulin 3.1, Albumin/Globulin Ratio 0.8 L 07/30/22 04:17: Hemoglobin A1c 6.1 H Micro: Microbiology 07/30/22 01:03 Mucosa - Nasopharyngeal Respiratory Panel (PCR) - Final Radiography Diagnostic Testing: Radiology Impression Chest X-Ray 07/29/22 23:49 IMPRESSION: Degenerative changes, as described above. No demonstrated acute cardiopulmonary process. Electronically Signed: Ag Hinton MD at 0:03 EST , Physical Exam Narrative General: Alert, Oriented x3, Cooperative, No apparent distress HEENT: Atraumatic, PERRLA, EOMI, Normocephalic Oral: Moist Mucosa Neck: Supple, No JVD Lungs: Diminished, Normal air movement, rhonchi, wheeze, No rales Cardiovascular: Regular rate, Regular Rhythm, Normal S1, Normal S2, No murmurs Abdomen: Soft, Non Tender, Non-Distended, No Hepato-splenomegaly Extremities: Bilateral pitting edema, Capillary Refill Less than 3 Seconds Skin: No rashes, No breakdown Musculoskeletal: No Tenderness to Palpation of Joints or Extremities, she does have fluid likely bursitis in her left elbow was on cyclin which she completed a few Neurological: Cranial nerves II-XII grossly intact, Motor Exam 5/5 strength throughout, Sensory exam intact to light touch and pain Psych/Mental Status: Normal Affect, Appropriate Assessment & Plan Assessment/Plan (1) COPD exacerbation: PLAN: Plan 1. Acute on chronic hypoxic respiratory failure secondary to COPD exacerbation ? Her baseline oxygen requirements around 3 to 4 L she was feeling more short of breath but also presented for significant lower extremity edema ? Continue with steroid dosing, she states that she does see pulmonology as an outpatient and they placed her on 10 mg daily ? She did have an echo in April that was negative for any signs of heart failure ? Fluid accumulation could be secondary to her chronic prednisone therapy ? Continue with Lasix 20 mg daily Will monitor renal function and output 2. Left elbow bursitis ? Consult orthopedic surgery for evaluation ? She states that it was drained as an outpatient and that she was placed on doxycycline but does not currently appear infected at this time but do appreciate their input 3. History of VTE ? Continue with her home Eliquis DVT: Eliquis Charges/Coding Visit Charges OBSV E&M: 09622 Subsequent observation care L2
--- NOTE | 2022-07-30 11:05 | RAD_ITS ---
STUDY: X-RAY - LEFT ELBOW REASON FOR EXAM: Female, 67 years old. Swelling TECHNIQUE: 3 view(s) of the elbow. COMPARISON: None. FINDINGS: Normal visualized humerus, radius and ulna. Normal radiocapitellar and ulnotrochlear articulations. There is a 4.6 cm x 6 cm soft tissue mass overlying the olecranon process of the proximal ulna. Diffuse soft tissue swelling. RAD/Elbow min 3 Views IMPRESSION: 4.6 cm x 6 cm soft tissue mass overlying the olecranon process of the proximal ulna. Diffuse soft tissue swelling. Electronically Signed: Jamie Colvin MD at 12:24 EST ,
--- NOTE | 2022-07-30 13:14 | CONS.ORTHO ---
HPI Consult Data Date of Consult: 07/30/22 HPI Narrative Reason for Consultation: left elbow swelling HPI Narrative: OXANA CHIANG, is a 67 F who presents left elbow swelling of 2 to 3 weeks duration. She does state that at one point there was some drainage out of this 2 or 3 weeks ago. The history according to the patient is that this happened spontaneously however other history given to me was that there was a aspiration and injection performed as well as the patient being placed on outpatient oral antibiotics doxycycline. The patient is not having any constitutional symptoms and no further drainage no pain about the elbow full range of motion and able to use the elbow fully with some swelling there that is constant over the last week. [facility] Medical History (Updated 07/30/22 @ 13:17 by Luis Dela Cruz MD) Abnormal CT of the chest Bronchiectasis Centrilobular emphysema COPD (chronic obstructive pulmonary disease) Dyspnea History of DVT (deep vein thrombosis) Hypoxia Insomnia Olecranon bursitis, left elbow Periodic limb movement disorder Pulmonary nodule Spondylosis of lumbar spine Stage 3 severe COPD by GOLD classification Tobacco abuse, in remission Home Medications apixaban 5 mg tablet (Eliquis) 5 mg PO BID blood thinner 11/12/20 [History Last Taken 04/26/22] albuterol sulfate 90 mcg/actuation aerosol inhaler (Ventolin HFA) 2 puff inhalation Q4H PRN Sob &/Or Wheezing #18 grams 09/16/21 [Rx Last Taken 04/27/22] ipratropium 0.5 mg-albuterol 3 mg (2.5 mg base)/3 mL nebulization soln 3 ml inhalation Q4H PRN Shortness of breath #180 mL 09/16/21 [Rx Last Taken 04/27/22] budesonide-formoterol HFA 160 mcg-4.5 mcg/actuation aerosol inhaler (Symbicort) 2 puff inhalation BID SOB 04/27/22 [History Last Taken 04/27/22] prednisone 10 mg tablet 10 mg PO DAILY #99 tabs 05/01/22 [Rx Last Taken Unknown] morphine concentrate 10 mg/0.5 mL oral syringe (FOR ORAL USE ONLY) 2.5 mg sublingual Q4H PRN PRN shortness of breath 07/30/22 [History Last Taken Unknown] Allergy/AdvReac Type Severity Reaction Status Date / Time sulfamethoxazole Allergy Mild Rash Verified 07/29/22 22:19 [From Bactrim] trimethoprim [From Bactrim] Allergy Mild Rash Verified 07/29/22 22:19 Sulfa (Sulfonamide AdvReac Anaphylaxis Verified 07/29/22 22:19 Antibiotics) Family History Father Lung cancer Mother Myocardial infarction Hypertension Brother Myocardial infarction Sister Diabetes Hypertension Lung cancer Surgical History History of hernia repair History of kyphoplasty Social History household members: none housing: apartment current occupational status: retired pets and animals: No Smoking Status: Current some day smoker tobacco type: cigarettes Tobacco: How many years used: 48 second hand exposure: Yes alcohol intake: never substance use type: does not use Vital Signs Vital Signs Vital Signs: 07/29/22 22:13 07/29/22 22:17 07/29/22 22:30 Temperature 96.4 F L Temperature Source Temporal Pulse Rate 110 H 101 H Respiratory Rate 46 H 26 H Respiratory Effort Short of Breath Accessory Muscle Use Respiratory Depth Deep Respiratory Pattern Tachypnea Blood Pressure 130/80 H Blood Pressure Mean 96 Blood Pressure Source Blood Pressure Position Blood Pressure Location Pulse Ox 88 88 Oxygen Delivery Method Nasal Cannula Nasal Cannula Nasal Cannula Oxygen Flow Rate (L/min) 5 5 5 07/29/22 23:16 07/29/22 23:19 07/29/22 23:44 Temperature 98.2 F 98.2 F Temperature Source Temporal Temporal Pulse Rate 100 97 98 Respiratory Rate 20 H 20 H 18 Respiratory Effort Respiratory Depth Respiratory Pattern Blood Pressure 136/86 H 139/86 H 157/89 H Blood Pressure Mean 102 103 111 Blood Pressure Source Blood Pressure Position Blood Pressure Location Pulse Ox 97 96 97 Oxygen Delivery Method Nasal Cannula Nasal Cannula Nasal Cannula Oxygen Flow Rate (L/min) 4 4 4 07/30/22 01:19 07/30/22 01:28 07/30/22 01:20 Temperature 97.9 F Temperature Source Oral Pulse Rate 90 Respiratory Rate 18 Respiratory Effort Normal Non-Labored Respiratory Depth Normal Respiratory Pattern Normal Blood Pressure 145/78 H Blood Pressure Mean 100 Blood Pressure Source Monitor Blood Pressure Position Semi-Fowlers Blood Pressure Location Right Arm Pulse Ox 95 96 Oxygen Delivery Method Nasal Cannula Nasal Cannula Nasal Cannula Oxygen Flow Rate (L/min) 4 4 4 07/30/22 04:48 07/30/22 08:02 07/30/22 08:05 Temperature 97.0 F L 97.7 F L Temperature Source Oral Oral Pulse Rate 93 88 Respiratory Rate 18 18 Respiratory Effort Normal Non-Labored Respiratory Depth Respiratory Pattern Blood Pressure 150/89 H 154/83 H Blood Pressure Mean 109 106 Blood Pressure Source Monitor Monitor Blood Pressure Position Semi-Fowlers Semi-Fowlers Blood Pressure Location Right Arm Right Arm Pulse Ox 96 96 Oxygen Delivery Method Nasal Cannula Nasal Cannula Nasal Cannula Oxygen Flow Rate (L/min) 4 4 07/30/22 06:39 07/30/22 06:39 07/30/22 11:12 Temperature Temperature Source Pulse Rate 96 88 Respiratory Rate 20 H 20 H Respiratory Effort Respiratory Depth Respiratory Pattern Normal Normal Blood Pressure Blood Pressure Mean Blood Pressure Source Blood Pressure Position Blood Pressure Location Pulse Ox 98 Oxygen Delivery Method Nasal Cannula Oxygen Flow Rate (L/min) 4 Weight Weight: 182 lb 1.629 oz Body Mass Index (BMI) 34.0 Physical Exam Const alert, oriented x3 and no apparent distress Extremity Extremity Narrative: Left upper extremity closed and neurovascularly intact. Good radial pulse. Full range of motion 0 to 135 degrees of flexion full pronation and supination. No pain with motion. There is a moderate swelling about the posterior aspect of the elbow that feels like fluid consistent with olecranon bursitis. There is mild redness and some skin sloughing distal to the olecranon tip but no warmth and no drainage however it does appear that at some point there is a small needle poke that is closed up at the lateral side of the olecranon tip. Lab / Micro Data Result Diagrams: 07/30/22 04:17 07/30/22 04:17 Labs: Laboratory Results - last 24 hr 07/29/22 22:54: WBC 7.7, RBC 4.14 L, Hgb 11.9 L, Hct 37.7, MCV 91.1, MCH 28.7, MCHC 31.6 L, RDW Std Deviation 49.7 H, RDW Coeff of Vasyl 14.8 H, Plt Count 186, MPV 9.5, Immature Gran % (Auto) 1.600 H, Neut % (Auto) 69.7, Lymph % (Auto) 15.4 L, [place] % (Auto) 11.1 H, Eos % (Auto) 1.8, Baso % (Auto) 0.4, Absolute Neuts (auto) 5.4, Absolute Lymphs (auto) 1.19, Nucleated RBC % 0 07/29/22 22:54: PT 12.9, INR 1.0 07/29/22 22:54: Sodium 139, Potassium 3.3 L, Chloride 100, Carbon Dioxide 35.0 H, Anion Gap 4 L, BUN 7, Creatinine 0.40 L, Estim Creat Clear Calc 40.63, Est GFR (MDRD) Af Amer 206, Est GFR (MDRD) Non-Af 171, BUN/Creatinine Ratio 17.7, Glucose 119 H, Calcium 8.9, Troponin I High Sens 6 07/29/22 22:54: Lactic Acid 1.3 07/29/22 22:54: B-Natriuretic Peptide 27.0 07/29/22 22:54: Magnesium 2.2 07/30/22 01:03: COVID-19 (LILLIANA) Not Detected 07/30/22 04:17: Procalcitonin 0.16 H 07/30/22 04:17: WBC 6.4, RBC 4.04 L, Hgb 11.7 L, Hct 36.6 L, MCV 90.6, MCH 29.0, MCHC 32.0, RDW Std Deviation 48.3 H, RDW Coeff of Vasyl 14.6, Plt Count 176, MPV 9.3, Immature Gran % (Auto) 1.900 H, Neut % (Auto) 91.6 H, Lymph % (Auto) 4.1 L, [place] % (Auto) 1.9, Eos % (Auto) 0.2, Baso % (Auto) 0.3, Absolute Neuts (auto) 5.9, Absolute Lymphs (auto) 0.26 L, Nucleated RBC % 0, Differential Comment SCANNED 07/30/22 04:17: Sodium 138, Potassium 4.1, Chloride 99, Carbon Dioxide 33.0 H, Anion Gap 6, BUN 6 L, Creatinine 0.41 L, Estim Creat Clear Calc 40.63, Est GFR (MDRD) Af Amer 199, Est GFR (MDRD) Non-Af 165, BUN/Creatinine Ratio 14.7, Glucose 160 H, Calcium 8.8, Total Bilirubin 0.40, AST 30, ALT 60 H, Alkaline Phosphatase 259 H, Total Protein 5.7 L, Albumin 2.6 L, Globulin 3.1, Albumin/Globulin Ratio 0.8 L 07/30/22 04:17: Hemoglobin A1c 6.1 H Micro: Microbiology 07/30/22 01:03 Mucosa - Nasopharyngeal Respiratory Panel (PCR) - Final Radiology Impression Chest X-Ray 07/29/22 23:49 IMPRESSION: Degenerative changes, as described above. No demonstrated acute cardiopulmonary process. Electronically Signed: Ag Hinton MD at 0:03 EST , Elbow X-Ray 07/30/22 11:05 IMPRESSION: 4.6 cm x 6 cm soft tissue mass overlying the olecranon process of the proximal ulna. Diffuse soft tissue swelling. Electronically Signed: Jamie Colvin MD at 12:24 EST , Agree with the x-ray report. Assessment & Plan Assessment/Plan (1) Olecranon bursitis, left elbow: PLAN: 67-year-old female with left elbow swelling this appears to be olecranon bursitis. Could have had a concomitant cellulitis or septic bursitis at 1 point, but now this appears to be mostly resolved very low concern for an infection process here at this point although the swelling remains. The options here would be to do nothing anti-inflammatories ice gentle range of motion compression as well as aspiration of the fluid or formal irrigation and debridement surgically however I think this is at this point not a septic process and I think the risks associated with going ahead with either aspiration or surgical debridement would outweigh the risks at this point of watchful waiting continuing to treat this nonoperatively as well as considering outpatient aspiration and potential cortisone injection in the office which would be a upholstery cleaner environment when the patient is stable and discharged from the hospital I think that would be the more appropriate course of action for now. I will sign off on the patient for now however if there is any acute change please do not hesitate to reconsult me for any further increasing redness swelling drainage discharge or any other concerns.
[2022-07-30] MEDS: morphine (oral solution) 10MG/0.5ML Syringe 2.5 MG SL ×2 (15:19→22:10)
--- NOTE | 2022-07-30 15:56 | CASEMGMT ---
Addendum entered by Shon Cook 07/31/22 11:04: Pt states she has a pulse ox @ home. Original Note: DANIEL DOBBS assessment: Face to Face with patient for initial transition planning/care coordination assessment. DANIEL DOBBS introduced self and role at [facility], pt voices understanding and consents to assessment. Pt is sitting up in bed in some distress on 4L nc. Pt is A/Ox4 and answers all questions appropriately.? Care providers, pharmacy,?and demographics verified. ? Presentation: Pt c/o increased SOB and edema, on home O2 Admitting dx: COPD exac, hypoxia PCP: Priscila Specialists: Quentin pulcassidy; Friend, GI; Basali, PM [facility]erred [facility]acy: [facility] Insurance: [employer] Prescription Benefit:?MMOMCR Living Will/HPOA: Pt does not have LW/HPOA and declines AD info. LNOK: Kedar Moreira, son; Franki Membreno, son-in-law Living Arrangements: Pt lives alone in 1 story apt and states no concerns at home. Pt is independent with ADL's. Transportation: Pt drives self and states no transportation concerns. DME/HHC: Pt has the following DME: rollator, grab bars, shower chair, transport chair, nebulizer, trilogy, and 3L at rest, 6L w/ exertion home oxygen thru [employer]. Pt states no need for any further DME. Pt states no hx of HHC or SNF. Pt is active with [facility] but states concerns with them and states was with [facility] in past and would like to switch back to them at this time. Call to [facility] and referral given via phone after consent from pt. Pt aware that they will notify her in 3-5 days if they take her current insurance and if they can accept her. Pt states will then notify [facility]. Pt states no concerns with going home at time of discharge. Pt is retired. Pt states still smokes occasionally and does not drink ETOH. Pt voices no further concerns/needs. CM to follow for any further discharge planning/needs. Advised pt to ask for CM if any further questions/concerns/needs arise, voices understanding. Pt Goal: Home ? Plan: Home w/ palliative [place] [facility]ANIEL DOBBS
[2022-07-31 00:27] VITALS: BP 159/90; PULSE 95; RESP 18; TEMP 36.2; O2SAT 96
[2022-07-31] MEDS: Ketorolac 15 MG/ML Vial IV (00:29)
[2022-07-31] MEDS: 0.9% Saline Lock 10 ML Syringe IV ×3 (00:30→08:17)
[2022-07-31 05:12] VITALS: BP 146/95; PULSE 92; RESP 18; TEMP 36.1; O2SAT 98
[2022-07-31] MEDS: morphine (oral solution) 10MG/0.5ML Syringe 2.5 MG SL ×2 (05:23→11:42)
[2022-07-31 06:58] VITALS: PULSE 100; RESP 20; O2SAT 97
[2022-07-31] MEDS: Ipratropium/Albuterol Sulfate 3 ML AMPUL.NEB INHALATION ×2 (06:58→11:06)
--- NOTE | 2022-07-31 07:00 | NURSING ---
Documentation reviewed with Gina SANCHEZ
[2022-07-31 07:11] LABS: Anion Gap 4 (5-15); BUN 17 mg/dL (7-18); BUN/Creat Ratio 37.1 RATIO (10-20); Calcium,Total 8.9 mg/dL (8.5-10.1); Chloride 99 mmol/L (98-107); Creatinine, Serum 0.46 mg/dL (0.55-1.02); EST Glomerular Filtration Rate 144 mL/min (>60); Est Glom Filt Rate - Afr Amer 174 mL/min (>60); Estimated Creatinine Clearance 40.63 ml/min; Glucose 147 mg/dL (74-106); Potassium 4.3 mmol/L (3.5-5.1); Sodium Level 137 mmol/L (136-145)
[2022-07-31] MEDS: guaiFENesin 1,200 MG Tablet 1200 MG PO (08:17)
[2022-07-31] MEDS: Fluticasone 0.05% 1 SPRAY NASAL.SRY 2 SPRAY NASAL (08:17)
[2022-07-31] MEDS: APIXABAN 5 MG TABLET PO (08:17)
[2022-07-31] MEDS: Furosemide 20 MG Tablet PO (08:17)
[2022-07-31] MEDS: Pantoprazole Sodium 40 MG Tablet PO (08:17)
--- NOTE | 2022-07-31 10:01 | DCINST_ITS ---
Discharge Instructions Diet Discharge Diet: No restrictions Activity Discharge Activity: Return to Normal Activity Dressing / Incision Call your doctor if you observe: Fever of 101 or Higher, Shortness of breath, Dizziness, Fainting spells, Swelling in the ankles, Chest pain and Increased palpitations (irregular heartbeat) Follow Up Care Test Results: Test results from this visit will be discussed in further detail at your follow- up appointment, if applicable. Discharge Plan Admission Admit Date/Time: 07/30/22 11:17 Attending Provider: Boston Winters Primary Care Provider: Casey Francois Consulting Providers: Luis Dela Cruz ; Nilsa Davis Instructions Additional Instructions / Restrictions: Follow-up with your PCP in 3 to 5 days to monitor your kidney functions and she will be started on Lasix which is a diuretic and can affect your kidneys. Discharge Orders/Prescriptions Prescriptions: New furosemide 20 mg Tablet 20 mg PO DAILY Qty: 30 0RF morphine concentrate 10 mg/0.5 mL Syringe 2.5 mg sublingual Q6H PRN (Reason: shortness of breath) Qty: 0 0RF prednisone 20 mg tablet 40 mg PO DAILY Qty: 17 0RF Rx Instructions: 2 tablets for 5 days then 1 tablet for 5 days then half tablet for 4 days levofloxacin 750 mg tablet 750 mg PO Q48H Qty: 5 0RF Rx Instructions: Start 07/31/2022 Continued albuterol sulfate [Ventolin HFA] 90 mcg/actuation HFA aerosol inhaler 2 puff INHALATION Q4H PRN (Reason: Sob &/Or Wheezing) Qty: 18 6RF Rx Instructions: then switched to aerosol ipratropium-albuterol 0.5 mg-3 mg(2.5 mg base)/3 mL solution for nebulization 3 ml INHALATION Q4H PRN (Reason: Shortness of breath) Qty: 180 11RF Eliquis 5 MG tablet 5 mg PO BID budesonide-formoterol [Symbicort] 160-4.5 mcg/actuation HFA aerosol inhaler 2 puff inhalation BID Rx Instructions: administer with spacer, rinse mouth after each use prednisone 10 mg tablet 10 mg PO DAILY Qty: 99 0RF Rx Instructions: 6 tablets x 4 days, 5 tablets x 5 days, 4 tablets x 5 days, 3 tablets x 5 days, 2 tablets x 5 days, 1 tablet x 5 days morphine concentrate 10 mg/0.5 mL syringe 2.5 mg sublingual Q4H PRN PRN (Reason: shortness of breath) Referrals / Follow Up: Casey Francois MD [Primary Care Provider] - Within 1 Week Luis Dela Cruz MD [Med Staff - Active Staff] - Within 3 Months Disposition Disposition (needs filled in before D/C Order can be placed): Home, Self Care
--- NOTE | 2022-07-31 10:13 | PCM.DC.SUM ---
Providers Date of Admission: 07/30/22 Primary Care Physician: Dr. Casey Francois MD Consultations 07/30/22 00:59 Consult: Orthopedics Routine Consulting Provider: Luis Dela Cruz Reason for Consult: Left elbow effusion, recent doxy course EMERGENT Consult: No MD Notified: Yes Date Notified: 07/29/22 Time Notified: 23:49 Method of Notification: Text Reason For Visit: COPD EXACERBATION, HYPOXIA Diagnosis Discharge Diagnosis (1) Olecranon bursitis, left elbow: Status: Acute Code(s): M70.22 - Olecranon bursitis, left elbow Plan 1. Acute on chronic hypoxic respiratory failure secondary to COPD exacerbation ? Her baseline oxygen requirements around 3 to 4 L she was feeling more short of breath but also presented for significant lower extremity edema ? Continue with steroid dosing, she states that she does see pulmonology as an outpatient and they placed her on 10 mg daily ? She did have an echo in April that was negative for any signs of heart failure ? Fluid accumulation could be secondary to her chronic prednisone therapy ? Continue with Lasix 20 mg daily Will monitor renal function and output 2. Left elbow bursitis ? Consult orthopedic surgery for evaluation ? She states that it was drained as an outpatient and that she was placed on doxycycline but does not currently appear infected at this time but do appreciate their input 3. History of VTE ? Continue with her home Eliquis DVT: Eliquis Medications at Discharge Home Medications apixaban 5 mg tablet (Eliquis) 5 mg PO BID blood thinner 11/12/20 albuterol sulfate 90 mcg/actuation aerosol inhaler (Ventolin HFA) 2 puff inhalation Q4H PRN Sob &/Or Wheezing #18 grams 09/16/21 ipratropium 0.5 mg-albuterol 3 mg (2.5 mg base)/3 mL nebulization soln 3 ml inhalation Q4H PRN Shortness of breath #180 mL 09/16/21 budesonide-formoterol HFA 160 mcg-4.5 mcg/actuation aerosol inhaler (Symbicort) 2 puff inhalation BID SOB 04/27/22 prednisone 10 mg tablet 10 mg PO DAILY #99 tabs 05/01/22 morphine concentrate 10 mg/0.5 mL oral syringe (FOR ORAL USE ONLY) 2.5 mg sublingual Q4H PRN PRN shortness of breath 07/30/22 furosemide 20 mg tablet 20 mg PO DAILY #30 tabs 07/31/22 levofloxacin 750 mg tablet 750 mg PO Q48H #5 tabs 07/31/22 morphine concentrate 10 mg/0.5 mL oral syringe (FOR ORAL USE ONLY) 2.5 mg (0.125 mL) sublingual Q6H PRN shortness of breath #0 ea 07/31/22 prednisone 20 mg tablet 40 mg PO DAILY #17 tabs 07/31/22 Hospital Course Operations None Procedures None Summary of Care Provided Minutes Spent on Discharge: 45 Hospital Course: Per HPI: The patient is a 67 y/o F w/ PMHx: Obesity, Chronic COPD w/ Chronic Hypoxic Respiratory failure (3-4L NC), Hx VTE on Eliquis, Former Tobacco use who presents to the [facility] ED on 07/29/22 with history of progressively worsening dyspnea over the last 2 to 3 days chronically on oxygen therapy with unfortunately recent back discomfort with chronic compression fractures prompting her over the last couple days to sleep upright in a chair with onset of mild lower extremity ankle edema although not markedly pitting with no specific recent cough or URI type symptoms but worsened dyspnea and wheezing above her baseline eventually prompting ED evaluation as no marked improvement with her home aerosol regimen.? She also notes recent left olecranon bursitis treated by Dr. [place] outpatient with a course of doxycycline with continued mild discomfort but no marked warmth or erythema but still significant swelling. Work-up in the ED included T98.2, heart rate 110, BP 130/80, respiratory rate initially 46 noted to be 88% on 5 L nasal cannula eventually improving to 96% on 4 L however with ambulatory trial patient did drop to 87% on 4 L improving with rest, CBC with WC 7.7, hemoglobin 0.9, platelet 186 with increased immature granulocytes, unremarkable coags, BMP with potassium 3.3, carbon dioxide 35, BUN/creatinine 7/0.40, glucose 119, lactic acid 1.3, troponin 6, BNP 27, blood culture x2 pending per ED, chest x-ray with chronic changes with no acute cardiopulmonary findings.? In the ED patient administered albuterol, DuoNeb therapy, Toradol 50 mg IV x1 as well as Solu-Medrol 125 mg IV x1.? In the ED patient following transition to new nasal cannula reported significant improvement and initially deferred any aerosols with request for discharge to home however ambulatory oxygenation assessment was performed as discussed with patient and she dropped to 86 to 87% on her chronic 4 L therefore patient then amenable to remaining for continued evaluation and treatment. Hospital Course: 1. Acute on chronic hypoxic respiratory failure secondary to COPD exacerbation?67-year-old female presented to the hospital hypoxic on her normal oxygen requirements. However she is now back to baseline with steroids as well as Lasix. She was having some lower extremity edema as well but she does not have any signs of heart failure. She does take steroids fairly frequently so it is possible if she is just having fluid retention from the steroids given the severity of her COPD exacerbations. Of note her sputum culture is growing gram-negative rods so we will plan to discharge her on Levaquin every other day for 5 doses. She can take her first dose today after discharge. We will also place her on a slow prednisone taper for 2 weeks. 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 We will also give her Lasix 20 mg p.o. daily for the edema, I do recommend that she follow-up with her PCP to obtain a BMP to monitor her renal function. I discussed with her the plan for discharge today and she expressed understanding of the risk and benefits of going home and she would like to go home today. 2. Left elbow bursitis?it does appear that she had this drained and treated with doxycycline, no signs of infection currently appreciate orthopedic surgery's evaluation and they recommended outpatient follow-up with them. Physical Exam Narrative General: Alert, Oriented x3, Cooperative, No apparent distress HEENT: Atraumatic, PERRLA, EOMI, Normocephalic Oral: Moist Mucosa Neck: Supple, No JVD Lungs: Diminished, Normal air movement, no rhonchi, wheeze, No rales Cardiovascular: Regular rate, Regular Rhythm, Normal S1, Normal S2, No murmurs Abdomen: Soft, Non Tender, Non-Distended, No Hepato-splenomegaly Extremities: Bilateral pitting edema, Capillary Refill Less than 3 Seconds Skin: No rashes, No breakdown Musculoskeletal: No Tenderness to Palpation of Joints or Extremities, she does have fluid likely bursitis in her left elbow was on cyclin which she completed a few Neurological: Cranial nerves II-XII grossly intact, Motor Exam 5/5 strength throughout, Sensory exam intact to light touch and pain Psych/Mental Status: Normal Affect, Appropriate Weight / BMI Weight Weight: 188 lb 14.978 oz Body Mass Index (BMI) 34.0 ABG / Lab / Microbiology Data Result Diagrams: 07/30/22 04:17 07/31/22 06:20 Laboratory: Laboratory Results - last 24 hr 07/31/22 06:20: Sodium 137, Potassium 4.3, Chloride 99, Carbon Dioxide 34.0 H, Anion Gap 4 L, BUN 17, Creatinine 0.46 L, Estim Creat Clear Calc 40.63, Est GFR (MDRD) Af Amer 174, Est GFR (MDRD) Non-Af 144, BUN/Creatinine Ratio 37.1 H, Glucose 147 H, Calcium 8.9 Microbiology: Microbiology 07/30/22 15:25 Sputum, Expectorated/Coughed Gram Stain - Final 07/30/22 15:25 Sputum, Expectorated/Coughed Respiratory Culture - Preliminary Gram negative nicol 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 Diffuse soft tissue swelling. Electronically Signed: Jamie Colvin MD at 12:24 EST Reading Location ID and State: [address] [place] [address] , Service support , D/C Instructions Discharge Diet: No restrictions Call your doctor if you observe: Fever of 101 or Higher, Shortness of breath, Dizziness, Fainting spells, Swelling in the ankles, Chest pain and Increased palpitations (irregular heartbeat) Meaningful Use Info Meaningful Use Diagnoses (Choose all that apply): None applicable Discharge Plan Admission Admit Date/Time: 07/30/22 11:17 Attending Provider: Boston Winters Primary Care Provider: Casey Francois Consulting Providers: Luis Dela Cruz ; Nilsa Davis Instructions Additional Instructions / Restrictions: Follow-up with your PCP in 3 to 5 days to monitor your kidney functions and she will be started on Lasix which is a diuretic and can affect your kidneys. Discharge Orders/Prescriptions Prescriptions: New furosemide 20 mg Tablet 20 mg PO DAILY Qty: 30 0RF morphine concentrate 10 mg/0.5 mL Syringe 2.5 mg sublingual Q6H PRN (Reason: shortness of breath) Qty: 0 0RF prednisone 20 mg tablet 40 mg PO DAILY Qty: 17 0RF Rx Instructions: 2 tablets for 5 days then 1 tablet for 5 days then half tablet for 4 days levofloxacin 750 mg tablet 750 mg PO Q48H Qty: 5 0RF Rx Instructions: Start 07/31/2022 Continued albuterol sulfate [Ventolin HFA] 90 mcg/actuation HFA aerosol inhaler 2 puff INHALATION Q4H PRN (Reason: Sob &/Or Wheezing) Qty: 18 6RF Rx Instructions: then switched to aerosol ipratropium-albuterol 0.5 mg-3 mg(2.5 mg base)/3 mL solution for nebulization 3 ml INHALATION Q4H PRN (Reason: Shortness of breath) Qty: 180 11RF Eliquis 5 MG tablet 5 mg PO BID budesonide-formoterol [Symbicort] 160-4.5 mcg/actuation HFA aerosol inhaler 2 puff inhalation BID Rx Instructions: administer with spacer, rinse mouth after each use prednisone 10 mg tablet 10 mg PO DAILY Qty: 99 0RF Rx Instructions: 6 tablets x 4 days, 5 tablets x 5 days, 4 tablets x 5 days, 3 tablets x 5 days, 2 tablets x 5 days, 1 tablet x 5 days morphine concentrate 10 mg/0.5 mL syringe 2.5 mg sublingual Q4H PRN PRN (Reason: shortness of breath) Referrals / Follow Up: Casey Francois MD [Primary Care Provider] - Within 1 Week Luis Dela Cruz MD [Med Staff - Active Staff] - Within 3 Months Disposition Disposition (needs filled in before D/C Order can be placed): Home, Self Care Charges/Coding Visit Charges Inpatient E&M: [id number] [facility]
[2022-07-31 10:33] VITALS: O2SAT 92; O2SAT 96
[2022-07-31 10:41] VITALS: BP 156/97; PULSE 109; RESP 20; TEMP 36.7; O2SAT 95
--- NOTE | 2022-07-31 10:46 | CASEMGMT ---
DANIEL DOBBS NOTE: Pt being discharged home. Per DANIEL Larson, home O2 testing has been completed and pt does not qualify for increase in O2 per prior Home O2 orders of 3 l/m @ rest and 6 l/m w/exertion. DANIEL DOBBS to room. Introduced self and role. Pt states her son-in-law will be bringing in her [employer] to go home on. She denies need for HHC or other discharge planning needs. Dustin BARONEN DANIEL CM
[2022-07-31 11:06] VITALS: PULSE 89; RESP 20
== END 2022-07-31 12:22 | disposition home or self-care (01) | DRG 191 ==
LOC: ED 07-30 00:05 → PCU 07-30 00:09
PROVIDERS: Admitting Provider Family Medicine; Emergency Provider Student in an Organized Health Care Education/Training Program; PCP Family Medicine; Visit Provider Family Medicine
DX: J44.1 Chronic obstructive pulmonary disease with (acute) exacerbation (principal); J96.11 Chronic respiratory failure with hypoxia; M70.22 Olecranon bursitis, left elbow; E87.6 Hypokalemia; F17.210 Nicotine dependence, cigarettes, uncomplicated; Z79.51 Long term (current) use of inhaled steroids; Z79.01 Long term (current) use of anticoagulants; Z79.2 Long term (current) use of antibiotics; R60.0 Localized edema; M48.50XD Collapsed vertebra, not elsewhere classified, site unspecified, subsequent encounter for fracture with routine healing; Z86.718 Personal history of other venous thrombosis and embolism; E66.9 Obesity, unspecified; Z68.34 Body mass index [BMI] 34.0-34.9, adult
CPT/HCPCS: 36415; 71045; 73080; 80048; 80053; 83036; 83605; 83735; 83880; 84145; 84484; 85025; 85610; 87040; 87070; 87077; 87086; 87088; 87186; 87205; 87633; 87635; 93005; 94640; 97802; 99251; 99285; 99406; A4216; G0463; U0003; U0005

== ENCOUNTER 2022-09-28 09:56 | Day surgery (SDC) | payer MEDICARE, SELFPAY ==
[2022-09-28] VITALS (7 sets, daily range): BP systolic 125–150; BP diastolic 82–107; PULSE 83–97; RESP 16–18; TEMP 36.2–36.6; O2SAT 96–98; BMI 29.2
--- NOTE | 2022-09-28 | GASB_PTH ---
PATIENT: OXANA CHIANG LOC: [facility] U#:[id number] AGE/SX: 67/F ROOM: RE09/28/[address]: Dr. Mayank Mcfarlane DO : 1955 BED: DIS: 09/28/2022 SPEC #: [id number] RECD: 09/28/22 13:49 STATUS: HILDA MARY #: [id number] ZORAN: 09/28/22 00:[address]: Mayank Mcfarlane DEPT: SURGICAL PATHOLOGY RECD BY: Jong Garcia ENTERED: 09/28/22 13:49 SP TYPE: Gastric Bx OT DR: Dr. Casey Francois MD Tissues: A - Gastric mucous membrane B - Gastric mucous membrane C - Esophageal mucous membrane Procedures: Special Stain Group II Surgery Specimen Level IV Alcian Blue/PAS (control) HEADER OPERATION: EGD ([facility]) PRE-OP DIAGNOSIS: Abdominal pain TISSUE SUBMITTED: A ? Gastric antrum biopsy, B ? Gastric body biopsy, C ? Distal esophagus biopsy MICROSCOPIC DIAGNOSIS A. Gastric antrum, biopsy: Moderate chronic active gastritis. Focal intestinal metaplasia (goblet cell metaplasia). See comment. B. Gastric body, biopsy: Moderate chronic active gastritis. Focal intestinal metaplasia (goblet cell metaplasia). See comment. C. 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 Moderate chronic inflammation. Negative for dysplasia. See comment. SJ:walker 09/29/2022 COMMENT A. The results of immunohistochemistry for Helicobacter pylori will be reported separately ([id number]). Alcian blue/PAS stain with matched control is used in the evaluation of the specimen. B. Alcian blue/PAS stain with matched control is used in the evaluation of the specimen. C. Immunohistochemistry ([id number]) for P53 and Ki-67 will be performed and results will be reported separately. Alcian blue/PAS stain with matched control is used in the evaluation of the specimen. MICROSCOPIC DESCRIPTION Slides are reviewed. GROSS DESCRIPTION A - Received in fixative is one container labeled with the patient's name and designated gastric antrum biopsy. The specimen consists of two irregular fragments of light mariee soft tissue that in aggregate measure 1 x 0.3 x 0.1 cm. The specimen is totally submitted in one cassette. B - Received in fixative is one container labeled with the patient's name and designated gastric body biopsy. The specimen consists of multiple irregular fragments of light mariee soft tissue that in aggregate measure 1.5 x 0.5 x 0.1 cm. The specimen is totally submitted in one cassette. C - Received in fixative is one container labeled with the patient's name and designated distal esophagus biopsy. The specimen consists of multiple irregular fragments of light mariee soft tissue that in aggregate measure 0.9 x 0.3 x 0.1 cm. The specimen is totally submitted in one cassette. / SJ:rg 09/28/2022 TC:3 CPT: 13870 x3, 36245 x3
--- NOTE | 2022-09-28 10:12 | PCM.HP.BLA ---
History and Physical Date of Admission: 09/28/22 7 F who presents to the office today for Initial consult. Valeria established with this clinic 06.01.22.? PMH COPD Stage 3, bronchiectasis requiring hospitalization; pulmonary nodule.? PSH hernia repair? ? CT abd/pel 7. abd bloating/pain noting diverticulosis; adrenal adenomax2.? ? CT abd/pel 4.. at [facility] for abdominal distention noting normal liver; small sliding hiatal hernia; cecum in right midabdomen; diverticulosis; mild amount of stool; adrenal adenomas, stable.? ? Patient complains of centralized epigastric pain that she rates as a 10/10 today, abdominal bloating throughout the abdomen, and frequent gas. Onset 1 year ago. Patient states that the bloating is daily but the pain is intermittent. Patient states that the pain and bloating is worsened with sitting and eating and is relieved by lying down. Patient states that her stools varies between loose stools and constipation. Patient states that constipation is quickly relieved with prune juice and oatmeal. Patient has a history of a hernia surgery. Denies any previous history of GI discomfort. Denies any family history of GI disease/cancer. Patient states that she quit smoking again 9 days ago. Patient states her diet consists of mostly soft foods. Patient has been taking Omeprazole but this has given no relief to abdominal pain. ? ROS Const Constitutional: Positive for fatigue, weakness and weight change (weight gain); No fever(s), frequent falls or headache(s) ENT ENT: No headache(s) or difficulty swallowing Cardio Cardiology: Positive for leg pain with exertion Gastro GI: Positive for abdominal pain, bloating, change in bowel habits, constipation, diarrhea, excessive flatus and Blood in stool; No heartburn, difficulty swallowing, Vomiting blood/hematemesis, nausea/dyspepsia or vomiting Musc Musculoskeletal: Positive for abnormal gait, joint pain, back pain, joint swelling, muscle cramps, muscle weakness, numbness, stiffness, tingling, Arthritis, sciatica, restless legs and leg pain with exertion; No leg pain at night Skin Skin: Positive for dry skin; No lesions, itchy eyes or rash Neuro Neurology: Positive for abnormal gait, weakness, numbness, tingling and restless legs; No dizziness, frequent falls, headache(s), tremor(s), Increased tone in limbs, paralysis or seizures Psych Psychiatric: Positive for anxiety, Positive for depression, No paranoia, No Behavioral Problems, No Compulsive Behavior, No hyperactivity, No inattentiveness, No obsessions/compulsions, Positive for Temper Tantrums and No suicidal ideation Endo Endocrine: Positive for fatigue and weight change (weight gain) Aller/Imm Allergy/Immunologic: No itchy eyes Carlos/Lymp Hematologic/Lymphatic: Positive for easy bruising; No easy bleeding Exam Const General: cooperative and comfortable Nutritional Appearance: average body habitus and well nourished [facility] Head: normal to inspection Ears: hearing grossly normal bilaterally Nose: external nose normal Face and sinus: normal facial exam Mouth: oral mucosae normal Throat: posterior oropharynx normal Eyes General: appearance normal, both eyes and all related structures Neck Neck: normal visual inspection Chest Chest palpation & inspection: normal inspection of the chest and normal palpation of entire chest wall Resp Effort & Inspection: normal respiratory effort Auscultation: Bilateral: Clear to Auscultation Cardio Palpation: normal PMI Rate: regular rate Rhythm: regular rhythm GI Inspection: normal to inspection Auscultation: normal bowel sounds Percussion: normal to percussion Palpation: no hepatosplenomegaly Skin General: no rashes or lesions noted Neuro General: patient alert Extrem General: normal to inspection Psych Affect: normal affect Quality Reporting Tobacco Screening ([facility] 138) Smoking Status: Former smoker Assessment and Plan Assessment and Plan (1) Abdominal pain: ?Status:?Acute ?Plan: The differential diagnosis for abdominal pain and bloating gastroparesis is secondary to diabetes and medication.? The medication does cause her to have gastroparesis would be morphine that she takes for her chronic back pain.? Also her bloating could be secondary to smoking cigarettes as it is as a cause of bloating in the gastrointestinal tract due to inhalation of smoke.? Peptic ulcer disease is also on the differential diagnosis, along with small bacterial overgrowth and chronic idiopathic constipation.? We will get biochemical work-up including TSH, free T4, LDH, CMP, CBC, ESR, CRP.? We will also get an MRCP to evaluate her pancreas as there may be a couple calcifications around the pancreatic head that I saw on her CT scan.? These calcifications also could possibly be secondary to arthrosclerotic movements from nicotine addiction. ?Her she will undergo urgent EGD to evaluate her upper GI tract for peptic ulcer disease, duodenitis or gastritis.? She will also get a gastric emptying study to evaluate for gastroparesis.? She was explained alternatives, risk, benefits include not withstanding bleeding, infection, sepsis, perforation, need for urgent.? She 3. ? ? ? Orders: Orders CRP Today J96.21 - Acute and chronic respiratory failure with hypoxia, Z87.891 - Personal history of nicotine dependence ? LDH Today J96.21 - Acute and chronic respiratory failure with hypoxia, Z87.891 - Personal history of nicotine dependence ? Thyroid Stim Hormone (TSH) Today E03.9 - Hypothyroidism, unspecified, J96.21 - Acute and chronic respiratory failure with hypoxia, Z87.891 - Personal history of nicotine dependence ? Erythrocyte Sed Rate Today J96.21 - Acute and chronic respiratory failure with hypoxia, Z87.891 - Personal history of nicotine dependence ? ZBIGNIEW Comprehensive Panel Today J96.21 - Acute and chronic respiratory failure with hypoxia, Z87.891 - Personal history of nicotine dependence ? MRCP Abdomen without Contrast Today J96.21 - Acute and chronic respiratory failure with hypoxia, K85.90 - Acute pancreatitis without necrosis or infection, unspecified, Z87.891 - Personal history of nicotine dependence ? Gastric Emptying Study Today J96.21 - Acute and chronic respiratory failure with hypoxia, K31.84 - Gastroparesis, Z87.891 - Personal history of nicotine dependence ? ANCA Today J96.21 - Acute and chronic respiratory failure with hypoxia, Z87.891 - Personal history of nicotine dependence ? Celiac Disease Profile Today J96.21 - Acute and chronic respiratory failure with hypoxia, Z87.891 - Personal history of nicotine dependence ? Immunoglobulin E Today J96.21 - Acute and chronic respiratory failure with hypoxia, Z87.891 - Personal history of nicotine dependence ? SIVA + Protein Elect, Serum Today J96.21 - Acute and chronic respiratory failure with hypoxia, Z87.891 - Personal history of nicotine dependence ? I have examined the patient and the H&P has been reviewed. There are no clinical changes since date of exam.
[2022-09-28] MEDS: Lactated Ringers 1,000 ML 15 ML IV (10:36)
--- NOTE | 2022-09-28 11:15 | IMM_PTH ---
PATIENT: OXANA CHIANG LOC: [facility] U#:[id number] AGE/SX: 67/F ROOM: RE09/28/[address]: Dr. Mayank Mcfarlane DO : 1955 BED: DIS: 09/28/2022 SPEC #: [id number] RECD: 09/28/22 14:57 STATUS: HILDA RERyan #: [id number] ZORAN: 09/28/22 11:[address]: Mayank Mcfarlane DEPT: IMMUNOHISTOCHEMISTRY RECD BY: Alize Omalley ENTERED: 09/28/22 14:57 SP TYPE: IMMUNO OTHR DR: Dr. Casey Francois MD Tissues: A - Stomach, NOS C - Esophagus, NOS Procedures: H Pylori (initial) P53 (initial) KI-67 (add) PHYSICIAN & INSTITUTION [place] [id number] SPECIMEN INFORMATION: Tissue Source: A ? Gastric antrum biopsy, C ? Distal esophagus biopsy Clinical Info: Abdominal pain Specimen Number: [id number] A & C CPT code: 52830 x2, 24234 METHODOLOGY: Deparaffinized sections of prefer/formalin-fixed tissue or PAP/DQ stained slides are incubated with monoclonal/polyclonal antibodies/oligonucleotide probes. Localization is made via biotin free immunoperoxidase method. Appropriate controls are performed and reacted as expected. Results on target cell population are indicated in the following table: RESULTS: ANTIBODY / CLONE RESULT Block A H Pylori (polyclonal) positive Block C P53 (DO-7) negative Ki-67 (30-9) positive, low These tests were developed and their performance characteristics determined by [facility]. They may not have been cleared or approved by the U.S. Food and Drug Administration. The FDA has determined that such clearance or approval is not necessary. The above immunohistochemical/dualISH markers are ordered and reviewed by the Pathologist. INTERPRETATION: A. Gastric antrum, biopsy: Positive for numerous H. pylori organisms. C. Distal esophagus, biopsy: Negative for dysplasia. SJ:walker 09/30/2022 Case has been reviewed in consultation with Dr. Romo who concurs with the above diagnosis. IDC:[id number]
--- NOTE | 2022-09-28 11:21 | OP.CCLET_ITS ---
09/28/2022 Casey Francois MD [address] [id number] Re : Upper GI endoscopy procedure for Valeria Moreira Dear Dr. Francois This procedure was performed on Wednesday, September 28, 2022. My impressions and recommendations are as follows: Impressions : - Z-line irregular, 37 cm from the incisors. Biopsied. - Small hiatal hernia. - Acute gastritis. Biopsied. - Normal first portion of the duodenum. Recommendations : - Await pathology results. - Repeat upper endoscopy in 1 year for surveillance based on pathology results. - Return to GI clinic. - HIDA scan to look for and quantify bile duodenal gastric reflux. - Stool test for exocrine pancreatic insufficiency - Continue present medications. My findings are described in the full procedure note, which is enclosed. If I can be of further assistance, please feel free to contact me at . Sincerely, Mayank Friend, DO 09/28/2022 11:20:30 AM This report has been signed electronically.
--- NOTE | 2022-09-28 11:21 | OP.EGD_ITS ---
Patient Name: Valeria Moreira Procedure Date: 09/28/2022 10:55 AM Date of : 1955 Age: 67 Procedure: Upper GI endoscopy Indications: Epigastric abdominal pain Providers: Mayank Mcfarlane DO Medicines: Monitored Anesthesia Care Patient Profile: This is a 67 year old female. Refer to note in patient chart for documentation of history and physical. Patient has symptoms of chronic abdominal cramping, chronic abdominal distention and acute epigastric abdominal pain. Complications: No immediate complications. Procedure: Pre-Anesthesia Assessment: - Prior to the procedure, a History and Physical was performed, and patient medications and allergies were reviewed. The risks and benefits of the procedure and the sedation options and risks were discussed with the patient. All questions were answered and informed consent was obtained. Patient identification and proposed procedure were verified by the physician in the pre-procedure area. Mental Status Examination: alert and oriented. Airway Examination: normal oropharyngeal airway and neck mobility. Respiratory Examination: clear to auscultation. CV Examination: normal. Prophylactic Antibiotics: The patient does not require prophylactic antibiotics. Prior Anticoagulants: The patient has taken no previous anticoagulant or antiplatelet agents. After reviewing the risks and benefits, the patient was deemed in satisfactory condition to undergo the procedure. The anesthesia plan was to use monitored anesthesia care (MAC). Immediately prior to administration of medications, the patient was re-assessed for adequacy to receive sedatives. The heart rate, respiratory rate, oxygen saturations, blood pressure, adequacy of pulmonary ventilation, and response to care were monitored throughout the procedure. The physical status of the patient was re-assessed after the procedure. After obtaining informed consent, the endoscope was passed under direct vision. Throughout the procedure, the patient's blood pressure, pulse, and oxygen saturations were monitored continuously. The Endoscope was introduced through the mouth, and advanced to the second part of duodenum. The upper GI endoscopy was accomplished without difficulty. The patient tolerated the procedure well. Scope In: 11:03:42 AM Scope Out: 11:10:07 AM Total Procedure Duration Time 0 hours 6 minutes 25 seconds Findings: The Z-line was irregular and was found 37 cm from the incisors. Biopsies were taken with a cold forceps for histology. Verification of patient identification for the specimen was done. Estimated blood loss was minimal. A small hiatal hernia was present. Patchy mild inflammation characterized by congestion (edema) and erythema was found in the gastric body and in the gastric antrum. Biopsies were taken with a cold forceps for histology. . There was bile induced reflux back into the stomach that was seen on endoscopy. This is likely secondary to motility dysfunction and a wide-open pyloric sphincter. The first portion of the duodenum was normal. Impression: - Z-line irregular, 37 cm from the incisors. Biopsied. - Small hiatal hernia. - Acute gastritis. Biopsied. - Normal first portion of the duodenum. Recommendation: - Await pathology results. - Repeat upper endoscopy in 1 year for surveillance based on pathology results. - Return to GI clinic. - HIDA scan to look for and quantify bile duodenal gastric reflux. - Stool test for exocrine pancreatic insufficiency - Continue present medications. Procedure Code(s): --- Professional --- 22696, Esophagogastroduodenoscopy, flexible, transoral; with biopsy, single or multiple CPT copyright 2017 [employer]. All rights reserved. The codes documented in this report are preliminary and upon shell trim operator review may be revised to meet current compliance requirements. Mayank Mcfarlane DO 09/28/2022 11:20:30 AM This report has been signed electronically. Number of Addenda: 0 Note Initiated On: 09/28/2022 10:55 AM
== END 2022-09-28 11:58 | disposition home or self-care (01) ==
LOC: EN 09:57 → AC 09:59
PROVIDERS: PCP Family Medicine; Referring Provider Family Medicine; Visit Provider Internal Medicine Gastroenterology
PROC: 0DJ08ZZ Inspection of Upper Intestinal Tract, Via Natural or Artificial Opening Endoscopic (ICD-10-PCS; CPT 43235; principal; 2022-09-28 11:10)
DX: K44.9 Diaphragmatic hernia without obstruction or gangrene (principal); J44.9 Chronic obstructive pulmonary disease, unspecified; I82.409 Acute embolism and thrombosis of unspecified deep veins of unspecified lower extremity; J96.21 Acute and chronic respiratory failure with hypoxia; Z87.891 Personal history of nicotine dependence; G89.29 Other chronic pain; M54.9 Dorsalgia, unspecified; B96.81 Helicobacter pylori [H. pylori] as the cause of diseases classified elsewhere; K29.00 Acute gastritis without bleeding; Z79.01 Long term (current) use of anticoagulants; Z79.52 Long term (current) use of systemic steroids; Z79.899 Other long term (current) drug therapy; Z79.51 Long term (current) use of inhaled steroids; M19.90 Unspecified osteoarthritis, unspecified site; R14.0 Abdominal distension (gaseous); K31.84 Gastroparesis
CPT/HCPCS: 43239; 88305; 88313; 88341; 88342; J7120; J2405

== ENCOUNTER → 2022-12-07 | Outpatient (CLI) | payer MEDICARE, SELFPAY ==
[2022-12-10 13:05] LABS: Calprotectin, Stool 18 ug/g (0-120)
== END | disposition home or self-care (01) ==
LOC: LAB 12:16 → LABSPEC 12:17
PROVIDERS: PCP Family Medicine; Referring Provider Internal Medicine Gastroenterology; Visit Provider Internal Medicine Gastroenterology
DX: K58.9 Irritable bowel syndrome, unspecified (principal); A04.8 Other specified bacterial intestinal infections
CPT/HCPCS: 83630; 83993; 87493

== ENCOUNTER → 2022-12-09 | Outpatient (CLI) | payer MEDICARE, SELFPAY | END | disposition home or self-care (01) | LOC: LABSPEC 09:05 | PROVIDERS: PCP Family Medicine; Referring Provider Internal Medicine Gastroenterology; Visit Provider Internal Medicine Gastroenterology | DX: A04.8 Other specified bacterial intestinal infections (principal) | CPT/HCPCS: 82653; 87177; 87209; 87329; 87338 ==